=== PATIENT | female | born 1965 | race Caucasian/White ===

== ENCOUNTER 2018-05-26 12:38 | Observation (INO) ==
[2018-05-26] MEDS ORDERED: Aspirin 81 MG TAB.CHEW PO ONE (15:03)
[2018-05-26] MEDS ORDERED: Nitroglycerin 0.4 MG TAB.SUBL SL ONE (15:03)
[2018-05-26 15:46] LABS: Basophils % 0.9 %; Eosinophils # 0.1 K/mcL (0.0-0.6); Eosinophils % 2.3 %; Hematocrit 37.5 % (35.3-44.9); Hemoglobin 11.9 g/dL (11.5-15.4); Immature Granulocytes % 0.2 % (0-4); Lymphocytes # 1.5 K/mcL (0.6-4.6); Lymphocytes % 33.1 %; Mean Corpuscular HGB Conc 31.7 g/dL (31.6-35.5); Mean Corpuscular Hemoglobin 30.5 pg (28.0-33.3); Mean Corpuscular Volume 96.2 fL (83.0-100.0); Mean Platelet Volume 10.3 fL (9.4-12.4); Monocytes # 0.5 K/mcL (0.0-1.3); Monocytes % 11.2 %; Neutrophils # 2.3 K/mcL (1.6-8.9); Platelet Count 212 K/mcL (140-400); Red Cell Distribution Width 13.2 % (11.5-14.5); Segmented Neutrophils % 52.3 %
[2018-05-26 15:55] LABS: Prothrombin Time 11.2 Seconds (9.4-12.1)
[2018-05-26 15:58] LABS: Activated Partial Thrombo Time 30.6 Seconds (26.0-36.0)
[2018-05-26] MEDS ORDERED: Ibuprofen 600 MG TABLET PO ONE (16:00)
[2018-05-26 16:06] LABS: Troponin I < 0.03 ng/mL (< 0.04)
[2018-05-26 16:15] LABS: Alanine Aminotransferase 12 Units/L (7-52); Albumin 4.2 g/dL (3.5-5.7); Albumin/Globulin Ratio 1.8 (1.1-2.2); Alkaline Phosphatase 71 Units/L (34-104); Aspartate Amino Transferase 17 Units/L (13-39); BUN/Creatinine Ratio 13 (6-26); Bilirubin,Indirect 0.3 mg/dL (0.0-1.2); Bilirubin,Total 0.3 mg/dL (0.3-1.0); Blood Urea Nitrogen 11 mg/dL (6-20); Calcium 9.9 mg/dL (8.6-10.3); Carbon Dioxide 27 mEq/L (23-29); Chloride 103 mEq/L (98-107); Globulin 2.4 g/dL (2.4-3.5); Glucose 102 mg/dL (70-105); Lipase 7 Units/L (11-82); Osmolality,Calculated 288 (280-300); Potassium 4.4 mEq/L (3.5-5.1); Sodium 139 mEq/L (136-145); Total Protein 6.6 g/dL (6.4-8.9); eGFR For Non-African Americans > 60 (> 60)
--- NOTE | 2018-05-26 16:37 | Emergency Department Note ---
Disposition Clinical Impression: Atypical chest pain Intractable headache Qualifiers: Headache type: unspecified Headache chronicity pattern: acute headache Qualified Code(s): R51 - Headache Disposition: Admitted As Inpatient Condition: Good Referrals: Preeti Henley [Primary Care Provider] - Forms: ED Satisfaction Letter Time of Disposition: 21:13 General Adult HPI - General Chief complaint: ED Chest Pain Stated complaint: CP / Facial N/T Time Seen by Provider: 05/26/18 13:01 Source: patient Mode of arrival: ambulatory Limitations: no limitations Nursing Notes Reviewed: Yes Vital Signs Reviewed: Yes - History of Present Illness HPI Narrative: 52 year old female with pmh significant for HTN, anxiety and migraines who presents to the ED with 2 day hx of substernal stabbing chest pain, without radiation along with nausea, numbness/paresthesia of bilateral face and L arm which began yst. Pain is intermittent and will lasts for few minutes and resolves spontaneously. She is still having chest pain now. She denies diplopia , blurry vision, diaphoresis, pleuritic chest pain, vomiting, abdominal pain, presyncope, or syncope. She complains of diffuse headache for 5 days without resolution. She has had 3 weeks of diarrhea and was seen here Friday. Pt Subjective Complaint: chest pain Onset (ago): day(s) Location: chest Radiation: non-radiation Pain Severity: severe Pain Scale: 8 Quality: stabbing Consistency: intermittent Improves with: nothing Worsens with: movement Associated symptoms: Reports: headaches, other (nausea) Treatments Prior to Arrival: none - Related Data Home Medications Medication Instructions Recorded Confirmed Amitriptyline HCl 4 tab PO HS 10/11/15 11/20/15 Duloxetine HCl 60 mg PO BID 10/11/15 11/20/15 Fluticasone Propionate Nasal 2 spray NS DAILY 10/11/15 11/20/15 [Flonase] Lansoprazole [Prevacid] 30 mg PO BIDAC 10/11/15 11/20/15 ARIPiprazole [Abilify] 10 mg PO HS 05/26/18 05/26/18 Buspirone HCl [Buspar] 30 mg PO BID 05/26/18 05/26/18 Gabapentin [Neurontin] 1,200 mg PO TID 05/26/18 05/26/18 Meloxicam [Meloxicam] 15 mg PO DAILY 05/26/18 05/26/18 lamoTRIgine [Lamotrigine] 100 mg PO QAM 05/26/18 05/26/18 lamoTRIgine [Lamotrigine] 200 mg PO HS 05/26/18 05/26/18 Previous Rx's Medication Instructions Recorded Aspirin 325 mg PO DAILY #30 tablet 11/20/15 Ibuprofen [Motrin] 600 mg PO Q8HR PRN #30 tab 12/07/17 HYDROcodone/Acet 5/325 mg [[place] 1 tab PO Q4H PRN 1 Days #6 tab 04/22/18 5-325 mg] Ondansetron ODT [Zofran ODT] 4 mg SL Q6HR PRN #14 tab.rapdis 05/23/18 Phenazopyridine [Pyridium] 100 mg PO TID PRN #9 tablet 05/23/18 Allergies Allergy/AdvReac Type Severity Reaction Status Date / Time Penicillins Allergy Unknown See Verified 10/11/15 08:16 Comments pregabalin [From Lyrica] Allergy Unknown Swelling Verified 10/11/15 08:16 of the Eye ketorolac AdvReac Unknown Nausea Verified 10/11/15 08:16 olanzapine [From Zyprexa] AdvReac Unknown See Verified 10/11/15 08:16 Comments tramadol AdvReac Unknown Seizure Verified 10/11/15 08:16 All systems ED: reviewed and negative except as stated. Constitutional: Denies: fever, chills, weakness Eyes: Denies: vision change Cardiovascular: Reports: chest pain. Denies: palpitations, dyspnea on exertion , orthopnea, edema, syncope Respiratory: Denies: dyspnea Gastrointestinal: Reports: nausea, diarrhea. Denies: abdominal pain, vomiting Genitourinary: Denies: dysuria, frequency, hematuria Musculoskeletal: Reports: back pain. Denies: neck pain Neurological: Reports: headache, numbness, paresthesias. Denies: weakness, vertigo Psychiatric: Reports: anxiety, depression Past Medical History - Past Medical History Medical history: Reports: arthritis, hypertension, migraine Surgical history: Reports: angioplasty/stent, cholecystectomy, hysterectomy, knee replacement Psychiatric history: Reports: anxiety, bipolar, depression [employer] history: Reports: no [employer] history - Social History Smoking Status: Former smoker Smokeless Tobacco Status: No Alcohol use: Reports: none Drug use: Reports: none Physical Exam - General Limitations: no limitations General appearance: alert, in no apparent distress - Head Head exam: atraumatic, normocephalic, normal inspection - Eye Eye exam: Present: PERRL, EOMI, other (L pupil 3mm, R pupil 4mm) - ENT ENT exam: mucous membranes moist - Neck Neck exam: Present: normal inspection, trachea midline - Chest Chest inspection: Present: normal inspection, symmetric chest wall rise - Respiratory Respiratory exam: Present: normal lung sounds bilaterally - Cardiovascular Cardiovascular exam: Present: normal rhythm, tachycardia, normal heart sounds, + S1, +S2 - Extremities Exam Extremities exam: Present: normal capillary refill. Absent: pedal edema - Back Exam Back exam: Absent: CVA tenderness (R), CVA tenderness (L) - Neurological Exam Neurological exam: Present: alert. Absent: motor sensory deficit - Psychiatric Psychiatric exam: Present: normal affect - Skin Skin exam: Present: warm, dry, intact, normal color Course Course Narrative: 2 day hx substernal non radiating stabbing chest pain with bilateral face and LUE numbness/paresthesia along with headache for 5 days. No change with nitro. PERC 2, HEART score 3. Will treat her headache now along with d dimer with tachycardia. migranous phenomena vs anxiety > ECG 1256: nsr, hr 96, pr 150, qt 375, RBBB, normal p axis, no acute st elevations/depressions/t wave inversions. RBBB on previous ECG from 04/22/18. 1700: CXR no acute abnormalities. 1755: No change in HAYNES, chest pain but nausea improved after receiving tylenol, ibuprofen, metoclopramide, and benadryl. D-dimer 1020 in setting of recent L LE fracture 3-4 weeks ago. Will CTA chest for PE evaluation. 1945: No change in HAYNES or chest pain. CTA chest 1. Even though the patient was injected and scanned twice, the pulmonary arteries are suboptimally opacified for diagnostic evaluation. No evidence of central pulmonary embolism or right heart strain. 2. No acute pulmonary abnormality. 1999: Will admit to hospitalist service for continued workup given no change in symptoms since arrival and normal labs and imaging in ED. 2004: Spoke to hospitalist who requested CT head due to continued HAYNES and inability to fully visualize CTA study beyond central and can not rule out peripheral PE as plan to anticoagulate her tonight if CT head without hemorrhage. With contrast used in previous CTA today a bleed will not be able to fully be ruled out on the head CT. 2052: CT head, No acute intracranial abnormality. Evaluation for intracranial hemorrhage is compromised by recent contrast administration. If there is continued clinical concern, suggest repeat study in 12 hours. Spoke to hospitalist who accepted admission. Serial neuro exams have been normal during her time in ED. No concerns of primary neurological pathology during workup today. Hospitalist service will repeat CT head at 12 hours as recommended by radiology. Vital Signs Temperature 97.6 F 05/26/18 12:41 Pulse Rate 106 05/26/18 12:41 Respiratory Rate 22 05/26/18 12:41 Blood Pressure 147/90 05/26/18 12:41 O2 Sat by Pulse Oximetry 97 05/26/18 12:41 Temperature 97.6 F 05/26/18 12:41 Pulse Rate 88 05/26/18 20:58 Respiratory Rate 14 05/26/18 20:58 Blood Pressure 137/68 05/26/18 20:58 O2 Sat by Pulse Oximetry 97 05/26/18 20:58 Oxygen Delivery Oxygen Delivery Room Air Medical Decision Making - Lab Data Result diagrams: 05/26/18 15:31 05/26/18 15:31 Lab Results 05/26/18 05/26/18 05/26/18 Range/Units 15:31 15:31 15:31 WBC 4.4 (4.3-11.1) K/mcL RBC 3.90 (3.82-4.97) M/mcL Hgb 11.9 (11.5-15.4) g/dL Hct 37.5 (35.3-44.9) % MCV 96.2 (83.0-100.0) fL MCH 30.5 (28.0-33.3) pg MCHC 31.7 (31.6-35.5) g/dL RDW 13.2 (11.5-14.5) % Plt Count 212 (140-400) K/mcL MPV 10.3 (9.4-12.4) fL Immature Gran % 0.2 (0-4) % Seg Neutrophils % 52.3 % Lymphocytes % 33.1 % Monocytes % 11.2 % Eosinophils % 2.3 % Basophils % 0.9 % Neutrophils # 2.3 (1.6-8.9) K/mcL Lymphocytes # 1.5 (0.6-4.6) K/mcL Monocytes # 0.5 (0.0-1.3) K/mcL Eosinophils # 0.1 (0.0-0.6) K/mcL Basophils # 0.0 (0.0-0.2) K/mcL PT 11.2 (9.4-12.1) Seconds INR 1.0 APTT 30.6 (26.0-36.0) Seconds D-Dimer 1020 H (0-500) ng/mLFEU Sodium (136-145) mEq/L Potassium (3.5-5.1) mEq/L Chloride (98-107) mEq/L Carbon Dioxide (23-29) mEq/L BUN (6-20) mg/dL Creatinine (0.60-1.20) mg/dL Est GFR ( Amer) (> 60) Est GFR (Non-Af Amer) (> 60) BUN/Creatinine Ratio (6-26) Glucose (70-105) mg/dL Calculated Osmolality (280-300) Calcium (8.6-10.3) mg/dL Total Bilirubin (0.3-1.0) mg/dL Direct Bilirubin (0.0-0.2) mg/dL Indirect Bilirubin (0.0-1.2) mg/dL AST (13-39) Units/L ALT (7-52) Units/L Alkaline Phosphatase (34-104) Units/L Troponin I (< 0.04) ng/mL B-Natriuretic Peptide 17 (Less than 100) pg/mL Serum Total Protein (6.4-8.9) g/dL Albumin (3.5-5.7) g/dL Globulin (2.4-3.5) g/dL Albumin/Globulin Ratio (1.1-2.2) Lipase (11-82) Units/L /16/ Range/Units 15:31 WBC (4.3-11.1) K/mcL RBC (3.82-4.97) M/mcL Hgb (11.5-15.4) g/dL Hct (35.3-44.9) % MCV (83.0-100.0) fL MCH (28.0-33.3) pg MCHC (31.6-35.5) g/dL RDW (11.5-14.5) % Plt Count (140-400) K/mcL MPV (9.4-12.4) fL Immature Gran % (0-4) % Seg Neutrophils % % Lymphocytes % % Monocytes % % Eosinophils % % Basophils % % Neutrophils # (1.6-8.9) K/mcL Lymphocytes # (0.6-4.6) K/mcL Monocytes # (0.0-1.3) K/mcL Eosinophils # (0.0-0.6) K/mcL Basophils # (0.0-0.2) K/mcL PT (9.4-12.1) Seconds INR APTT (26.0-36.0) Seconds D-Dimer (0-500) ng/mLFEU Sodium 139 (136-145) mEq/L Potassium 4.4 (3.5-5.1) mEq/L Chloride 103 (98-107) mEq/L Carbon Dioxide 27 (23-29) mEq/L BUN 11 (6-20) mg/dL Creatinine 0.85 (0.60-1.20) mg/dL Est GFR ( Amer) > 60 (> 60) Est GFR (Non-Af Amer) > 60 (> 60) BUN/Creatinine Ratio 13 (6-26) Glucose 102 (70-105) mg/dL Calculated Osmolality 288 (280-300) Calcium 9.9 (8.6-10.3) mg/dL Total Bilirubin 0.3 (0.3-1.0) mg/dL Direct Bilirubin 0.0 (0.0-0.2) mg/dL Indirect Bilirubin 0.3 (0.0-1.2) mg/dL AST 17 (13-39) Units/L ALT 12 (7-52) Units/L Alkaline Phosphatase 71 (34-104) Units/L Troponin I < 0.03 (< 0.04) ng/mL B-Natriuretic Peptide (Less than 100) pg/mL Serum Total Protein 6.6 (6.4-8.9) g/dL Albumin 4.2 (3.5-5.7) g/dL Globulin 2.4 (2.4-3.5) g/dL Albumin/Globulin Ratio 1.8 (1.1-2.2) Lipase 7 L (11-82) Units/L Attestation Statement - Attestation Attestation: I examined this patient and my medical decision-making was reviewed with the Resident Physician, Dr. Art. I agree with the documented findings, disposition and treatment plan as described except to the extent set forth below. Patient is 52-year-old white female who presents the emergency permit today with multiple complaints but primarily of which is substernal chest pain. Patient's been experiencing this intermittently for a few days and episodes last for seconds and then spontaneously resolved. They are not exertionally related. Patient feels a squeezing in her left chest that radiates in the left arm and she feels numbness in her left hand. This is not associated with any other symptoms. Patient was seen and evaluated in the emergency room on Friday for diarrhea and discharged home. She states since that time she has had of mild generalized headache, similar to migraines as these are gradual in onset throbbing in nature but not as severe. Patient states that these have been intermittent in severity as well possibly due to related fluid loss. Patient's had no vomiting, no nausea with this no fevers or chills, no neck pain or stiffness no upper respiratory symptoms or sinus pain or pressure. No focal neurologic deficits numbness weakness dizziness no history of falls or trauma. I agree with patient's physical exam findings as documented. Patient's tachycardic on arrival but blood pressure stable and she is afebrile. Patient's EKG shows a sinus tachycardia without acute ischemia. Patient had full lab evaluation including troponin and d-dimer she is low risk for both cardiovascular disease and PE. Patient with elevated d-dimer in the setting of tachycardia and chest pain we decided to pursue a CTA of the chest which was suboptimal after 2 doses of contrast but no central pulmonary emboli are visualized. Patient has been hemodynamically stable and upon return from CT is no longer tachycardic and blood pressure has remained stable. Patient received migraine medication for the headache with some improvement. Plan was to admit the patient for further cardiac evaluation and ongoing treatment for her headache. Discussed with hospitalist who requested CT of the head prior to admission which was unremarkable. Intracranial bleeding cannot be fully ruled out due to the contrast that was used in her chest CT although she has had no neurologic changes no worsening symptoms while here actual improvement in her symptoms and currently is complaining primarily of some muscular skeletal back pain. Hospitalist agreed to accept the patient we will repeat the CT in 12 hours this was discussed with the patient as well patient remains hemodynamically stable at this time.
[2018-05-26] MEDS ORDERED: Metoclopramide 10 MG/2 ML VIAL IVP ONE (16:52)
[2018-05-26] MEDS ORDERED: Isovue-370 500 ML INFUS..BTL IV ONE (18:03)
[2018-05-26] MEDS ORDERED: *HR* HYDROmorphone (PF) 1 MG/ML SYRINGE IVP ONE (19:39)
[2018-05-26] MEDS ORDERED: Ondansetron 4 MG/2 ML VIAL IVP ONE (19:39)
[2018-05-26] MEDS ORDERED: Naloxone 0.4 MG/ML INJ IVP PRN (23:02)
[2018-05-26] MEDS ORDERED: Acetaminophen/Butalbital/CaffeineTABLET PO PRN (23:42)
--- NOTE | 2018-05-26 23:55 | Internal Med History&Physical ---
<Romeo Thompson - Last Filed: 05/27/18 04:14> Date of Encounter: 05/27/18 Time of Encounter: 11:30 Internal Medicine - H&P: HPI Chief complaint: Chest pain Admitted From: Emergency Dept Plans for Post Hospital Care: Home History of present illness: Ms. Melara is a 52 year old female with history of hypertension, anxiety, migraines, ME status post PCI, DVT, psoriatic arthritis who presents to the ED with 2 day history of substernal chest pain. The patient states that for the past 48 hours she has been experiencing constant 8 out of 10 chest pain which is left-sided and stabbing in nature. The pain initially was located in one position but as of today started radiating towards her left face and towards her back and between her shoulder blades. She said the pain has been constant, and has been associated also some diaphoresis. She denies shortness of breath and palpitations associated with this. She says the only times several had pain like this before was when she had an ME and required PCI with stents. Nothing seems to relieve the pain, although she has tried Motrin which has not been helpful. Exertion and movement does typically make the pain worse. The pain is not pleuritic in nature. In addition of this chest pain, the patient does have a headache which is been going on for approximately 5 days now. The pain is 9 out of 10 in intensity, and is worsened by light. It is frontal in location, and bilateral. It is associated with mild blurred vision in the left eye or floaters that she describes them. She feels that this is different from her typical migraines. She has also tried ibuprofen for this, however has not found it to be particularly effective. Significantly, the patient does state that she has a history of ME in the past with Stents. Additionally, she has a history of DVT when she injured her leg in the past, and she had a recent injury to her left knee which has required immobilization. She feels that her left leg has been more swollen than previously, however there is no pain in the leg. In the ED, the patient had a CXR which was negative for intrathoracic process, however D-Dimer was elevated. CTA of the chest was inconclusive for peripheral PE due to poor study quality, however suggested no evidence of central venous thrombosis or right heart strain. Due to concern for PE, and given the history of headache the patient received a Head CT which was seemingly negative for bleed however it could not be conclusively ruled out due to IV contrast from CTA earlier. The patient had an EKG which was essentially similar to previous studies, and troponin is negative. Past Med Surg Social Fam HX - Past Medical History Medical history: arthritis, migraine Additional medical history: LEUKEMIA Psychiatric history: anxiety, bipolar, depression - Past Surgical History Surgical History: angioplasty/stent, cholecystectomy, hysterectomy, knee replacement Additional surgical history: bilateral knee replacement - Social History Smoking Status: Former smoker Smokeless Tobacco Status: No Alcohol use: none Drug use: none - Family History Father Living Status: Still Living Hx Family Cardiac Disorders: Yes Mother Living Status: Still Living Hx Family Cardiac Disorders: Yes Internal Medicine - H&P: Meds Lansoprazole [Prevacid] 30 mg PO BIDAC 10/11/15 [History] Ondansetron ODT [Zofran ODT] 4 mg SL Q6HR PRN #14 tab.rapdis 05/23/18 [Rx] ARIPiprazole [Abilify] 10 mg PO HS 05/26/18 [History] Buspirone HCl [Buspar] 30 mg PO BID 05/26/18 [History] Duloxetine HCl [Cymbalta] 60 mg PO BID 05/26/18 [History] Meloxicam [Meloxicam] 15 mg PO DAILY 05/26/18 [History] Multivitamin [One Daily Multivitamin] 1 tab PO DAILY 05/26/18 [History] Sulfamethoxazole/Trimeth DS [Bactrim DS] 1 each PO DAILY 05/26/18 [History] lamoTRIgine [Lamotrigine] 100 mg PO QAM 05/26/18 [History] lamoTRIgine [Lamotrigine] 200 mg PO HS 05/26/18 [History] 3 Allergy/AdvReac Type Severity Reaction Status Date / Time Penicillins Allergy Unknown See Verified 05/26/18 22:14 Comments pregabalin [From Lyrica] Allergy Unknown Swelling Verified 05/26/18 22:14 of the Eye ketorolac AdvReac Unknown Nausea Verified 05/26/18 22:14 olanzapine [From Zyprexa] AdvReac Unknown See Verified 05/26/18 22:14 Comments tramadol AdvReac Unknown Seizure Verified 05/26/18 22:14 All Systems PM: A 10-system review of systems was performed and is negative for pertinent findings except as documented above in the HPI. Review of systems: Constitutional: Denies fevers, chills, weight loss, generalized fatigue Head/Neck: Denies HAYNES, neck stiffness EENT: Denies vision changes/blurriness, rhinorrhea, congestion, sore throat CVS: Denies chest pain, palpitations, REYES, orthopnea, edema, PND Pulm: Denies SOB, cough, sputum, hemoptysis, wheezing GI: Denies abdominal pain, nausea, vomiting, diarrhea, constipation, melena, hematemasis : Denies dysuria, increased frequency, urgency, hematuria Heme: Denies ease of bleeding or bruising MSK: Denies joint pain, limited ROM Skin: Denies rashes, ulcers, color changes Neuro: Denies HAYNES, paresthesias, focal deficits, ataxia - Constitutional Vitals: Temp Pulse Resp BP Pulse Ox 97.6 F 88 14 128/75 97 05/26/18 21:47 05/26/18 21:47 05/26/18 22:47 05/26/18 22:47 05/26/18 21:47 Exam: Gen: Vitals noted. No acute distress. HEENT: Normocephalic, atraumatic Neck: Supple. No adenopathy. Cardiac: RRR, no murmur, +S1/S2 Pulmonary: CTA bilaterally, no wheezes, rales or rhonchi, equal chest expansion Abdomen: soft, nontender, no guarding Back: Nontender throughout. MSK: ROM intact, no joint swelling noted. Left lower extremity in brace. No obvious edema is noted nor is there any obvious calf swelling or pain Extremities: no BLE edema, nontender calf, no cyanosis or clubbing Neuro: moves all extremities, no focal deficits. A&Ox3 Psych: Depressed mood, flat affect. Internal Med - H&P Results - Labs CBC & Chem 7: 05/26/18 15:31 05/26/18 15:31 - Assessment and plan (1) Atypical chest pain Current Visit: Yes Status: Acute Assessment and plan: Atypical chest pain, HEART Score 4 Patient presents with 2 days chest pain, 8 out of 10, radiation to left face, back Troponin negative 2, EKG does not demonstrate acute ischemic changes Patient did have positive d-dimer 1020, tachycardia on arrival CTA of chest suboptimal for diagnostic evaluation, no evidence of central pulmonary embolus and right heart strain Suspicion for cardiac event is not high. Suspicion for PE is minimal, however she does have history of DVT Considered empiric treatment with anticoagulation, however patient has HAYNES with neurological symptoms, head CT did not r/o bleed due to IV Contrast from CTA We will continue to trend troponins, cardiac monitoring Echocardiogram in the morning Repeat head CT at 8am (2) Intractable headache Current Visit: Yes Status: Acute Assessment and plan: Intractable headache, suspect migraine Patient has headache which is primarily frontal and left sided, has lasted days , is associated with n/v, facial parasthesia and has visual disturbance Although the patient has history of migraine headache which she says is dissimilar, I suspect this is a typical migraine headache Still, head CT did not rule out intracranial hemorrhage, which I suspect is unlikely. Neuro exam is unremarkable We will repeat head CT in the morning at 8am Fiorocet and perocet for pain Qualifiers: Headache type: unspecified Headache chronicity pattern: acute headache Qualified Code(s): R51 - Headache (3) Nausea Current Visit: Yes Status: Acute Assessment and plan: Intractable nausea Patient has been given Zofran for nausea Will continue to monitor, consider other medication (4) CAD (coronary artery disease) Current Visit: No Status: Chronic Assessment and plan: CAD s/p Stent in 2003 Currently experiencing Chest pain which does not appear anginal EKG is not significant for acute ischemic changes, Trop is negative x2 We will continue to monitor, trend trop Qualifiers: Coronary Disease-Associated Artery/Lesion type: [place] artery [place] vs. transplanted heart: [place] heart Associated angina: angina presence unspecified Qualified Code(s): I25.10 - Atherosclerotic heart disease of [place] coronary artery without angina pectoris (5) DVT prophylaxis Current Visit: No Status: Acute Assessment and plan: SQ Heparin (6) Morbid obesity with BMI of 50.0-59.9, adult Current Visit: Yes Status: Chronic - Time Spent With Patient Total time spent is greater than 50% in coordination of care (as documented) at patient's floor/unit and/or counseling patient: <Elkin Rosas - Last Filed: 05/27/18 06:42> Date of Encounter: 05/27/18 Time of Encounter: 01:00 - Constitutional Constitutional: no chills, no fever(s) - EENT Nose, mouth and throat: sinus pressure, no nasal congestion, no sore throat - Cardiovascular Cardiovascular ROS IM: chest pain, dyspnea, dyspnea on exertion - Respiratory Respiratory: no cough, no chest congestion, no excessive phlegm production, no change in phlegm color - Gastrointestinal Gastrointestinal: no diarrhea, no hematemesis, no hematochezia, no melena, no vomiting - Neurological Neurological ROS: no dizziness, no focal weakness, no frequent falls, no headache(s) - Psychiatric Psychiatric: anxiety - Endocrine Endocrine IM: no polydipsia, no polyphagia, no polyuria - Constitutional Vitals: Temp Pulse Resp BP Pulse Ox 98.1 F 83 16 110/74 99 05/27/18 03:42 05/27/18 03:42 05/27/18 03:42 05/27/18 03:42 05/27/18 03:42 General appearance: Present: A&O X 3, no acute distress - Eye Eye exam: Present: EOMI, PERRL. Absent: scleral icterus Pupils: Present: normal accommodation - ENT ENT exam: Present: mucous membranes dry, normal oropharynx - Neck Neck exam general surgery: Present: supple - Respiratory Respiratory exam: Present: CTAB. Absent: chest wall tenderness, rales, rhonchi , wheezes - Cardiovascular Cardiovascular exam: Present: distant heart sounds, RRR, +S1. Absent: diastolic murmur, systolic murmur - GI/Abdominal GI/Abdominal exam: Present: normal bowel sounds, soft. Absent: mass, tenderness - Extremities Exam Extremities exam: Present: warm, radial pulses palpable and symmetrical - Back Exam Back exam: Absent: CVA tenderness (L), CVA tenderness (R) - Neurological Exam Neurological exam: Present: alert, CN II-XII intact, oriented X3 - Psychiatric Psychiatric exam: Present: flat affect Internal Med - H&P Results - Labs CBC & Chem 7: 05/27/18 05:23 05/27/18 05:23 Labs: Short CBC 05/27/18 Range/Units 05:23 WBC 3.5 L (4.3-11.1) K/mcL Hgb 11.4 L (11.5-15.4) g/dL Hct 34.9 L (35.3-44.9) % Plt Count 204 (140-400) K/mcL Neutrophils # 1.4 L (1.6-8.9) K/mcL BMP 05/27/18 05:23 Sodium 141 Potassium 4.0 Chloride 104 Carbon Dioxide 27 BUN 11 Creatinine 0.83 Glucose 94 Calcium 9.3 Cardiac Enzymes 05/26/18 05/27/18 Range/Units 23:19 05:23 Troponin I < 0.03 < 0.03 (< 0.04) ng/mL - Assessment and plan (1) DVT prophylaxis Current Visit: No Status: Acute (2) CAD (coronary artery disease) Current Visit: No Status: Chronic Qualifiers: Coronary Disease-Associated Artery/Lesion type: [place] artery [place] vs. transplanted heart: [place] heart Associated angina: angina presence unspecified Qualified Code(s): I25.10 - Atherosclerotic heart disease of [place] coronary artery without angina pectoris (3) Nausea Current Visit: Yes Status: Acute (4) Atypical chest pain Current Visit: Yes Status: Acute (5) Intractable headache Current Visit: Yes Status: Acute Qualifiers: Headache type: unspecified Headache chronicity pattern: acute headache Qualified Code(s): R51 - Headache (6) Morbid obesity with BMI of 50.0-59.9, adult Current Visit: Yes Status: Chronic - Time Spent With Patient Total time spent is greater than 50% in coordination of care (as documented) at patient's floor/unit and/or counseling patient: - Attending Attestation I discussed the patient [place], past medical history, review of systems, lab data , imaging findings, and exam findings with Dr. Thompson. I then saw and examined patient independently. I spoke with the ER staff at length about her regarding her headache. I requested that they order CT head to rule out any intracranial process as I was inclined to start empiric anticoagulation. However, CT of the head was not definitively negative for any intracranial process. Recommendation was made to repeat CT scan in 12 hours. Therefore, a CT scan has been ordered for 8:00 this morning to rule out any concern for possible intracranial bleed or process. Meanwhile, I do have a slightly elevated index of suspicion for PE and/or DVT given her history. We will proceed with Doppler studies of the legs and further imaging of the chest if necessary. However, if her CT head is negative and there remains a clinical suspicion, I would recommend empiric treatment for possible PE. At some point thereafter, she will need further cardiac workup of her chest pain. Other than my comments above and noted exam findings, I agree with Dr. Thompson' s assessment and plan.
[2018-05-27] MEDS: Ringers Solution, Lactated 1,000 ML IVC SCH ×3 (03:14→17:51)
[2018-05-27] MEDS: Ondansetron 4 MG/2 ML VIAL IVP PRN ×3 (03:37→20:29)
[2018-05-27 05:36] LABS: Basophils % 0.9 %; Eosinophils # 0.1 K/mcL (0.0-0.6); Eosinophils % 2.6 %; Hematocrit 34.9 % (35.3-44.9); Hemoglobin 11.4 g/dL (11.5-15.4); Immature Granulocytes % 0.3 % (0-4); Lymphocytes # 1.5 K/mcL (0.6-4.6); Lymphocytes % 44.5 %; Mean Corpuscular HGB Conc 32.7 g/dL (31.6-35.5); Mean Corpuscular Hemoglobin 30.9 pg (28.0-33.3); Mean Corpuscular Volume 94.6 fL (83.0-100.0); Mean Platelet Volume 9.9 fL (9.4-12.4); Monocytes # 0.4 K/mcL (0.0-1.3); Monocytes % 10.1 %; Neutrophils # 1.4 K/mcL (1.6-8.9); Platelet Count 204 K/mcL (140-400); Red Blood Count 3.69 M/mcL (3.82-4.97); Red Cell Distribution Width 13.4 % (11.5-14.5); Segmented Neutrophils % 41.6 %
--- NOTE | 2018-05-27 05:42 | Event Note ---
Date of Encounter: 05/27/18 Time of Encounter: 02:35 0235: Was contacted by the patient's nurse about concerned that the patient's pupils may be unequal. Addition of this, the patient was still continuing to have severe nausea and headache, and is haveing parasthesias on the left side of her face that are consistent with the time of admission. I reported to the patient's bedside to reevaluate the patient. At this time she states that she continues to have an 8 out of 10 headache, nausea continues to be severe. I did reexamine the patient neurologically at this time, it appears that she does have very minimally unequal pupils at this time. Neuro exam as below: Gen: Patient appears well. NAD. A&Ox3 HEENT: CN2-12 grossly intact, Pupils round and effectively pinpoint however right pupil appears approximately 0.5-1mm larger in diameter than the left. Speech: Fluent and appropriate pattern. No slurred speech. Muscle Strength: 5/5 B/L in 4 extremities Sensation: Intact to light and deep pressure throughout Reflexes: Intact and 2/4 at brachioradialis and patellar tendon Finger to nose intact b/l. Rapid alternating movement essentially normal Patient appears to be well without real neurological deficit at this time. She has received Fioricet and also opioid painkillers tonight which could play a role in pupillary discrepancy. Additionally, she also has symptoms consistent with migraine headache, which could also be related. The patient is scheduled for repeat head CT at 8am. If problem continues, we will consider an MRI or possibly neuro consult.
[2018-05-27 05:45] LABS: Prothrombin Time 11.8 Seconds (9.4-12.1)
[2018-05-27 05:53] LABS: BUN/Creatinine Ratio 13 (6-26); Blood Urea Nitrogen 11 mg/dL (6-20); Calcium 9.3 mg/dL (8.6-10.3); Carbon Dioxide 27 mEq/L (23-29); Chloride 104 mEq/L (98-107); Chol/HDL Ratio 2.6 (0-4.9); Cholesterol 161 mg/dL (< 200); Glucose 94 mg/dL (70-105); HDL Cholesterol 62 mg/dL (40-59); LDL Cholesterol,Calculated 89 mg/dL (0-99); Magnesium 1.8 mg/dL (1.6-2.6); Osmolality,Calculated 291 (280-300); Sodium 141 mEq/L (136-145); Triglycerides 49 mg/dL (< 150); eGFR For Non-African Americans > 60 (> 60)
[2018-05-27] MEDS: *HR* OxyCODONE/APAP 5/325 TABLET PO PRN ×3 (06:56→18:36)
--- NOTE | 2018-05-27 07:51 | Electrocardiograph Report ---
[facility] [email or web address] Test Date: 2018-05-26 Pat Name: May Melara Department: [id number] Room: 3B38 Gender: F Group Cio: : 1965 Requested By: Carlota Albrecht_Linda Order Number: [id number] Reading MD: All Dunlap Measurements Intervals [place] Rate: 96 P: 41 AR: 150 QRS: 27 QRSD: 149 T: -11 QT: 375 QTc: 474 Interpretive Statements Sinus rhythm Right bundle branch block Electronically Signed On 05-27-2018 7:49:37 EDT by All Dunlap
[2018-05-27] MEDS: lamoTRIgine 100 MG TABLET PO SCH ×2 (10:00→20:00)
--- NOTE | 2018-05-27 11:20 | Internal Med Progress Note ---
Hospitalist Progress Note - Encounter Date of Encounter: 05/27/18 Time of Encounter: 11:20 - Exam Vitals: Temp Pulse Resp BP Pulse Ox 97.6 F 84 16 127/76 100 05/27/18 07:11 05/27/18 07:11 05/27/18 07:11 05/27/18 07:11 05/27/18 07:11 Exam: Gen: Vitals noted. No acute distress. HEENT: Normocephalic, atraumatic Neck: Supple. No adenopathy. Cardiac: RRR, no murmur, +S1/S2 Pulmonary: CTA bilaterally, no wheezes, rales or rhonchi, equal chest expansion Abdomen: soft, nontender, no guarding Back: Nontender throughout. MSK: ROM intact, no joint swelling noted. Left lower extremity in brace. No obvious edema is noted nor is there any obvious calf swelling or pain Extremities: no BLE edema, nontender calf, no cyanosis or clubbing Neuro: moves all extremities, no focal deficits. A&Ox3 Psych: Depressed mood, flat affect. - Assessment and Plan (1) Atypical chest pain Current Visit: Yes Status: Acute Assessment and Plan: Atypical chest pain, HEART Score 4 Patient presents with 2 days chest pain, 8 out of 10, radiation to left face, back Troponin negative 2, EKG does not demonstrate acute ischemic changes Patient did have positive d-dimer 1020, tachycardia on arrival CTA of chest suboptimal for diagnostic evaluation, no evidence of central pulmonary embolus and right heart strain 05/27 Echo came back WNL. Patient continues to complain of chest pain. Will obtain nuclear stress test due to the fact that patient has existing CAD (2) Intractable headache Current Visit: Yes Status: Acute Assessment and Plan: Intractable headache, suspect migraine Patient has headache which is primarily frontal and left sided, has lasted days , is associated with n/v, denies any vision changes but complains of eye "jitteriness" Patient says multiple meds have failed to relieve her pain including fioricet and percoet but was only mildy relieved by dilaudid in the ER Suspect malngering vs true migraine. Will keep on percoet and start on PRN sumatriptan. CT head negative x2. Consider neuro consult if headache does not resolve (3) CAD (coronary artery disease) Current Visit: No Status: Chronic Assessment and Plan: CAD s/p Stent in 2003 Currently experiencing Chest pain which does not appear anginal EKG is not significant for acute ischemic changes, Trop is negative x2 We will continue to monitor, Echo came back WNl (4) Nausea Current Visit: Yes Status: Acute Assessment and Plan: Intractable nausea Patient has been given Zofran for nausea Will continue to monitor, consider other medication (5) Morbid obesity with BMI of 50.0-59.9, adult Current Visit: Yes Status: Chronic Assessment and Plan: Diet and exercise (6) DVT prophylaxis Current Visit: No Status: Acute Assessment and Plan: SQ Heparin - Time Spent with Patient Total time spent is greater than 50% in coordination of care (as documented) at patient's floor/unit and/or counseling patient: Internal Medicine: Result - Labs CBC & Chem 7: 05/27/18 05:23 05/27/18 05:23 Labs: Short CBC 05/27/18 Range/Units 05:23 WBC 3.5 L (4.3-11.1) K/mcL Hgb 11.4 L (11.5-15.4) g/dL Hct 34.9 L (35.3-44.9) % Plt Count 204 (140-400) K/mcL Neutrophils # 1.4 L (1.6-8.9) K/mcL BMP 05/27/18 05:23 Sodium 141 Potassium 4.0 Chloride 104 Carbon Dioxide 27 BUN 11 Creatinine 0.83 Glucose 94 Calcium 9.3 Cardiac Enzymes 05/26/18 05/27/18 Range/Units 23:19 05:23 Troponin I < 0.03 < 0.03 (< 0.04) ng/mL - ABG Interpretation ABG results: PT/INR, D-dimer PT 11.8 Seconds (9.4-12.1) 05/27/18 05:23 D-Dimer 1020 ng/mLFEU (0-500) H 05/26/18 15:31 - Impressions Impressions Echocardiogram 05/27/18 00:11 Impressions: LVEF 60-65%. Normal LV chamber size and function. Mild concentric left ventricular hypertrophy. Atypical septal motion consistent with bundle branch block. Mild left ventricular diastolic dysfunction. Normal right ventricular structure and function. Mild aortic regurgitation. Mild pulmonary hypertension. Head CT 05/27/18 08:30 IMPRESSION: Negative CT brain with no acute intracranial abnormality. D/ / Jackson Shaw MD / Jackson Shaw MD Interpreting Provider: Jackson Shaw MD Consult Discharge Plan - Plan Referrals: Preeti Henley [Primary Care Provider] - (2) Intractable headache Qualifiers: Headache type: unspecified Headache chronicity pattern: acute headache Qualified Code(s): R51 - Headache (3) CAD (coronary artery disease) Qualifiers: Coronary Disease-Associated Artery/Lesion type: [place] artery [place] vs. transplanted heart: [place] heart Associated angina: angina presence unspecified Qualified Code(s): I25.10 - Atherosclerotic heart disease of [place] coronary artery without angina pectoris
[2018-05-27] MEDS ORDERED: Neostigmine Methylsulfate 3 MG/3 ML SYRINGE ONE (12:46)
[2018-05-27] MEDS: SUMAtriptan succinate 50 MG TABLET PO PRN (13:25)
[2018-05-27] MEDS ORDERED: Acetaminophen 325 MG TABLET PO PRN (18:11)
[2018-05-27] MEDS: ARIPiprazole 10 MG TABLET PO SCH (20:01)
[2018-05-28] MEDS: Ringers Solution, Lactated 1,000 ML IVC SCH ×2 (00:16→12:05)
[2018-05-28] MEDS ORDERED: Regadenoson 0.4 MG/5 ML SYRINGE IVP ONE ×2 (08:20→12:07)
[2018-05-28] MEDS: *HR* Heparin 5,000 UNIT/ML VIAL SQ SCH ×2 (12:05→17:47)
[2018-05-28] MEDS: lamoTRIgine 100 MG TABLET PO SCH ×2 (12:06→20:38)
[2018-05-28] MEDS ORDERED: *HR* Heparin 5,000 UNIT/ML VIAL IVP ONE (12:07)
[2018-05-28] MEDS ORDERED: *HR* OxyCODONE/APAP 5/325 TABLET PO ONE (12:07)
[2018-05-28] MEDS ORDERED: Ringers Solution, Lactated 1,000 ML IV.SOLN IV ONE (12:07)
[2018-05-28] MEDS ORDERED: lamoTRIgine 100 MG TABLET PO ONE (12:07)
[2018-05-28] MEDS: Regadenoson 0.4 MG/5 ML SYRINGE IVP ONE ×2 (12:20→12:44)
[2018-05-28 12:22] LABS: BUN/Creatinine Ratio 14 (6-26); Blood Urea Nitrogen 11 mg/dL (6-20); Calcium 8.7 mg/dL (8.6-10.3); Carbon Dioxide 29 mEq/L (23-29); Chloride 105 mEq/L (98-107); Glucose 96 mg/dL (70-105); Osmolality,Calculated 287 (280-300); Potassium 4.2 mEq/L (3.5-5.1); Sodium 139 mEq/L (136-145); eGFR For Non-African Americans > 60 (> 60)
--- NOTE | 2018-05-28 13:29 | Electrocardiograph Report ---
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
[2018-05-28] MEDS: *HR* OxyCODONE/APAP 5/325 TABLET PO PRN (15:20)
--- NOTE | 2018-05-28 17:27 | Internal Med Progress Note ---
Hospitalist Progress Note - Encounter Date of Encounter: 05/28/18 Time of Encounter: 14:00 - Subjective Interval History: Mr. Melara was admitted through the emergency room for chest pain. She completed the first part of her stress test yesterday and is currently awaiting the second component of her nuclear stress test. Today she continues to complain of midsternal chest pain constant stabbing nonradiating. Reports this is the fourth day of the constant pain she denies any associated symptoms of nausea vomiting shortness of breath swelling of her feet or legs. Vision or dizziness. She is currently not dyspneic at rest and is not wearing her oxygen states she does not need it. - Exam Vitals: Temp Pulse Resp BP Pulse Ox 98.1 F 98 16 109/73 96 05/28/18 15:33 05/28/18 15:33 05/28/18 15:33 05/28/18 15:33 05/28/18 15:33 Exam: Stable and as above - Assessment and Plan (1) CAD (coronary artery disease) Current Visit: No Status: Chronic Assessment and Plan: Review of labs shows cholesterol is 161 LDL is 89 HDL is 62, Encouraged to continue with a low-fat low-cholesterol cardiac diet and lose weight Repeat fasting lipid panel in 6 months per primary care provider (2) Nausea Current Visit: Yes Status: Resolved Assessment and Plan: Denies nausea or vomiting today (3) Atypical chest pain Current Visit: Yes Status: Acute Assessment and Plan: Initial EKG completed in the emergency room showed a normal sinus rhythm with a right bundle branch block Echo showed ; Findings: Study Quality * Technically adequate exam. ECG Findings * Sinus rhythm with BBB. Left Ventricle * LVEF 60-65%. * Normal LV chamber size and function. * Mild concentric left ventricular hypertrophy. * Atypical septal motion consistent with bundle branch block. * Mild left ventricular diastolic dysfunction. Right Ventricle * Normal right ventricular structure and function. Left Atrium * Mildly dilated left atrium. Right Atrium * Normal right atrial size. Aortic Valve * Trileaflet aortic valve. * Mild aortic regurgitation. * No aortic stenosis. Mitral Valve * Normal mitral valve structure and function. * No mitral stenosis. * No mitral regurgitation. Tricuspid Valve * Normal tricuspid valve structure and function. * Trace tricuspid regurgitation. * Mild pulmonary hypertension. * Estimated RVSP is 37 mmHg. * Estimated RA pressure is 5 mmHg. Pulmonic Valve * Normal pulmonic valve structure and function. * No pulmonic regurgitation. Aorta * Normally sized aortic root. Pericardium * The pericardium appears normal. IVC * Normal IVC dimensions and inspiratory collapse. Pulmonary Artery * Normal visualized portions of the main pulmonary artery. And nuclear stress test completed a showed; Impression: Perfusion imaging was negative for ischemia or infarct. Pharmacologic stress ECG is negative for ischemia at level of heart rate achieved. No appreciable change from baseline ECG. Patient had 5/10 chest pain to start, increasing to 7/10 with pharmacologic stress. Recommend clinical correlation. Gated EF > 70%. Continue to monitor the current chest pain for another 24 hours if the second part of her stress is negative she may be discharged home tomorrow. (4) Intractable headache Current Visit: Yes Status: Acute Assessment and Plan: Denies headache today (5) Morbid obesity with BMI of 50.0-59.9, adult Current Visit: Yes Status: Chronic Assessment and Plan: Encouraged to follow a low calorie low-fat low-cholesterol diet and daily exercise for also about weight loss goal of 1-2 pounds weight loss per week (6) DVT prophylaxis Current Visit: No Status: Acute Assessment and Plan: We will continue with DVT precautions per protocol and heparin - Time Spent with Patient Total time spent is greater than 50% in coordination of care (as documented) at patient's floor/unit and/or counseling patient: less than 15 minutes Plan of Care Discussed with: patient Internal Medicine: Result - Labs CBC & Chem 7: 05/27/18 05:23 05/28/18 04:57 Labs: BMP 05/28/18 04:57 Sodium 139 Potassium 4.2 Chloride 105 Carbon Dioxide 29 BUN 11 Creatinine 0.80 Glucose 96 Calcium 8.7 - ABG Interpretation ABG results: PT/INR, D-dimer PT 11.8 Seconds (9.4-12.1) 05/27/18 05:23 D-Dimer 1020 ng/mLFEU (0-500) H 05/26/18 15:31 Consult Discharge Plan - Plan Referrals: Preeti Henley [Primary Care Provider] - (1) CAD (coronary artery disease) Qualifiers: Coronary Disease-Associated Artery/Lesion type: [place] artery [place] vs. transplanted heart: [place] heart Associated angina: angina presence unspecified Qualified Code(s): I25.10 - Atherosclerotic heart disease of [place] coronary artery without angina pectoris (4) Intractable headache Qualifiers: Headache type: unspecified Headache chronicity pattern: acute headache Qualified Code(s): R51 - Headache
[2018-05-28] MEDS: ARIPiprazole 10 MG TABLET PO SCH (20:37)
[2018-05-28] MEDS: SUMAtriptan succinate 50 MG TABLET PO PRN (20:38)
[2018-05-28] MEDS: Ondansetron 4 MG/2 ML VIAL IVP PRN (20:43)
[2018-05-29] MEDS: *HR* OxyCODONE/APAP 5/325 TABLET PO PRN ×2 (01:50→08:59)
[2018-05-29] MEDS: SUMAtriptan succinate 50 MG TABLET PO PRN (03:23)
[2018-05-29] MEDS: *HR* Heparin 5,000 UNIT/ML VIAL SQ SCH (05:34)
[2018-05-29] MEDS: lamoTRIgine 100 MG TABLET PO SCH (08:55)
[2018-05-29 11:22] VITALS: BP 129/86
--- NOTE | 2018-05-29 11:38 | Discharge Summary ---
- NOTES TO OUTPATIENT PROVIDER Notes to Outpatient Provider: Basic discharge follow-up. ACS rule out; ruled out. Stress test negative for perfusion defect or ischemia Orders not resulted at time of discharge: Pending orders 05/27/18 11:38 NM mili perf SPECT multi [NM] Routine Date of Encounter: 05/29/18 Time of Encounter: 11:32 - Discharge Diagnosis (1) Atypical chest pain Priority: Primary Status: Acute Assessment and Plan: Presented to the ED with 2 day history of substernal chest pain described as constant and 8/10 and stabbing in nature Chest pain atypical, heart score of 4 D-dimer was noted to be 1020 and patient was tachycardic on arrival CTA of chest suboptimal for diagnostic evaluation, no evidence of central pulmonary embolus or right heart strain Tachycardia subsided, no longer short of breath Risk factors include HTN, NH status post PCI; no records of prior NH found Serial troponins negative 3, EKG completed in the ED shows NSR with RBBB, no ST-T wave changes concerning for ischemia Chest pain has resolved Uneventful hospital course, remained symptomatically stable Workup including stress test and echocardiogram the following results LVEF 60-65%. Normal LV chamber size and function. Mild concentric left ventricular hypertrophy. Atypical septal motion consistent with bundle branch block. Mild left ventricular diastolic dysfunction. Normal right ventricular structure and function. Mild aortic regurgitation. Mild pulmonary hypertension. Impression: Perfusion imaging was negative for ischemia or infarct. Pharmacologic stress ECG is negative for ischemia at level of heart rate achieved. No appreciable change from baseline ECG. Patient had 5/10 chest pain to start, increasing to 7/10 with pharmacologic stress. Recommend clinical correlation. Gated EF > 70%. Continue to monitor the current chest pain for another 24 hours if the second part of her stress is negative she may be discharged home tomorrow. (2) CAD (coronary artery disease) Priority: Secondary Status: Chronic Assessment and Plan: Review of labs shows cholesterol is 161 LDL is 89 HDL is 62, Encouraged to continue with a low-fat low-cholesterol cardiac diet and lose weight Repeat fasting lipid panel in 6 months per primary care provider Remains chest pain-free Qualifiers: Coronary Disease-Associated Artery/Lesion type: [place] artery [place] vs. tr ansplanted heart: [place] heart Associated angina: angina presence unspecified Qualified Code(s): I25.10 - Atherosclerotic heart disease of [place] coronary artery without angina pectoris (3) Nausea Priority: Secondary Status: Resolved (4) Intractable headache Priority: Secondary Status: Resolved Qualifiers: Headache type: unspecified Headache chronicity pattern: acute headache Qualified Code(s): R51 - Headache (5) Morbid obesity with BMI of 50.0-59.9, adult Priority: Secondary Status: Chronic (6) DVT prophylaxis Priority: Secondary Status: Acute Hospital course: Ms. Melara is a 52 year old female with a PMH of HTN, anxiety, migraines, NH status post PCI, DVT, psoriatic arthritis who presents to the ED with a 2 day history of left-sided, substernal chest pain described as sharp and stabbing and 8/10. Pain is radiating to her back and between her shoulder blades. She is also complaining of some diaphoresis and shortness of breath. Due to risk factors including hypertension and prior NH requiring PCI with stents the patient was admitted for ACS evaluation. Additionally, the patient was noted to have an elevated d-dimer 1020, CTA of chest suboptimal but did not really feel any obvious pulmonary embolism. Acute coronary syndrome was ruled out with a negative stress test which was negative for perfusion defect and/or ischemia. Echocardiogram with findings of mild left ventricular diastolic dysfunction and mild pulmonary hypertension and preserved EF. Chest pain resolved and has not returned. The patient is no longer short of breath and resting comfortably on room air and able to ambulate throughout the room and padilla without difficulty. He has had and Uneventful hospital course and has remained hemodynamically stable. 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 Additionally, the patient was instructed to return to the ED should she began to experience shortness of breath, dizziness, fatigue, swelling, weight gain, chest pain and/or pressure. The patient was able to verbalize understanding and denies any further questions at this time. Should be noted that she was not started on any cardiac medications during this stay. She is instructed take 81 mg of aspirin daily. I will refrain from starting a low-dose beta tony at this time as her blood pressure is borderline low in the low 100s. She was not found to have hyperlipidemia therefore simvastatin was not started. Discharge discussed with: patient, family, nurse - Time Spent with Patient Total time spent providing and/or coordinating discharge services: Less than 30 minutes - Discharge Medications Home Medications: Lansoprazole [Prevacid] 30 mg PO BIDAC 10/11/15 [History] Ondansetron ODT [Zofran ODT] 4 mg SL Q6HR PRN #14 tab.rapdis 05/23/18 [Rx] ARIPiprazole [Abilify] 10 mg PO HS 05/26/18 [History] Buspirone HCl [Buspar] 30 mg PO BID 05/26/18 [History] Duloxetine HCl [Cymbalta] 60 mg PO BID 05/26/18 [History] Meloxicam 15 mg PO DAILY 05/26/18 [History] Multivitamin [One Daily Multivitamin] 1 tab PO DAILY 05/26/18 [History] lamoTRIgine [Lamotrigine] 100 mg PO QAM 05/26/18 [History] lamoTRIgine [Lamotrigine] 200 mg PO HS 05/26/18 [History] Allergies/Adverse Reactions: Allergy/AdvReac Type Severity Reaction Status Date / Time Penicillins Allergy Unknown See Verified 05/26/18 22:14 Comments pregabalin [From Lyrica] Allergy Unknown Swelling Verified 05/26/18 22:14 of the Eye ketorolac AdvReac Unknown Nausea Verified 05/26/18 22:14 olanzapine [From Zyprexa] AdvReac Unknown See Verified 05/26/18 22:14 Comments tramadol AdvReac Unknown Seizure Verified 05/26/18 22:14 Date of admission: 05/26/18 21:29 Primary care physician: Preeti Henley Discharging clinician: David Zhang Anticipated date of discharge: 05/29/18 - Constitutional Vitals: Temp Pulse Resp BP Pulse Ox 97.4 F L 96 16 129/86 95 05/29/18 11:21 05/29/18 11:21 05/29/18 11:21 05/29/18 11:21 05/29/18 11:21 General appearance: Present: A&O X 3, no acute distress Exam: . - Head Head exam: Present: atraumatic, normocephalic - Eye Eye exam: Present: PERRL, conjuntiva pink, sclera anicteric Pupils: Present: PERRL - Neck Neck exam general surgery: Present: supple, trachea midline. Absent: lymphadenopathy - Respiratory Respiratory exam: Present: CTAB. Absent: accessory muscle use, rales, rhonchi, wheezes - Cardiovascular Cardiovascular exam: Present: RRR, +S1, +S2. Absent: diastolic murmur, gallop, rubs, systolic murmur - GI/Abdominal GI/Abdominal exam: Present: normal bowel sounds, soft, no peritoneal signs. Absent: distended, tenderness - Extremities Exam Extremities exam: Present: warm, radial pulses palpable and symmetrical. Absent: calf tenderness, cyanotic, pedal edema - Neurological Exam Neurological exam: Present: CN II-XII intact, oriented X3, no focal deficits. Absent: pronater drift, facial droop, speech deficit - Skin Skin exam: Present: dry, intact - Patient Status Disposition: Home, Self-Care Condition: Good Overall status at discharge: patient is back to baseline - Discharge Instructions Instructions: Chest Pain (DC) Follow Up With: Preeti Henley [Primary Care Provider] - 06/01/18 8:20 am - Diet and Activity Activity: increase activity as tolerated, resume usual activities as tolerated Diet: diabetic diet, low fat, low cholesterol, low salt diet, other (weight loss)
== END 2018-05-29 12:08 | disposition home or self-care (01) ==
LOC: EMEROOARM 12:38 → 3BNU 12:38
PROVIDERS: ADMIT Pediatrics; ATTEND Pediatrics

== ENCOUNTER 2018-12-30 10:19 | Observation (INO) ==
[2018-12-30] MEDS ORDERED: Aspirin 81 MG TAB.CHEW PO STA (10:31)
--- NOTE | 2018-12-30 10:36 | Emergency Department Note ---
Disposition Clinical Impression: Chest pain Qualifiers: Chest pain type: unspecified Qualified Code(s): R07.9 - Chest pain, unspecified Disposition: Admitted As Inpatient Condition: Fair Time of Disposition: 17:32 Chest Pain HPI - General Stated Complaint: SOB CP Time Seen by Provider: 12/30/18 10:22 Source: patient Mode of arrival: ambulatory Limitations: no limitations Vital Signs Reviewed: Yes Nursing Notes Reviewed: Yes - History of Present Illness HPI Narrative: 53-year-old female past medical history of anxiety/depression, panic disorder presenting for 2 days of increasing weakness, chest discomfort, shortness of breath. Patient describes 9 out of 10 "aching/cramping pain" in her mid chest without radiation. Patient states that she was diagnosed one month ago with shingles in her left ear. Patient states that she has "internal shingles" in h er chest. Patient without other concerns or complaints at this time. - Related Data Home Medications Medication Instructions Recorded Confirmed Lansoprazole [Prevacid] 30 mg PO BIDAC 10/11/15 05/26/18 ARIPiprazole [Abilify] 10 mg PO HS 05/26/18 05/26/18 Buspirone HCl [Buspar] 30 mg PO BID 05/26/18 05/26/18 Duloxetine HCl [Cymbalta] 60 mg PO BID 05/26/18 05/26/18 Meloxicam 15 mg PO DAILY 05/26/18 05/26/18 Multivitamin [One Daily 1 tab PO DAILY 05/26/18 05/26/18 Multivitamin] lamoTRIgine [Lamotrigine] 100 mg PO QAM 05/26/18 05/26/18 lamoTRIgine [Lamotrigine] 200 mg PO HS 05/26/18 05/26/18 Previous Rx's Medication Instructions Recorded Ondansetron ODT [Zofran ODT] 4 mg SL Q6HR PRN #14 tab.rapdis 05/23/18 Allergies Allergy/AdvReac Type Severity Reaction Status Date / Time Penicillins Allergy Unknown See Verified 05/26/18 22:14 Comments pregabalin [From Lyrica] Allergy Unknown Swelling Verified 05/26/18 22:14 of the Eye ketorolac AdvReac Unknown Nausea Verified 05/26/18 22:14 olanzapine [From Zyprexa] AdvReac Unknown See Verified 05/26/18 22:14 Comments tramadol AdvReac Unknown Seizure Verified 05/26/18 22:14 Review of Systems: Constitutional: Denies: fever, chills Cardiovascular: Admits chest pain Respiratory: Admits dyspnea Gastrointestinal: Denies: abdominal pain, nausea, vomiting, diarrhea, constipa tion, hematemesis, melena, hematochezia Genitourinary: Denies: hematuria Musculoskeletal: Denies: back pain, neck pain Integumentary: Denies: rash Neurological: Patient missed to weakness Denies: headache, numbness, paresthesias Endocrine: Admits fatigue All systems ED: reviewed and negative except as stated. Review of Systems: As Per HPI Chest Pain PMH - Past Medical History Medical history: Reports: arthritis, migraine Surgical history: Reports: angioplasty/stent, cholecystectomy, hysterectomy, knee replacement Psychiatric history: Reports: anxiety, bipolar, depression CHANCELLOR history: Reports: no CHANCELLOR history - Social History Smoking Status: Former smoker Alcohol use: Reports: none Drug use: Reports: none Physical Exam Constitutional: No acute distress, [id number], engaged to conversation, speech is fluid, answers questions appropriately Neuro: GCS 15, no overt focal neurological deficits Head: Atraumatic, normocephalic Eyes: Pupils equal, round and reactive to light, no scleral icterus, no conjunctival injection Neck: Trachea midline without deviation. Anterior neck is supple without swelling. *Chest: Symmetric chest wall rise *Heart: Cardiac rhythm and rate are regular with S1 and S2 , no S3 or S4 appreciated, no murmurs, gallops, rubs, or clicks. *Lungs: Lungs are clear to auscultation bilaterally, without accessory muscle use or prolonged expiratory phase. No wheezes, rhonchi or stridor appreciated. Abdomen: Abdomen is flat, soft to palpation, normal bowel sounds. No abdominal bruit auscultated. Non-distended, non-rigid, no organomegaly, no ascites appreciated. No pulsatile mass, no tenderness or guarding to palpation in all four quadrants, no rebound Extremities: Normal capillary refill without evidence of pedal edema, joint swelling or erythema. Pulses/motor/sensory intact in all 4 extremities. Psychiatric exam: Patient displays a normal affect and mood for the environment. No overt signs of hallucination. Integumentary: warm, dry, intact, normal color. No rash, cyanosis, diaphoresis, erythema, or pallor - General Limitations: no limitations General appearance: alert, in no apparent distress Course Course Narrative: ACS rule out Aspirin 324 mg. D-dimer - Reevaluation(s) Reevaluation #1: Patient noted to have elevated d-dimer We will send patient of CTA of the chest at this time Patient states she has no allergic reactions to IV contrast dye line patient is agreeable to CTA at this time. Patient has no other concerns or complaints at this time We will continue to reassess. Vital Signs Temperature 98.1 F 12/30/18 10:26 Pulse Rate 108 12/30/18 10:26 Respiratory Rate 18 12/30/18 10:26 Blood Pressure 148/102 12/30/18 10:26 O2 Sat by Pulse Oximetry 99 12/30/18 10:26 Temperature 98.0 F 12/30/18 14:31 Pulse Rate 97 12/30/18 14:31 Respiratory Rate 18 12/30/18 14:31 Blood Pressure 150/90 12/30/18 14:31 O2 Sat by Pulse Oximetry 98 12/30/18 14:31 Oxygen Delivery Oxygen Delivery Room Air Chest Pain - MDM Narrative Medical decision making narrative: Patient laboratory, EKG no change results negative for acute pathology CTA negative for acute pulmonary meals Patient with continued chest pain despite management here in the ED Mode of 100 fentanyl Patient admitted to hospitalist medicine service further evaluation and management of chest pain. Patient verbalizes understanding and agreement this plan. - Lab Data Lab results reviewed: Yes I reviewed the patient's lab results. Result diagrams: 12/30/18 10:47 12/30/18 10:47 Lab Results 12/30/18 12/30/18 12/30/18 Range/Units 10:47 10:47 10:47 WBC 4.6 (4.3-11.1) K/mcL RBC 3.56 L (3.82-4.97) M/mcL Hgb 10.7 L (11.5-15.4) g/dL Hct 33.7 L (35.3-44.9) % MCV 94.7 (83.0-100.0) fL MCH 30.1 (28.0-33.3) pg MCHC 31.8 (31.6-35.5) g/dL RDW 14.2 (11.5-14.5) % Plt Count 268 (140-400) K/mcL MPV 8.7 L (9.4-12.4) fL Immature Gran % 0.2 (0-4) % Seg Neutrophils % 50.4 % Lymphocytes % 34.1 % Monocytes % 9.5 % Eosinophils % 5.1 % Basophils % 0.7 % Neutrophils # 2.3 (1.6-8.9) K/mcL Lymphocytes # 1.6 (0.6-4.6) K/mcL Monocytes # 0.4 (0.0-1.3) K/mcL Eosinophils # 0.2 (0.0-0.6) K/mcL Basophils # 0.0 (0.0-0.2) K/mcL D-Dimer 1565 H (0-500) ng/mLFEU Sodium 139 (136-145) mEq/L Potassium 3.9 (3.5-5.1) mEq/L Chloride 108 H (98-107) mEq/L Carbon Dioxide 24 (23-29) mEq/L BUN 11 (6-20) mg/dL Creatinine 0.75 (0.60-1.20) mg/dL Est GFR ( Amer) > 60 (> 60) Est GFR (Non-Af Amer) > 60 (> 60) BUN/Creatinine Ratio 15 (6-26) Glucose 121 H (70-105) mg/dL Calculated Osmolality 289 (280-300) Calcium 8.9 (8.6-10.3) mg/dL Troponin I < 0.03 (< 0.04) ng/mL 12/30/18 Range/Units 13:13 WBC (4.3-11.1) K/mcL RBC (3.82-4.97) M/mcL Hgb (11.5-15.4) g/dL Hct (35.3-44.9) % MCV (83.0-100.0) fL MCH (28.0-33.3) pg MCHC (31.6-35.5) g/dL RDW (11.5-14.5) % Plt Count (140-400) K/mcL MPV (9.4-12.4) fL Immature Gran % (0-4) % Seg Neutrophils % % Lymphocytes % % Monocytes % % Eosinophils % % Basophils % % Neutrophils # (1.6-8.9) K/mcL Lymphocytes # (0.6-4.6) K/mcL Monocytes # (0.0-1.3) K/mcL Eosinophils # (0.0-0.6) K/mcL Basophils # (0.0-0.2) K/mcL D-Dimer (0-500) ng/mLFEU Sodium (136-145) mEq/L Potassium (3.5-5.1) mEq/L Chloride (98-107) mEq/L Carbon Dioxide (23-29) mEq/L BUN (6-20) mg/dL Creatinine (0.60-1.20) mg/dL Est GFR ( Amer) (> 60) Est GFR (Non-Af Amer) (> 60) BUN/Creatinine Ratio (6-26) Glucose (70-105) mg/dL Calculated Osmolality (280-300) Calcium (8.6-10.3) mg/dL Troponin I < 0.03 (< 0.04) ng/mL - Radiology Data Radiology results reviewed: Yes I reviewed the patient's radiology results. Chest X-Ray 12/30/18 10:31 IMPRESSION: 1. No active pulmonary disease. D/ / Jose Laird MD / Jose Laird MD Interpreting Provider: Jose Laird MD - EKG Data EKG attestation: Yes I reviewed and interpreted this EKG. EKG results narrative: Patient EKG shows sinus tachycardia with a right bundle branch block with a heart rate of 106 bpm, AR interval of 137 ms, QRS duration of 145 ms, QT/QTc interval of 357/475 ms respectively.There are no significant ST segment elevations, depressions, pathologic Q waves, abnormal T-wave inversions, or any other signs of acute ischemic change. This EKG is generally consistent with prior EKG performed on 09/21/2018. Heart Score - Score History: Slightly Suspicious EKG: Normal Age: 45-65 Risk Factors: 1-2 risk factors Troponin: Less than normal limit HEART Score Total: 2
--- NOTE | 2018-12-30 10:54 | Emergency Department Note ---
Disposition Clinical Impression: Chest pain Qualifiers: Chest pain type: unspecified Qualified Code(s): R07.9 - Chest pain, unspecified Disposition: Admitted As Inpatient Time of Disposition: 13:34 General Adult HPI - General Chief complaint: ED Chest Pain Stated complaint: SOB CP Time Seen by Provider: 12/30/18 10:22 Source: patient Mode of arrival: ambulatory Limitations: no limitations - Related Data Home Medications Medication Instructions Recorded Confirmed Lansoprazole [Prevacid] 30 mg PO BIDAC 10/11/15 05/26/18 ARIPiprazole [Abilify] 10 mg PO HS 05/26/18 05/26/18 Buspirone HCl [Buspar] 30 mg PO BID 05/26/18 05/26/18 Duloxetine HCl [Cymbalta] 60 mg PO BID 05/26/18 05/26/18 Meloxicam 15 mg PO DAILY 05/26/18 05/26/18 Multivitamin [One Daily 1 tab PO DAILY 05/26/18 05/26/18 Multivitamin] lamoTRIgine [Lamotrigine] 100 mg PO QAM 05/26/18 05/26/18 lamoTRIgine [Lamotrigine] 200 mg PO HS 05/26/18 05/26/18 Previous Rx's Medication Instructions Recorded Ondansetron ODT [Zofran ODT] 4 mg SL Q6HR PRN #14 tab.rapdis 05/23/18 Allergies Allergy/AdvReac Type Severity Reaction Status Date / Time Penicillins Allergy Unknown See Verified 05/26/18 22:14 Comments pregabalin [From Lyrica] Allergy Unknown Swelling Verified 05/26/18 22:14 of the Eye ketorolac AdvReac Unknown Nausea Verified 05/26/18 22:14 olanzapine [From Zyprexa] AdvReac Unknown See Verified 05/26/18 22:14 Comments tramadol AdvReac Unknown Seizure Verified 05/26/18 22:14 Past Medical History - Past Medical History Medical history: Reports: arthritis, migraine Surgical history: Reports: angioplasty/stent, cholecystectomy, hysterectomy, knee replacement Psychiatric history: Reports: anxiety, bipolar, depression TRANSPORT CONDUCTOR history: Reports: no TRANSPORT CONDUCTOR history - Social History Smoking Status: Former smoker Smokeless Tobacco Status: No Alcohol use: Reports: none Drug use: Reports: none Physical Exam - General Limitations: no limitations Course Vital Signs Temperature 98.1 F 12/30/18 10:26 Pulse Rate 108 12/30/18 10:26 Respiratory Rate 18 12/30/18 10:26 Blood Pressure 148/102 12/30/18 10:26 O2 Sat by Pulse Oximetry 99 12/30/18 10:26 Temperature 98.0 F 12/30/18 14:31 Pulse Rate 97 12/30/18 14:31 Respiratory Rate 18 12/30/18 14:31 Blood Pressure 150/90 12/30/18 14:31 O2 Sat by Pulse Oximetry 98 12/30/18 14:31 Oxygen Delivery Oxygen Delivery Room Air Medical Decision Making - Lab Data Result diagrams: 12/30/18 10:47 12/30/18 10:47 Lab Results 12/30/18 12/30/18 12/30/18 Range/Units 10:47 10:47 10:47 WBC 4.6 (4.3-11.1) K/mcL RBC 3.56 L (3.82-4.97) M/mcL Hgb 10.7 L (11.5-15.4) g/dL Hct 33.7 L (35.3-44.9) % MCV 94.7 (83.0-100.0) fL MCH 30.1 (28.0-33.3) pg MCHC 31.8 (31.6-35.5) g/dL RDW 14.2 (11.5-14.5) % Plt Count 268 (140-400) K/mcL MPV 8.7 L (9.4-12.4) fL Immature Gran % 0.2 (0-4) % Seg Neutrophils % 50.4 % Lymphocytes % 34.1 % Monocytes % 9.5 % Eosinophils % 5.1 % Basophils % 0.7 % Neutrophils # 2.3 (1.6-8.9) K/mcL Lymphocytes # 1.6 (0.6-4.6) K/mcL Monocytes # 0.4 (0.0-1.3) K/mcL Eosinophils # 0.2 (0.0-0.6) K/mcL Basophils # 0.0 (0.0-0.2) K/mcL D-Dimer 1565 H (0-500) ng/mLFEU Sodium 139 (136-145) mEq/L Potassium 3.9 (3.5-5.1) mEq/L Chloride 108 H (98-107) mEq/L Carbon Dioxide 24 (23-29) mEq/L BUN 11 (6-20) mg/dL Creatinine 0.75 (0.60-1.20) mg/dL Est GFR ( Amer) > 60 (> 60) Est GFR (Non-Af Amer) > 60 (> 60) BUN/Creatinine Ratio 15 (6-26) Glucose 121 H (70-105) mg/dL Calculated Osmolality 289 (280-300) Calcium 8.9 (8.6-10.3) mg/dL Troponin I < 0.03 (< 0.04) ng/mL 12/30/18 Range/Units 13:13 WBC (4.3-11.1) K/mcL RBC (3.82-4.97) M/mcL Hgb (11.5-15.4) g/dL Hct (35.3-44.9) % MCV (83.0-100.0) fL MCH (28.0-33.3) pg MCHC (31.6-35.5) g/dL RDW (11.5-14.5) % Plt Count (140-400) K/mcL MPV (9.4-12.4) fL Immature Gran % (0-4) % Seg Neutrophils % % Lymphocytes % % Monocytes % % Eosinophils % % Basophils % % Neutrophils # (1.6-8.9) K/mcL Lymphocytes # (0.6-4.6) K/mcL Monocytes # (0.0-1.3) K/mcL Eosinophils # (0.0-0.6) K/mcL Basophils # (0.0-0.2) K/mcL D-Dimer (0-500) ng/mLFEU Sodium (136-145) mEq/L Potassium (3.5-5.1) mEq/L Chloride (98-107) mEq/L Carbon Dioxide (23-29) mEq/L BUN (6-20) mg/dL Creatinine (0.60-1.20) mg/dL Est GFR ( Amer) (> 60) Est GFR (Non-Af Amer) (> 60) BUN/Creatinine Ratio (6-26) Glucose (70-105) mg/dL Calculated Osmolality (280-300) Calcium (8.6-10.3) mg/dL Troponin I < 0.03 (< 0.04) ng/mL Attestation Statement - Attestation Attestation: I examined this patient and my medical decision-making was reviewed with the Resident Physician. I agree with the documented findings, disposition and treatment plan as described except to the extent set forth below. Patient presents to the ED as she complaint of chest pain and ringing in her ears. Patient states she has had problems for the past month when she was diagnosed with "internal shingles." Patient states she has shingles in her ear, throat, and in her chest. It was diagnosed in [place]. On exam she appears mildly anxious but in no distress. ENT exam does not reveal any vesicles in her ears or throat. Heart is regular and lungs are clear. Plan. Cardiac workup. D-dimer as she is mildly tachycardic. Anxiolytic. Patient's workup is unremarkable. No PE on CTA. She still complaining of chest pain. She will be admitted for further cardiac workup. Chest X-Ray 12/30/18 10:31 IMPRESSION: 1. No active pulmonary disease. D/ / Jose Laird MD / Jose Laird MD Interpreting Provider: Jose Laird MD Chest CTA 12/30/18 11:40 IMPRESSION: No acute pulmonary embolus. No acute abnormality in the chest. Moderate-sized hiatal hernia, stable from 09/21/2018. D/ / Paul Carroll MD / Paul Carroll MD Interpreting Provider: Paul Carroll MD
[2018-12-30 11:20] LABS: BUN/Creatinine Ratio 15 (6-26); Blood Urea Nitrogen 11 mg/dL (6-20); Calcium 8.9 mg/dL (8.6-10.3); Carbon Dioxide 24 mEq/L (23-29); Chloride 108 mEq/L (98-107); Glucose 121 mg/dL (70-105); Osmolality,Calculated 289 (280-300); Potassium 3.9 mEq/L (3.5-5.1); Sodium 139 mEq/L (136-145); eGFR For Non-African Americans > 60 (> 60)
[2018-12-30 11:21] LABS: Troponin I < 0.03 ng/mL (< 0.04)
[2018-12-30 11:27] LABS: Basophils % 0.7 %; Eosinophils # 0.2 K/mcL (0.0-0.6); Eosinophils % 5.1 %; Hematocrit 33.7 % (35.3-44.9); Hemoglobin 10.7 g/dL (11.5-15.4); Immature Granulocytes % 0.2 % (0-4); Lymphocytes # 1.6 K/mcL (0.6-4.6); Lymphocytes % 34.1 %; Mean Corpuscular HGB Conc 31.8 g/dL (31.6-35.5); Mean Corpuscular Hemoglobin 30.1 pg (28.0-33.3); Mean Corpuscular Volume 94.7 fL (83.0-100.0); Mean Platelet Volume 8.7 fL (9.4-12.4); Monocytes # 0.4 K/mcL (0.0-1.3); Monocytes % 9.5 %; Neutrophils # 2.3 K/mcL (1.6-8.9); Platelet Count 268 K/mcL (140-400); Red Blood Count 3.56 M/mcL (3.82-4.97); Red Cell Distribution Width 14.2 % (11.5-14.5); Segmented Neutrophils % 50.4 %
[2018-12-30] MEDS ORDERED: Isovue-370 500 ML BOTTLE IVP ONE (11:40)
--- NOTE | 2018-12-30 12:35 | Electrocardiograph Report ---
[place] [employer] [facility] Test Date: 2018-12-30 Pat Name: May Melara Department: EXAM19 Room: Gender: F Director Of Marketing Operations: : 1965 Requested By: Kevin Stewart Order Number: [id number] Reading MD: Rciardo Greenberg Measurements Intervals [place] Rate: 106 P: 45 [place]: 137 QRS: 35 QRSD: 145 T: -20 QT: 357 QTc: 475 Interpretive Statements Sinus tachycardia Right bundle branch block Electronically Signed On 12-30-2018 12:34:12 EDT by Ricardo Greenberg
[2018-12-30] MEDS ORDERED: *HR* FentaNYL (PF) 100 MCG/2 ML VIAL IVP STA (13:08)
[2018-12-30] MEDS ORDERED: Nitroglycerin 0.4 MG TAB.SUBL SL ONE (14:07)
[2018-12-30] MEDS: Nitroglycerin 0.4 MG TAB.SUBL SL PRN ×3 (14:09→17:24)
[2018-12-30] MEDS ORDERED: Naloxone 0.4 MG/ML INJ IVP PRN (14:10)
--- NOTE | 2018-12-30 15:35 | Internal Med History&Physical ---
Date of Encounter: 12/30/18 Time of Encounter: 15:33 Internal Medicine - H&P: HPI Chief complaint: chest pain Admitted From: Home Plans for Post Hospital Care: Home History of present illness: Ms. Melara is a 53 year old female past medical history of migraine, CAD with PCI in 2004, psoriatic arthritis, anxiety depression bipolar disorder came in with complain of chest pain that is being going on for 2 days. Patient reportedly had shingles then led to decreased hearing in her left ear about a month ago which resolved however his last 2 days she had some ringing in her right ear and chest discomfort which was mildly intensity initially and gradually worsened. Today because of worsening chest pain she came to ER. She denies any vomiting or sweating palpitation or lightheadedness but has some nausea. She had a negative stress test in May 2018. Did not follow up. The cardiology afterwards. She apparently is not on aspirin and statin or beta tony. Currently she mentioned she is on Cymbalta, risperidone, lamotrigine, multivitamin. Denies being on any acid suppression medication since 2-3 months or taking any pain medication. She did mention she had endoscopy sometime this year and was told was normal. She did have some shortness of breath with exertion but denies any cough fevers or chills Patient had workup done in the ER for chest pain including negative troponins and unchanged EKG, labs showing elevated d-dimer which has been elevated before and negative workup for PE on CTA and he did not show signs of pneumonia. She did have some anemia but denies any melanotic stool or thanh blood in stool or urine. On interview she did have continuous chest pain about 8-9/10 in intensity present in epigastric region nonradiating. Patient would be admitted for further evaluation. We will confirm her home medication and later with pharmacy. Past Med Surg Social Fam HX - Past Medical History Medical history: arthritis, coronary artery disease, migraine Psychiatric history: anxiety, bipolar, depression - Past Surgical History Surgical History: angioplasty/stent, cholecystectomy, hysterectomy, knee replacement Additional surgical history: bilateral knee replacement - Social History Smoking Status: Former smoker Packs per day: 1 Smokeless Tobacco Status: No Alcohol use: none Drug use: none - Family History Father Living Status: Still Living Hx Family Cardiac Disorders: Yes Mother Living Status: Still Living Hx Family Cardiac Disorders: Yes Internal Medicine - H&P: Meds Lansoprazole [Prevacid] 30 mg PO BIDAC 10/11/15 [History] Ondansetron ODT [Zofran ODT] 4 mg SL Q6HR PRN #14 tab.rapdis 05/23/18 [Rx] ARIPiprazole [Abilify] 10 mg PO HS 05/26/18 [History] Buspirone HCl [Buspar] 30 mg PO BID 05/26/18 [History] Duloxetine HCl [Cymbalta] 60 mg PO BID 05/26/18 [History] Meloxicam 15 mg PO DAILY 05/26/18 [History] Multivitamin [One Daily Multivitamin] 1 tab PO DAILY 05/26/18 [History] lamoTRIgine [Lamotrigine] 100 mg PO QAM 05/26/18 [History] lamoTRIgine [Lamotrigine] 200 mg PO HS 05/26/18 [History] Allergy/AdvReac Type Severity Reaction Status Date / Time Penicillins Allergy Unknown See Verified 05/26/18 22:14 Comments pregabalin [From Lyrica] Allergy Unknown Swelling Verified 05/26/18 22:14 of the Eye ketorolac AdvReac Unknown Nausea Verified 05/26/18 22:14 olanzapine [From Zyprexa] AdvReac Unknown See Verified 05/26/18 22:14 Comments tramadol AdvReac Unknown Seizure Verified 05/26/18 22:14 All Systems PM: A 10-system review of systems was performed and is negative for pertinent findings except as documented above in the HPI. - Constitutional Vitals: Temp Pulse Resp BP Pulse Ox 98.0 F 97 18 150/90 98 12/30/18 14:31 12/30/18 14:31 12/30/18 14:31 12/30/18 14:31 12/30/18 14:31 Exam: Constitutional: Vitals as noted. Conversant. No Apparent Distress. Well groomed. No obvious deformities. Morbidly Obese Eyes : Sclera white, conjunctiva clear, no lid lag, PEARLA. ENT : Grossly normal hearing. Oropharyngeal exam unremarkable. Moist mucus membranes. No JVD, no cervical lymphadenopathy. no thyromegaly or mass. Respiratory : Clear to auscultation bilaterally. No accessory muscle use, rales, rhonchi or wheezes Cardiovascular : RRR, +S1, +S2. no murmur, gallop, rubs. Epigastric tenderness on palpation GI/Abdominal : Soft, Non-tender, Non-distended, normal bowel sounds, soft, no peritoneal signs. no orgenomegaly or mass appreciated. no hernia. Musculoskeletal: no deformity noted. no edema or cyanosis. warm extremities, pulses palpable and symmetrical in UE/LE. no calf tenderness. Neurological: AO X3, CN II-XII grossly intact, grossly normal motor and sensory exam. Skin: No skin rash, lesions or ulcers noted. Pych: anxious and depressed affect Internal Med - H&P Results - Labs CBC & Chem 7: 12/30/18 10:47 12/30/18 10:47 Labs: Short CBC 12/30/18 Range/Units 10:47 WBC 4.6 (4.3-11.1) K/mcL Hgb 10.7 L (11.5-15.4) g/dL Hct 33.7 L (35.3-44.9) % Plt Count 268 (140-400) K/mcL Neutrophils # 2.3 (1.6-8.9) K/mcL BMP 12/30/18 10:47 Sodium 139 Potassium 3.9 Chloride 108 H Carbon Dioxide 24 BUN 11 Creatinine 0.75 Glucose 121 H Calcium 8.9 Cardiac Enzymes 12/30/18 12/30/18 Range/Units 10:47 13:13 Troponin I < 0.03 < 0.03 (< 0.04) ng/mL - EKG Data -: EKG Interpreted by Myself EKG shows normal: sinus rhythm (RBBB, no ischemic changes) - Impressions ITS Impressions Chest X-Ray 12/30/18 10:31 IMPRESSION: 1. No active pulmonary disease. D/ / Jose Laird MD / Jose Laird MD Interpreting Provider: Jose Laird MD Chest CTA 12/30/18 11:40 IMPRESSION: No acute pulmonary embolus. No acute abnormality in the chest. Moderate-sized hiatal hernia, stable from 09/21/2018. D/ / Paul Carroll MD / Paul Carroll MD Interpreting Provider: Paul Carroll MD - Assessment and Plan (1) Chest pain Current Visit: Yes Status: Acute Assessment and plan: Patient chest pain is reproducible. Troponin negative 2, EKG without ischemic changes. Had negative stress test about 7 months ago. Patient is not on any aspirin started on beta tony but does have a history of PCI. We will start patient on aspirin and statin and beta tony. Patient continues to have chest pain as of now. We will trend troponin, repeat EKG. however does not appear to be cardiac in etiology Patient CTA without PE. Patient does have hiatal hernia and and appears to be not on any acid suppressants for at least 2-3 months. Possibly GI related. We will consult gastroenterology. Qualifiers: Chest pain type: unspecified Qualified Code(s): R07.9 - Chest pain, unspecified (2) Hiatal hernia Current Visit: Yes Status: Acute Assessment and plan: Possibly causative factor for chest pain Start patient on PPI Gastroenterology consulted (3) DVT prophylaxis Current Visit: No Status: Acute Assessment and plan: Heparin subcutaneous (4) Morbid obesity with BMI of 50.0-59.9, adult Current Visit: No Status: Chronic Assessment and plan: Discussed lifestyle changes. (5) Anxiety and depression Current Visit: Yes Status: Acute Assessment and plan: Continue home medication once confirmed (6) Bipolar 1 disorder, depressed Current Visit: Yes Status: Acute - Time Spent With Patient Total time spent is greater than 50% in coordination of care (as documented) at patient's floor/unit and/or counseling patient:
[2018-12-30] MEDS ORDERED: OXYCODONE Oral CONC 10 MG/0.5 ML ORAL.SYG SL ONE (17:18)
[2018-12-30] MEDS: Metoprolol XL (24 HR) Succ 25 MG TAB.ER.24H PO SCH (17:23)
[2018-12-30] MEDS: Pantoprazole 40 MG VIAL IVP SCH (17:23)
[2018-12-30] MEDS: Acetaminophen 325 MG TABLET PO PRN (17:23)
[2018-12-30] MEDS: *HR* Heparin 5,000 UNIT/ML VIAL SQ SCH (20:12)
[2018-12-30] MEDS: lamoTRIgine 100 MG TABLET PO SCH (23:15)
[2018-12-30] MEDS: BUSPIRONE HCL 10 MG TABLET PO SCH (23:15)
[2018-12-30] MEDS ORDERED: GI Cocktail 40 ML EACH PO ONE (23:32)
[2018-12-31] MEDS ORDERED: Famotidine 20 MG/2 ML VIAL IVP ONE (04:33)
[2018-12-31 05:02] LABS: Basophils % 0.7 %; Eosinophils # 0.3 K/mcL (0.0-0.6); Eosinophils % 5.9 %; Hematocrit 32.5 % (35.3-44.9); Hemoglobin 9.9 g/dL (11.5-15.4); Immature Granulocytes % 0.2 % (0-4); Lymphocytes # 1.6 K/mcL (0.6-4.6); Lymphocytes % 37.2 %; Mean Corpuscular HGB Conc 30.5 g/dL (31.6-35.5); Mean Corpuscular Hemoglobin 29.4 pg (28.0-33.3); Mean Corpuscular Volume 96.4 fL (83.0-100.0); Monocytes # 0.5 K/mcL (0.0-1.3); Monocytes % 10.9 %; Platelet Count 259 K/mcL (140-400); Red Blood Count 3.37 M/mcL (3.82-4.97); Red Cell Distribution Width 14.1 % (11.5-14.5); Segmented Neutrophils % 45.1 %
[2018-12-31] MEDS: *HR* Heparin 5,000 UNIT/ML VIAL SQ SCH ×3 (05:05→21:43)
[2018-12-31 05:20] LABS: BUN/Creatinine Ratio 20 (6-26); Blood Urea Nitrogen 16 mg/dL (6-20); Calcium 8.6 mg/dL (8.6-10.3); Carbon Dioxide 25 mEq/L (23-29); Chloride 108 mEq/L (98-107); Glucose 101 mg/dL (70-105); Lipase 10 Units/L (11-82); Osmolality,Calculated 289 (280-300); Potassium 3.8 mEq/L (3.5-5.1); Sodium 139 mEq/L (136-145); Troponin I < 0.03 ng/mL (< 0.04); eGFR For Non-African Americans > 60 (> 60)
[2018-12-31] MEDS: Pantoprazole 40 MG VIAL IVP SCH ×2 (07:44→20:20)
[2018-12-31] MEDS: Aspirin 81 MG TAB.CHEW PO SCH (07:44)
[2018-12-31] MEDS: Metoprolol XL (24 HR) Succ 25 MG TAB.ER.24H PO SCH (07:44)
[2018-12-31] MEDS: BUSPIRONE HCL 10 MG TABLET PO SCH ×2 (07:44→20:20)
--- NOTE | 2018-12-31 09:43 | Electrocardiograph Report ---
[place] [id number] Test Date: 2018-12-30 Pat Name: May Melara Department: EXAM19 Room: 3B47 Gender: F Patient Safety Coordinator: : 1965 Requested By: Wilber Adame Order Number: [id number] Reading MD: Mira Byrd Measurements Intervals [place] Rate: 96 P: 31 IA: 152 QRS: 49 QRSD: 144 T: 14 QT: 390 QTc: 493 Interpretive Statements Sinus rhythm Right bundle branch block Electronically Signed On 12-31-2018 9:41:15 EDT by Mira Byrd
--- NOTE | 2018-12-31 09:44 | Internal Med Progress Note ---
Hospitalist Progress Note - Encounter Date of Encounter: 12/31/18 Time of Encounter: 07:42 - Subjective Interval History: Patient seen and examined this morning at bedside. No acute overnight events. Waxing and waning chest pain in the epigastric region nonradiating and reproducible on palpation. Denies any vomiting but has some nausea. - Exam Vitals: Temp Pulse Resp BP Pulse Ox 97.8 F 90 16 122/78 96 12/31/18 07:25 12/31/18 07:25 12/31/18 07:25 12/31/18 07:25 12/31/18 07:25 Exam: Constitutional: Vitals as noted. Conversant. Mild distress due to pain. Respiratory : CTAB. No accessory muscle use, rales, rhonchi or wheezes Cardiovascular : RRR, +S1, +S2. no murmur, gallop, rubs. Epigastric tenderness on palpation GI/Abdominal : Soft, Non-tender, Non-distended, normal bowel sounds, no peritoneal signs. Musculoskeletal: no deformity noted. no edema or cyanosis. no calf tenderness. Neurological: AO X3, CN II-XII grossly intact, grossly normal motor and sensory exam. Pych: anxious and depressed affect - Assessment and Plan (1) Chest pain Current Visit: Yes Status: Acute (2) Hiatal hernia Current Visit: Yes Status: Acute (3) DVT prophylaxis Current Visit: No Status: Acute (4) Morbid obesity with BMI of 50.0-59.9, adult Current Visit: No Status: Chronic (5) Anxiety and depression Current Visit: Yes Status: Acute (6) Bipolar 1 disorder, depressed Current Visit: Yes Status: Acute - Summary of Assessment and Plan Summary of Assessment and Plan: Assessment Acute Chest pain Hiatal hernia Elevated d-dimer RBBB-old DVT prophylaxis Chronic CAD PCI in 2004 Psoriatic arthritis Bipolar disorder anxiety, depression Morbid obesity Plan - continue to have reproducible epigastric tenderness. No EKG changes, Trop negative. Less likely cardiac in nature - Has history of hiatal hernia. unclear whether she took pain medication as mentioned in home meds. She denies taking any pain meds or antacids/PPI. Hold all NSAIDc/w IV PPI. GI consulted for EGD - has chronic elevated d-dimer. CTA without PE. - Heparin subcu for DVT ppx - c/w home psych medication - Time Spent with Patient Total time spent is greater than 50% in coordination of care (as documented) at patient's floor/unit and/or counseling patient: Internal Medicine: Result - Labs CBC & Chem 7: 12/31/18 04:26 12/31/18 04:26 Labs: Short CBC 12/30/18 12/31/18 Range/Units 10:47 04:26 WBC 4.6 4.4 (4.3-11.1) K/mcL Hgb 10.7 L 9.9 L (11.5-15.4) g/dL Hct 33.7 L 32.5 L (35.3-44.9) % Plt Count 268 259 (140-400) K/mcL Neutrophils # 2.3 2.0 (1.6-8.9) K/mcL BMP 12/30/18 12/31/18 10:47 04:26 Sodium 139 139 Potassium 3.9 3.8 Chloride 108 H 108 H Carbon Dioxide 24 25 BUN 11 16 Creatinine 0.75 0.80 Glucose 121 H 101 Calcium 8.9 8.6 Cardiac Enzymes 12/30/18 12/30/18 12/30/18 Range/Units 10:47 13:13 17:08 Troponin I < 0.03 < 0.03 < 0.03 (< 0.04) ng/mL 12/31/18 Range/Units 04:26 Troponin I < 0.03 (< 0.04) ng/mL - ABG Interpretation ABG results: PT/INR, D-dimer 1565 ng/mLFEU (0-500) H 12/30/18 10:47 - Impressions Impressions Chest X-Ray 12/30/18 10:31 IMPRESSION: 1. No active pulmonary disease. D/ / Jose Laird MD / Jose Laird MD Interpreting Provider: Jose Laird MD Chest CTA 12/30/18 11:40 IMPRESSION: No acute pulmonary embolus. No acute abnormality in the chest. Moderate-sized hiatal hernia, stable from 09/21/2018. D/ / Paul Carroll MD / Paul Carroll MD Interpreting Provider: Paul Carroll MD Consult Discharge Plan - Plan Referrals: Preeti Henley [Primary Care Provider] - (1) Chest pain Qualifiers: Chest pain type: unspecified Qualified Code(s): R07.9 - Chest pain, un specified
[2018-12-31] MEDS: OXYCODONE Oral CONC 10 MG/0.5 ML ORAL.SYG SL PRN ×2 (10:14→20:29)
--- NOTE | 2018-12-31 11:40 | Gastroenterology Consult Note ---
Date of Encounter: 12/31/18 Time of Encounter: 10:30 - Assessment and plan (1) Epigastric pain Current Visit: Yes Status: Acute Assessment and plan: Continue PPI. Plan for EGD today to r/o esophagitis, gastritis, duodenitis, PUD, MW tear, or AVM. Keep NPO for EGD. Patient educated regarding lifestyle modifications including: (1) avoidance of foods that may precipitate reflux (eg, coffee, alcohol, chocolate, fatty foods). (2) avoidance of acidic foods that may precipitate heartburn (eg, citrus, carbonated drinks, spicy foods). (3) adoption of behaviors that may reduce esophageal acid exposure (see weight loss, smoking cessation, raising the head of the bed, and avoiding recumbency for 2-3 hours after meals). - Time Spent With Patient Total time spent is greater than 50% in coordination of care (as documented) at patient's floor/unit and/or counseling patient: GI History of Present Illness - Data of Consult Patient: new to practice Consult date: 12/31/18 Requesting Physician: Wilber Adame MD - Consult Narrative Reason for consult: Epigastric pain History of present illness: Ms. Melara is a 53 year old female with PMHx of arthritis, CAD with PCI 2004, migraine who presented with complaints of worsening chest pain for 2 days. She points to epigastric region when lacating her pain. She denies fever, chills, shortness of breath, nausea, vomiting, diarrhea, constipation, melena, or hematochezia. She had negative stress test 05/2018. She states symptoms worsen with eating or when lying down. She reports drinking four 32 oz cups of pop per day. Toponin was negative. D-dimer elevated at 1565, but CTA chest negative for PE. Procedures: Normal EGD this year per patient report. NSAIDs: ibuprofen, naproxen Anticoagulation: None Past Med Surg Social Fam HX - Past Medical History Medical history: arthritis, coronary artery disease, migraine Additional medical history: LEUKEMIA Psychiatric history: anxiety, bipolar, depression - Past Surgical History Surgical History: angioplasty/stent, cholecystectomy, hysterectomy, knee replacement Additional surgical history: bilateral knee replacement - Social History Smoking Status: Former smoker Packs per day: 1 Smokeless Tobacco Status: No Alcohol use: none Drug use: none - Family History Father Living Status: Still Living Hx Family Cardiac Disorders: Yes Mother Living Status: Still Living Hx Family Cardiac Disorders: Yes - Gastrointestinal Gastrointestinal: Present: as per HPI - Constitutional Constitutional: as per HPI - EENT Eyes: as per HPI Ears: Present: as per HPI Nose, mouth and throat: Present: as per HPI - Cardiovascular Cardiovascular ROS: Present: as per HPI - Respiratory Respiratory IM: Present: as per HPI - Genitourinary Genitourinary: Absent: change in color, Urinary frequency - Neurological ROS Neurological GI: Present: as per HPI - Hematologic/Lymphatic Hematologic/Lymphatic pediatric: Present: as per HPI - Musculoskeletal Musculoskeletal ROS GI: Present: as per HPI - Integumentary Integumentary GI: Present: as per HPI - Psychiatric ROS Psychiatric GI: Present: as per HPI - Endocrine Endocrine IM: Present: as per HPI - Constitutional Vitals: Temp Pulse Resp BP Pulse Ox 98.2 F 82 18 108/74 98 12/31/18 10:51 12/31/18 10:51 12/31/18 10:51 12/31/18 10:51 12/31/18 10:51 General appearance: Present: cooperative, A&O X 3, no acute distress, answers questions appropriately - Head Head exam: Present: atraumatic, normocephalic - Eye Eye exam: Present: normal appearance, sclera anicteric - ENT ENT exam: Present: mucous membranes dry - Neck Neck exam general surgery: Present: normal inspection, trachea midline - Respiratory Respiratory exam: Present: CTAB. Absent: rales, rhonchi - Cardiovascular Cardiovascular exam: Present: RRR, +S1, +S2 - GI/Abdominal GI/Abdominal exam: Present: soft, tenderness (epigastric), no peritoneal signs. Absent: distended, firm, guarding - Rectal Rectal exam: Present: deferred - Extremities Exam Extremities exam: Present: warm - Neurological Exam Neurological exam: Present: no focal deficits - Psychiatric Psychiatric exam: Present: normal affect, normal mood - Skin Skin exam: Present: dry, intact, normal color, warm Results - Labs CBC & Chem 7: 12/31/18 04:26 12/31/18 04:26 Labs: Last Result 12/31/18 04:26 Calcium 8.6 Troponin I < 0.03 Entire Visit 12/31/18 12/31/18 04:26 04:26 Hgb 9.9 L Hct 32.5 L Lipase 10 L - ABG ABG results: PT/INR, D-dimer 1565 ng/mLFEU (0-500) H 12/30/18 10:47 - Impressions Impressions Chest CTA 12/30/18 11:40 IMPRESSION: No acute pulmonary embolus. No acute abnormality in the chest. Moderate-sized hiatal hernia, stable from 09/21/2018. D/ / Paul Carroll MD / Paul Carroll MD Interpreting Provider: Paul Carroll MD Consult Discharge Plan - Plan Referrals: Preeti Henley [Primary Care Provider] -
[2018-12-31] MEDS ORDERED: *HR* Propofol 200 MG/20 ML VIAL IVP ONE (13:57)
--- NOTE | 2018-12-31 14:20 | Anesthesia Evaluation PreOp ---
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) Other Medical History: GERD (hiatal hernia), Other (obesity BMI=55) Anesthesia History: No Prior Anesthetic Complications, Past Anesthesia (hysterectomy) Alcohol Use: none Drug use: none Medications and Allergies Ondansetron ODT [Zofran ODT] 4 mg SL Q6HR PRN #14 tab.rapdis 05/23/18 [Rx] Buspirone HCl [Buspar] 30 mg PO BID 05/26/18 [History] Duloxetine HCl [Cymbalta] 60 mg PO BID 05/26/18 [History] Multivitamin [One Daily Multivitamin] 1 tab PO DAILY 05/26/18 [History] lamoTRIgine [Lamotrigine] 100 mg PO QAM 05/26/18 [History] lamoTRIgine [Lamotrigine] 200 mg PO HS 05/26/18 [History] Brexpiprazole [Rexulti] 2 mg PO DAILY 12/30/18 [History] Cetirizine HCl 10 mg PO DAILY 12/30/18 [History] Cholecalciferol (Vitamin D3) [Vitamin D3] 10,000 unit PO RICHARDSON 12/30/18 [History] Cyclobenzaprine HCl 10 mg PO TID PRN 12/30/18 [History] Fluticasone Propionate Nasal [Flonase] 1 spray NS DAILY 12/30/18 [History] Guselkumab [TREMFYA (Outpatient Infusion)] 100 mg SQ Q8W 12/30/18 [History] Ibuprofen 800 mg PO TID PRN 12/30/18 [History] Lansoprazole [Prevacid] 15 mg PO DAILY 12/30/18 [History] Naproxen 500 mg PO BIDWM PRN 12/30/18 [History] Topiramate 50 mg PO BID 12/30/18 [History] Triamcinolone Acet 0.1% CRM [Kenalog] 1 appl TP BID PRN 12/30/18 [History] hydrOXYzine HCl [Hydroxyzine HCl] 50 mg PO BID PRN 12/30/18 [History] Allergy/AdvReac Type Severity Reaction Status Date / Time Penicillins Allergy Unknown See Verified 05/26/18 22:14 Comments pregabalin [From Lyrica] Allergy Unknown Swelling Verified 05/26/18 22:14 of the Eye ketorolac AdvReac Unknown Nausea Verified 05/26/18 22:14 olanzapine [From Zyprexa] AdvReac Unknown See Verified 05/26/18 22:14 Comments tramadol AdvReac Unknown Seizure Verified 05/26/18 22:14 - Meds/Allergy Pre-op Review Medications Reviewed: Yes Allergies Reviewed: Yes Beta Blockers on Current Med List: Yes If Beta Blockers taken, Date/Time (Last Dose taken): 12/31/2018 at 0744 Anesthesia Results - Labs 12/31/18 04:26 12/31/18 04:26 - Imaging EKG: report reviewed (12/30/2018 Sinus rhythm Right bundle branch block) Chest x-ray: report reviewed (12/30/2018 IMPRESSION: 1. No active pulmonary dis ease.) Additional studies: 05/27/2018 Stress Impression: Perfusion imaging was negative for ischemia or infarct. Pharmacologic stress ECG is negative for ischemia at level of heart rate achieved. No appreciable change from baseline ECG. Patient had 5/10 chest pain to start, increasing to 7/10 with pharmacologic stress. Recommend clinical correlation. Gated EF > 70%. 05/27/2018 Echo Impressions: LVEF 60-65%. Normal LV chamber size and function. Mild concentric left ventricular hypertrophy. Atypical septal motion consistent with bundle branch block. Mild left ventricular diastolic dysfunction. Normal right ventricular structure and function. Mild aortic regurgitation. Mild pulmonary hypertension. Anesthesia Exam Vital Signs/O2 Sat, Most Current Temp Pulse Resp BP Pulse Ox 98.2 F 82 18 108/74 98 12/31/18 10:51 12/31/18 10:51 12/31/18 10:51 12/31/18 10:51 12/31/18 10:51 Height: 5'6''/1.68m Weight: 340 lbs/154.5 kg NPO (# of Hours): 8 Pain Scale: 4 (abdomen) Pain Scale Used: Numeric (1 - 10) - HEENT Pupil (Motor): EOMI Mallampati: III Teeth: Edentulous Denture Type: Upper: Complete, Lower: Complete Oral Opening: Greater than 3 - ELECTRIC DRILL OPERATOR LOC: Oriented ELECTRIC DRILL OPERATOR Motor: Normal RUE, Normal LUE, Normal RLE, Normal LLE, Normal Face ELECTRIC DRILL OPERATOR Sensory: Normal: RUE, LUE, RLE, LLE, Face - Cardiac Rhythm: Regular Murmur: None - Pulmonary Breath Sounds: bilateral Clear Respiratory Effort: Symmetrical Anesthesia Assess/Plan ASA Score: 4 Level of consciousness: Cooperative, Oriented, Tranquil Anesthetic Plan: MAC Monitoring Plan: Standard Monitors
[2018-12-31] MEDS: Sucralfate 1 GM TABLET PO SCH ×2 (16:36→21:43)
[2018-12-31] MEDS: Acetaminophen 325 MG TABLET PO PRN (16:36)
[2018-12-31] MEDS: lamoTRIgine 100 MG TABLET PO SCH (20:20)
[2018-12-31] MEDS: Topiramate 25 MG TABLET PO SCH (20:20)
[2019-01-01] MEDS: Acetaminophen 325 MG TABLET PO PRN ×3 (03:23→20:13)
[2019-01-01] MEDS: *HR* Heparin 5,000 UNIT/ML VIAL SQ SCH ×3 (05:18→21:24)
[2019-01-01] MEDS: OXYCODONE Oral CONC 10 MG/0.5 ML ORAL.SYG SL PRN ×2 (05:18→13:19)
[2019-01-01] MEDS ORDERED: Regadenoson 0.4 MG/5 ML SYRINGE IVP ONE (06:03)
[2019-01-01] MEDS: Pantoprazole 40 MG VIAL IVP SCH (09:16)
[2019-01-01] MEDS: Sucralfate 1 GM TABLET PO SCH ×4 (09:17→21:24)
[2019-01-01] MEDS: Topiramate 25 MG TABLET PO SCH ×2 (09:17→20:13)
[2019-01-01] MEDS: Metoprolol XL (24 HR) Succ 25 MG TAB.ER.24H PO SCH (09:17)
[2019-01-01] MEDS: lamoTRIgine 100 MG TABLET PO SCH ×2 (09:17→20:13)
[2019-01-01] MEDS: Aspirin 81 MG TAB.CHEW PO SCH (09:17)
[2019-01-01] MEDS: BUSPIRONE HCL 10 MG TABLET PO SCH ×2 (09:18→20:13)
--- NOTE | 2019-01-01 14:43 | Internal Med Progress Note ---
Hospitalist Progress Note - Encounter Date of Encounter: 01/01/19 Time of Encounter: 14:30 - Subjective Interval History: No acute event overnight. Patient is still complaining of mid sternal chest pain. She also has intermittent left facial numbness and left upper extremity numbness that resolved spontaneously for last 2-3 days but did not tell any pr ovider. Reviewed the vitals Denies fever chills Nausea vomiting headache dizziness or loss of consciousness seizure shortness of breath abdominal pain diarrhea - Exam Vitals: Temp Pulse Resp BP Pulse Ox 97.5 F L 93 17 102/75 100 01/01/19 12:45 01/01/19 12:45 01/01/19 12:45 01/01/19 12:45 01/01/19 12:45 Exam: Constitutional: Vitals as noted. Conversant. Mild distress due to pain. Respiratory : CTAB. No accessory muscle use, rales, rhonchi or wheezes Cardiovascular : RRR, +S1, +S2. no murmur, gallop, rubs. Mild Epigastric tenderness on palpation GI/Abdominal : Soft, Non-tender, Non-distended, normal bowel sounds, no peritoneal signs. Musculoskeletal: no deformity noted. no edema or cyanosis. no calf tenderness. Neurological: AO X3, CN II-XII grossly intact, grossly normal motor and sensory exam. Pych: anxious and depressed affect - Assessment and Plan (1) Chest pain Current Visit: Yes Status: Acute Assessment and Plan: Patient has multiple cardiac risk factor is status post stent in 2004. Does not follow cardiology. Atypical chest pain but having risk factors Will perform cardiac workup. Echocardiogram and a stress tests. Part 2 is stress test will be done tomorrow. Continue aspirin beta tony statin and nitroglycerin. Talk to GI team about continuation of aspirin with recently diagnosed esophageal ulcer that was nonbleeding-they are okay to continue baby aspirin along with Carafate and PPI twice a day and will have reevaluation by GI in 6 weeks to repeat endoscopy. Troponin negative 2, EKG without ischemic changes. Had negative stress test about 7 months ago. We will start patient on aspirin and statin and beta tony. Patient continues to have chest pain as of now. Negative troponin Patient CTA without PE. Patient does have hiatal hernia and and appears to be not on any acid suppressants for at least 2-3 months. Plan for discharge tomorrow after getting a stress test report (2) Esophageal ulcer without bleeding Current Visit: Yes Status: Acute Assessment and Plan: Status post cyber GI endoscopy on 12/31/2018 with finding of nonbleeding esophageal ulcer, hiatal hernia, gastritis. Advise Carafate 1 g 4 times a day, PPI 40 mg twice a day. Repeat endoscopy in 6 weeks. Okay to continue baby aspirin (3) Morbid obesity with BMI of 50.0-59.9, adult Current Visit: No Status: Chronic Assessment and Plan: Discussed lifestyle changes. (4) Hiatal hernia Current Visit: Yes Status: Acute Assessment and Plan: Possibly causative factor for chest pain Start patient on PPI Gastroenterology consulted (5) Anxiety and depression Current Visit: Yes Status: Acute Assessment and Plan: Continue home medication once confirmed (6) Bipolar 1 disorder, depressed Current Visit: Yes Status: Acute Assessment and Plan: Stable. Continue home medicine (7) DVT prophylaxis Current Visit: No Status: Acute Assessment and Plan: Heparin subcutaneous (8) Left facial numbness Current Visit: Yes Status: Acute Assessment and Plan: With left upper extremity numbness intermittent for a few days. No focal ne urological deficit. CT brain without contrast ordered. Will consider MRI if needed. Continue aspirin and statin. - Time Spent with Patient Total time spent is greater than 50% in coordination of care (as documented) at patient's floor/unit and/or counseling patient: Internal Medicine: Result - Labs CBC & Chem 7: 12/31/18 04:26 12/31/18 04:26 - ABG Interpretation ABG results: PT/INR, D-dimer 1565 ng/mLFEU (0-500) H 12/30/18 10:47 - Impressions Impressions Echocardiogram 12/31/18 17:58 Impressions: LVEF 60-65%. Normal LV chamber size and function. Mild concentric left ventricular hypertrophy. Mild left ventricular diastolic dysfunction. Right ventricular size was not well evaluated. Right ventricular function is normal. Borderline mild pulmonary hypertension suggested by Doppler. No significant valvular dysfunction. Left Ventricular Wall Motion: Rest Echo Findings All wall segments showed normal motion. Findings: Study Quality * Technically adequate exam. ECG Findings * Sinus rhythm with BBB. Left Ventricle * LVEF 60-65%. * Normal LV chamber size and function. * Mild concentric left ventricular hypertrophy. * Mild left ventricular diastolic dysfunction. Right Ventricle * Right ventricular size was not well evaluated. Right ventricular function is normal. Left Atrium * Moderately dilated left atrium. Right Atrium * Normal right atrial size. Interatrial Septum * Interatrial septum not well evaluated. Aortic Valve * Trileaflet aortic valve with normal function. * No aortic stenosis. * Trace aortic regurgitation. Mitral Valve * Normal mitral valve structure and function. * No mitral regurgitation. * No mitral stenosis. Tricuspid Valve * Normal tricuspid valve structure and function. * Trace tricuspid regurgitation. * Borderline mild pulmonary hypertension suggested by Doppler. Pulmonic Valve * Pulmonic valve not well visualized. * No pulmonic regurgitation. Aorta * Normally sized aortic root. Pericardium * The pericardium appears normal. IVC * The IVC is not well evaluated. Pulmonary Artery * Normal visualized portions of the main pulmonary artery. Consult Discharge Plan - Plan Referrals: Preeti Henley [Primary Care Provider] - (1) Chest pain Qualifiers: Chest pain type: unspecified Qualified Code(s): R07.9 - Chest pain, unspecified
--- NOTE | 2019-01-01 17:49 | Electrocardiograph Report ---
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
[2019-01-01] MEDS ORDERED: Ondansetron ODT 4 MG TAB.RAPDIS SL PRN (19:38)
[2019-01-02] MEDS: Pantoprazole 40 MG VIAL IVP SCH ×2 (01:36→08:30)
[2019-01-02 01:46] LABS: Basophils % 0.7 %; Eosinophils # 0.2 K/mcL (0.0-0.6); Eosinophils % 5.6 %; Hematocrit 29.7 % (35.3-44.9); Hemoglobin 9.2 g/dL (11.5-15.4); Immature Granulocytes % 0.5 % (0-4); Immature Platelets 0.9 % (1.1-6.1); Lymphocytes # 1.6 K/mcL (0.6-4.6); Lymphocytes % 39.9 %; Mean Corpuscular Hemoglobin 29.6 pg (28.0-33.3); Mean Corpuscular Volume 95.5 fL (83.0-100.0); Monocytes # 0.5 K/mcL (0.0-1.3); Monocytes % 11.2 %; Neutrophils # 1.7 K/mcL (1.6-8.9); Platelet Count 280 K/mcL (140-400); Red Blood Count 3.11 M/mcL (3.82-4.97); Segmented Neutrophils % 42.1 %
[2019-01-02 02:03] LABS: BUN/Creatinine Ratio 21 (6-26); Blood Urea Nitrogen 18 mg/dL (6-20); Calcium 8.5 mg/dL (8.6-10.3); Carbon Dioxide 26 mEq/L (23-29); Chloride 110 mEq/L (98-107); Glucose 101 mg/dL (70-105); Osmolality,Calculated 296 (280-300); Potassium 3.8 mEq/L (3.5-5.1); Sodium 142 mEq/L (136-145); eGFR For Non-African Americans > 60 (> 60)
[2019-01-02] MEDS: *HR* Heparin 5,000 UNIT/ML VIAL SQ SCH ×2 (06:20→14:22)
[2019-01-02] MEDS: Sucralfate 1 GM TABLET PO SCH ×2 (06:20→12:05)
[2019-01-02] MEDS: BUSPIRONE HCL 10 MG TABLET PO SCH (08:29)
[2019-01-02] MEDS: Topiramate 25 MG TABLET PO SCH (08:29)
[2019-01-02] MEDS: Aspirin 81 MG TAB.CHEW PO SCH (08:29)
[2019-01-02] MEDS: Metoprolol XL (24 HR) Succ 25 MG TAB.ER.24H PO SCH (08:29)
[2019-01-02] MEDS: lamoTRIgine 100 MG TABLET PO SCH (08:30)
[2019-01-02] MEDS ORDERED: (Brexpiprazole [Rexulti] 2 MG) PO SCH (09:00)
[2019-01-02] MEDS ORDERED: Fluticasone Propionate Nasal 50 MCG/SPRAY BOTTLE NS SCH (09:00)
[2019-01-02] MEDS ORDERED: Loratadine 10 MG TABLET PO SCH (09:00)
[2019-01-02 11:19] VITALS: BP 117/59
[2019-01-02] MEDS: OXYCODONE Oral CONC 10 MG/0.5 ML ORAL.SYG SL PRN (11:26)
--- NOTE | 2019-01-02 12:35 | Discharge Summary ---
- NOTES TO OUTPATIENT PROVIDER Notes to Outpatient Provider: Follow with PCP in 2-3 days-monitor CBC for anemia. Keep appointment with GI specialist in 1 weeks-discuss about resuming baby aspirin. Get established with cardiology on OPD basis with the help of PCP. Avoid NSAIDs Orders not resulted at time of discharge: Pending orders 12/31/18 15:06 Surgical Pathology [PTH] Routine 12/31/18 17:59 NM mili perf SPECT multi [NM] Routine Date of Encounter: 01/02/19 Time of Encounter: 12:31 - Discharge Diagnosis (1) Chest pain Priority: Primary Status: Acute Assessment and Plan: Most likely due to GI related as abnormal endoscopy-esophageal ulcer and hiatal hernia. Recommended Carafate and PPI 40 mg by mouth twice a day and follow-up OPD basis in 1 week and may repeat upper endoscopy in 6 weeks to check healing Patient also has multiple cardiac risk factor is status post stent in 2004. Does not follow cardiology and does not take aspirin. Atypical chest pain but having risk factors cardiac workup was performed. Echocardiogram and a stress tests with no ischemic finding. Initially aspirin beta tony statin nitroglycerin was restarted. There was slight trend down in hemoglobin and also having no acute ischemic finding in cardiac workup especially patient has been off from aspirin for long time-it was decided to hold aspirin for now until seen by GI specialist in 1 week to discuss to resume after discussing in length with patient. Patient CTA without PE. Patient does have hiatal hernia and and appears to be not on any acid suppressants for at least 2-3 months. Qualifiers: Chest pain type: unspecified Qualified Code(s): R07.9 - Chest pain, unspecified (2) Esophageal ulcer without bleeding Priority: Primary Status: Acute Assessment and Plan: Status post cyber GI endoscopy on 12/31/2018 with finding of nonbleeding esophageal ulcer, hiatal hernia, gastritis. Advise Carafate 1 g 4 times a day, PPI 40 mg twice a day. Repeat endoscopy in 6 weeks. (3) Morbid obesity with BMI of 50.0-59.9, adult Priority: Secondary Status: Chronic Assessment and Plan: Discussed lifestyle changes. (4) Hiatal hernia Priority: Secondary Status: Acute Assessment and Plan: Possibly causative factor for chest pain Start patient on PPI Gastroenterology follow-up outpatient (5) Anxiety and depression Priority: Secondary Status: Acute Assessment and Plan: Continue home medication (6) Bipolar 1 disorder, depressed Priority: Secondary Status: Acute Assessment and Plan: Stable. Continue home medicine (7) Left facial numbness Priority: Primary Status: Acute Assessment and Plan: Nonspecific. Improved. Chronic intermittent. CT brain with no acute finding Hospital course: Ms. Melara is a 53 year old female patient got admitted for atypical chest pain turned out most likely GI related. Having multiple cardiac risk factor echocardiogram and stress test was also ordered with no ischemic finding. Please see detailed in diagnosis section of discharge summary. At the time of discharge patient is able to tolerate food by mouth, no chest pain or shortness of breath with no active bleeding melena or hematemesis hematochezia. Slight trended down hemoglobin therefore aspirin home hold as mentioned in the diagnosis section. Keep follow-up appointment as mentioned Impressions: LVEF 60-65%. Normal LV chamber size and function. Mild concentric left ventricular hypertrophy. Mild left ventricular diastolic dysfunction. Right ventricular size was not well evaluated. Right ventricular function is normal. Borderline mild pulmonary hypertension suggested by Doppler. No significant valvular dysfunction. Left Ventricular Wall Motion: Rest Echo Findings All wall segments showed normal motion. Discharge discussed with: patient, nurse, social work - Time Spent with Patient Total time spent providing and/or coordinating discharge services: Time spent: Less than 30 minutes - Discharge Medications Prescriptions: New Sucralfate [Carafate] 1 gm PO QIDAC #120 tablet Atorvastatin [Lipitor] 40 mg PO HS #30 tablet Pantoprazole Sodium [Protonix] 40 mg PO BID #60 tablet. Metoprolol XL (24 HR) Succ [Toprol Xl] 12.5 mg PO DAILY #30 tab.er.24h Continued Ondansetron ODT [Zofran ODT] 4 mg SL Q6HR PRN #14 tab.rapdis PRN Reason: Nausea And Vomiting lamoTRIgine [Lamotrigine] 100 mg PO QAM lamoTRIgine [Lamotrigine] 200 mg PO HS Buspirone HCl [Buspar] 30 mg PO BID Multivitamin [One Daily Multivitamin] 1 tab PO DAILY Duloxetine HCl [Cymbalta] 60 mg PO BID Brexpiprazole [Rexulti] 2 mg PO DAILY Cetirizine HCl 10 mg PO DAILY Cholecalciferol (Vitamin D3) [Vitamin D3] 10,000 unit PO RICHARDSON Cyclobenzaprine HCl 10 mg PO TID PRN PRN Reason: Muscle Spasm Fluticasone Propionate Nasal [Flonase] 1 spray NS DAILY Guselkumab [TREMFYA (Outpatient Infusion)] 100 mg SQ Q8W hydrOXYzine HCl [Hydroxyzine HCl] 50 mg PO BID PRN PRN Reason: Anxiety Topiramate 50 mg PO BID Triamcinolone Acet 0.1% CRM [Kenalog] 1 appl TP BID PRN PRN Reason: PSORIASIS Discontinued Ibuprofen 800 mg PO TID PRN PRN Reason: Pain Lansoprazole [Prevacid] 15 mg PO DAILY Naproxen 500 mg PO BIDWM PRN PRN Reason: Pain Home Medications: Ondansetron ODT [Zofran ODT] 4 mg SL Q6HR PRN #14 tab.rapdis 05/23/18 [Rx] Buspirone HCl [Buspar] 30 mg PO BID 05/26/18 [History] Duloxetine HCl [Cymbalta] 60 mg PO BID 05/26/18 [History] Multivitamin [One Daily Multivitamin] 1 tab PO DAILY 05/26/18 [History] lamoTRIgine [Lamotrigine] 100 mg PO QAM 05/26/18 [History] lamoTRIgine [Lamotrigine] 200 mg PO HS 05/26/18 [History] Brexpiprazole [Rexulti] 2 mg PO DAILY 12/30/18 [History] Cetirizine HCl 10 mg PO DAILY 12/30/18 [History] Cholecalciferol (Vitamin D3) [Vitamin D3] 10,000 unit PO RICHARDSON 12/30/18 [History] Cyclobenzaprine HCl 10 mg PO TID PRN 12/30/18 [History] Fluticasone Propionate Nasal [Flonase] 1 spray NS DAILY 12/30/18 [History] Guselkumab [TREMFYA (Outpatient Infusion)] 100 mg SQ Q8W 12/30/18 [History] Topiramate 50 mg PO BID 12/30/18 [History] Triamcinolone Acet 0.1% CRM [Kenalog] 1 appl TP BID PRN 12/30/18 [History] hydrOXYzine HCl [Hydroxyzine HCl] 50 mg PO BID PRN 12/30/18 [History] Atorvastatin [Lipitor] 40 mg PO HS #30 tablet 01/02/19 [Rx] Metoprolol XL (24 HR) Succ [Toprol Xl] 12.5 mg PO DAILY #30 tab.er.24h 01/02/19 [Rx] Pantoprazole Sodium [Protonix] 40 mg PO BID #60 tablet. 01/02/19 [Rx] Sucralfate [Carafate] 1 gm PO QIDAC #120 tablet 01/02/19 [Rx] Allergies/Adverse Reactions: Allergy/AdvReac Type Severity Reaction Status Date / Time Penicillins Allergy Unknown See Verified 05/26/18 22:14 Comments pregabalin [From Lyrica] Allergy Unknown Swelling Verified 05/26/18 22:14 of the Eye ketorolac AdvReac Unknown Nausea Verified 05/26/18 22:14 olanzapine [From Zyprexa] AdvReac Unknown See Verified 05/26/18 22:14 Comments tramadol AdvReac Unknown Seizure Verified 05/26/18 22:14 Date of admission: 12/30/18 13:38 Primary care physician: Preeti Henley Consults: 12/30/18 15:39 Consult to Gastroenterology [CONS] Routine Consulting Provider: Gastroenterology [facility] Reason for Consult: epigastric pain, reproducible Call Completed: Yes - Constitutional Vitals: Temp Pulse Resp BP Pulse Ox 97.8 F 81 16 117/59 100 01/02/19 10:57 01/02/19 10:57 01/02/19 10:57 01/02/19 10:57 01/02/19 10:57 Exam: Constitutional: No acute distress Respiratory : CTAB. Cardiovascular : RRR, +S1, +S2. no murmur, gallop, rubs. GI/Abdominal : Soft, Non-tender, Non-distended, normal bowel sounds, no peritoneal signs. Musculoskeletal: no deformity noted. no edema or cyanosis. no calf tenderness. Neurological: AO X3, CN II-XII grossly intact, grossly normal motor and sensory exam. Pych: Normal - Patient Status Disposition: Home, Self-Care Condition: Fair Overall status at discharge: patient is back to baseline - Discharge Instructions Follow Up With: Preeti Henley [Primary Care Provider] - - Diet and Activity Activity: increase activity as tolerated Diet: advance to your usual diet, low fat, low cholesterol, low salt diet
[2019-01-03] MEDS ORDERED: Cholecalciferol (D-3) 1,000 UNIT TABLET PO SCH (09:00)
== END 2019-01-02 14:28 | disposition home or self-care (01) ==
LOC: 3BNU 10:19 → EMEROOARM 10:19 → SUATTDRO 13:38 → 3BNU 14:30
PROVIDERS: ADMIT Internal Medicine Nephrology; ATTEND Internal Medicine
PROC: ENDOEBX (2018-12-31 13:30)

== ENCOUNTER 2019-01-22 12:38 | Inpatient (IN) ==
--- NOTE | 2019-01-22 13:16 | Emergency Department Note ---
Disposition Clinical Impression: Syncope and collapse, Dizziness Fall Qualifiers: Encounter type: sequela Qualified Code(s): W19.XXXS - Unspecified fall, sequela Tinnitus Qualifiers: Laterality: unspecified laterality Qualified Code(s): H93.19 - Tinnitus, unspecified ear Disposition: Admitted As Inpatient Condition: Fair Referrals: Preeti Henley [Primary Care Provider] - Forms: ED Satisfaction Letter Time of Disposition: 16:23 General Adult HPI - General Chief complaint: ED Dizziness Stated complaint: Hands,Face Numb,Falls Time Seen by Provider: 01/22/19 12:51 Source: patient Limitations: no limitations - History of Present Illness HPI Narrative: Ms. Melara is a 53-year-old female with past medical history of anxiety and depression presented to the ED complaining of dizziness. She reports the dizziness started on 01/15/19. She reports that she was standing and walking around in the yard sale on 01/15/19 when she felt dizzy and subsequently fell hi tting her head on concrete. During the fall she reports possible syncopal episode and loss of bladder control. She states that her mom was next turned did not notice any shaking, no history of seizures. Since 01/15/19 she reports falling 2 additional times at her house hitting her right hip. She denies difficulty with gait but does report overall fatigue. She reports she is able to walk around but feels overall tired easily. The dizziness is described as room spinning around her only when she is standing. She is also complaining of tinnitus ongoing for the past 2 weeks. Additionally reports exertional dyspnea. She reports that 2 weeks ago she had a medication change by her psychiatrist and was switched to Latuda. She stopped taking her Latuda on Friday because she was unsure if that was causing her symptoms but she continues to have dizziness even after stopping the medication. She is denying any recent stressors, no recent changes in her diet or social situations. Denies earache, nausea, emesis, chest pain denies lower extremity edema. Denies any vision changes or difficulty swallowing. Pain Scale: 0 - Related Data Home Medications Medication Instructions Recorded Confirmed Buspirone HCl [Buspar] 30 mg PO BID 05/26/18 12/30/18 Duloxetine HCl [Cymbalta] 60 mg PO BID 05/26/18 12/30/18 Multivitamin [One Daily 1 tab PO DAILY 05/26/18 12/30/18 Multivitamin] lamoTRIgine [Lamotrigine] 100 mg PO QAM 05/26/18 12/30/18 lamoTRIgine [Lamotrigine] 200 mg PO HS 05/26/18 12/30/18 Brexpiprazole [Rexulti] 2 mg PO DAILY 12/30/18 12/30/18 Cetirizine HCl 10 mg PO DAILY 12/30/18 12/30/18 Cholecalciferol (Vitamin D3) 10,000 unit PO RICHARDSON 12/30/18 12/30/18 [Vitamin D3] Cyclobenzaprine HCl 10 mg PO TID PRN 12/30/18 12/30/18 Fluticasone Propionate Nasal 1 spray NS DAILY 12/30/18 12/30/18 [Flonase] Guselkumab [TREMFYA (Outpatient 100 mg SQ Q8W 12/30/18 12/30/18 Infusion)] Topiramate 50 mg PO BID 12/30/18 12/30/18 Triamcinolone Acet 0.1% CRM 1 appl TP BID PRN 12/30/18 12/30/18 [Kenalog] hydrOXYzine HCl [Hydroxyzine HCl] 50 mg PO BID PRN 12/30/18 12/30/18 Previous Rx's Medication Instructions Recorded Ondansetron ODT [Zofran ODT] 4 mg SL Q6HR PRN #14 tab.rapdis 05/23/18 Atorvastatin [Lipitor] 40 mg PO HS #30 tablet 01/02/19 Metoprolol XL (24 HR) Succ [Toprol 12.5 mg PO DAILY #30 tab.er.24h 01/02/19 Xl] Pantoprazole Sodium [Protonix] 40 mg PO BID #60 tablet. 01/02/19 Sucralfate [Carafate] 1 gm PO QIDAC #120 tablet 01/02/19 Allergies Allergy/AdvReac Type Severity Reaction Status Date / Time Penicillins Allergy Unknown See Verified 05/26/18 22:14 Comments pregabalin [From Lyrica] Allergy Unknown Swelling Verified 05/26/18 22:14 of the Eye ketorolac AdvReac Unknown Nausea Verified 05/26/18 22:14 olanzapine [From Zyprexa] AdvReac Unknown See Verified 05/26/18 22:14 Comments tramadol AdvReac Unknown Seizure Verified 05/26/18 22:14 Constitutional: Reports: weakness. Denies: fever, chills Eyes: Reports: other (Tinnitus). Denies: eye pain, vision change ENT ED: Denies: ear pain, throat pain, congestion, dysphagia Cardiovascular: Reports: dyspnea on exertion, syncope. Denies: chest pain, palpitations Respiratory: Denies: cough, dyspnea, wheezes Gastrointestinal: Denies: abdominal pain, nausea, vomiting Genitourinary: Denies: urgency, dysuria, frequency Musculoskeletal: Denies: back pain, joint swelling Integumentary: Denies: rash, abrasion, lesions Neurological: Reports: headache, weakness. Denies: numbness, paresthesias Psychiatric: Reports: anxiety, depression Past Medical History - Past Medical History Medical history: Reports: coronary artery disease, CVA, hypertension Surgical history: Reports: angioplasty/stent, cholecystectomy, hysterectomy, knee replacement Psychiatric history: Reports: anxiety, bipolar, depression SCIENTIFIC ADVISOR history: Reports: no SCIENTIFIC ADVISOR history - Social History Smoking Status: Former smoker Smokeless Tobacco Status: No Alcohol use: Reports: none Drug use: Reports: none Physical Exam - General Limitations: no limitations General appearance: alert, in no apparent distress - Head Head exam: atraumatic, normocephalic, other (Head was examined and no abrasion or bruising noted) - Eye Eye exam: Present: normal appearance, EOMI. Absent: scleral icterus, conjunctival injection - ENT ENT exam: normal oropharynx, mucous membranes moist - Neck Neck exam: Present: normal inspection, full ROM, trachea midline - Chest Chest inspection: Present: normal inspection, symmetric chest wall rise. Absent: tenderness - Respiratory Respiratory exam: Present: normal lung sounds bilaterally. Absent: respiratory distress, wheezes - Cardiovascular Cardiovascular exam: Present: regular rate, +S1, +S2 - Abdominal Exam Abdominal exam: Present: soft, Non-Tender, normal bowel sounds. Absent: distention, guarding - Extremities Exam Extremities exam: Present: normal inspection, full ROM, tenderness - Neurological Exam Neurological exam: Present: alert, oriented X3, CN II-XII intact (Patient was intact. Hearing was also intact. Tongue and uvula midline. Lower extremely strength 5/5. Upper extremity strength 3/5. ), other (Hammad-Hallpike maneuver negative. During gait, was imbalanced after afew steps.). Absent: motor sensory deficit - Psychiatric Psychiatric exam: Present: normal mood, flat affect - Skin Skin exam: Present: warm, dry, intact Course Vital Signs Temperature 97.6 F 01/22/19 12:40 Pulse Rate 97 01/22/19 12:40 Respiratory Rate 18 01/22/19 12:40 Blood Pressure 118/84 01/22/19 12:40 O2 Sat by Pulse Oximetry 98 01/22/19 12:40 Temperature 97.6 F 01/22/19 12:50 Pulse Rate 92 01/22/19 14:30 Respiratory Rate 18 01/22/19 14:30 Blood Pressure 123/88 01/22/19 14:30 O2 Sat by Pulse Oximetry 99 01/22/19 14:30 Oxygen Delivery Oxygen Delivery Room Air Medical Decision Making - MDM Narrative Medical decision making narrative: Ms. Melara is a 53-year-old female who presents to ED complaining of dizziness onset on 01/15/19. She reports she felt dizzy and subsequently fell hitting her head on the concrete. She also reports a syncopal episode during this event as well as bladder incontinence. Since then she reports falling 2 additional times landing on her right hip. Due to concern for syncopal episode and hitting her head she is getting a CT of the head. Additionally reported exertional dyspnea chest x-ray was conducted which does not show any acute abnormalities. Hip x-ray does not show any acute fractures. CT had pending 1400 CT of the head did not show any acute abnormalities. CT of the cervical spine also did not show any acute abnormalities. Waiting for labs and salicylate levels pending 1500 CBC, BMP and urinalysis within normal limits. Her symptoms have improved but she continues to report that with ambulation she has dizziness. 1540 Ambulated Ms. Melara and upon gait she felt dizzy and appeared imbalanced. Spoke with Dr. Stovall, patient will be admitted for further syncopal and fall workup. 1600 - Medical Records Medical records reviewed: Yes I reviewed the patient's medical records. - Lab Data Lab results reviewed: Yes I reviewed the patient's lab results. Result diagrams: 01/22/19 14:10 01/22/19 14:10 Lab Results 06/14/19 06/14/19 06/14/19 Range/Units 14:10 14:10 14:29 WBC 5.2 (4.3-11.1) K/mcL RBC 4.48 (3.82-4.97) M/mcL Hgb 12.8 (11.5-15.4) g/dL Hct 40.5 (35.3-44.9) % MCV 90.4 (83.0-100.0) fL MCH 28.6 (28.0-33.3) pg MCHC 31.6 (31.6-35.5) g/dL RDW 13.7 (11.5-14.5) % Plt Count 304 (140-400) K/mcL MPV 9.3 L (9.4-12.4) fL Immature Gran % 0.4 (0-4) % Seg Neutrophils % 43.4 % Lymphocytes % 38.0 % Monocytes % 13.5 % Eosinophils % 3.5 % Basophils % 1.2 % Neutrophils # 2.3 (1.6-8.9) K/mcL Lymphocytes # 2.0 (0.6-4.6) K/mcL Monocytes # 0.7 (0.0-1.3) K/mcL Eosinophils # 0.2 (0.0-0.6) K/mcL Basophils # 0.1 (0.0-0.2) K/mcL Sodium 138 (136-145) mEq/L Potassium 3.7 (3.5-5.1) mEq/L Chloride 105 (98-107) mEq/L Carbon Dioxide 27 (23-29) mEq/L BUN 13 (6-20) mg/dL Creatinine 0.86 (0.60-1.20) mg/dL Est GFR ( Amer) > 60 (> 60) Est GFR (Non-Af Amer) > 60 (> 60) BUN/Creatinine Ratio 15 (6-26) Glucose 84 (70-105) mg/dL Calculated Osmolality 285 (280-300) Calcium 9.8 (8.6-10.3) mg/dL Urine Color Yellow (Yellow) Urine Clarity Slightly Hazy (Clear) Urine pH 6.5 (5.0-8.0) pH Units Ur Specific [place] < 1.005 L (1.010-1.025) Urine Protein Negative (Neg-Trace) mg/dL Urine Glucose (UA) Normal (Normal) mg/dL Urine Ketones Negative (Negative) mg/dL Urine Blood Negative (Negative) Urine Nitrite Negative (Negative) Urine Bilirubin Negative (Negative) Urine Urobilinogen Normal (Normal) mg/dL Ur Leukocyte Esterase Trace H (Negative) Urine Microscopic RBC 0-3 (0-3) per hpf Urine Microscopic WBC 5-15 H (0-3) per hpf Ur Squamous Epith Cells Many H (None-Few) per lpf Urine Bacteria Few (None-Few) per hpf Hyaline Casts None Seen (None-Few) per lpf Ur Culture Indicated? YES A (NO) Salicylates < 2.5 L (15.0-30.0) mg/dL - Radiology Data Radiology results reviewed: Yes I reviewed the patient's radiology results.
--- NOTE | 2019-01-22 14:25 | Emergency Department Note ---
Disposition Clinical Impression: Syncope and collapse, Dizziness Fall Qualifiers: Encounter type: sequela Qualified Code(s): W19.XXXS - Unspecified fall, sequela Tinnitus Qualifiers: Laterality: unspecified laterality Qualified Code(s): H93.19 - Tinnitus, unspecified ear Closed head injury Qualifiers: Encounter type: initial encounter Qualified Code(s): S09.90XA - Unspecified injury of head, initial encounter Disposition: Admitted As Inpatient Condition: Fair Referrals: Preeti Henley [Primary Care Provider] - Forms: ED Satisfaction Letter Time of Disposition: 16:29 General Adult HPI - General Chief complaint: ED Dizziness Stated complaint: Hands,Face Numb,Falls Time Seen by Provider: 01/22/19 12:51 Source: patient Limitations: no limitations Nursing Notes Reviewed: Yes Vital Signs Reviewed: Yes - History of Present Illness Pain Scale: 0 - Related Data Home Medications Medication Instructions Recorded Confirmed Buspirone HCl [Buspar] 30 mg PO BID 05/26/18 12/30/18 Duloxetine HCl [Cymbalta] 60 mg PO BID 05/26/18 12/30/18 Multivitamin [One Daily 1 tab PO DAILY 05/26/18 12/30/18 Multivitamin] lamoTRIgine [Lamotrigine] 100 mg PO QAM 05/26/18 12/30/18 lamoTRIgine [Lamotrigine] 200 mg PO HS 05/26/18 12/30/18 Brexpiprazole [Rexulti] 2 mg PO DAILY 12/30/18 12/30/18 Cetirizine HCl 10 mg PO DAILY 12/30/18 12/30/18 Cholecalciferol (Vitamin D3) 10,000 unit PO RICHARDSON 12/30/18 12/30/18 [Vitamin D3] Cyclobenzaprine HCl 10 mg PO TID PRN 12/30/18 12/30/18 Fluticasone Propionate Nasal 1 spray NS DAILY 12/30/18 12/30/18 [Flonase] Guselkumab [TREMFYA (Outpatient 100 mg SQ Q8W 12/30/18 12/30/18 Infusion)] Topiramate 50 mg PO BID 12/30/18 12/30/18 Triamcinolone Acet 0.1% CRM 1 appl TP BID PRN 12/30/18 12/30/18 [Kenalog] hydrOXYzine HCl [Hydroxyzine HCl] 50 mg PO BID PRN 12/30/18 12/30/18 Previous Rx's Medication Instructions Recorded Ondansetron ODT [Zofran ODT] 4 mg SL Q6HR PRN #14 tab.rapdis 05/23/18 Atorvastatin [Lipitor] 40 mg PO HS #30 tablet 01/02/19 Metoprolol XL (24 HR) Succ [Toprol 12.5 mg PO DAILY #30 tab.er.24h 01/02/19 Xl] Pantoprazole Sodium [Protonix] 40 mg PO BID #60 tablet. 01/02/19 Sucralfate [Carafate] 1 gm PO QIDAC #120 tablet 01/02/19 Allergies Allergy/AdvReac Type Severity Reaction Status Date / Time Penicillins Allergy Unknown See Verified 05/26/18 22:14 Comments pregabalin [From Lyrica] Allergy Unknown Swelling Verified 05/26/18 22:14 of the Eye ketorolac AdvReac Unknown Nausea Verified 05/26/18 22:14 olanzapine [From Zyprexa] AdvReac Unknown See Verified 05/26/18 22:14 Comments tramadol AdvReac Unknown Seizure Verified 05/26/18 22:14 Constitutional: Reports: weakness. Denies: fever, chills Eyes: Denies: eye pain, vision change ENT ED: Denies: ear pain, throat pain, congestion, dysphagia Cardiovascular: Reports: dyspnea on exertion, syncope. Denies: chest pain, palpitations Respiratory: Denies: cough, dyspnea, wheezes Gastrointestinal: Denies: abdominal pain, nausea, vomiting Genitourinary: Denies: urgency, dysuria, frequency Musculoskeletal: Denies: back pain, joint swelling Integumentary: Denies: rash, abrasion, lesions Neurological: Reports: headache, weakness. Denies: numbness, paresthesias Psychiatric: Reports: anxiety, depression Past Medical History - Past Medical History Medical history: Reports: coronary artery disease, CVA, hypertension Surgical history: Reports: angioplasty/stent, cholecystectomy, hysterectomy, knee replacement Psychiatric history: Reports: anxiety, bipolar, depression SOLDERER DIPPER history: Reports: no SOLDERER DIPPER history - Social History Smoking Status: Former smoker Smokeless Tobacco Status: No Alcohol use: Reports: none Drug use: Reports: none Physical Exam - General Limitations: no limitations General appearance: alert, in no apparent distress Course Vital Signs Temperature 97.6 F 01/22/19 12:40 Pulse Rate 97 01/22/19 12:40 Respiratory Rate 18 01/22/19 12:40 Blood Pressure 118/84 01/22/19 12:40 O2 Sat by Pulse Oximetry 98 01/22/19 12:40 Temperature 97.6 F 01/22/19 12:50 Pulse Rate 92 01/22/19 14:30 Respiratory Rate 18 01/22/19 14:30 Blood Pressure 123/88 01/22/19 14:30 O2 Sat by Pulse Oximetry 99 01/22/19 14:30 Oxygen Delivery Oxygen Delivery Room Air Medical Decision Making - MDM Narrative Medical decision making narrative: Cervical Spine CT 01/22/19 13:17 IMPRESSION: No acute abnormality of the cervical spine. D/ / Javier Carroll MD / Javier Carroll MD Interpreting Provider: Javier Carroll MD Head CT 01/22/19 13:17 IMPRESSION: No acute intracranial abnormality. D/ / Matthieu Tripathi MD / Matthieu Tripathi MD Interpreting Provider: Matthieu Tripathi MD Hip X-Ray 01/22/19 13:20 IMPRESSION: No acute fracture. D/ / Damien Martínez MD / Damien Martínez MD Interpreting Provider: Damien Martínez MD Chest X-Ray 01/22/19 13:21 IMPRESSION: No acute cardiopulmonary disease. D/ / Bishnu Goldstein MD / Bishnu Goldstein MD Interpreting Provider: Bishnu Goldstein MD I reviewed the residents documentation and agree with the residents assessment and plan of care. I have personally had face to face time with the patient. (Brief History, Brief Exam, and MDM) I personally supervised and was present for the pace/critical portions of the following procedures completed by the resident: EKG was reviewed and interpreted by Dr. Thomas under my supervision, agree with her interpretation. 1446 hrs.: Waiting on labs. CTs and imaging are negative. 1550 hrs.: Labs look good urine will be cultured. Were not update her on her x-rays and then determine best disposition. 1615 hrs.: Patient got up to ambulate and she was very unsteady on her feet and she is a fall risk. We spoke with hospitalist and they are agreeing to the ad mission impression is syncope and status post fall with closed head injury. - Lab Data Result diagrams: 01/22/19 14:10 01/22/19 14:10 Lab Results 01/22/19 01/22/19 01/22/19 Range/Units 14:10 14:10 14:29 WBC 5.2 (4.3-11.1) K/mcL RBC 4.48 (3.82-4.97) M/mcL Hgb 12.8 (11.5-15.4) g/dL Hct 40.5 (35.3-44.9) % MCV 90.4 (83.0-100.0) fL MCH 28.6 (28.0-33.3) pg MCHC 31.6 (31.6-35.5) g/dL RDW 13.7 (11.5-14.5) % Plt Count 304 (140-400) K/mcL MPV 9.3 L (9.4-12.4) fL Immature Gran % 0.4 (0-4) % Seg Neutrophils % 43.4 % Lymphocytes % 38.0 % Monocytes % 13.5 % Eosinophils % 3.5 % Basophils % 1.2 % Neutrophils # 2.3 (1.6-8.9) K/mcL Lymphocytes # 2.0 (0.6-4.6) K/mcL Monocytes # 0.7 (0.0-1.3) K/mcL Eosinophils # 0.2 (0.0-0.6) K/mcL Basophils # 0.1 (0.0-0.2) K/mcL Sodium 138 (136-145) mEq/L Potassium 3.7 (3.5-5.1) mEq/L Chloride 105 (98-107) mEq/L Carbon Dioxide 27 (23-29) mEq/L BUN 13 (6-20) mg/dL Creatinine 0.86 (0.60-1.20) mg/dL Est GFR ( Amer) > 60 (> 60) Est GFR (Non-Af Amer) > 60 (> 60) BUN/Creatinine Ratio 15 (6-26) Glucose 84 (70-105) mg/dL Calculated Osmolality 285 (280-300) Calcium 9.8 (8.6-10.3) mg/dL Urine Color Yellow (Yellow) Urine Clarity Slightly Hazy (Clear) Urine pH 6.5 (5.0-8.0) pH Units Ur Specific [place] < 1.005 L (1.010-1.025) Urine Protein Negative (Neg-Trace) mg/dL Urine Glucose (UA) Normal (Normal) mg/dL Urine Ketones Negative (Negative) mg/dL Urine Blood Negative (Negative) Urine Nitrite Negative (Negative) Urine Bilirubin Negative (Negative) Urine Urobilinogen Normal (Normal) mg/dL Ur Leukocyte Esterase Trace H (Negative) Urine Microscopic RBC 0-3 (0-3) per hpf Urine Microscopic WBC 5-15 H (0-3) per hpf Ur Squamous Epith Cells Many H (None-Few) per lpf Urine Bacteria Few (None-Few) per hpf Hyaline Casts None Seen (None-Few) per lpf Ur Culture Indicated? YES A (NO) Salicylates < 2.5 L (15.0-30.0) mg/dL Attestation Statement - Attestation Attestation: This documentation is done with the assistance of Dragon dictation. Despite efforts made to ensure accuracy, there may be inaccuracies in wind commissioning technician or spelling and typographical errors. I examined this patient and my medical decision-making was reviewed with the Resident Physician. I agree with the documented findings, disposition and treatment plan as described except to the extent set forth below. Patient was seen and evaluated by Dr. Thomas and myself, I agree with her evaluation and management plan, I supervised the care of the patient throughout their stay. Patient seen and evaluated today for possible dizziness versus syncope. She say s is been going on since the seventh she had an episode where she fell and struck her head. She is a couple more falls since then this sounds to be to these to be non-syncopal and 1 being syncopal. She has no focal neuro deficits here but she complains of her hands are numb she has numbness in her face which has no obvious deficits on exam. She is ambulatory. However they syncopal episode does concern me specialist strike her head were getting a CT check labs and reassess. She is in agreement with plan.
[2019-01-22 14:27] LABS: Basophils # 0.1 K/mcL (0.0-0.2); Basophils % 1.2 %; Eosinophils # 0.2 K/mcL (0.0-0.6); Eosinophils % 3.5 %; Hematocrit 40.5 % (35.3-44.9); Hemoglobin 12.8 g/dL (11.5-15.4); Immature Granulocytes % 0.4 % (0-4); Mean Corpuscular HGB Conc 31.6 g/dL (31.6-35.5); Mean Corpuscular Hemoglobin 28.6 pg (28.0-33.3); Mean Corpuscular Volume 90.4 fL (83.0-100.0); Mean Platelet Volume 9.3 fL (9.4-12.4); Monocytes # 0.7 K/mcL (0.0-1.3); Monocytes % 13.5 %; Neutrophils # 2.3 K/mcL (1.6-8.9); Platelet Count 304 K/mcL (140-400); Red Blood Count 4.48 M/mcL (3.82-4.97); Red Cell Distribution Width 13.7 % (11.5-14.5); Segmented Neutrophils % 43.4 %; White Blood Count 5.2 K/mcL (4.3-11.1)
[2019-01-22 15:00] LABS: Bacteria,Urine Few per hpf (None-Few); Bilirubin,Urine Negative (Negative); Blood,Urine Negative (Negative); Color,Urine Yellow (Yellow); Glucose,Urine (UA) Normal (Normal); Hyaline Casts,Urine None Seen per lpf (None-Few); Ketones,Urine Negative (Negative); Leukocyte Esterase,Urine Trace (Negative); Nitrite,Urine Negative (Negative); PH,Urine 6.5 pH Units (5.0-8.0); Protein,Urine Negative (Neg-Trace); RBC,Urine 0-3 per hpf (0-3); Specific Gravity,Urine < 1.005 (1.010-1.025); Squamous Epithelial Cell,Urine Many per lpf (None-Few); Urobilinogen,Urine Normal (Normal)
[2019-01-22 15:01] LABS: Clarity,Urine Slightly Hazy (Clear)
[2019-01-22 15:23] LABS: BUN/Creatinine Ratio 15 (6-26); Blood Urea Nitrogen 13 mg/dL (6-20); Calcium 9.8 mg/dL (8.6-10.3); Carbon Dioxide 27 mEq/L (23-29); Chloride 105 mEq/L (98-107); Glucose 84 mg/dL (70-105); Osmolality,Calculated 285 (280-300); Potassium 3.7 mEq/L (3.5-5.1); Salicylate < 2.5 mg/dL (15.0-30.0); Sodium 138 mEq/L (136-145); eGFR For African Americans > 60 (> 60); eGFR For Non-African Americans > 60 (> 60)
[2019-01-22] MEDS ORDERED: Naloxone 0.4 MG/ML INJ IVP PRN (16:28)
[2019-01-22] MEDS ORDERED: MOM Conc 10 ML UD.LIQ PO PRN (16:28)
[2019-01-22] MEDS ORDERED: Acetaminophen 325 MG TABLET PO PRN (16:28)
[2019-01-22] MEDS ORDERED: *HR* Promethazine 25 MG/ML VIAL IVP PRN (16:28)
[2019-01-22] MEDS ORDERED: Mag Hydrox/Al Hydrox/Simeth 30 ML UDC PO PRN (16:28)
[2019-01-22] MEDS ORDERED: Ondansetron 4 MG/2 ML VIAL IVP PRN (16:28)
[2019-01-22] MEDS ORDERED: Triamcinolone Acet 0.1% CRM 15 GM TUBE TP PRN (17:01)
--- NOTE | 2019-01-22 17:15 | Internal Med History&Physical ---
Date of Encounter: 01/22/19 Time of Encounter: 17:04 Internal Medicine - H&P: HPI Admitted From: Home Plans for Post Hospital Care: Home History of present illness: Ms. Melara is a 53 year old female with past medical history of depression/anxiety, hypertension, migraine, esophageal ulcer, hiatal hernia, and a psoriasis who presented with one-week history of intermittent vertigo. Symptoms started on last Friday, when patient was standing and walking around the yard sale, she suddenly developed intense dizziness and is subsequently fell and hit his head on the ground. The event was witnessed by patient mother. There was no reported jerking or shaking movement during the event, however, patient did report loss of control of bladder. Since then, patient reported intermittent vertigo spells, which resulted in 2 additional falls. Patient described the dizziness as spinning sensation, she also reported right ear tinnitus but denies feeling of fullness of the right ear, she denies nausea, vomiting, or severe headache. She does not recall any upper respiratory infection or viral infection recently. However, patient did report that vertigo started after her psychiatry changed her medication. She was on Abilify about 4-5 years until 2 weeks ago, when it was changed to Rexulti and then was switched to Latuda. Patient recently was hospitalized in December because of chest pain and indigestion. She underwent extensive cardiac workup including echocardiogram and a stress test, which both were unremarkable. EGD was performed which revealed esophageal ulcer, patient was discharged home with PPI and Carafate. While in the ED, patient vital signs were stable, labs were unremarkable, a CT head and a cervical spine was reportedly normal. Due to her severe neurological symptoms and of frequent falls, patient will be admitted for further evaluation. CODE STATUS discussed with patient, she wishes to be full code. Past Med Surg Social Fam HX - Past Medical History Medical history: coronary artery disease, CVA, hypertension Psychiatric history: anxiety, bipolar, depression - Past Surgical History Surgical History: angioplasty/stent, cholecystectomy, hysterectomy, knee replacement Additional surgical history: bilateral knee replacement - Social History Smoking Status: Former smoker Smokeless Tobacco Status: No Alcohol use: none Drug use: none - Family History Father Living Status: Still Living Hx Family Cardiac Disorders: Yes Mother Living Status: Still Living Hx Family Cardiac Disorders: Yes Internal Medicine - H&P: Meds Ondansetron ODT [Zofran ODT] 4 mg SL Q6HR PRN #14 tab.rapdis 05/23/18 [Rx] Buspirone HCl [Buspar] 30 mg PO BID 05/26/18 [History] Duloxetine HCl [Cymbalta] 60 mg PO BID 05/26/18 [History] Multivitamin [One Daily Multivitamin] 1 tab PO DAILY 05/26/18 [History] lamoTRIgine [Lamotrigine] 100 mg PO QAM 05/26/18 [History] lamoTRIgine [Lamotrigine] 200 mg PO HS 05/26/18 [History] Cetirizine HCl 10 mg PO DAILY 12/30/18 [History] Cholecalciferol (Vitamin D3) [Vitamin D3] 10,000 unit PO RICHARDSON 12/30/18 [History] Cyclobenzaprine HCl 10 mg PO TID PRN 12/30/18 [History] Guselkumab [TREMFYA (Outpatient Infusion)] 100 mg SQ Q8W 12/30/18 [History] Topiramate 50 mg PO BID 12/30/18 [History] Triamcinolone Acet 0.1% CRM [Kenalog] 1 appl TP BID PRN 12/30/18 [History] hydrOXYzine HCl [Hydroxyzine HCl] 50 mg PO BID PRN 12/30/18 [History] Atorvastatin [Lipitor] 40 mg PO HS #30 tablet 01/02/19 [Rx] Metoprolol XL (24 HR) Succ [Toprol Xl] 12.5 mg PO DAILY #30 tab.er.24h 01/02/19 [Rx] Pantoprazole Sodium [Protonix] 40 mg PO BID #60 tablet.dr 01/02/19 [Rx] Sucralfate [Carafate] 1 gm PO QIDAC #120 tablet 01/02/19 [Rx] Lurasidone [Latuda] 40 mg PO DAILY 01/22/19 [History] Allergy/AdvReac Type Severity Reaction Status Date / Time Penicillins Allergy Unknown See Verified 05/26/18 22:14 Comments pregabalin [From Lyrica] Allergy Unknown Swelling Verified 05/26/18 22:14 of the Eye ketorolac AdvReac Unknown Nausea Verified 05/26/18 22:14 olanzapine [From Zyprexa] AdvReac Unknown See Verified 05/26/18 22:14 Comments tramadol AdvReac Unknown Seizure Verified 05/26/18 22:14 All Systems PM: A 10-system review of systems was performed and is negative for pertinent findings except as documented above in the HPI. Review of systems: REVIEW OF SYSTEMS: CONSTITUTIONAL: No weight loss, fever, chills, weakness or fatigue. HEENT: Eyes: No visual loss, blurred vision, double vision or yellow sclerae. Ears, Nose, Throat: No hearing loss, sneezing, congestion, runny nose or sore throat. SKIN: No rash or itching. CARDIOVASCULAR: No chest pain, chest pressure or chest discomfort. No palpitations or edema. RESPIRATORY: No shortness of breath, cough or sputum. GASTROINTESTINAL: No anorexia, nausea, vomiting or diarrhea. No abdominal pain or blood. GENITOURINARY: No dysuria, urgency, or frequency. NEUROLOGICAL: see HPI. MUSCULOSKELETAL: No muscle, back pain, joint pain or stiffness. HEMATOLOGIC: No anemia, bleeding or bruising. LYMPHATICS: No enlarged nodes. No history of splenectomy. PSYCHIATRIC: No history of depression or anxiety. ENDOCRINOLOGIC: No reports of sweating, cold or heat intolerance. No polyuria or polydipsia. - Constitutional Vitals: Temp Pulse Resp BP Pulse Ox 97.6 F 86 18 135/85 100 01/22/19 12:50 01/22/19 16:56 01/22/19 16:56 01/22/19 16:56 01/22/19 16:56 General appearance: Present: A&O X 3 Exam: PHYSICAL EXAMINATION: GENERAL APPEARANCE: The patient is alert, oriented and in no acute distress. HEENT: Head is normocephalic. The sinuses are nontender. Pupils are equal and reactive. The nares are patent. Oropharynx clear without lesions. NECK: Supple without lymphadenopathy. HEART: Regular rate and rhythm. LUNGS: No crackles or wheezes are heard. ABDOMEN: Soft, nontender, nondistended with good bowel sounds heard. Inguinal area is normal. EXTREMITIES: Without cyanosis, clubbing or edema. NEUROLOGICAL: Gross nonfocal. SKIN: Warm and dry without any rash. Internal Med - H&P Results - Labs CBC & Chem 7: 01/22/19 14:10 01/22/19 14:10 Labs: Short CBC 01/22/19 Range/Units 14:10 WBC 5.2 (4.3-11.1) K/mcL Hgb 12.8 (11.5-15.4) g/dL Hct 40.5 (35.3-44.9) % Plt Count 304 (140-400) K/mcL Neutrophils # 2.3 (1.6-8.9) K/mcL BMP 01/22/19 14:10 Sodium 138 Potassium 3.7 Chloride 105 Carbon Dioxide 27 BUN 13 Creatinine 0.86 Glucose 84 Calcium 9.8 Urine 01/22/19 Range/Units 14:29 Urine Color Yellow (Yellow) Urine Clarity Slightly Hazy (Clear) Urine pH 6.5 (5.0-8.0) pH Units Ur Specific Wilsey < 1.005 L (1.010-1.025) Urine Protein Negative (Neg-Trace) mg/dL Urine Glucose (UA) Normal (Normal) mg/dL - Impressions ITS Impressions Cervical Spine CT 01/22/19 13:17 IMPRESSION: No acute abnormality of the cervical spine. D/ / Javier Carroll MD / Javier Carroll MD Interpreting Provider: Javier Carroll MD Head CT 01/22/19 13:17 IMPRESSION: No acute intracranial abnormality. D/ / Matthieu Tripathi MD / Matthieu Tripathi MD Interpreting Provider: Matthieu Tripathi MD Hip X-Ray 01/22/19 13:20 IMPRESSION: No acute fracture. D/ / Damien Martínez MD / Damien Martínez MD Interpreting Provider: Damien Martínez MD Chest X-Ray 01/22/19 13:21 IMPRESSION: No acute cardiopulmonary disease. D/ / Bishnu Goldstein MD / Bishnu Goldstein MD Interpreting Provider: Bishnu Goldstein MD - Assessment and Plan (1) Vertigo Current Visit: Yes Status: Acute Assessment and plan: Based on the detailed description provided by patient, her symptoms is more consistent with vertigo rather than syncope. although Syncope might play a minor role during fall. She underwent extensive cardiac workup less than 1 month ago, the results seem unremarkable. Vertigo caused by pathology in the central nervous system seems unlikely, cerebellar sign was negative, patient does not have other neurological symptoms such as dysphagia, dysarthria, diplopia. Vertigo does not seem positional, it is intermittent, associated with right ear tinnitus, without hearing loss, the clinical picture does not fit with BPPV or Meniere's disease. She does not report any recent viral or URI infections, vestibular neuronitis is less likely. Pt reported recent change of psychiatry medicine, she was on Abilify but was changed to Latuda recently. I highly suspect that vertigo was caused by the abrupt discontinuation of Abilify. We will order MRI brain to rule out posterior circulation stroke or other structural abnormalities. We will order EEG to rule out seizure. We will restart Abilify as 30 mg daily, and a discontinuing the Latuda for now. (2) Hiatal hernia Current Visit: No Status: Chronic Assessment and plan: Stable, continue monitoring. (3) Anxiety and depression Current Visit: No Status: Acute Assessment and plan: Continue home medication including the change described above. Patient mood stable, she denies suicidal ideation or cody. (4) Esophageal ulcer without bleeding Current Visit: No Status: Acute Assessment and plan: Continue PPI and Carafate. (5) Morbid obesity with BMI of 50.0-59.9, adult Current Visit: No Status: Chronic Assessment and plan: Weight control discussed with patient. (6) DVT prophylaxis Current Visit: Yes Status: Acute Assessment and plan: Ambulation. - Time Spent With Patient Total time spent is greater than 50% in coordination of care (as documented) at patient's floor/unit and/or counseling patient: Greater than 35 minutes
[2019-01-22] MEDS: lamoTRIgine 100 MG TABLET PO SCH (20:42)
[2019-01-22] MEDS: hydrOXYzine pamoate 25 MG CAPSULE PO PRN (20:42)
[2019-01-22] MEDS: traMADol 50 MG TABLET PO PRN (20:42)
[2019-01-22] MEDS: Sucralfate 1 GM TABLET PO SCH (20:43)
[2019-01-22] MEDS: BUSPIRONE HCL 10 MG TABLET PO SCH (20:43)
[2019-01-22] MEDS: Topiramate 25 MG TABLET PO SCH (20:43)
[2019-01-22] MEDS: ARIPiprazole 10 MG TABLET PO SCH (20:44)
[2019-01-23 07:03] LABS: Hematocrit 35.4 % (35.3-44.9); Hemoglobin 11.3 g/dL (11.5-15.4); Mean Corpuscular HGB Conc 31.9 g/dL (31.6-35.5); Mean Corpuscular Hemoglobin 28.5 pg (28.0-33.3); Mean Corpuscular Volume 89.2 fL (83.0-100.0); Mean Platelet Volume 8.9 fL (9.4-12.4); Platelet Count 245 K/mcL (140-400); Red Blood Count 3.97 M/mcL (3.82-4.97); Red Cell Distribution Width 13.8 % (11.5-14.5); White Blood Count 4.4 K/mcL (4.3-11.1)
[2019-01-23 07:23] LABS: Alanine Aminotransferase 16 Units/L (7-52); Albumin 4.2 g/dL (3.5-5.7); Albumin/Globulin Ratio 1.6 (1.1-2.2); Alkaline Phosphatase 75 Units/L (34-104); Aspartate Amino Transferase 18 Units/L (13-39); BUN/Creatinine Ratio 17 (6-26); Bilirubin,Total 0.4 mg/dL (0.3-1.0); Blood Urea Nitrogen 13 mg/dL (6-20); Calcium 9.1 mg/dL (8.6-10.3); Carbon Dioxide 25 mEq/L (23-29); Chloride 107 mEq/L (98-107); Globulin 2.7 g/dL (2.4-3.5); Glucose 105 mg/dL (70-105); Osmolality,Calculated 288 (280-300); Potassium 3.5 mEq/L (3.5-5.1); Sodium 139 mEq/L (136-145); Total Protein 6.9 g/dL (6.4-8.9); eGFR For African Americans > 60 (> 60); eGFR For Non-African Americans > 60 (> 60)
--- NOTE | 2019-01-23 09:39 | Internal Med Progress Note ---
Hospitalist Progress Note - Encounter Date of Encounter: 01/23/19 Time of Encounter: 09:37 - Subjective Interval History: Pt seen and examined in the room. Reported intermittent vertigo. - Exam Vitals: Temp Pulse Resp BP Pulse Ox 97.9 F 92 16 110/74 95 01/23/19 07:54 01/23/19 07:54 01/23/19 07:54 01/23/19 07:54 01/23/19 07:54 Exam: PHYSICAL EXAMINATION: GENERAL APPEARANCE: The patient is alert, oriented and in no acute distress. HEENT: Head is normocephalic. The sinuses are nontender. Pupils are equal and reactive. The nares are patent. Oropharynx clear without lesions. NECK: Supple without lymphadenopathy. HEART: Regular rate and rhythm. LUNGS: No crackles or wheezes are heard. ABDOMEN: Soft, nontender, nondistended with good bowel sounds heard. Inguinal area is normal. EXTREMITIES: Without cyanosis, clubbing or edema. NEUROLOGICAL: Gross nonfocal. SKIN: Warm and dry without any rash. - Assessment and Plan (1) Vertigo Current Visit: Yes Status: Acute Assessment and Plan: 01/22 Based on the detailed description provided by patient, her symptoms is more consistent with vertigo rather than syncope. although Syncope might play a minor role during fall. She underwent extensive cardiac workup less than 1 month ago, the results seem unremarkable. Vertigo caused by pathology in the central nervous system seems unlikely, cerebellar sign was negative, patient does not have other neurological symptoms such as dysphagia, dysarthria, diplopia. Vertigo does not seem positional, it is intermittent, associated with right ear tinnitus, without hearing loss, the clinical picture does not fit with BPPV or Meniere's disease. She does not report any recent viral or URI infections, vestibular neuronitis is less likely. Pt reported recent change of psychiatry medicine, she was on Abilify but was changed to Latuda recently. I highly suspect that vertigo was caused by the abrupt discontinuation of Abilify. We will order MRI brain to rule out posterior circulation stroke or other structural abnormalities. We will order EEG to rule out seizure. We will restart Abilify as 30 mg daily, and a discontinuing the Latuda for now. 01/23 MRI unremarkable. Pending EEG. Continue monitoring. (2) Hiatal hernia Current Visit: No Status: Chronic Assessment and Plan: Stable, continue monitoring. (3) Anxiety and depression Current Visit: No Status: Acute Assessment and Plan: Continue home medication including the change described above. Patient mood stable, she denies suicidal ideation or cody. (4) Esophageal ulcer without bleeding Current Visit: No Status: Acute Assessment and Plan: Continue PPI and Carafate. (5) Morbid obesity with BMI of 50.0-59.9, adult Current Visit: No Status: Chronic Assessment and Plan: Weight control discussed with patient. (6) DVT prophylaxis Current Visit: Yes Status: Acute Assessment and Plan: Ambulation. - Time Spent with Patient Total time spent is greater than 50% in coordination of care (as documented) at patient's floor/unit and/or counseling patient: Greater than 35 minutes Plan of Care Discussed with: patient Internal Medicine: Result - Labs CBC & Chem 7: 01/23/19 06:44 01/23/19 06:44 Labs: Short CBC 01/22/19 01/23/19 Range/Units 14:10 06:44 WBC 5.2 4.4 (4.3-11.1) K/mcL Hgb 12.8 11.3 L D (11.5-15.4) g/dL Hct 40.5 35.4 (35.3-44.9) % Plt Count 304 245 (140-400) K/mcL Neutrophils # 2.3 (1.6-8.9) K/mcL BMP 01/22/19 01/23/19 14:10 06:44 Sodium 138 139 Potassium 3.7 3.5 Chloride 105 107 Carbon Dioxide 27 25 BUN 13 13 Creatinine 0.86 0.78 Glucose 84 105 Calcium 9.8 9.1 Liver Function 01/23/19 Range/Units 06:44 Total Bilirubin 0.4 (0.3-1.0) mg/dL AST 18 (13-39) Units/L ALT 16 (7-52) Units/L Alkaline Phosphatase 75 (34-104) Units/L Albumin 4.2 (3.5-5.7) g/dL Urine 01/22/19 Range/Units 14:29 Urine Color Yellow (Yellow) Urine Clarity Slightly Hazy (Clear) Urine pH 6.5 (5.0-8.0) pH Units Ur Specific Clune < 1.005 L (1.010-1.025) Urine Protein Negative (Neg-Trace) mg/dL Urine Glucose (UA) Normal (Normal) mg/dL - Impressions Impressions Cervical Spine CT 01/22/19 13:17 IMPRESSION: No acute abnormality of the cervical spine. D/ / Javier Carroll MD / Javier Carroll MD Interpreting Provider: Javier Carroll MD Head CT 01/22/19 13:17 IMPRESSION: No acute intracranial abnormality. D/ / Matthieu Tripathi MD / Matthieu Tripathi MD Interpreting Provider: Matthieu Tripathi MD Hip X-Ray 01/22/19 13:20 IMPRESSION: No acute fracture. D/ / Damien Martínez MD / Damien Martínez MD Interpreting Provider: Damien Martínez MD Chest X-Ray 01/22/19 13:21 IMPRESSION: No acute cardiopulmonary disease. D/ / Bishnu Goldstein MD / Bishnu Goldstein MD Interpreting Provider: Bishnu Goldstein MD Brain MRI 01/22/19 16:27 IMPRESSION: No acute intracranial abnormality or mass lesion. There is minimal nonspecific cerebral white matter disease. D/ / Richard Olmstead MD / Richard Olmstead MD Interpreting Provider: Richard Olmstead MD Consult Discharge Plan - Plan Referrals: Preeti Henley [Primary Care Provider] - (Unable to make appointment due to office being closed. Please call Friday to schedule hospital follow up appointment for 7-10 days from date of discharge. )
[2019-01-23] MEDS: Topiramate 25 MG TABLET PO SCH ×2 (09:51→19:43)
[2019-01-23] MEDS: BUSPIRONE HCL 10 MG TABLET PO SCH ×2 (09:51→19:42)
[2019-01-23] MEDS: Sucralfate 1 GM TABLET PO SCH ×4 (09:51→22:27)
[2019-01-23] MEDS: Cholecalciferol (D-3) 1,000 UNIT TABLET PO SCH (09:51)
[2019-01-23] MEDS: Multivit/Ca/Min/Fe/FA 1 TAB TABLET PO SCH (09:52)
[2019-01-23] MEDS: Loratadine 10 MG TABLET PO SCH (09:52)
[2019-01-23] MEDS: Metoprolol XL (24 HR) Succ 25 MG TAB.ER.24H PO SCH (09:52)
[2019-01-23] MEDS: lamoTRIgine 100 MG TABLET PO SCH ×2 (09:52→19:42)
--- NOTE | 2019-01-23 10:49 | EEG/EMG/Oth Biometrics Report ---
EEG Procedure Report Date of procedure: 01/22/19 EEG Procedure: Routine EEG Procedure Note: This EEG was acquired with standard international 10-20 electrode placement system plus EKG recording. The background EEG activity during this tracing was characterized by the presence of posterior dominant alpha rhythm with best frequency up to 10 Hz. The background activity was reactive to eye openings. Sleep stages were not identified during this recording. There are no electrographic seizures identified during this tracing. There are no epileptiform discharges or focal slowing noted during the recording. Photic stimulation produced no abnormalities. Hyperventilation procedure was not performed during the study. EKG tracing show no significant cardiac dysrhythmia. Impression: This is a normal awake EEG. Clinical correlation: Normal EEGs, however, do not exclude epilepsy. Please correlate clinically.
--- NOTE | 2019-01-23 11:32 | Neurology - Consult Note ---
Date of Encounter: 01/23/19 Time of Encounter: 11:24 Assessment and Plan (1) Syncope and collapse Current Visit: Yes Status: Acute Patient developed an episode of dizziness followed by loss of consciousness and falling hitting head. This was reported with association of urinary incontinence. Patient has no prior history of seizure. Routine EEG was read normal MRI of brain showed no acute intracranial abnormality. Seizure is thought to be less likely. Since this was the only episode of such i would recommend no antiepileptic therapy. Also noted that the patient continued to have another episodes of vertigo causing falling therefore also likely that this could be secondary to vasovagal event due to severe vertigo. Due to her multiple risk factors for CVA would recommend getting CTA of neck and brain to assess possibility of VBI or other major arterial stenosis. (2) Vertigo Current Visit: Yes Status: Acute Patient developed rather persistent vertigo for about a week now, associated with nausea, right tinnitus with negative MRI of brain for acute stroke this is likely peripheral vestibular related. Currently she has no nystagmus and the dizziness appears slightly improved but she still has right ear tinnitus therefore she may benefit from ENT consultation, hearing testing, VNG testing. [place] note that the patient has left ear deafness due to shingle to the left ear, this occurred about 2 months ago. Seen ENT already. Please continue medical and supportive care History of Present Illness Chief complaint: Dizziness, syncope HPI: Ms. 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 Hit her head during the fall. Describes vertiginous feeling, with new onset of ringing to the right ear. Had another two episodes of falling with dizziness but no loss of consciousness. Symptom started last Friday and the dizziness still present at this time, feeling nauseated. Movements making dizziness worse. MRI of brain completed and showed no acute intracranial abnormality. EEG was completed and read normal awake EEG. Patient states that she feels 'shaky'. There are recent changes in her antipsychotic therapy involving the use of abilify and she is currently back on it. Patient has left ear deafness secondary to shingles to the left ear and 'busted eardrum' She saw her ENT specialist two months ago. Past Med Surg Social Fam HX - Past Medical History Medical history: coronary artery disease, hypertension Psychiatric history: anxiety, bipolar, depression - Past Surgical History Surgical History: angioplasty/stent, cholecystectomy, hysterectomy Additional surgical history: bilateral knee replacement - Social History Smoking Status: Former smoker Smokeless Tobacco Status: No Alcohol use: none Drug use: none - Family History Father Living Status: Still Living Hx Family Cardiac Disorders: Yes Mother Living Status: Still Living Hx Family Cardiac Disorders: Yes Medications and Allergies Ondansetron ODT [Zofran ODT] 4 mg SL Q6HR PRN #14 tab.rapdis 05/23/18 [Rx] Buspirone HCl [Buspar] 30 mg PO BID 05/26/18 [History] Duloxetine HCl [Cymbalta] 60 mg PO BID 05/26/18 [History] Multivitamin [One Daily Multivitamin] 1 tab PO DAILY 05/26/18 [History] lamoTRIgine [Lamotrigine] 100 mg PO QAM 05/26/18 [History] lamoTRIgine [Lamotrigine] 200 mg PO HS 05/26/18 [History] Cetirizine HCl 10 mg PO DAILY 12/30/18 [History] Cholecalciferol (Vitamin D3) [Vitamin D3] 10,000 unit PO RICHARDSON 12/30/18 [History] Cyclobenzaprine HCl 10 mg PO TID PRN 12/30/18 [History] Guselkumab [TREMFYA (Outpatient Infusion)] 100 mg SQ Q8W 12/30/18 [History] Topiramate 50 mg PO BID 12/30/18 [History] Triamcinolone Acet 0.1% CRM [Kenalog] 1 appl TP BID PRN 12/30/18 [History] hydrOXYzine HCl [Hydroxyzine HCl] 50 mg PO BID PRN 12/30/18 [History] Atorvastatin [Lipitor] 40 mg PO HS #30 tablet 01/02/19 [Rx] Metoprolol XL (24 HR) Succ [Toprol Xl] 12.5 mg PO DAILY #30 tab.er.24h 01/02/19 [Rx] Pantoprazole Sodium [Protonix] 40 mg PO BID #60 tablet. 01/02/19 [Rx] Sucralfate [Carafate] 1 gm PO QIDAC #120 tablet 01/02/19 [Rx] Lurasidone [Latuda] 40 mg PO DAILY 01/22/19 [History] Allergy/AdvReac Type Severity Reaction Status Date / Time Penicillins Allergy Unknown See Verified 05/26/18 22:14 Comments pregabalin [From Lyrica] Allergy Unknown Swelling Verified 05/26/18 22:14 of the Eye ketorolac AdvReac Unknown Nausea Verified 05/26/18 22:14 olanzapine [From Zyprexa] AdvReac Unknown See Verified 05/26/18 22:14 Comments tramadol AdvReac Unknown Seizure Verified 05/26/18 22:14 All Systems: The remainder of the systems were reviewed and are negative - Constitutional Constitutional ROS IM: anorexia (No ), chills (No ), daytime sleepiness (n), fever(s) (no), frequent falls (yes) - Nose, Mouth, Throat Nose, mouth and throat: disequilibrium (yes), dizziness (yes), headache(s) (no) - Cardiovascular Cardiovascular ROS IM: chest pain (no), claudication (no), diaphoresis (no), dyspnea on exertion (no) - Respiratory Respiratory IM: cough (no), dyspnea (no), hemoptysis (no) - Gastrointestinal Gastrointestinal: abdominal pain (no), belching (no), change in bowel habits (no) - Genitourinary Genitourinary ROS: change in libido, difficulty urinating (no), difficulty voi ding (no) - Musculoskeletal Musculoskeletal ROS IM: abnormal gait (yes) - Neurological Neurological ROS: abnormal gait (yes), abnormal hearing (yes, left ear deaf secondary to history of shingles to the left ear, occurring 2 months ago) - Psychiatric Psychiatric general PM: abnormal sleep pattern (no), anxiety (yes) Physical Examination - Vital Signs Vital Signs: Initial Vital Signs Temp Pulse Resp BP Pulse Ox 97.6 F 97 18 118/84 98 01/22/19 12:40 01/22/19 12:40 01/22/19 12:40 01/22/19 12:40 01/22/19 12:40 - Constitutional General appearance: comfortable - Neurologic Sensorimotor examination: intact Detailed motor examination: grossly full strength in all extremities, full stren gth in all major muscle groups Motor examination - right side: 5/5: deltoids, biceps, triceps, wrist flexion, wrist extension, payment poster, hip flexors, tibialis Anterior, quadriceps, toe extension (EHL), plantarflexion Motor examination - left side: 5/5: deltoids, biceps, triceps, wrist flexion, wrist extension, hip flexors, payment poster, quadriceps, tibialis Anterior, toe extension (EHL), plantarflexion Detailed sensory examination: intact Posture: other (NOne) Reflex and gait examination: other (Gait not tested) Reflexes: Biceps: 2+, Triceps: 2+, Brachioradialis: 2+, Patella: 2+, Achilles: 2+ Mental Status Examination: awake, alert, oriented to person, oriented to place, oriented to time, follows commands appropriately, answers questions appropriately, no agnosia, no aphasia, no aproxia Cranial nerve examination: PERRL, EOMI, visual panchal intact, corneal reflexes brisk symmetrically, sensory to face intact, mastication intact, no facial asymmetry is present, no dysarthria, hearing is intact symmetrically, soft palate elevates bilaterally upon phonation, gag reflex intact, flexes SCM and trapezius muscles symmetrically with full power, tongue protrudes midline, no atrophy or facial fasiculations present Results - Laboratory Findings CBC and BMP: 01/23/19 06:44 01/23/19 06:44 Abnormal lab findings: Abnormal lab results Hgb 11.3 g/dL (11.5-15.4) L D 01/23/19 06:44 MPV 8.9 fL (9.4-12.4) L 01/23/19 06:44 Ur Specific [place] < 1.005 (1.010-1.025) L 01/22/19 14:29 Ur Leukocyte Esterase Trace (Negative) H 01/22/19 14:29 5-15 per hpf (0-3) H 01/22/19 14:29 Ur Squamous Epith Cells Many per lpf (None-Few) H 01/22/19 14:29 Ur Culture Indicated? YES (NO) A 01/22/19 14:29 Salicylates < 2.5 mg/dL (15.0-30.0) L 01/22/19 14:10 - Diagnostic Findings Additional findings: Routine EEG Procedure Note: This EEG was acquired with standard international 10-20 electrode placement system plus EKG recording. The background EEG activity during this tracing was characterized by the presence of posterior dominant alpha rhythm with best frequency up to 10 Hz. The background activity was reactive to eye openings. Sleep stages were not identified during this recording. There are no electrographic seizures identified during this tracing. There are no epileptiform discharges or focal slowing noted during the recording. Photic stimulation produced no abnormalities. Hyperventilation procedure was not performed during the study. EKG tracing show no significant cardiac dysrhythmia. Impression: This is a normal awake EEG. Clinical correlation: Normal EEGs, however, do not exclude epilepsy. Please correlate clinically. EXAMINATION: MRI OF THE BRAIN WITHOUT CONTRAST 01/22/2019 6:44 pm TECHNIQUE: Multiplanar multisequence MRI of the brain was performed without the administration of intravenous contrast. COMPARISON: MRI brain without contrast 11/20/2015. HISTORY: ORDERING SYSTEM PROVIDED HISTORY: vertigo Dizziness, vertigo FINDINGS: INTRACRANIAL STRUCTURES/VENTRICLES: There is no acute infarct. Motion artifact; no gross evidence of intracranial hemorrhage. The ventricles are normal in size. Normal intracranial arterial flow voids are preserved. There is minimal spotty bilateral cerebral white matter disease. Sellar and suprasellar regions are unremarkable. The cerebellar tonsils are normal in position. ORBITS: The visualized portion of the orbits demonstrate no acute abnormality. SINUSES: The visualized paranasal sinuses and mastoid air cells are well aerated. BONES/SOFT TISSUES: The bone marrow signal intensity appears normal. The soft tissues demonstrate no acute abnormality. MR/MR head/brain wo con IMPRESSION: No acute intracranial abnormality or mass lesion. There is minimal nonspecific cerebral white matter disease. D/ / Richard Olmstead MD / Richard Olmstead MD Interpreting Provider: Richard Olmstead MD Consult Discharge Plan - Plan Referrals: Preeti Henley [Primary Care Provider] - (Unable to make appointment due to office being closed. Please call Friday to schedule hospital follow up appointment for 7-10 days from date of discharge. )
[2019-01-23] MEDS ORDERED: Isovue-370 500 ML BOTTLE IVP ONE (11:47)
[2019-01-23] MEDS: hydrOXYzine pamoate 25 MG CAPSULE PO PRN (13:01)
[2019-01-23] MEDS: traMADol 50 MG TABLET PO PRN (20:02)
--- NOTE | 2019-01-23 21:16 | Event Note ---
Date of Encounter: 01/23/19 Time of Encounter: 21:14 Alerted by nurse of patient having chest pain. EKG ordered no acute changes noted, reviewed with Dr Adame. States similar to pain she has had in the past that resolves spontaneously. Vitals stable, states pain improving after pain medication. Continue telemetry monitoring. Nurse to notify of any changes.
[2019-01-23] MEDS: ARIPiprazole 10 MG TABLET PO SCH (22:52)
[2019-01-24] MEDS: Ondansetron ODT 4 MG TAB.RAPDIS SL PRN ×2 (00:43→18:14)
[2019-01-24] MEDS: hydrOXYzine pamoate 25 MG CAPSULE PO PRN ×2 (05:38→21:04)
[2019-01-24 06:52] LABS: Basophils # 0.1 K/mcL (0.0-0.2); Eosinophils # 0.2 K/mcL (0.0-0.6); Eosinophils % 3.7 %; Hematocrit 35.4 % (35.3-44.9); Hemoglobin 11.1 g/dL (11.5-15.4); Immature Granulocytes % 0.2 % (0-4); Lymphocytes % 41.5 %; Mean Corpuscular HGB Conc 31.4 g/dL (31.6-35.5); Mean Corpuscular Hemoglobin 28.1 pg (28.0-33.3); Mean Corpuscular Volume 89.6 fL (83.0-100.0); Mean Platelet Volume 9.4 fL (9.4-12.4); Monocytes # 0.7 K/mcL (0.0-1.3); Monocytes % 13.2 %; Platelet Count 243 K/mcL (140-400); Red Blood Count 3.95 M/mcL (3.82-4.97); Red Cell Distribution Width 13.9 % (11.5-14.5); Segmented Neutrophils % 40.4 %; White Blood Count 4.9 K/mcL (4.3-11.1)
[2019-01-24 07:11] LABS: BUN/Creatinine Ratio 20 (6-26); Blood Urea Nitrogen 16 mg/dL (6-20); Calcium 8.9 mg/dL (8.6-10.3); Carbon Dioxide 25 mEq/L (23-29); Chloride 105 mEq/L (98-107); Glucose 104 mg/dL (70-105); Osmolality,Calculated 289 (280-300); Potassium 3.7 mEq/L (3.5-5.1); Sodium 139 mEq/L (136-145); eGFR For African Americans > 60 (> 60); eGFR For Non-African Americans > 60 (> 60)
[2019-01-24] MEDS: Multivit/Ca/Min/Fe/FA 1 TAB TABLET PO SCH (08:37)
[2019-01-24] MEDS: ARIPiprazole 10 MG TABLET PO SCH (08:37)
[2019-01-24] MEDS: BUSPIRONE HCL 10 MG TABLET PO SCH ×2 (08:37→20:51)
[2019-01-24] MEDS: Sucralfate 1 GM TABLET PO SCH ×4 (08:37→20:51)
[2019-01-24] MEDS: Topiramate 25 MG TABLET PO SCH ×2 (08:38→20:50)
[2019-01-24] MEDS: traMADol 50 MG TABLET PO PRN ×2 (08:38→16:48)
[2019-01-24] MEDS: Metoprolol XL (24 HR) Succ 25 MG TAB.ER.24H PO SCH (08:38)
[2019-01-24] MEDS: lamoTRIgine 100 MG TABLET PO SCH ×2 (08:38→20:50)
[2019-01-24] MEDS: Loratadine 10 MG TABLET PO SCH (08:38)
[2019-01-24] MEDS: Cholecalciferol (D-3) 1,000 UNIT TABLET PO SCH (08:38)
--- NOTE | 2019-01-24 09:04 | Internal Med Progress Note ---
Hospitalist Progress Note - Encounter Date of Encounter: 01/24/19 Time of Encounter: 09:01 - Subjective Interval History: Pt seen and examined in the room. Had one episode of chest pain overnight but has resolved currently. EKG has no acute changes. Reported persistent vertigo but has slightly improved over the past 2 days. No sob, palpitation, or syncope. - Exam Vitals: Temp Pulse Resp BP Pulse Ox 97.7 F 85 16 101/68 98 01/24/19 07:09 01/24/19 07:01/24/19 07:09 01/24/19 07:01/24/19 07:09 Exam: PHYSICAL EXAMINATION: GENERAL APPEARANCE: The patient is alert, oriented and in no acute distress. HEENT: Head is normocephalic. The sinuses are nontender. Pupils are equal and reactive. The nares are patent. Oropharynx clear without lesions. NECK: Supple without lymphadenopathy. HEART: Regular rate and rhythm. LUNGS: No crackles or wheezes are heard. ABDOMEN: Soft, nontender, nondistended with good bowel sounds heard. Inguinal area is normal. EXTREMITIES: Without cyanosis, clubbing or edema. NEUROLOGICAL: Gross nonfocal. SKIN: Warm and dry without any rash. - Assessment and Plan (1) Vertigo Current Visit: Yes Status: Acute Assessment and Plan: 01/22 Based on the detailed description provided by patient, her symptoms is more consistent with vertigo rather than syncope. although Syncope might play a minor role during fall. She underwent extensive cardiac workup less than 1 month ago, the results seem unremarkable. Vertigo caused by pathology in the central nervous system seems unlikely, cerebellar sign was negative, patient does not have other neurological symptoms such as dysphagia, dysarthria, diplopia. Vertigo does not seem positional, it is intermittent, associated with right ear tinnitus, without hearing loss, the clinical picture does not fit with BPPV or Meniere's disease. She does not report any recent viral or URI infections, vestibular neuronitis is less likely. Pt reported recent change of psychiatry medicine, she was on Abilify but was changed to Latuda recently. I highly suspect that vertigo was caused by the abrupt discontinuation of Abilify. We will order MRI brain to rule out posterior circulation stroke or other structural abnormalities. We will order EEG to rule out seizure. We will restart Abilify as 30 mg daily, and a discontinuing the Latuda for now. 01/23 MRI unremarkable. Pending EEG. Continue monitoring. 01/24 Negative EEG and MRI brain. CTA neck unremarkable. Vertigo improving. PT/OT consult. Neuro following. (2) Hiatal hernia Current Visit: No Status: Chronic Assessment and Plan: Stable, continue monitoring. (3) Anxiety and depression Current Visit: No Status: Acute Assessment and Plan: Continue home medication including the change described above. Patient mood st able, she denies suicidal ideation or cody. (4) Esophageal ulcer without bleeding Current Visit: No Status: Acute Assessment and Plan: Continue PPI and Carafate. (5) Morbid obesity with BMI of 50.0-59.9, adult Current Visit: No Status: Chronic Assessment and Plan: Weight control discussed with patient. (6) DVT prophylaxis Current Visit: Yes Status: Acute Assessment and Plan: Ambulation. - Time Spent with Patient Total time spent is greater than 50% in coordination of care (as documented) at patient's floor/unit and/or counseling patient: Internal Medicine: Result - Labs CBC & Chem 7: 01/24/19 06:32 01/24/19 06:32 Labs: Short CBC 01/24/19 Range/Units 06:32 WBC 4.9 (4.3-11.1) K/mcL Hgb 11.1 L (11.5-15.4) g/dL Hct 35.4 (35.3-44.9) % Plt Count 243 (140-400) K/mcL Neutrophils # 2.0 (1.6-8.9) K/mcL BMP 01/24/19 06:32 Sodium 139 Potassium 3.7 Chloride 105 Carbon Dioxide 25 BUN 16 Creatinine 0.81 Glucose 104 Calcium 8.9 - Impressions Impressions Angiography CT 01/24/19 00:00 IMPRESSION: No CT evidence of an acute infarct. No flow limiting stenosis or branch occlusion detected within the head or neck. D/ / Kevin Degroot MD / Kevin Degroot MD Interpreting Provider: Kevin Degroot MD Neck CTA 01/24/19 00:00 IMPRESSION: No CT evidence of an acute infarct. No flow limiting stenosis or branch occlusion detected within the head or neck. D/ / Kevin Degroot MD / Kevin Degroot MD Interpreting Provider: Kevin Degroot MD Consult Discharge Plan - Plan Referrals: Preeti Henley [Primary Care Provider] - (Unable to make appointment due to office being closed. Please call Friday to schedule hospital follow up appointment for 7-10 days from date of discharge. )
--- NOTE | 2019-01-24 12:04 | Neurology Progress Note ---
Date of Encounter: 01/24/19 Time of Encounter: 12:01 Assessment and Plan (1) Syncope and collapse Current Visit: Yes Status: Acute Patient developed an episode of dizziness followed by loss of consciousness and falling hitting head. This was reported with association of urinary incontinence. Patient has no prior history of seizure. Routine EEG was read normal MRI of brain showed no acute intracranial abnormality. Seizure is thought to be less likely. Since this was the only episode of such i would recommend no antiepileptic therapy. Also noted that the patient continued to have another episodes of vertigo causing falling therefore also likely that this could be secondary to vasovagal event due to severe vertigo. CTA of neck and head showed no evidecne of flow limiting arterial stenosis. Therefore it is unlikely that her symptoms are due to VBI. (2) Vertigo Current Visit: Yes Status: Acute Patient developed rather persistent vertigo for about a week now, associated with nausea, right tinnitus with negative MRI of brain for acute stroke this is likely peripheral vestibular related. Currently she has no nystagmus and the dizziness appears slightly improved but she still has right ear tinnitus therefore she may benefit from ENT consultation, hearing testing, VNG testing. [place] note that the patient has left ear deafness due to shingle to the left ear, this occurred about 2 months ago. Seen ENT already. Patient still has subjective vertigo but she has no nystagmus and she does not appear to be in significant distress. The course of her illness of more than few days in duration, with slow recovery suggest possibility of vestibular neuronitis but again her neurological examination shows no typical features. Again she may benefit from ENT evaluation. From neurological perspective, i would recommend no further testing. I would sign off at this time. Will be happy to see the patient at your request. Subjective Principal diagnosis: Dizziness, vertigo Interval history: Patient is seen and examined at the bedside. Patient is sleeping but easily aroused. She states that she feels slightly better but she is still dizzy, even when laying in bed not moving. She states that this morning she went to bathroom on her own she hodan dizzy and nauseated. Vitals are stable and she does not seem to be in significant distress. She had an episode of chest pain last night. EKG was reported normal. Still reports right ear ringing. Objective - Constitutional Vitals: Temp Pulse Resp BP Pulse Ox 98.3 F 87 16 110/75 95 01/24/19 11:50 01/24/19 11:50 01/24/19 11:50 01/24/19 11:50 01/24/19 11:50 - Neurological Exam Sensorimotor examination: Present: intact Motor Examination: Present: grossly full strength in all extremities, full st rength in all major muscle groups Motor examination - right side: 5/5: deltoids, biceps, triceps, wrist flexion, wrist extension, textile slitting machine operator, hip flexors, tibialis Anterior, quadriceps, toe extension (EHL), plantarflexion Motor examination - left side: 5/5: deltoids, biceps, triceps, wrist flexion, wrist extension, hip flexors, textile slitting machine operator, quadriceps, tibialis Anterior, toe extension (EHL), plantarflexion Sensation intact: Present: intact Posture: Present: other (NOne) Reflex and gait examination: other (Gait not tested) Reflexes: Biceps: 2+, Triceps: 2+, Brachioradialis: 2+, Patella: 2+, Achilles: 2+ Mental Status Examination: Present: awake, alert, oriented to person, oriented to place, oriented to time, follows commands appropriately, answers questions appropriately, no agnosia, no aphasia, no aproxia Cranial nerve examination: Present: PERRL, EOMI (I do not see nystagmus), visual panchal intact, corneal reflexes brisk symmetrically, sensory to face intact, mastication intact, no facial asymmetry is present, no dysarthria, hearing is intact symmetrically (Left hearing difficulty noted), soft palate elevates bilaterally upon phonation, gag reflex intact, flexes SCM and trapezius muscles symmetrically with full power, tongue protrudes midline, no atrophy or facial fasiculations present Cerebellar examination: Present: no dysmetria, no gait ataxia (Gait is not asses sed) Results - Laboratory Findings CBC and BMP: 01/24/19 06:32 01/24/19 06:32 Abnormal lab findings: Abnormal lab results Hgb 11.1 g/dL (11.5-15.4) L 01/24/19 06:32 MCHC 31.4 g/dL (31.6-35.5) L 01/24/19 06:32 MPV 8.9 fL (9.4-12.4) L 01/23/19 06:44 Ur Specific [place] < 1.005 (1.010-1.025) L 01/22/19 14:29 Ur Leukocyte Esterase Trace (Negative) H 01/22/19 14:29 5-15 per hpf (0-3) H 01/22/19 14:29 Ur Squamous Epith Cells Many per lpf (None-Few) H 01/22/19 14:29 Ur Culture Indicated? YES (NO) A 01/22/19 14:29 Salicylates < 2.5 mg/dL (15.0-30.0) L 01/22/19 14:10 Consult Discharge Plan - Plan Referrals: Preeti Henley [Primary Care Provider] - (Unable to make appointment due to office being closed. Please call Friday to schedule hospital follow up appointment for 7-10 days from date of discharge. )
[2019-01-24] MEDS: Artificial Tears SOLN 15 ML BOTTLE BOTH EYES SCH (23:12)
[2019-01-25 05:44] LABS: Hematocrit 31.8 % (35.3-44.9); Mean Corpuscular HGB Conc 31.4 g/dL (31.6-35.5); Mean Corpuscular Hemoglobin 28.2 pg (28.0-33.3); Mean Corpuscular Volume 89.8 fL (83.0-100.0); Mean Platelet Volume 9.4 fL (9.4-12.4); Platelet Count 214 K/mcL (140-400); Red Blood Count 3.54 M/mcL (3.82-4.97); Red Cell Distribution Width 13.9 % (11.5-14.5); White Blood Count 4.6 K/mcL (4.3-11.1)
[2019-01-25 06:07] LABS: BUN/Creatinine Ratio 18 (6-26); Blood Urea Nitrogen 15 mg/dL (6-20); Calcium 8.8 mg/dL (8.6-10.3); Carbon Dioxide 26 mEq/L (23-29); Chloride 106 mEq/L (98-107); Glucose 100 mg/dL (70-105); Osmolality,Calculated 293 (280-300); Potassium 3.7 mEq/L (3.5-5.1); Sodium 141 mEq/L (136-145); eGFR For African Americans > 60 (> 60); eGFR For Non-African Americans > 60 (> 60)
--- NOTE | 2019-01-25 08:56 | Internal Med Progress Note ---
Hospitalist Progress Note - Encounter Date of Encounter: 01/25/19 Time of Encounter: 08:53 - Subjective Interval History: PT seen and examined in the room. She reported a mechanical fall yesterday while getting up to the bathroom. She stated that she felt dizzy and then lost balance. She hit left elbow and wrist but not headache. She has no pain on the left arm. No headache, numbness, weakness, sob, chest pain, or palpitation overnight. - Exam Vitals: Temp Pulse Resp BP Pulse Ox 98.3 F 77 16 101/61 95 01/25/19 07:26 01/25/19 07:26 01/25/19 07:26 01/25/19 07:26 01/25/19 07:26 Exam: PHYSICAL EXAMINATION: GENERAL APPEARANCE: The patient is alert, oriented and in no acute distress. HEENT: Head is normocephalic. The sinuses are nontender. Pupils are equal and reactive. The nares are patent. Oropharynx clear without lesions. NECK: Supple without lymphadenopathy. HEART: Regular rate and rhythm. LUNGS: No crackles or wheezes are heard. ABDOMEN: Soft, nontender, nondistended with good bowel sounds heard. Inguinal area is normal. EXTREMITIES: Without cyanosis, clubbing or edema. NEUROLOGICAL: Gross nonfocal. SKIN: Warm and dry without any rash. - Assessment and Plan (1) Vertigo Current Visit: Yes Status: Acute Assessment and Plan: 01/22 Based on the detailed description provided by patient, her symptoms is more consistent with vertigo rather than syncope. although Syncope might play a minor role during fall. She underwent extensive cardiac workup less than 1 month ago, the results seem unremarkable. Vertigo caused by pathology in the central nervous system seems unlikely, cerebellar sign was negative, patient does not have other neurological symptoms such as dysphagia, dysarthria, diplopia. Vertigo does not seem positional, it is intermittent, associated with right ear tinnitus, without hearing loss, the clinical picture does not fit with BPPV or Meniere's disease. She does not report any recent viral or URI infections, vestibular neuronitis is less likely. Pt reported recent change of psychiatry medicine, she was on Abilify but was changed to Latuda recently. I highly suspect that vertigo was caused by the abrupt discontinuation of Abilify. We will order MRI brain to rule out posterior circulation stroke or other structural abnormalities. We will order EEG to rule out seizure. We will restart Abilify as 30 mg daily, and a discontinuing the Latuda for now. 01/23 MRI unremarkable. Pending EEG. Continue monitoring. 01/24 Negative EEG and MRI brain. CTA neck unremarkable. Vertigo improving. PT/OT consult. Neuro following. 01/25 Neurological workup so far is unrevealing. She has no central neurological etiology which could explain her symptoms, namely CVA, mass or inflammatory/autoimmune diease. Her persistent, non-positional vertigo makes BPPV less likely. Although she reported tinnitus of the left ear, symptoms is severe enough for Meniere's disease. She has no recent URI and viral infection, vestibular neuritis less likely. However, she does have hx of medication change recently involving Abbilify and Latuda which are known to have vestibular side- effects including Vertigo. Latuda was dc'ed and Abilify restarted. PT/OT to vestibular rehab. Antivert for symptoms control. (2) Hiatal hernia Current Visit: No Status: Chronic Assessment and Plan: Stable, continue monitoring. (3) Anxiety and depression Current Visit: No Status: Acute Assessment and Plan: Continue home medication including the change described above. Patient mood stable, she denies suicidal ideation or cody. (4) Esophageal ulcer without bleeding Current Visit: No Status: Acute Assessment and Plan: Continue PPI and Carafate. (5) Morbid obesity with BMI of 50.0-59.9, adult Current Visit: No Status: Chronic Assessment and Plan: Weight control discussed with patient. (6) Fall Current Visit: Yes Status: Acute Assessment and Plan: Had a fall on 01/24. XR of left wrist and elbow have no fracture. Fall precaution. (7) DVT prophylaxis Current Visit: Yes Status: Acute - Time Spent with Patient Total time spent is greater than 50% in coordination of care (as documented) at patient's floor/unit and/or counseling patient: Greater than 35 minutes Plan of Care Discussed with: patient Internal Medicine: Result - Labs CBC & Chem 7: 01/25/19 05:18 01/25/19 05:18 Labs: Short CBC 01/25/19 Range/Units 05:18 WBC 4.6 (4.3-11.1) K/mcL Hgb 10.0 L (11.5-15.4) g/dL Hct 31.8 L (35.3-44.9) % Plt Count 214 (140-400) K/mcL BMP 01/25/19 05:18 Sodium 141 Potassium 3.7 Chloride 106 Carbon Dioxide 26 BUN 15 Creatinine 0.85 Glucose 100 Calcium 8.8 - Impressions Impressions Knee X-Ray 01/24/19 16:38 IMPRESSION: Stable left knee post arthroplasty. No acute osseous abnormality. D/ / Bishnu Goldstein MD / Bishnu Goldstein MD Interpreting Provider: Bishnu Goldstein MD Wrist X-Ray 01/24/19 16:38 IMPRESSION: No acute fracture. D/ / Damien Martínez MD / Damien Martínez MD Interpreting Provider: Damien Martínez MD Consult Discharge Plan - Plan Referrals: Preeti Henley [Primary Care Provider] - (Unable to make appointment due to office being closed. Please call Friday to schedule hospital follow up appointment for 7-10 days from date of discharge. ) (6) Fall Qualifiers: Encounter type: initial encounter Qualified Code(s): W19.XXXA - Unspecified fall, initial encounter
[2019-01-25] MEDS: Cholecalciferol (D-3) 1,000 UNIT TABLET PO SCH (09:22)
[2019-01-25] MEDS: hydrOXYzine pamoate 25 MG CAPSULE PO PRN (09:22)
[2019-01-25] MEDS: BUSPIRONE HCL 10 MG TABLET PO SCH ×2 (09:22→20:24)
[2019-01-25] MEDS: Metoprolol XL (24 HR) Succ 25 MG TAB.ER.24H PO SCH (09:23)
[2019-01-25] MEDS: lamoTRIgine 100 MG TABLET PO SCH ×2 (09:23→20:25)
[2019-01-25] MEDS: ARIPiprazole 10 MG TABLET PO SCH (09:23)
[2019-01-25] MEDS: Multivit/Ca/Min/Fe/FA 1 TAB TABLET PO SCH (09:24)
[2019-01-25] MEDS: Loratadine 10 MG TABLET PO SCH (09:24)
[2019-01-25] MEDS: Topiramate 25 MG TABLET PO SCH ×2 (09:24→20:25)
[2019-01-25] MEDS: Sucralfate 1 GM TABLET PO SCH ×4 (09:24→21:44)
[2019-01-25] MEDS: Artificial Tears SOLN 15 ML BOTTLE BOTH EYES SCH ×4 (09:24→20:26)
[2019-01-25] MEDS: traMADol 50 MG TABLET PO PRN (14:47)
[2019-01-26] MEDS: hydrOXYzine pamoate 25 MG CAPSULE PO PRN ×2 (02:38→09:21)
[2019-01-26 07:50] VITALS: BP 97/62
--- NOTE | 2019-01-26 08:56 | Discharge Summary ---
- NOTES TO OUTPATIENT PROVIDER Notes to Outpatient Provider: f/u with Psychiatry at [facility] as scheduled. see PCP within a week. See ENT within 2 weeks. Date of Encounter: 01/26/19 Time of Encounter: 09:08 - Discharge Diagnosis (1) Vertigo Priority: Primary Status: Acute (2) Hiatal hernia Priority: Secondary Status: Chronic (3) Anxiety and depression Priority: Secondary Status: Chronic (4) Esophageal ulcer without bleeding Priority: Secondary Status: Chronic (5) Morbid obesity with BMI of 50.0-59.9, adult Priority: Secondary Status: Chronic (6) Fall Priority: Primary Status: Acute Qualifiers: Encounter type: initial encounter Qualified Code(s): W19.XXXA - Unspecified fall, initial encounter (7) DVT prophylaxis Priority: Primary Status: Acute Hospital course: Ms. Melara is a 53 year old female with past medical history of depression/anxiety, hypertension, migraine, esophageal ulcer, hiatal hernia, and a psoriasis who presented with one-week history of intermittent vertigo. Symptoms started on last Friday, when patient was standing and walking around the yard sale, she suddenly developed intense dizziness and is subsequently fell and hit his head on the ground. The event was witnessed by patient mother. There was no reported jerking or shaking movement during the event, however, patient did report loss of control of bladder. Since then, patient reported intermittent vertigo spells, which resulted in 2 additional falls. Patient described the dizziness as spinning sensation, she also reported right ear tinnitus but denies feeling of fullness of the right ear, She does not recall any upper respiratory infection or viral infection recently. However, patient did report that vertigo started after her psychiatry changed her medication. She was on Abilify about 4-5 years until 2 weeks ago, when it was changed to Rexulti and then was switched to Latuda. Patient recently was hospitalized in December because of chest pain and indigestion. She underwent extensive cardiac workup including echocardiogram and a stress test, which both were unremarkable. EGD was performed which revealed esophageal ulcer, patient was discharged home with PPI and Carafate. While in the ED, patient vital signs were stable, labs were unremarkable, a CT head and a cervical spine was reportedly normal. Due to her severe neurological symptoms and of frequent falls, patient was admitted for further evaluation. Latuda was discontinued and Abilify was restarted. The MRI of brain was per formed which showed no acute intracranial abnormalities. An EEG was completed which did not show any epileptic waveform. CTA of head and neck has no arteriostenosis. Neurology was consulted, recommended ENT follow-up. On the discharge today, patient reported she feels better, her vertigo has significantly improved. She refused PT/OT evaluation and refused home health service, she stated she has a walker at home and she also has help available. Patient is discharged home today, she was instructed to continue follow-up with psychiatry at [facility] to adjust her psychiatric medications, she will also follow-up with PCP as scheduled. Discharge discussed with: patient Time spent discussing smoking cessation with patient: more than 10 minutes - Time Spent with Patient Total time spent providing and/or coordinating discharge services: Time spent: Greater than 30 minutes - Discharge Medications Prescriptions: New ARIPiprazole [Abilify] 15 mg PO DAILY #60 tablet Continued lamoTRIgine [Lamotrigine] 100 mg PO QAM lamoTRIgine [Lamotrigine] 200 mg PO HS Buspirone HCl [Buspar] 30 mg PO BID Multivitamin [One Daily Multivitamin] 1 tab PO DAILY Duloxetine HCl [Cymbalta] 60 mg PO BID Cetirizine HCl 10 mg PO DAILY Cholecalciferol (Vitamin D3) [Vitamin D3] 10,000 unit PO RICHARDSON Cyclobenzaprine HCl 10 mg PO TID PRN PRN Reason: Muscle Spasm Guselkumab [TREMFYA (Outpatient Infusion)] 100 mg SQ Q8W hydrOXYzine HCl [Hydroxyzine HCl] 50 mg PO BID PRN PRN Reason: Anxiety Triamcinolone Acet 0.1% CRM [Kenalog] 1 appl TP BID PRN PRN Reason: PSORIASIS Sucralfate [Carafate] 1 gm PO QIDAC #120 tablet Atorvastatin [Lipitor] 40 mg PO HS #30 tablet Pantoprazole Sodium [Protonix] 40 mg PO BID #60 tablet. Metoprolol XL (24 HR) Succ [Toprol Xl] 12.5 mg PO DAILY #30 tab.er.24h Topiramate [Topamax] 100 mg PO BID Discontinued Aripiprazole [Abilify] 15 mg PO DAILY Home Medications: Buspirone HCl [Buspar] 30 mg PO BID 05/26/18 [History] Duloxetine HCl [Cymbalta] 60 mg PO BID 05/26/18 [History] Multivitamin [One Daily Multivitamin] 1 tab PO DAILY 05/26/18 [History] lamoTRIgine [Lamotrigine] 100 mg PO QAM 05/26/18 [History] lamoTRIgine [Lamotrigine] 200 mg PO HS 05/26/18 [History] Cetirizine HCl 10 mg PO DAILY 12/30/18 [History] Cholecalciferol (Vitamin D3) [Vitamin D3] 10,000 unit PO RICHARDSON 12/30/18 [History] Cyclobenzaprine HCl 10 mg PO TID PRN 12/30/18 [History] Guselkumab [TREMFYA (Outpatient Infusion)] 100 mg SQ Q8W 12/30/18 [History] Triamcinolone Acet 0.1% CRM [Kenalog] 1 appl TP BID PRN 12/30/18 [History] hydrOXYzine HCl [Hydroxyzine HCl] 50 mg PO BID PRN 12/30/18 [History] Atorvastatin [Lipitor] 40 mg PO HS #30 tablet 01/02/19 [Rx] Metoprolol XL (24 HR) Succ [Toprol Xl] 12.5 mg PO DAILY #30 tab.er.24h 01/02/19 [Rx] Pantoprazole Sodium [Protonix] 40 mg PO BID #60 tablet.dr 01/02/19 [Rx] Sucralfate [Carafate] 1 gm PO QIDAC #120 tablet 01/02/19 [Rx] Topiramate [Topamax] 100 mg PO BID 01/23/19 [History] ARIPiprazole [Abilify] 15 mg PO DAILY #60 tablet 01/26/19 [Rx] Allergies/Adverse Reactions: Allergy/AdvReac Type Severity Reaction Status Date / Time Penicillins Allergy Unknown See Verified 01/23/19 12:48 Comments pregabalin [From Lyrica] Allergy Unknown Swelling Verified 01/23/19 12:48 of the Eye ketorolac AdvReac Unknown Nausea Verified 01/23/19 12:48 olanzapine [From Zyprexa] AdvReac Unknown See Verified 01/23/19 12:48 Comments tramadol AdvReac Unknown Seizure Verified 01/23/19 12:48 Date of admission: 01/24/19 17:32 Primary care physician: Preeti Henley Consults: 01/22/19 18:38 Consult to Interpret Exam [CONS] Stat Consulting Provider: Angeline Lopez Consult to Interpret Exam: Interpret EEG 01/25/19 05:02 Consult to Occupational Therapy [CONS] Routine Comment: Evaluate, develop and implement POC Reason for Consult: fall, weakness Does patient have active BEDREST order?: No Is patient medically & hemodynamically stable?: Yes Patient assessed for mobility or mobilized this visit?: Yes Consult to Physical Therapy [CONS] Routine Comment: Evaluate, develop and implement POC Reason for Consult: fall, weakness Does patient have active BEDREST order?: No Is patient medically & hemodynamically stable?: Yes Patient assessed for mobility or mobilized this visit?: Yes Anticipated date of discharge: 01/26/19 - Constitutional Vitals: Temp Pulse Resp BP Pulse Ox 98.9 F 80 14 97/62 99 01/26/19 07:47 01/26/19 07:47 01/26/19 07:47 01/26/19 07:47 01/26/19 07:47 General appearance: Present: A&O X 3 Exam: PHYSICAL EXAMINATION: GENERAL APPEARANCE: The patient is alert, oriented and in no acute distress. HEENT: Head is normocephalic. The sinuses are nontender. Pupils are equal and reactive. The nares are patent. Oropharynx clear without lesions. NECK: Supple without lymphadenopathy. HEART: Regular rate and rhythm. LUNGS: No crackles or wheezes are heard. ABDOMEN: Soft, nontender, nondistended with good bowel sounds heard. Inguinal area is normal. EXTREMITIES: Without cyanosis, clubbing or edema. NEUROLOGICAL: Gross nonfocal. SKIN: Warm and dry without any rash. - Patient Status Disposition: Home, Self-Care Condition: Fair Functional capacity at discharge: uses cane/walker Overall status at discharge: patient is progressing back to baseline - Discharge Instructions Follow Up With: Preeti Henley [Primary Care Provider] - 01/28/19 8:20 am () - Diet and Activity Activity: increase activity as tolerated Diet: advance to your usual diet
[2019-01-26] MEDS: lamoTRIgine 100 MG TABLET PO SCH (08:59)
[2019-01-26] MEDS: Topiramate 25 MG TABLET PO SCH (08:59)
[2019-01-26] MEDS: Cholecalciferol (D-3) 1,000 UNIT TABLET PO SCH (08:59)
[2019-01-26] MEDS: Metoprolol XL (24 HR) Succ 25 MG TAB.ER.24H PO SCH (09:00)
[2019-01-26] MEDS: Multivit/Ca/Min/Fe/FA 1 TAB TABLET PO SCH (09:00)
[2019-01-26] MEDS: ARIPiprazole 10 MG TABLET PO SCH (09:00)
[2019-01-26] MEDS: BUSPIRONE HCL 10 MG TABLET PO SCH (09:00)
[2019-01-26] MEDS: Loratadine 10 MG TABLET PO SCH (09:00)
[2019-01-26] MEDS: Sucralfate 1 GM TABLET PO SCH (09:00)
[2019-01-26] MEDS: Artificial Tears SOLN 15 ML BOTTLE BOTH EYES SCH (09:01)
--- NOTE | 2019-01-26 10:56 | Electrocardiograph Report ---
[address] [address] Test Date: 2019-01-23 Pat Name: May Melara Department: 113 Room: 3B44 Gender: F Fisher Line: Jarod : 1965 Requested By: Peña Rowley Order Number: [id number] Reading MD: Mira Byrd Measurements Intervals [place] Rate: 86 P: 48 [place]: 157 QRS: 12 QRSD: 146 T: -15 QT: 397 QTc: 441 Interpretive Statements SINUS RHYTHM RIGHT BUNDLE BRANCH BLOCK Electronically Signed On 01-26-2019 10:54:59 EDT by Mira Byrd
--- NOTE | 2019-01-26 16:35 | Electrocardiograph Report ---
[place] [address] Test Date: 2019-01-22 Pat Name: May Melara Department: EXAM11 Room: 3B44 Gender: F Film Processor: : 1965 Requested By: Mauri Evans Order Number: [id number] Reading MD: Izzy Sherman Measurements Intervals [place] Rate: 89 P: 34 [place]: 150 QRS: 29 QRSD: 150 T: -39 QT: 411 QTc: 501 Interpretive Statements Sinus rhythm Right bundle branch block Electronically Signed On 01-26-2019 16:33:50 EDT by Izzy Sherman
== END 2019-01-26 11:53 | disposition home or self-care (01) | DRG 149 ==
LOC: EMEROOARM 12:38 → 3BNU 12:38
PROVIDERS: ADMIT Internal Medicine Nephrology; ATTEND Internal Medicine Nephrology

== ENCOUNTER 2019-02-02 13:13 | Inpatient (IN) ==
[2019-02-02 14:24] LABS: Eosinophils # 0.1 K/mcL (0.0-0.6); Eosinophils % 1.9 %; Hemoglobin 9.7 g/dL (11.5-15.4); Lymphocytes # 1.5 K/mcL (0.6-4.6); Lymphocytes % 36.2 %; Mean Corpuscular HGB Conc 31.3 g/dL (31.6-35.5); Mean Corpuscular Hemoglobin 28.5 pg (28.0-33.3); Mean Corpuscular Volume 91.2 fL (83.0-100.0); Monocytes # 0.4 K/mcL (0.0-1.3); Monocytes % 8.5 %; Neutrophils # 2.2 K/mcL (1.6-8.9); Platelet Count 240 K/mcL (140-400); Red Cell Distribution Width 14.3 % (11.5-14.5); Segmented Neutrophils % 52.4 %; White Blood Count 4.1 K/mcL (4.3-11.1)
--- NOTE | 2019-02-02 14:33 | Emergency Department Note ---
Disposition Clinical Impression: Hallucinations Disposition: Still a Patient Condition: Fair Referrals: NONE,PCP [Non-Partnered Physician] - Forms: ED Satisfaction Letter Time of Disposition: 17:00 General Adult HPI - General Chief complaint: ED Neuro Symptoms/Deficit Stated complaint: Neuro x1 week Time Seen by Provider: 02/02/19 13:24 Source: patient, family Mode of arrival: ambulatory Limitations: no limitations Nursing Notes Reviewed: Yes Vital Signs Reviewed: Yes - History of Present Illness HPI Narrative: 53-year-old female presented to the emergency department with multiple complaints. She said that she was recently here and admitted to the hospital for strokelike symptoms they did do an EEG, MRI, CT and multiple labs was seen by neurology who said this probably was due to vasovagal and sent home with primary care follow-up. Patient does have history of depression does see a psychiatrist has had recent medication changes approximately 4 weeks ago was started on BuSpar as well as she is on lamotrigine and hydroxyzine. She only started new medications after her last admission 2 weeks ago was a statin, beta tony, and a PPI. Otherwise there no other new medication started. Said since being discharged she is had continuation of her same symptoms which is generalized weakness increased falls and feeling like she seeing double. She said is the same symptoms she was originally here there is worsened and not gotten any better. She said she did fall today she is on Plavix said she does not remember she hit her head is unsure if she passed out. She is not complaining of a headache at this time. She is complaining of mild neck pain says it only hurts when she turns her head. She was recently diagnosed with shingles involving the ear did see ENT who started her on medications and this is completely resolved. Otherwise patient also is noting hallucinations where yesterday she was talking to her great-grandmother and great aunt who are all both . She says she did not see them but she was having conversations with them. Family said this is abnormal for her that also says she sometimes a hard time getting words out and sometimes is not talking normal. This of this is all worsened since her admission but it was prior to her admission as well and said this occurred. Pain Scale: 9 - Related Data Home Medications Medication Instructions Recorded Confirmed Buspirone HCl [Buspar] 30 mg PO BID 05/26/18 01/23/19 Duloxetine HCl [Cymbalta] 60 mg PO BID 05/26/18 01/23/19 Multivitamin [One Daily 1 tab PO DAILY 05/26/18 01/23/19 Multivitamin] lamoTRIgine [Lamotrigine] 100 mg PO QAM 05/26/18 01/23/19 lamoTRIgine [Lamotrigine] 200 mg PO HS 05/26/18 01/23/19 Cetirizine HCl 10 mg PO DAILY 12/30/18 01/23/19 Cholecalciferol (Vitamin D3) 10,000 unit PO RICHARDSON 12/30/18 01/23/19 [Vitamin D3] Cyclobenzaprine HCl 10 mg PO TID PRN 12/30/18 01/23/19 Guselkumab [TREMFYA (Outpatient 100 mg SQ Q8W 12/30/18 01/23/19 Infusion)] Triamcinolone Acet 0.1% CRM 1 appl TP BID PRN 12/30/18 01/23/19 [Kenalog] hydrOXYzine HCl [Hydroxyzine HCl] 50 mg PO BID PRN 12/30/18 01/23/19 Topiramate [Topamax] 100 mg PO BID 01/23/19 01/23/19 Previous Rx's Medication Instructions Recorded Atorvastatin [Lipitor] 40 mg PO HS #30 tablet 01/02/19 Metoprolol XL (24 HR) Succ [Toprol 12.5 mg PO DAILY #30 tab.er.24h 01/02/19 Xl] Pantoprazole Sodium [Protonix] 40 mg PO BID #60 tablet. 01/02/19 Sucralfate [Carafate] 1 gm PO QIDAC #120 tablet 01/02/19 ARIPiprazole [Abilify] 15 mg PO DAILY #60 tablet 01/26/19 Allergies Allergy/AdvReac Type Severity Reaction Status Date / Time Penicillins Allergy Unknown See Verified 01/23/19 12:48 Comments pregabalin [From Lyrica] Allergy Unknown Swelling Verified 01/23/19 12:48 of the Eye ketorolac AdvReac Unknown Nausea Verified 01/23/19 12:48 olanzapine [From Zyprexa] AdvReac Unknown See Verified 01/23/19 12:48 Comments tramadol AdvReac Unknown Seizure Verified 01/23/19 12:48 All systems ED: reviewed and negative except as stated. Review of Systems: As Per HPI Past Medical History - Past Medical History Attestation: Yes The following information was validated with the patient. Source: patient Medical history: Reports: coronary artery disease, hypertension Surgical history: Reports: angioplasty/stent, cholecystectomy, hysterectomy Psychiatric history: Reports: anxiety, bipolar, depression ADOLESCENT COUNSELOR history: Reports: no ADOLESCENT COUNSELOR history - Social History Smoking Status: Former smoker Smokeless Tobacco Status: No Alcohol use: Reports: none Drug use: Reports: none Physical Exam - General Limitations: no limitations General appearance: alert - Head Head exam: atraumatic, normocephalic, normal inspection - Eye Eye exam: Present: normal appearance, PERRL, EOMI - ENT ENT exam: normal exam, normal oropharynx, mucous membranes moist - Neck Neck exam: Present: normal inspection, full ROM, trachea midline - Chest Chest inspection: Present: normal inspection, symmetric chest wall rise - Respiratory Respiratory exam: Present: normal lung sounds bilaterally - Cardiovascular Cardiovascular exam: Present: regular rate, normal rhythm, normal heart sounds - Abdominal Exam Abdominal exam: Present: soft, Non-Tender, normal bowel sounds. Absent: tenderness, distention, guarding, rebound, rigidity - Extremities Exam Extremities exam: Present: normal inspection, full ROM. Absent: tenderness, pedal edema - Expanded Lower Extremity Exam Neurovascular/Tendon exam: Absent: motor deficit, sensory deficit, tendon deficit - Back Exam Back exam: Present: normal inspection, full ROM. Absent: tenderness, CVA tenderness (R), CVA tenderness (L) - Neurological Exam Neurological exam: Present: alert, oriented X3, CN II-XII intact, normal gait. Absent: motor sensory deficit - Expanded Neurological Exam Patient oriented to: Present: person, place, time Speech: Present: fluid speech Cranial nerves: EOM function (II, III, IV, ): Normal, facial sensation (V): Normal, facial palsy (VII): Normal, spinal accessory function (XI): Normal, tongue deviation (XII): Normal Cerebellar function: finger to nose: Normal, heel to jean: Normal Cerebellar function: normal gait Motor strength - LUE: 4/5 Motor strength - RUE: 4/5 Motor strength - LLE: 4/5 Motor strength - RLE: 4/5 Upper motor neuron exam: ekaterina neglect: Absent bilaterally, pronator drift: Absent bilaterally Sensory exam upper extremity: light touch: Normal Sensory exam lower extremity: light touch: Normal Coma Scale Eye Opening: Spontaneous Coma Scale Motor Response: Obeys Commands Coma Scale Verbal Response: Oriented Coma Scale Total: 15 - Skin Skin exam: Present: warm, dry, intact, normal color Course Course Narrative: After speaking with patient assessing to be more a psychiatry issue as she does have this diplopia and could be due to her medications. Patient is also having hallucinations she has no suicidal or homicidal ideations. I will get basic labs to medically clear the patient. We will also get CT of the head and neck due to patient's falls. Patient okay at this plan. Disposition pending results. We will have psychiatry see patient once medically cleared. - Reevaluation(s) Reevaluation #1: Patient states she has been having right leg pain. Did not notice any unilateral leg swelling. She is on any chest pain or shortness of breath. Is very low likelihood of this being a pulmonary embolism. I will get a d-dimer to see if patient does need an ultrasound of the leg to rule out DVT. Patient's okay with this plan. Time: 15:00 Reevaluation #2: D-dimer was elevated to [address] angiogram chest as well as a right lower extremity DVT study. I think ovarian was not is very low likelihood at this time seconded patient having no chest pain no shortness of breath no history of blood clots. Time: 15:55 Vital Signs Temperature 98.0 F 02/02/19 13:15 Pulse Rate 86 02/02/19 13:15 Respiratory Rate 16 02/02/19 13:15 Blood Pressure 129/84 02/02/19 13:15 O2 Sat by Pulse Oximetry 98 02/02/19 13:15 Temperature 98.0 F 02/02/19 13:46 Pulse Rate 80 02/02/19 16:39 Respiratory Rate 18 02/02/19 16:39 Blood Pressure 114/81 02/02/19 16:39 O2 Sat by Pulse Oximetry 98 02/02/19 16:39 Oxygen Delivery Oxygen Delivery Room Air Medical Decision Making - MDM Narrative Medical decision making narrative: Patient presented here with multiple complaints. Patient did not have any focal deficits. Her neuro exam is completely normal. She did fall but she is on Plavix to get CT of the head and neck these came back normal. All patient's labs were normal. A set she did have an elevated d-dimer she later told us that she was having right leg pain is worried about a possible DVT so did get a d- dimer came back elevated so ultrasound and CT angiogram of the chest are still pending at this time. Due to patient having hallucinations where she said that she was hearing her grandmother and great aunt talk to her there was worry about psychiatry component as well as she does see a psychiatrist for depression. There has been some new medication changes within the last 4 weeks as well. Patient will be cleared once negative for CTs and psychiatry will see the patient at that time. Disposition still pending psychiatry evaluation as well as CT and ultrasound. Patient stable at time of sign out. Please refer to Dr. Vaz/Jerzy note for further plan and disposition. Chest X-Ray 02/02/19 13:51 IMPRESSION: No acute process. D/ / Romeo Verduzco MD / Romeo Verduzco MD Interpreting Provider: Romeo Verduzco MD Head CT 02/02/19 13:51 IMPRESSION: Normal CT of the brain. D/ / Julius Adams MD / Julius Adams MD Interpreting Provider: Julius Adams MD Cervical Spine CT 02/02/19 13:52 IMPRESSION: No acute abnormality of the cervical spine. D/ / Frank Sutton MD / Frank Sutton MD Interpreting Provider: Frank Sutton MD - Medical Records Medical records reviewed: Yes I reviewed the patient's medical records. - Lab Data Lab results reviewed: Yes I reviewed the patient's lab results. Result diagrams: 02/02/19 14:04 02/02/19 14:04 Lab Results 02/02/19 02/02/19 02/02/19 Range/Units 13:50 13:51 14:04 WBC 4.1 L (4.3-11.1) K/mcL RBC 3.40 L (3.82-4.97) M/mcL Hgb 9.7 L (11.5-15.4) g/dL Hct 31.0 L (35.3-44.9) % MCV 91.2 (83.0-100.0) fL MCH 28.5 (28.0-33.3) pg MCHC 31.3 L (31.6-35.5) g/dL RDW 14.3 (11.5-14.5) % Plt Count 240 (140-400) K/mcL MPV 9.0 L (9.4-12.4) fL Immature Gran % 0.0 (0-4) % Seg Neutrophils % 52.4 % Lymphocytes % 36.2 % Monocytes % 8.5 % Eosinophils % 1.9 % Basophils % 1.0 % Neutrophils # 2.2 (1.6-8.9) K/mcL Lymphocytes # 1.5 (0.6-4.6) K/mcL Monocytes # 0.4 (0.0-1.3) K/mcL Eosinophils # 0.1 (0.0-0.6) K/mcL Basophils # 0.0 (0.0-0.2) K/mcL D-Dimer (0-500) ng/mLFEU Sodium (136-145) mEq/L Potassium (3.5-5.1) mEq/L Chloride (98-107) mEq/L Carbon Dioxide (23-29) mEq/L BUN (6-20) mg/dL Creatinine (0.60-1.20) mg/dL Est GFR ( Amer) (> 60) Est GFR (Non-Af Amer) (> 60) BUN/Creatinine Ratio (6-26) Glucose (70-105) mg/dL Calculated Osmolality (280-300) Calcium (8.6-10.3) mg/dL Total Bilirubin (0.3-1.0) mg/dL Direct Bilirubin (0.0-0.2) mg/dL Indirect Bilirubin (0.0-1.2) mg/dL AST (13-39) Units/L ALT (7-52) Units/L Alkaline Phosphatase (34-104) Units/L Serum Total Protein (6.4-8.9) g/dL Albumin (3.5-5.7) g/dL Globulin (2.4-3.5) g/dL Albumin/Globulin Ratio (1.1-2.2) TSH (0.340-5.600) mcIU/mL Urine Color (Yellow) Urine Clarity (Clear) Urine pH (5.0-8.0) pH Units Ur Specific [place] (1.010-1.025) Urine Protein (Neg-Trace) mg/dL Urine Glucose (UA) (Normal) mg/dL Urine Ketones (Negative) mg/dL Urine Blood (Negative) Urine Nitrite (Negative) Urine Bilirubin (Negative) Urine Urobilinogen (Normal) mg/dL Ur Leukocyte Esterase (Negative) Urine Microscopic RBC (0-3) per hpf Urine Microscopic WBC (0-3) per hpf Ur Squamous Epith Cells (None-Few) per lpf Urine Bacteria (None-Few) per hpf Hyaline Casts (None-Few) per lpf Urine Test Negative (Negative) Salicylates (15.0-30.0) mg/dL Urine Opiates Screen Negative (Chmvlv=836) ng/mL Acetaminophen (10-20) mcg/mL Ur Barbiturates Screen Negative (Ntxbco=240) ng/mL Ur Phencyclidine Scrn Negative (Cutoff=25) ng/mL Ur Amphetamines Screen Negative (Mgejcl=9871) ng/mL U Benzodiazepines Scrn Negative (Jtwuhy=780) ng/mL Urine Cocaine Screen Negative (Cutoff= 300) ng/mL U Marijuana (THC) Screen Negative (Cutoff = 50) ng/mL Ur Drug Screen Interp See Below Ethyl Alcohol (Less than 10) mg/dL 02/02/19 02/02/19 02/02/19 Range/Units 14:04 14:04 14:45 WBC (4.3-11.1) K/mcL RBC (3.82-4.97) M/mcL Hgb (11.5-15.4) g/dL Hct (35.3-44.9) % MCV (83.0-100.0) fL MCH (28.0-33.3) pg MCHC (31.6-35.5) g/dL RDW (11.5-14.5) % Plt Count (140-400) K/mcL MPV (9.4-12.4) fL Immature Gran % (0-4) % Seg Neutrophils % % Lymphocytes % % Monocytes % % Eosinophils % % Basophils % % Neutrophils # (1.6-8.9) K/mcL Lymphocytes # (0.6-4.6) K/mcL Monocytes # (0.0-1.3) K/mcL Eosinophils # (0.0-0.6) K/mcL Basophils # (0.0-0.2) K/mcL D-Dimer (0-500) ng/mLFEU Sodium 140 (136-145) mEq/L Potassium 3.6 (3.5-5.1) mEq/L Chloride 107 (98-107) mEq/L Carbon Dioxide 26 (23-29) mEq/L BUN 10 (6-20) mg/dL Creatinine 1.02 (0.60-1.20) mg/dL Est GFR ( Amer) > 60 (> 60) Est GFR (Non-Af Amer) 57 L (> 60) BUN/Creatinine Ratio 10 (6-26) Glucose 93 (70-105) mg/dL Calculated Osmolality 289 (280-300) Calcium 9.2 (8.6-10.3) mg/dL Total Bilirubin 0.3 (0.3-1.0) mg/dL Direct Bilirubin 0.0 (0.0-0.2) mg/dL Indirect Bilirubin 0.3 (0.0-1.2) mg/dL AST 17 (13-39) Units/L ALT 11 (7-52) Units/L Alkaline Phosphatase 70 (34-104) Units/L Serum Total Protein 6.6 (6.4-8.9) g/dL Albumin 4.2 (3.5-5.7) g/dL Globulin 2.4 (2.4-3.5) g/dL Albumin/Globulin Ratio 1.8 (1.1-2.2) TSH 2.789 (0.340-5.600) mcIU/mL Urine Color Yellow (Yellow) Urine Clarity Cloudy A (Clear) Urine pH 7.0 (5.0-8.0) pH Units Ur Specific [place] 1.018 (1.010-1.025) Urine Protein Negative (Neg-Trace) mg/dL Urine Glucose (UA) Normal (Normal) mg/dL Urine Ketones Negative (Negative) mg/dL Urine Blood Negative (Negative) Urine Nitrite Negative (Negative) Urine Bilirubin Negative (Negative) Urine Urobilinogen Normal (Normal) mg/dL Ur Leukocyte Esterase Moderate H (Negative) Urine Microscopic RBC 0-3 (0-3) per hpf Urine Microscopic WBC 15-30 H (0-3) per hpf Ur Squamous Epith Cells Many H (None-Few) per lpf Urine Bacteria Few (None-Few) per hpf Hyaline Casts None Seen (None-Few) per lpf Urine Test (Negative) Salicylates < 2.5 L (15.0-30.0) mg/dL Urine Opiates Screen (Euodjj=968) ng/mL Acetaminophen < 10 L (10-20) mcg/mL Ur Barbiturates Screen (Unzmtx=476) ng/mL Ur Phencyclidine Scrn (Cutoff=25) ng/mL Ur Amphetamines Screen (Bfujth=0899) ng/mL U Benzodiazepines Scrn (Snybsm=797) ng/mL Urine Cocaine Screen (Cutoff= 300) ng/mL U Marijuana (THC) Screen (Cutoff = 50) ng/mL Ur Drug Screen Interp Ethyl Alcohol < 10 (Less than 10) mg/dL 02/02/19 Range/Units 14:57 WBC (4.3-11.1) K/mcL RBC (3.82-4.97) M/mcL Hgb (11.5-15.4) g/dL Hct (35.3-44.9) % MCV (83.0-100.0) fL MCH (28.0-33.3) pg MCHC (31.6-35.5) g/dL RDW (11.5-14.5) % Plt Count (140-400) K/mcL MPV (9.4-12.4) fL Immature Gran % (0-4) % Seg Neutrophils % % Lymphocytes % % Monocytes % % Eosinophils % % Basophils % % Neutrophils # (1.6-8.9) K/mcL Lymphocytes # (0.6-4.6) K/mcL Monocytes # (0.0-1.3) K/mcL Eosinophils # (0.0-0.6) K/mcL Basophils # (0.0-0.2) K/mcL D-Dimer 1029 H (0-500) ng/mLFEU Sodium (136-145) mEq/L Potassium (3.5-5.1) mEq/L Chloride (98-107) mEq/L Carbon Dioxide (23-29) mEq/L BUN (6-20) mg/dL Creatinine (0.60-1.20) mg/dL Est GFR ( Amer) (> 60) Est GFR (Non-Af Amer) (> 60) BUN/Creatinine Ratio (6-26) Glucose (70-105) mg/dL Calculated Osmolality (280-300) Calcium (8.6-10.3) mg/dL Total Bilirubin (0.3-1.0) mg/dL Direct Bilirubin (0.0-0.2) mg/dL Indirect Bilirubin (0.0-1.2) mg/dL AST (13-39) Units/L ALT (7-52) Units/L Alkaline Phosphatase (34-104) Units/L Serum Total Protein (6.4-8.9) g/dL Albumin (3.5-5.7) g/dL Globulin (2.4-3.5) g/dL Albumin/Globulin Ratio (1.1-2.2) TSH (0.340-5.600) mcIU/mL Urine Color (Yellow) Urine Clarity (Clear) Urine pH (5.0-8.0) pH Units Ur Specific [place] (1.010-1.025) Urine Protein (Neg-Trace) mg/dL Urine Glucose (UA) (Normal) mg/dL Urine Ketones (Negative) mg/dL Urine Blood (Negative) Urine Nitrite (Negative) Urine Bilirubin (Negative) Urine Urobilinogen (Normal) mg/dL Ur Leukocyte Esterase (Negative) Urine Microscopic RBC (0-3) per hpf Urine Microscopic WBC (0-3) per hpf Ur Squamous Epith Cells (None-Few) per lpf Urine Bacteria (None-Few) per hpf Hyaline Casts (None-Few) per lpf Urine Test (Negative) Salicylates (15.0-30.0) mg/dL Urine Opiates Screen (Dccdmc=034) ng/mL Acetaminophen (10-20) mcg/mL Ur Barbiturates Screen (Qkdkot=289) ng/mL Ur Phencyclidine Scrn (Cutoff=25) ng/mL Ur Amphetamines Screen (Itaasp=0799) ng/mL U Benzodiazepines Scrn (Mnozvj=612) ng/mL Urine Cocaine Screen (Cutoff= 300) ng/mL U Marijuana (THC) Screen (Cutoff = 50) ng/mL Ur Drug Screen Interp Ethyl Alcohol (Less than 10) mg/dL - Radiology Data Radiology results reviewed: Yes I reviewed the patient's radiology results. - EKG Data EKG #1 EKG attestation: Yes I reviewed and interpreted this EKG. EKG results narrative: EKG done at 1400 review myself and the attending shows sinus rhythm at a rate of 77, ME 157, QRS 167, QTC 512. There is no acute ST changes no acute T-wave changes no signs of ischemia. No signs of hypertrophy, heart rate. There is a right bundle branch block no other blocks. No WPW/Brugada/HOCM. EKG unchanged when compared with old one done 01/23/19 which also shows a right bundle branch block no other changes.
[2019-02-02 14:40] LABS: Acetaminophen < 10 mcg/mL (10-20); BUN/Creatinine Ratio 10 (6-26); Blood Urea Nitrogen 10 mg/dL (6-20); Calcium 9.2 mg/dL (8.6-10.3); Carbon Dioxide 26 mEq/L (23-29); Chloride 107 mEq/L (98-107); Ethanol < 10 mg/dL (Less than 10); Glucose 93 mg/dL (70-105); Osmolality,Calculated 289 (280-300); Potassium 3.6 mEq/L (3.5-5.1); Salicylate < 2.5 mg/dL (15.0-30.0); Sodium 140 mEq/L (136-145); eGFR For African Americans > 60 (> 60); eGFR For Non-African Americans 57 (> 60)
[2019-02-02 14:43] LABS: Albumin 4.2 g/dL (3.5-5.7); Albumin/Globulin Ratio 1.8 (1.1-2.2); Bilirubin,Indirect 0.3 mg/dL (0.0-1.2); Bilirubin,Total 0.3 mg/dL (0.3-1.0); Globulin 2.4 g/dL (2.4-3.5); Total Protein 6.6 g/dL (6.4-8.9)
[2019-02-02 14:55] LABS: Thyroid Stimulating Hormone 2.789 mcIU/mL (0.340-5.600)
[2019-02-02 15:00] LABS: Bilirubin,Urine Negative (Negative); Blood,Urine Negative (Negative); Clarity,Urine Cloudy (Clear); Color,Urine Yellow (Yellow); Glucose,Urine (UA) Normal (Normal); Ketones,Urine Negative (Negative); Leukocyte Esterase,Urine Moderate (Negative); Nitrite,Urine Negative (Negative); Protein,Urine Negative (Neg-Trace); Specific Gravity,Urine 1.018 (1.010-1.025); Urobilinogen,Urine Normal (Normal)
[2019-02-02 15:04] LABS: Bacteria,Urine Few per hpf (None-Few); Hyaline Casts,Urine None Seen per lpf (None-Few); RBC,Urine 0-3 per hpf (0-3); Squamous Epithelial Cell,Urine Many per lpf (None-Few); WBC,Urine 15-30 per hpf (0-3)
[2019-02-02 15:06] LABS: Amphetamine Screen,Urine Negative ng/mL (Cutoff=1000); Barbiturate Screen,Urine Negative ng/mL (Cutoff=200); Benzodiazepines Screen,Urine Negative ng/mL (Cutoff=200); Cannabinoid Screen,Urine Negative ng/mL (Cutoff = 50); Cocaine Screen,Urine Negative ng/mL (Cutoff= 300); Opiate Screen,Urine Negative ng/mL (Cutoff=300); Phencyclidine Screen,Urine Negative ng/mL (Cutoff=25)
[2019-02-02] MEDS ORDERED: Isovue-370 500 ML BOTTLE IVP ONE (15:54)
--- NOTE | 2019-02-02 16:01 | Emergency Department Note ---
Disposition Clinical Impression: Hallucinations Disposition: Still a Patient Condition: Good Forms: ED Satisfaction Letter Time of Disposition: 16:01 General Adult HPI - General Chief complaint: ED Neuro Symptoms/Deficit Stated complaint: Neuro x1 week Time Seen by Provider: 02/02/19 13:24 Source: patient, family Mode of arrival: ambulatory Limitations: no limitations - History of Present Illness Pain Scale: 9 - Related Data Home Medications Medication Instructions Recorded Confirmed Buspirone HCl [Buspar] 30 mg PO BID 05/26/18 01/23/19 Duloxetine HCl [Cymbalta] 60 mg PO BID 05/26/18 01/23/19 Multivitamin [One Daily 1 tab PO DAILY 05/26/18 01/23/19 Multivitamin] lamoTRIgine [Lamotrigine] 100 mg PO QAM 05/26/18 01/23/19 lamoTRIgine [Lamotrigine] 200 mg PO HS 05/26/18 01/23/19 Cetirizine HCl 10 mg PO DAILY 12/30/18 01/23/19 Cholecalciferol (Vitamin D3) 10,000 unit PO RICHARDSON 12/30/18 01/23/19 [Vitamin D3] Cyclobenzaprine HCl 10 mg PO TID PRN 12/30/18 01/23/19 Guselkumab [TREMFYA (Outpatient 100 mg SQ Q8W 12/30/18 01/23/19 Infusion)] Triamcinolone Acet 0.1% CRM 1 appl TP BID PRN 12/30/18 01/23/19 [Kenalog] hydrOXYzine HCl [Hydroxyzine HCl] 50 mg PO BID PRN 12/30/18 01/23/19 Topiramate [Topamax] 100 mg PO BID 01/23/19 01/23/19 Previous Rx's Medication Instructions Recorded Atorvastatin [Lipitor] 40 mg PO HS #30 tablet 01/02/19 Metoprolol XL (24 HR) Succ [Toprol 12.5 mg PO DAILY #30 tab.er.24h 01/02/19 Xl] Pantoprazole Sodium [Protonix] 40 mg PO BID #60 tablet. 01/02/19 Sucralfate [Carafate] 1 gm PO QIDAC #120 tablet 01/02/19 ARIPiprazole [Abilify] 15 mg PO DAILY #60 tablet 01/26/19 Allergies Allergy/AdvReac Type Severity Reaction Status Date / Time Penicillins Allergy Unknown See Verified 01/23/19 12:48 Comments pregabalin [From Lyrica] Allergy Unknown Swelling Verified 01/23/19 12:48 of the Eye ketorolac AdvReac Unknown Nausea Verified 01/23/19 12:48 olanzapine [From Zyprexa] AdvReac Unknown See Verified 01/23/19 12:48 Comments tramadol AdvReac Unknown Seizure Verified 01/23/19 12:48 Past Medical History - Past Medical History Medical history: Reports: coronary artery disease, hypertension Surgical history: Reports: angioplasty/stent, cholecystectomy, hysterectomy Psychiatric history: Reports: anxiety, bipolar, depression POST ANESTHESIA ROOM NURSE history: Reports: no POST ANESTHESIA ROOM NURSE history - Social History Smoking Status: Former smoker Smokeless Tobacco Status: No Alcohol use: Reports: none Drug use: Reports: none Physical Exam - General Limitations: no limitations General appearance: alert Course Vital Signs Temperature 98.0 F 02/02/19 13:15 Pulse Rate 86 02/02/19 13:15 Respiratory Rate 16 02/02/19 13:15 Blood Pressure 129/84 02/02/19 13:15 O2 Sat by Pulse Oximetry 98 02/02/19 13:15 Temperature 98.0 F 02/02/19 13:46 Pulse Rate 78 02/02/19 13:50 Respiratory Rate 20 02/02/19 13:50 Blood Pressure 121/91 02/02/19 13:50 O2 Sat by Pulse Oximetry 98 02/02/19 13:46 Oxygen Delivery Oxygen Delivery Room Air Medical Decision Making - Lab Data Result diagrams: 02/02/19 14:04 02/02/19 14:04 Lab Results 02/02/19 02/02/19 02/02/19 Range/Units 13:50 13:51 14:04 WBC 4.1 L (4.3-11.1) K/mcL RBC 3.40 L (3.82-4.97) M/mcL Hgb 9.7 L (11.5-15.4) g/dL Hct 31.0 L (35.3-44.9) % MCV 91.2 (83.0-100.0) fL MCH 28.5 (28.0-33.3) pg MCHC 31.3 L (31.6-35.5) g/dL RDW 14.3 (11.5-14.5) % Plt Count 240 (140-400) K/mcL MPV 9.0 L (9.4-12.4) fL Immature Gran % 0.0 (0-4) % Seg Neutrophils % 52.4 % Lymphocytes % 36.2 % Monocytes % 8.5 % Eosinophils % 1.9 % Basophils % 1.0 % Neutrophils # 2.2 (1.6-8.9) K/mcL Lymphocytes # 1.5 (0.6-4.6) K/mcL Monocytes # 0.4 (0.0-1.3) K/mcL Eosinophils # 0.1 (0.0-0.6) K/mcL Basophils # 0.0 (0.0-0.2) K/mcL D-Dimer (0-500) ng/mLFEU Sodium (136-145) mEq/L Potassium (3.5-5.1) mEq/L Chloride (98-107) mEq/L Carbon Dioxide (23-29) mEq/L BUN (6-20) mg/dL Creatinine (0.60-1.20) mg/dL Est GFR ( Amer) (> 60) Est GFR (Non-Af Amer) (> 60) BUN/Creatinine Ratio (6-26) Glucose (70-105) mg/dL Calculated Osmolality (280-300) Calcium (8.6-10.3) mg/dL Total Bilirubin (0.3-1.0) mg/dL Direct Bilirubin (0.0-0.2) mg/dL Indirect Bilirubin (0.0-1.2) mg/dL AST (13-39) Units/L ALT (7-52) Units/L Alkaline Phosphatase (34-104) Units/L Serum Total Protein (6.4-8.9) g/dL Albumin (3.5-5.7) g/dL Globulin (2.4-3.5) g/dL Albumin/Globulin Ratio (1.1-2.2) TSH (0.340-5.600) mcIU/mL Urine Color (Yellow) Urine Clarity (Clear) Urine pH (5.0-8.0) pH Units Ur Specific [place] (1.010-1.025) Urine Protein (Neg-Trace) mg/dL Urine Glucose (UA) (Normal) mg/dL Urine Ketones (Negative) mg/dL Urine Blood (Negative) Urine Nitrite (Negative) Urine Bilirubin (Negative) Urine Urobilinogen (Normal) mg/dL Ur Leukocyte Esterase (Negative) Urine Microscopic RBC (0-3) per hpf Urine Microscopic WBC (0-3) per hpf Ur Squamous Epith Cells (None-Few) per lpf Urine Bacteria (None-Few) per hpf Hyaline Casts (None-Few) per lpf Urine Test Negative (Negative) Salicylates (15.0-30.0) mg/dL Urine Opiates Screen Negative (Glzkpx=824) ng/mL Acetaminophen (10-20) mcg/mL Ur Barbiturates Screen Negative (Jbdpxt=538) ng/mL Ur Phencyclidine Scrn Negative (Cutoff=25) ng/mL Ur Amphetamines Screen Negative (Ngdcdi=8611) ng/mL U Benzodiazepines Scrn Negative (Kodmml=527) ng/mL Urine Cocaine Screen Negative (Cutoff= 300) ng/mL U Marijuana (THC) Screen Negative (Cutoff = 50) ng/mL Ur Drug Screen Interp See Below Ethyl Alcohol (Less than 10) mg/dL 02/02/19 02/02/19 02/02/19 Range/Units 14:04 14:04 14:45 WBC (4.3-11.1) K/mcL RBC (3.82-4.97) M/mcL Hgb (11.5-15.4) g/dL Hct (35.3-44.9) % MCV (83.0-100.0) fL MCH (28.0-33.3) pg MCHC (31.6-35.5) g/dL RDW (11.5-14.5) % Plt Count (140-400) K/mcL MPV (9.4-12.4) fL Immature Gran % (0-4) % Seg Neutrophils % % Lymphocytes % % Monocytes % % Eosinophils % % Basophils % % Neutrophils # (1.6-8.9) K/mcL Lymphocytes # (0.6-4.6) K/mcL Monocytes # (0.0-1.3) K/mcL Eosinophils # (0.0-0.6) K/mcL Basophils # (0.0-0.2) K/mcL D-Dimer (0-500) ng/mLFEU Sodium 140 (136-145) mEq/L Potassium 3.6 (3.5-5.1) mEq/L Chloride 107 (98-107) mEq/L Carbon Dioxide 26 (23-29) mEq/L BUN 10 (6-20) mg/dL Creatinine 1.02 (0.60-1.20) mg/dL Est GFR ( Amer) > 60 (> 60) Est GFR (Non-Af Amer) 57 L (> 60) BUN/Creatinine Ratio 10 (6-26) Glucose 93 (70-105) mg/dL Calculated Osmolality 289 (280-300) Calcium 9.2 (8.6-10.3) mg/dL Total Bilirubin 0.3 (0.3-1.0) mg/dL Direct Bilirubin 0.0 (0.0-0.2) mg/dL Indirect Bilirubin 0.3 (0.0-1.2) mg/dL AST 17 (13-39) Units/L ALT 11 (7-52) Units/L Alkaline Phosphatase 70 (34-104) Units/L Serum Total Protein 6.6 (6.4-8.9) g/dL Albumin 4.2 (3.5-5.7) g/dL Globulin 2.4 (2.4-3.5) g/dL Albumin/Globulin Ratio 1.8 (1.1-2.2) TSH 2.789 (0.340-5.600) mcIU/mL Urine Color Yellow (Yellow) Urine Clarity Cloudy A (Clear) Urine pH 7.0 (5.0-8.0) pH Units Ur Specific [place] 1.018 (1.010-1.025) Urine Protein Negative (Neg-Trace) mg/dL Urine Glucose (UA) Normal (Normal) mg/dL Urine Ketones Negative (Negative) mg/dL Urine Blood Negative (Negative) Urine Nitrite Negative (Negative) Urine Bilirubin Negative (Negative) Urine Urobilinogen Normal (Normal) mg/dL Ur Leukocyte Esterase Moderate H (Negative) Urine Microscopic RBC 0-3 (0-3) per hpf Urine Microscopic WBC 15-30 H (0-3) per hpf Ur Squamous Epith Cells Many H (None-Few) per lpf Urine Bacteria Few (None-Few) per hpf Hyaline Casts None Seen (None-Few) per lpf Urine Test (Negative) Salicylates < 2.5 L (15.0-30.0) mg/dL Urine Opiates Screen (Sekmhw=128) ng/mL Acetaminophen < 10 L (10-20) mcg/mL Ur Barbiturates Screen (Zjyyhs=123) ng/mL Ur Phencyclidine Scrn (Cutoff=25) ng/mL Ur Amphetamines Screen (Faxawz=7018) ng/mL U Benzodiazepines Scrn (Peprhg=678) ng/mL Urine Cocaine Screen (Cutoff= 300) ng/mL U Marijuana (THC) Screen (Cutoff = 50) ng/mL Ur Drug Screen Interp Ethyl Alcohol < 10 (Less than 10) mg/dL 02/02/19 Range/Units 14:57 WBC (4.3-11.1) K/mcL RBC (3.82-4.97) M/mcL Hgb (11.5-15.4) g/dL Hct (35.3-44.9) % MCV (83.0-100.0) fL MCH (28.0-33.3) pg MCHC (31.6-35.5) g/dL RDW (11.5-14.5) % Plt Count (140-400) K/mcL MPV (9.4-12.4) fL Immature Gran % (0-4) % Seg Neutrophils % % Lymphocytes % % Monocytes % % Eosinophils % % Basophils % % Neutrophils # (1.6-8.9) K/mcL Lymphocytes # (0.6-4.6) K/mcL Monocytes # (0.0-1.3) K/mcL Eosinophils # (0.0-0.6) K/mcL Basophils # (0.0-0.2) K/mcL D-Dimer 1029 H (0-500) ng/mLFEU Sodium (136-145) mEq/L Potassium (3.5-5.1) mEq/L Chloride (98-107) mEq/L Carbon Dioxide (23-29) mEq/L BUN (6-20) mg/dL Creatinine (0.60-1.20) mg/dL Est GFR ( Amer) (> 60) Est GFR (Non-Af Amer) (> 60) BUN/Creatinine Ratio (6-26) Glucose (70-105) mg/dL Calculated Osmolality (280-300) Calcium (8.6-10.3) mg/dL Total Bilirubin (0.3-1.0) mg/dL Direct Bilirubin (0.0-0.2) mg/dL Indirect Bilirubin (0.0-1.2) mg/dL AST (13-39) Units/L ALT (7-52) Units/L Alkaline Phosphatase (34-104) Units/L Serum Total Protein (6.4-8.9) g/dL Albumin (3.5-5.7) g/dL Globulin (2.4-3.5) g/dL Albumin/Globulin Ratio (1.1-2.2) TSH (0.340-5.600) mcIU/mL Urine Color (Yellow) Urine Clarity (Clear) Urine pH (5.0-8.0) pH Units Ur Specific [place] (1.010-1.025) Urine Protein (Neg-Trace) mg/dL Urine Glucose (UA) (Normal) mg/dL Urine Ketones (Negative) mg/dL Urine Blood (Negative) Urine Nitrite (Negative) Urine Bilirubin (Negative) Urine Urobilinogen (Normal) mg/dL Ur Leukocyte Esterase (Negative) Urine Microscopic RBC (0-3) per hpf Urine Microscopic WBC (0-3) per hpf Ur Squamous Epith Cells (None-Few) per lpf Urine Bacteria (None-Few) per hpf Hyaline Casts (None-Few) per lpf Urine Test (Negative) Salicylates (15.0-30.0) mg/dL Urine Opiates Screen (Izekon=420) ng/mL Acetaminophen (10-20) mcg/mL Ur Barbiturates Screen (Xvabmh=227) ng/mL Ur Phencyclidine Scrn (Cutoff=25) ng/mL Ur Amphetamines Screen (Jevgrw=0023) ng/mL U Benzodiazepines Scrn (Wentor=306) ng/mL Urine Cocaine Screen (Cutoff= 300) ng/mL U Marijuana (THC) Screen (Cutoff = 50) ng/mL Ur Drug Screen Interp Ethyl Alcohol (Less than 10) mg/dL Attestation Statement - Attestation Attestation: I reviewed the residents documentation and agree with the residents assessment and plan of care. I have personally had face to face time with the patient. (Brief History, Brief Exam, and MDM) I personally supervised and was present for the pace/critical portions of the following procedures completed by the resident: EKG 53 year old female presents ot the Ed with complaits of fall and states she is concernd for a blood clot because she has pain in her leg and otherwise is not experincing chest pain now but did a few days ago. Iwona states she also thinks she is having a stroke. She most recently had a large neuro workup include EEG and MRI that did not diagnose a stroke. Iwona is having a supratentorial symptoms and having convesations with family members but otherwise not hearing or seeing them per her but it having conversations with them. NO SI/HI, but did have recent adjustment of her pysch medications. D-dimer is otherwise elevated and we will obtian a DVT/CTA to rule out blood clots. She will require pysch evlauation after medically cleared. Will likley sign iwona out to Dr Vza.
[2019-02-02] MEDS ORDERED: *HR* Heparin 5,000 UNIT/ML VIAL IVP PRN ×2 (17:24)
[2019-02-02] MEDS ORDERED: *HR* Heparin 5,000 UNIT/ML VIAL IVP ONE (17:24)
--- NOTE | 2019-02-02 17:24 | Emergency Department Note ---
Disposition Clinical Impression: Hallucinations Pulmonary embolus Qualifiers: Pulmonary embolism type: unspecified Chronicity: acute Acute cor pulmonale pr esence: without acute cor pulmonale Qualified Code(s): I26.99 - Other pulmonary embolism without acute cor pulmonale Disposition: Admitted As Inpatient Condition: Fair Referrals: NONE,PCP [Primary Care Provider] - Forms: ED Satisfaction Letter Time of Disposition: 17:36 General Adult HPI - General Chief complaint: ED Neuro Symptoms/Deficit Stated complaint: Neuro x1 week Time Seen by Provider: 02/02/19 13:24 Source: patient, family Mode of arrival: ambulatory Limitations: no limitations Nursing Notes Reviewed: Yes Vital Signs Reviewed: Yes - History of Present Illness HPI Narrative: Patient was signed out to me by Dr. Garcia and Dr. Dietz pending CTA of the chest and ultrasound of the lower extremity for DVT is secondary to a positive d- dimer. After these tests are done they suggest consulting 1A. For full history and physical please refer to the notes of Dr. Garcia and Dr. Dietz. Pain Scale: 9 - Related Data Home Medications Medication Instructions Recorded Confirmed Buspirone HCl [Buspar] 30 mg PO BID 05/26/18 01/23/19 Duloxetine HCl [Cymbalta] 60 mg PO BID 05/26/18 01/23/19 Multivitamin [One Daily 1 tab PO DAILY 05/26/18 01/23/19 Multivitamin] lamoTRIgine [Lamotrigine] 100 mg PO QAM 05/26/18 01/23/19 lamoTRIgine [Lamotrigine] 200 mg PO HS 05/26/18 01/23/19 Cetirizine HCl 10 mg PO DAILY 12/30/18 01/23/19 Cholecalciferol (Vitamin D3) 10,000 unit PO RICHARDSON 12/30/18 01/23/19 [Vitamin D3] Cyclobenzaprine HCl 10 mg PO TID PRN 12/30/18 01/23/19 Guselkumab [TREMFYA (Outpatient 100 mg SQ Q8W 12/30/18 01/23/19 Infusion)] Triamcinolone Acet 0.1% CRM 1 appl TP BID PRN 12/30/18 01/23/19 [Kenalog] hydrOXYzine HCl [Hydroxyzine HCl] 50 mg PO BID PRN 12/30/18 01/23/19 Topiramate [Topamax] 100 mg PO BID 01/23/19 01/23/19 Previous Rx's Medication Instructions Recorded Atorvastatin [Lipitor] 40 mg PO HS #30 tablet 01/02/19 Metoprolol XL (24 HR) Succ [Toprol 12.5 mg PO DAILY #30 tab.er.24h 01/02/19 Xl] Pantoprazole Sodium [Protonix] 40 mg PO BID #60 tablet. 01/02/19 Sucralfate [Carafate] 1 gm PO QIDAC #120 tablet 01/02/19 ARIPiprazole [Abilify] 15 mg PO DAILY #60 tablet 01/26/19 Allergies Allergy/AdvReac Type Severity Reaction Status Date / Time Penicillins Allergy Unknown See Verified 01/23/19 12:48 Comments pregabalin [From Lyrica] Allergy Unknown Swelling Verified 01/23/19 12:48 of the Eye ketorolac AdvReac Unknown Nausea Verified 01/23/19 12:48 olanzapine [From Zyprexa] AdvReac Unknown See Verified 01/23/19 12:48 Comments tramadol AdvReac Unknown Seizure Verified 01/23/19 12:48 Past Medical History - Past Medical History Medical history: Reports: coronary artery disease, hypertension Surgical history: Reports: angioplasty/stent, cholecystectomy, hysterectomy Psychiatric history: Reports: anxiety, bipolar, depression PCI SECURITY CONSULTANT history: Reports: no PCI SECURITY CONSULTANT history - Social History Smoking Status: Former smoker Smokeless Tobacco Status: No Alcohol use: Reports: none Drug use: Reports: none Physical Exam - General Limitations: no limitations General appearance: alert Course Vital Signs Temperature 98.0 F 02/02/19 13:15 Pulse Rate 86 02/02/19 13:15 Respiratory Rate 16 02/02/19 13:15 Blood Pressure 129/84 02/02/19 13:15 O2 Sat by Pulse Oximetry 98 02/02/19 13:15 Temperature 98.0 F 02/02/19 13:46 Pulse Rate 80 02/02/19 16:39 Respiratory Rate 18 02/02/19 16:39 Blood Pressure 114/81 02/02/19 16:39 O2 Sat by Pulse Oximetry 98 02/02/19 16:39 Oxygen Delivery Oxygen Delivery Room Air Medical Decision Making - MDM Narrative Medical decision making narrative: CTA of the chest demonstrated a small subsegmental pulmonary embolus without any evidence of right heart strain. Ultrasound of the lower extremities are negative for DVT. Patient will be admitted for anticoagulation for her pulmonary embolus. - Medical Records Medical records reviewed: Yes I reviewed the patient's medical records. - Lab Data Lab results reviewed: Yes I reviewed the patient's lab results. Result diagrams: 02/02/19 17:46 02/02/19 14:04 Lab Results 02/02/19 02/02/19 02/02/19 Range/Units 13:50 13:51 14:04 WBC 4.1 L (4.3-11.1) K/mcL RBC 3.40 L (3.82-4.97) M/mcL Hgb 9.7 L (11.5-15.4) g/dL Hct 31.0 L (35.3-44.9) % MCV 91.2 (83.0-100.0) fL MCH 28.5 (28.0-33.3) pg MCHC 31.3 L (31.6-35.5) g/dL RDW 14.3 (11.5-14.5) % Plt Count 240 (140-400) K/mcL MPV 9.0 L (9.4-12.4) fL Immature Gran % 0.0 (0-4) % Seg Neutrophils % 52.4 % Lymphocytes % 36.2 % Monocytes % 8.5 % Eosinophils % 1.9 % Basophils % 1.0 % Neutrophils # 2.2 (1.6-8.9) K/mcL Lymphocytes # 1.5 (0.6-4.6) K/mcL Monocytes # 0.4 (0.0-1.3) K/mcL Eosinophils # 0.1 (0.0-0.6) K/mcL Basophils # 0.0 (0.0-0.2) K/mcL D-Dimer (0-500) ng/mLFEU Sodium (136-145) mEq/L Potassium (3.5-5.1) mEq/L Chloride (98-107) mEq/L Carbon Dioxide (23-29) mEq/L BUN (6-20) mg/dL Creatinine (0.60-1.20) mg/dL Est GFR ( Amer) (> 60) Est GFR (Non-Af Amer) (> 60) BUN/Creatinine Ratio (6-26) Glucose (70-105) mg/dL Calculated Osmolality (280-300) Calcium (8.6-10.3) mg/dL Total Bilirubin (0.3-1.0) mg/dL Direct Bilirubin (0.0-0.2) mg/dL Indirect Bilirubin (0.0-1.2) mg/dL AST (13-39) Units/L ALT (7-52) Units/L Alkaline Phosphatase (34-104) Units/L Serum Total Protein (6.4-8.9) g/dL Albumin (3.5-5.7) g/dL Globulin (2.4-3.5) g/dL Albumin/Globulin Ratio (1.1-2.2) TSH (0.340-5.600) mcIU/mL Urine Color (Yellow) Urine Clarity (Clear) Urine pH (5.0-8.0) pH Units Ur Specific [place] (1.010-1.025) Urine Protein (Neg-Trace) mg/dL Urine Glucose (UA) (Normal) mg/dL Urine Ketones (Negative) mg/dL Urine Blood (Negative) Urine Nitrite (Negative) Urine Bilirubin (Negative) Urine Urobilinogen (Normal) mg/dL Ur Leukocyte Esterase (Negative) Urine Microscopic RBC (0-3) per hpf Urine Microscopic WBC (0-3) per hpf Ur Squamous Epith Cells (None-Few) per lpf Urine Bacteria (None-Few) per hpf Hyaline Casts (None-Few) per lpf Urine Test Negative (Negative) Salicylates (15.0-30.0) mg/dL Urine Opiates Screen Negative (Vkasss=427) ng/mL Acetaminophen (10-20) mcg/mL Ur Barbiturates Screen Negative (Zoudan=187) ng/mL Ur Phencyclidine Scrn Negative (Cutoff=25) ng/mL Ur Amphetamines Screen Negative (Bmqhnz=3234) ng/mL U Benzodiazepines Scrn Negative (Owezaq=947) ng/mL Urine Cocaine Screen Negative (Cutoff= 300) ng/mL U Marijuana (THC) Screen Negative (Cutoff = 50) ng/mL Ur Drug Screen Interp See Below Ethyl Alcohol (Less than 10) mg/dL 02/02/19 02/02/19 02/02/19 Range/Units 14:04 14:04 14:45 WBC (4.3-11.1) K/mcL RBC (3.82-4.97) M/mcL Hgb (11.5-15.4) g/dL Hct (35.3-44.9) % MCV (83.0-100.0) fL MCH (28.0-33.3) pg MCHC (31.6-35.5) g/dL RDW (11.5-14.5) % Plt Count (140-400) K/mcL MPV (9.4-12.4) fL Immature Gran % (0-4) % Seg Neutrophils % % Lymphocytes % % Monocytes % % Eosinophils % % Basophils % % Neutrophils # (1.6-8.9) K/mcL Lymphocytes # (0.6-4.6) K/mcL Monocytes # (0.0-1.3) K/mcL Eosinophils # (0.0-0.6) K/mcL Basophils # (0.0-0.2) K/mcL D-Dimer (0-500) ng/mLFEU Sodium 140 (136-145) mEq/L Potassium 3.6 (3.5-5.1) mEq/L Chloride 107 (98-107) mEq/L Carbon Dioxide 26 (23-29) mEq/L BUN 10 (6-20) mg/dL Creatinine 1.02 (0.60-1.20) mg/dL Est GFR ( Amer) > 60 (> 60) Est GFR (Non-Af Amer) 57 L (> 60) BUN/Creatinine Ratio 10 (6-26) Glucose 93 (70-105) mg/dL Calculated Osmolality 289 (280-300) Calcium 9.2 (8.6-10.3) mg/dL Total Bilirubin 0.3 (0.3-1.0) mg/dL Direct Bilirubin 0.0 (0.0-0.2) mg/dL Indirect Bilirubin 0.3 (0.0-1.2) mg/dL AST 17 (13-39) Units/L ALT 11 (7-52) Units/L Alkaline Phosphatase 70 (34-104) Units/L Serum Total Protein 6.6 (6.4-8.9) g/dL Albumin 4.2 (3.5-5.7) g/dL Globulin 2.4 (2.4-3.5) g/dL Albumin/Globulin Ratio 1.8 (1.1-2.2) TSH 2.789 (0.340-5.600) mcIU/mL Urine Color Yellow (Yellow) Urine Clarity Cloudy A (Clear) Urine pH 7.0 (5.0-8.0) pH Units Ur Specific [place] 1.018 (1.010-1.025) Urine Protein Negative (Neg-Trace) mg/dL Urine Glucose (UA) Normal (Normal) mg/dL Urine Ketones Negative (Negative) mg/dL Urine Blood Negative (Negative) Urine Nitrite Negative (Negative) Urine Bilirubin Negative (Negative) Urine Urobilinogen Normal (Normal) mg/dL Ur Leukocyte Esterase Moderate H (Negative) Urine Microscopic RBC 0-3 (0-3) per hpf Urine Microscopic WBC 15-30 H (0-3) per hpf Ur Squamous Epith Cells Many H (None-Few) per lpf Urine Bacteria Few (None-Few) per hpf Hyaline Casts None Seen (None-Few) per lpf Urine Test (Negative) Salicylates < 2.5 L (15.0-30.0) mg/dL Urine Opiates Screen (Oajfmu=436) ng/mL Acetaminophen < 10 L (10-20) mcg/mL Ur Barbiturates Screen (Zyvggs=783) ng/mL Ur Phencyclidine Scrn (Cutoff=25) ng/mL Ur Amphetamines Screen (Tfbrup=2528) ng/mL U Benzodiazepines Scrn (Xfqzxv=844) ng/mL Urine Cocaine Screen (Cutoff= 300) ng/mL U Marijuana (THC) Screen (Cutoff = 50) ng/mL Ur Drug Screen Interp Ethyl Alcohol < 10 (Less than 10) mg/dL 02/02/19 Range/Units 14:57 WBC (4.3-11.1) K/mcL RBC (3.82-4.97) M/mcL Hgb (11.5-15.4) g/dL Hct (35.3-44.9) % MCV (83.0-100.0) fL MCH (28.0-33.3) pg MCHC (31.6-35.5) g/dL RDW (11.5-14.5) % Plt Count (140-400) K/mcL MPV (9.4-12.4) fL Immature Gran % (0-4) % Seg Neutrophils % % Lymphocytes % % Monocytes % % Eosinophils % % Basophils % % Neutrophils # (1.6-8.9) K/mcL Lymphocytes # (0.6-4.6) K/mcL Monocytes # (0.0-1.3) K/mcL Eosinophils # (0.0-0.6) K/mcL Basophils # (0.0-0.2) K/mcL D-Dimer 1029 H (0-500) ng/mLFEU Sodium (136-145) mEq/L Potassium (3.5-5.1) mEq/L Chloride (98-107) mEq/L Carbon Dioxide (23-29) mEq/L BUN (6-20) mg/dL Creatinine (0.60-1.20) mg/dL Est GFR ( Amer) (> 60) Est GFR (Non-Af Amer) (> 60) BUN/Creatinine Ratio (6-26) Glucose (70-105) mg/dL Calculated Osmolality (280-300) Calcium (8.6-10.3) mg/dL Total Bilirubin (0.3-1.0) mg/dL Direct Bilirubin (0.0-0.2) mg/dL Indirect Bilirubin (0.0-1.2) mg/dL AST (13-39) Units/L ALT (7-52) Units/L Alkaline Phosphatase (34-104) Units/L Serum Total Protein (6.4-8.9) g/dL Albumin (3.5-5.7) g/dL Globulin (2.4-3.5) g/dL Albumin/Globulin Ratio (1.1-2.2) TSH (0.340-5.600) mcIU/mL Urine Color (Yellow) Urine Clarity (Clear) Urine pH (5.0-8.0) pH Units Ur Specific [place] (1.010-1.025) Urine Protein (Neg-Trace) mg/dL Urine Glucose (UA) (Normal) mg/dL Urine Ketones (Negative) mg/dL Urine Blood (Negative) Urine Nitrite (Negative) Urine Bilirubin (Negative) Urine Urobilinogen (Normal) mg/dL Ur Leukocyte Esterase (Negative) Urine Microscopic RBC (0-3) per hpf Urine Microscopic WBC (0-3) per hpf Ur Squamous Epith Cells (None-Few) per lpf Urine Bacteria (None-Few) per hpf Hyaline Casts (None-Few) per lpf Urine Test (Negative) Salicylates (15.0-30.0) mg/dL Urine Opiates Screen (Ksmqxa=212) ng/mL Acetaminophen (10-20) mcg/mL Ur Barbiturates Screen (Uwdpqr=884) ng/mL Ur Phencyclidine Scrn (Cutoff=25) ng/mL Ur Amphetamines Screen (Bfwzua=9786) ng/mL U Benzodiazepines Scrn (Cufeeb=752) ng/mL Urine Cocaine Screen (Cutoff= 300) ng/mL U Marijuana (THC) Screen (Cutoff = 50) ng/mL Ur Drug Screen Interp Ethyl Alcohol (Less than 10) mg/dL - Radiology Data Radiology results reviewed: Yes I reviewed the patient's radiology results. Attestation Statement - Attestation Attestation: I have seen this patient with the resident physician, I have personally evaluated this patient. I had reviewed the chart and document dictation by the resident physician and aM in agreement with the information documented by the resident physician. Please see documentation by the resident physician for complete chart including past medical history, family medical history, review of systems, current history and physical and laboratory and imaging studies. I was present for all procedures, provided direct supervision for all procedures, was present for the entirety of all procedures and provided direct guidance during the procedures. Please see documentation by the resident physician for any procedures performed. I have reviewed all interpretations of EKGs, and reviewed all EKGs performed on patient's as well. I have also reviewed reports of imaging as provided by radiology. Patient presented emergency department and was seen by my partner, I was asked to follow-up on imaging, including CT PE an ultrasound of the lower extremities, ultrasound showed no DVT, CT PE protocol shows left lower lobe pulmonary embolism, patient was initiated on heparin and was admitted to the hospitalist for further management
[2019-02-02] MEDS ORDERED: Naloxone 0.4 MG/ML INJ IVP PRN (17:42)
[2019-02-02] MEDS ORDERED: MOM Conc 10 ML UD.LIQ PO PRN (17:42)
[2019-02-02] MEDS ORDERED: traMADol 50 MG TABLET PO PRN (17:42)
[2019-02-02] MEDS ORDERED: Ondansetron ODT 4 MG TAB.RAPDIS SL PRN (17:42)
[2019-02-02 18:19] LABS: Hematocrit 36.1 % (35.3-44.9); Hemoglobin 10.9 g/dL (11.5-15.4); Mean Corpuscular HGB Conc 30.2 g/dL (31.6-35.5); Mean Corpuscular Hemoglobin 28.2 pg (28.0-33.3); Mean Corpuscular Volume 93.3 fL (83.0-100.0); Mean Platelet Volume 9.3 fL (9.4-12.4); Platelet Count 248 K/mcL (140-400); Red Blood Count 3.87 M/mcL (3.82-4.97); Red Cell Distribution Width 14.6 % (11.5-14.5); White Blood Count 4.9 K/mcL (4.3-11.1)
[2019-02-02 18:28] LABS: Heparin anti-factor XA UFH 0.03 IU/mL (0.30-0.70); Prothrombin Time 11.5 Seconds (9.4-12.1)
[2019-02-02] MEDS: Heparin 25,000 UNIT/250 ML D5W 25,000 UNIT/250 ML IV.SOLN IVC SCH (18:38)
--- NOTE | 2019-02-02 18:50 | Internal Med History&Physical ---
Date of Encounter: 02/02/19 Time of Encounter: 18:00 Internal Medicine - H&P: HPI Chief complaint: Weakness Admitted From: Home Plans for Post Hospital Care: Home History of present illness: Ms. Melara is a 53 year old female with hx of HTN, depression/anxiety, migraine and psoriasis presents to ED with complaints of multiple issues. She had noted hallucinations and was to be seen by psychiatry. She was found to have PE and is to be admitted. Ms Melara has significant history as above. She was recently hospitalized for neurologic symptoms and had full neuro workup. She continues to have visual issues (diplopia) and stated she was having visual hallucinations. In the course of ED work up she stated she had noted swelling in RLE. D dimer done and was positive. Venous duplex negative but found to have pulmonary emboli in LLL on CTA. She has been started on heparin and admitted. Ms Melara has had recent discharges on 01/26 and 01/02. In December she had chest pain and had full work up at that time. In January it was dizziness and diplopia and had full work up. She continues to have similar symptoms now. This AM she lost her balance and fell outside. Xrays in ED negative though she does have some residual neck pain. She has not had fever or chills. Neurologic symptoms have been attributed to changes in psych meds and she was to follow up with her psychiatrist. She relayed to ED physician that she was having visual hallucinations today as well. She was going to be seen by psych in ED but PE was found. She denies CP, SOB, palpitations. Only symptom is dizziness intermittently. No family hx of clotting disorder. No prior hx of clot. At this time she is comfortable in bed. She has some anxiety about current health status but has been reassured. Past Med Surg Social Fam HX - Past Medical History Source: patient Medical history: coronary artery disease, hypertension Psychiatric history: anxiety, bipolar, depression - Past Surgical History Surgical History: angioplasty/stent, cholecystectomy, hysterectomy Additional surgical history: bilateral knee replacement - Social History Smoking Status: Former smoker Smokeless Tobacco Status: No Alcohol use: none Drug use: none - Family History Father Living Status: Still Living Hx Family Cardiac Disorders: Yes Mother Living Status: Still Living Hx Family Cardiac Disorders: Yes Internal Medicine - H&P: Meds Buspirone HCl [Buspar] 30 mg PO BID 05/26/18 [History] Duloxetine HCl [Cymbalta] 60 mg PO BID 05/26/18 [History] Multivitamin [One Daily Multivitamin] 1 tab PO DAILY 05/26/18 [History] lamoTRIgine [Lamotrigine] 100 mg PO QAM 05/26/18 [History] lamoTRIgine [Lamotrigine] 200 mg PO HS 05/26/18 [History] Cetirizine HCl 10 mg PO DAILY 12/30/18 [History] Cholecalciferol (Vitamin D3) [Vitamin D3] 10,000 unit PO RICHARDSON 12/30/18 [History] Cyclobenzaprine HCl 10 mg PO TID PRN 12/30/18 [History] Guselkumab [TREMFYA (Outpatient Infusion)] 100 mg SQ Q8W 12/30/18 [History] Triamcinolone Acet 0.1% CRM [Kenalog] 1 appl TP BID PRN 12/30/18 [History] hydrOXYzine HCl [Hydroxyzine HCl] 50 mg PO BID PRN 12/30/18 [History] Atorvastatin [Lipitor] 40 mg PO HS #30 tablet 01/02/19 [Rx] Metoprolol XL (24 HR) Succ [Toprol Xl] 12.5 mg PO DAILY #30 tab.er.24h 01/02/19 [Rx] Pantoprazole Sodium [Protonix] 40 mg PO BID #60 tablet.dr 01/02/19 [Rx] Sucralfate [Carafate] 1 gm PO QIDAC #120 tablet 01/02/19 [Rx] Topiramate [Topamax] 100 mg PO BID 01/23/19 [History] ARIPiprazole [Abilify] 15 mg PO DAILY #60 tablet 01/26/19 [Rx] Allergy/AdvReac Type Severity Reaction Status Date / Time Penicillins Allergy Unknown See Verified 01/23/19 12:48 Comments pregabalin [From Lyrica] Allergy Unknown Swelling Verified 01/23/19 12:48 of the Eye ketorolac AdvReac Unknown Nausea Verified 01/23/19 12:48 olanzapine [From Zyprexa] AdvReac Unknown See Verified 01/23/19 12:48 Comments tramadol AdvReac Unknown Seizure Verified 01/23/19 12:48 All Systems PM: A 10-system review of systems was performed and is negative for pertinent findings except as documented above in the HPI. - Constitutional Constitutional: lethargy, malaise - EENT Eyes: change in vision, diplopia, no tunnel vision Ears: ear pain, no decreased hearing Nose, mouth and throat: no dry mouth, no mouth pain, no sinus pain - Breasts Breasts: no mass - Cardiovascular Cardiovascular ROS IM: lightheadedness, no chest pain, no diaphoresis, no dyspnea, no dyspnea on exertion, no edema, no irregular heart rhythm, no orthopnea, no palpitations, no paroxysmal nocturnal dyspnea - Respiratory Respiratory: no cough, no dyspnea, no hemoptysis, no dyspnea on exertion, no wheezing, no pain on inspiration, no chest congestion - Gastrointestinal Gastrointestinal: nausea, no abdominal pain, no cramping, no melena, no vomiting - Genitourinary Genitourinary: no difficulty urinating, no pelvic pain, no urinary frequency, no urinary urgency - Musculoskeletal Musculoskeletal ROS IM: back pain, neck pain, no arthralgias, no deformity - Integumentary Integumentary IM: no new lesions, no rash - Neurological Neurological ROS: dizziness, frequent falls, paresthesias - Psychiatric Psychiatric: anxiety, depression, visual hallucinations - Endocrine Endocrine IM: no cold intolerance - Hematologic/Lymphatic Hematologic/Lymphatic: no easy bleeding - Allergic/Immunologic Allergic/Immunologic: no tongue swelling - Constitutional Vitals: Temp Pulse Resp BP Pulse Ox 98.0 F 80 18 114/81 98 02/02/19 13:46 02/02/19 16:39 02/02/19 16:39 02/02/19 16:39 02/02/19 16:39 General appearance: Present: A&O X 3 (anxious) Exam: See below - Head Head exam: Present: atraumatic, normocephalic - Eye Eye exam: Present: EOMI, conjuntiva pink - ENT ENT exam: Present: mucous membranes moist - Neck Neck exam general surgery: Present: supple. Absent: nuchal rigidity - Respiratory Respiratory exam: Present: CTAB. Absent: rales, rhonchi, wheezes - Cardiovascular Cardiovascular exam: Present: RRR. Absent: gallop, +S3, +S4, systolic murmur, tachycardia - GI/Abdominal GI/Abdominal exam: Present: normal bowel sounds, soft. Absent: mass, tenderness - Extremities Exam Extremities exam: Present: warm. Absent: tenderness - Neurological Exam Neurological exam: Present: alert, oriented X3, strengths equal and symetr throughout - Psychiatric Psychiatric exam: Present: anxious - Skin Skin exam: Present: dry, warm Internal Med - H&P Results - Labs CBC & Chem 7: 02/02/19 17:46 02/02/19 14:04 Labs: Short CBC 02/02/19 02/02/19 Range/Units 14:04 17:46 WBC 4.1 L 4.9 (4.3-11.1) K/mcL Hgb 9.7 L 10.9 L (11.5-15.4) g/dL Hct 31.0 L 36.1 (35.3-44.9) % Plt Count 240 248 (140-400) K/mcL Neutrophils # 2.2 (1.6-8.9) K/mcL BMP 02/02/19 14:04 Sodium 140 Potassium 3.6 Chloride 107 Carbon Dioxide 26 BUN 10 Creatinine 1.02 Glucose 93 Calcium 9.2 Liver Function 02/02/19 Range/Units 14:04 Total Bilirubin 0.3 (0.3-1.0) mg/dL Direct Bilirubin 0.0 (0.0-0.2) mg/dL AST 17 (13-39) Units/L ALT 11 (7-52) Units/L Alkaline Phosphatase 70 (34-104) Units/L Albumin 4.2 (3.5-5.7) g/dL Urine 02/02/19 Range/Units 14:45 Urine Color Yellow (Yellow) Urine Clarity Cloudy A (Clear) Urine pH 7.0 (5.0-8.0) pH Units Ur Specific [place] 1.018 (1.010-1.025) Urine Protein Negative (Neg-Trace) mg/dL Urine Glucose (UA) Normal (Normal) mg/dL - Impressions ITS Impressions Chest X-Ray 02/02/19 13:51 IMPRESSION: No acute process. D/ / Romeo Verduzco MD / Romeo Verduzco MD Interpreting Provider: Romeo Verduzco MD Head CT 02/02/19 13:51 IMPRESSION: Normal CT of the brain. D/ / Julius Adams MD / Julius Adams MD Interpreting Provider: Juilus Adams MD Cervical Spine CT 02/02/19 13:52 IMPRESSION: No acute abnormality of the cervical spine. D/ / Frank Sutton MD / Frank Sutton MD Interpreting Provider: Frank Sutton MD Chest CTA 02/02/19 15:54 IMPRESSION: Left lower lobe pulmonary emboli Hiatal hernia again noted Findings were discussed with Dr Juan at 5:22 pm on 02/02/2019. D/ / Romeo Verduzco MD / Romeo Verduzco MD Interpreting Provider: Romeo Verduzco MD - Assessment and Plan (1) Pulmonary embolus Current Visit: Yes Status: Acute Assessment and plan: Pt presented to ED with multiple complaints. She reported swelling of leg. D dimer positive and CTA positive for PE. Admit to hospital. Start on IV heparin. Will check for DOAC pricing tomorrow. Send Factor V Leiden. Heparin has been started. At this time she is hemodynamically stable and not on oxygen. Qualifiers: Pulmonary embolism type: other Chronicity: acute Acute cor pulmonale presence: without acute cor pulmonale Qualified Code(s): I26.99 - Other pulmonary embolism without acute cor pulmonale (2) Dizziness Current Visit: No Status: Acute Assessment and plan: Pt continues to have some episodes of dizziness and falls. Will need to have psych evaluate her meds this admission. (3) Esophageal ulcer without bleeding Current Visit: No Status: Chronic Assessment and plan: Chronic issue. No symptoms now. (4) Hypertension Current Visit: Yes Status: Chronic Assessment and plan: Patient BP controlled at this time. Continue meds. Qualifiers: Hypertension type: essential hypertension Qualified Code(s): I10 - Essential (primary) hypertension (5) Visual hallucinations Current Visit: Yes Status: Acute Assessment and plan: Will need psych input this admission (6) Morbid obesity with BMI of 50.0-59.9, adult Current Visit: No Status: Chronic Assessment and plan: Chronic issue - Time Spent With Patient Total time spent is greater than 50% in coordination of care (as documented) at patient's floor/unit and/or counseling patient:
[2019-02-02] MEDS: Acetaminophen 325 MG TABLET PO PRN (22:20)
[2019-02-03 01:53] LABS: INR 1.1; Prothrombin Time 12.8 Seconds (9.4-12.1)
[2019-02-03 02:03] LABS: BUN/Creatinine Ratio 11 (6-26); Blood Urea Nitrogen 10 mg/dL (6-20); Calcium 8.8 mg/dL (8.6-10.3); Carbon Dioxide 22 mEq/L (23-29); Chloride 109 mEq/L (98-107); Glucose 99 mg/dL (70-105); Magnesium 2.1 mg/dL (1.6-2.6); Osmolality,Calculated 287 (280-300); Potassium 3.3 mEq/L (3.5-5.1); Sodium 139 mEq/L (136-145); eGFR For African Americans > 60 (> 60); eGFR For Non-African Americans > 60 (> 60)
[2019-02-03] MEDS ORDERED: Ketorolac 30 MG/ML VIAL IVP ONE (09:04)
[2019-02-03] MEDS ORDERED: Ibuprofen 600 MG TABLET PO ONE (09:05)
[2019-02-03] MEDS: Acetaminophen 325 MG TABLET PO PRN ×2 (09:17→18:55)
[2019-02-03] MEDS ORDERED: *HR* OxyCODONE/APAP 5/325 TABLET PO ONE (10:26)
[2019-02-03] MEDS: Heparin 25,000 UNIT/250 ML D5W 25,000 UNIT/250 ML IV.SOLN IVC SCH (11:34)
--- NOTE | 2019-02-03 14:46 | Internal Med Progress Note ---
Hospitalist Progress Note - Encounter Date of Encounter: 02/03/19 Time of Encounter: 15:31 - Subjective Interval History: Patient seen and examined at bedside. Patient states that she does not feel well. Generally she reports chronic back pain that is stable but overall states she does not feel well. She reports some weakness on her left side. She does not report any visual or auditory hallucinations. - Exam Vitals: Temp Pulse Resp BP Pulse Ox 98.0 F 84 17 111/87 99 02/03/19 14:20 02/03/19 14:20 02/03/19 14:20 02/03/19 14:20 02/03/19 14:20 Exam: Gen.: Alert and oriented 3, no acute distress Heart: Regular rate and rhythm, no rubs, gallops Lungs: Clear to auscultation bilaterally, no rales, rhonchi, wheezes Abdomen: Soft, nontender, nondistended. Normoactive bowel sounds Neuro: 45 strength in the left lower extremity, otherwise 5 out of 5 strength throughout. Cranial nerves II through 12 intact Psych: Flat affect, depressed mood. No auditory or visual hallucinations noted at this time. - Assessment and Plan (1) Pulmonary embolus Current Visit: Yes Status: Acute Assessment and Plan: Stable. No hypoxia or tachycardia. Stop heparin drip this evening and start Eliquis 5 mg twice a day. (2) Visual hallucinations Current Visit: Yes Status: Acute Assessment and Plan: Evaluated the patient today and when I was evaluating patient she did not have any hallucinations however when she returned from MRI she did state that she thought her brother was there. I did perform a physical exam and she did have some noted left lower extremity weakness I performed an MRI at that time that showed no ischemic changes and no acute infarct. Concern for underlying psychiatric process, consider psych consult tomorrow. (3) Morbid obesity with BMI of 50.0-59.9, adult Current Visit: No Status: Chronic Assessment and Plan: Chronic issue (4) Esophageal ulcer without bleeding Current Visit: No Status: Chronic Assessment and Plan: Chronic issue. No symptoms now. Closely monitor now that we are starting anticoagulation as discussed above. (5) Dizziness Current Visit: No Status: Acute Assessment and Plan: Patient complaining more weakness today however MRI of the brain was normal. Consider psych eval as above. (6) Hypertension Current Visit: Yes Status: Chronic Assessment and Plan: Patient BP controlled at this time. Continue home meds. - Time Spent with Patient Total time spent is greater than 50% in coordination of care (as documented) at patient's floor/unit and/or counseling patient: Internal Medicine: Result - Labs CBC & Chem 7: 02/02/19 17:46 02/03/19 01:30 Labs: Short CBC 02/02/19 Range/Units 17:46 WBC 4.9 (4.3-11.1) K/mcL Hgb 10.9 L (11.5-15.4) g/dL Hct 36.1 (35.3-44.9) % Plt Count 248 (140-400) K/mcL BMP 02/03/19 01:30 Sodium 139 Potassium 3.3 L Chloride 109 H Carbon Dioxide 22 L BUN 10 Creatinine 0.95 Glucose 99 Calcium 8.8 Liver Function 02/02/19 Range/Units 14:04 Total Bilirubin 0.3 (0.3-1.0) mg/dL Direct Bilirubin 0.0 (0.0-0.2) mg/dL AST 17 (13-39) Units/L ALT 11 (7-52) Units/L Alkaline Phosphatase 70 (34-104) Units/L Albumin 4.2 (3.5-5.7) g/dL Urine 02/02/19 Range/Units 14:45 Urine Color Yellow (Yellow) Urine Clarity Cloudy A (Clear) Urine pH 7.0 (5.0-8.0) pH Units Ur Specific [place] 1.018 (1.010-1.025) Urine Protein Negative (Neg-Trace) mg/dL Urine Glucose (UA) Normal (Normal) mg/dL - ABG Interpretation ABG results: PT/INR, D-dimer PT 12.8 Seconds (9.4-12.1) H 02/03/19 01:30 1029 ng/mLFEU (0-500) H 02/02/19 14:57 - Impressions Impressions Head CT 02/02/19 13:51 IMPRESSION: Normal CT of the brain. D/ / Julius Adams MD / Julius Adams MD Interpreting Provider: Julius Adams MD Cervical Spine CT 02/02/19 13:52 IMPRESSION: No acute abnormality of the cervical spine. D/ / Frank Sutton MD / Frank Sutton MD Interpreting Provider: Frank Sutton MD Chest CTA 02/02/19 15:54 IMPRESSION: Left lower lobe pulmonary emboli Hiatal hernia again noted Findings were discussed with Dr Juan at 5:22 pm on 02/02/2019. D/ / Romeo Verduzco MD / Romeo Verduzco MD Interpreting Provider: Romeo Verduzco MD Brain MRI 02/03/19 10:59 IMPRESSION: 1. No acute intracranial abnormality. Specifically, no acute infarction. 2. Mild chronic microvascular ischemic changes. D/ / Liza Heath MD / Liza Heath MD Interpreting Provider: Liza Heath MD Consult Discharge Plan - Plan Referrals: Teressa Hurd, [employer] [Advanced Practice Nurse] - 02/10/19 10:00 am (will be seeing Teressa Hurd for the hospital follow up) (1) Pulmonary embolus Qualifiers: Pulmonary embolism type: other Chronicity: acute Acute cor pulmonale presence: without acute cor pulmonale Qualified Code(s): I26.99 - Other pulmonary embolism without acute cor pulmonale (6) Hypertension Qualifiers: Hypertension type: essential hypertension Qualified Code(s): I10 - Essential (primary) hypertension
--- NOTE | 2019-02-03 18:22 | Electrocardiograph Report ---
[facility] Test Date: 2019-02-02 Pat Name: May Melara Department: [id number] Room: [id number] Gender: F Fur Sewer: : 1965 Requested By: Ruiz Garcia Order Number: [id number] Reading MD: All Dunlap Measurements Intervals [place] Rate: 77 P: 55 [place]: 157 QRS: 36 QRSD: 167 T: 3 QT: 452 QTc: 512 Interpretive Statements Sinus rhythm Right bundle branch block Electronically Signed On 02-03-2019 18:20:46 EDT by All Dunlap
[2019-02-03] MEDS: Topiramate 100 MG TABLET PO SCH (21:20)
[2019-02-03] MEDS: ARIPiprazole 10 MG TABLET PO SCH (21:20)
[2019-02-03] MEDS: lamoTRIgine 100 MG TABLET PO SCH (21:21)
[2019-02-04] MEDS: Acetaminophen 325 MG TABLET PO PRN (01:29)
[2019-02-04] MEDS: Apixaban 5 MG TABLET PO SCH ×3 (01:29→21:40)
[2019-02-04 06:47] LABS: Basophils % 0.9 %; Eosinophils # 0.2 K/mcL (0.0-0.6); Eosinophils % 4.7 %; Hematocrit 31.5 % (35.3-44.9); Hemoglobin 9.5 g/dL (11.5-15.4); Immature Granulocytes % 0.3 % (0-4); Lymphocytes # 1.5 K/mcL (0.6-4.6); Lymphocytes % 46.6 %; Mean Corpuscular HGB Conc 30.2 g/dL (31.6-35.5); Mean Corpuscular Hemoglobin 27.4 pg (28.0-33.3); Mean Corpuscular Volume 90.8 fL (83.0-100.0); Mean Platelet Volume 9.3 fL (9.4-12.4); Monocytes # 0.4 K/mcL (0.0-1.3); Monocytes % 11.8 %; Neutrophils # 1.2 K/mcL (1.6-8.9); Platelet Count 268 K/mcL (140-400); Red Blood Count 3.47 M/mcL (3.82-4.97); Red Cell Distribution Width 14.6 % (11.5-14.5); Segmented Neutrophils % 35.7 %; White Blood Count 3.2 K/mcL (4.3-11.1)
[2019-02-04 06:54] LABS: BUN/Creatinine Ratio 13 (6-26); Blood Urea Nitrogen 12 mg/dL (6-20); Calcium 8.8 mg/dL (8.6-10.3); Carbon Dioxide 23 mEq/L (23-29); Chloride 108 mEq/L (98-107); Glucose 100 mg/dL (70-105); Osmolality,Calculated 294 (280-300); Potassium 3.8 mEq/L (3.5-5.1); Sodium 142 mEq/L (136-145); eGFR For African Americans > 60 (> 60); eGFR For Non-African Americans > 60 (> 60)
--- NOTE | 2019-02-04 07:35 | Internal Med Progress Note ---
<Fili Arambula - Last Filed: 02/04/19 14:26> Hospitalist Progress Note - Encounter Date of Encounter: 02/04/19 Time of Encounter: 08:50 - Subjective Interval History: When seen today patient was resting comfortably in her bed. She was alert and oriented 3. She denied any visual hallucinations. Patient does state that she was hallucinating with vision of her brother upon admission. She denies any suicidal ideations. Denies any chest pain or shortness of breath. Denies any abdominal pain, nausea, or vomiting. Denies any fever, cough, or wheezing. - Exam Vitals: Temp Pulse Resp BP Pulse Ox 98.5 F 77 16 111/59 96 02/04/19 06:47 02/04/19 06:47 02/04/19 06:47 02/04/19 06:47 02/04/19 06:47 Exam: GENERAL APPEARANCE: Obsese, alert and cooperative, and appears to be in no acute distress. HEAD: normocephalic. EYES: vision is grossly intact. EARS: hearing grossly intact. NOSE: No nasal discharge. THROAT: Oral cavity and pharynx normal. No inflammation, swelling, exudate, or lesions. NECK: Neck supple, non-tender without lymphadenopathy, masses or thyromegaly. CARDIAC: Normal S1 and S2. No S3, S4 or murmurs. Rhythm is regular. There is no peripheral edema, cyanosis or pallor. Extremities are warm and well perfused. Capillary refill is less than 2 seconds. No carotid bruits. LUNGS: Clear to auscultation and percussion without rales, rhonchi, wheezing or diminished breath sounds. ABDOMEN: Positive bowel sounds. Soft, nondistended, nontender. No guarding or rebound. No masses. EXTREMITIES: No significant deformity or joint abnormality. No edema. Peripheral pulses intact. No varicosities. LOWER EXTREMITY: Examination of both feet reveals all toes to be normal in size and symmetry, normal range of motion, normal sensation with distal capillary filling of less than 2 seconds without tenderness, swelling, discoloration, nodules, weakness or deformity; SKIN: Skin normal color, texture and turgor with no lesions or eruptions. PSYCHIATRIC: The mental examination revealed the patient was oriented to person, place, and time. The patient was able to demonstrate good judgement and reason, without hallucinations, abnormal affect or abnormal behaviors during the examination. Patient is not suicidal. No pressured speech. Good eye contact. - Assessment and Plan (1) Pulmonary embolus Current Visit: Yes Status: Acute Assessment and Plan: Patient is currently stable. No chest pain or SOB. Was started on heparin drip on admission now transitioned to Eleiquis. Plan: - C/W eliquis 5 mg PO BID. (2) Visual hallucinations Current Visit: Yes Status: Acute Assessment and Plan: Patient was expressing visual hallucinations upon admission. When spoken to today she is aware of her hallucinations when she was admitted. She currently denies any hallucinations both auditory or visual. Her brain MRI showed only chronic microvascular changes with no signs of acute ischemic infarcts. Plan: - Consult to psychiatry. (3) Dizziness Current Visit: No Status: Acute Assessment and Plan: Patient continues to complain of mild dizziness today. Brain MRI showed only chronic microvascular changes. No signs of acute ischemic changes. Orthostatic vitals were negative. Plan: - F/U with PT for evaluation of BPPV. (4) Esophageal ulcer without bleeding Current Visit: No Status: Chronic Assessment and Plan: Chronic issue. Asymptomatic. Started on anticoagulation. Plan: - Continue to monitor. (5) Hypertension Current Visit: Yes Status: Chronic Assessment and Plan: BP controlled. Plan: - C/W home meds. (6) Morbid obesity with BMI of 50.0-59.9, adult Current Visit: No Status: Chronic DVT Prophylaxis: - Heparin SQ. - Time Spent with Patient Total time spent is greater than 50% in coordination of care (as documented) at patient's floor/unit and/or counseling patient: Internal Medicine: Result - Labs CBC & Chem 7: 02/04/19 06:08 02/04/19 06:08 Labs: Short CBC 02/04/19 Range/Units 06:08 WBC 3.2 L (4.3-11.1) K/mcL Hgb 9.5 L (11.5-15.4) g/dL Hct 31.5 L (35.3-44.9) % Plt Count 268 (140-400) K/mcL Neutrophils # 1.2 L (1.6-8.9) K/mcL BMP 02/04/19 06:08 Sodium 142 Potassium 3.8 Chloride 108 H Carbon Dioxide 23 BUN 12 Creatinine 0.89 Glucose 100 Calcium 8.8 - ABG Interpretation ABG results: PT/INR, D-dimer PT 12.8 Seconds (9.4-12.1) H 02/03/19 01:30 1029 ng/mLFEU (0-500) H 02/02/19 14:57 - Impressions Impressions Brain MRI 02/03/19 10:59 IMPRESSION: 1. No acute intracranial abnormality. Specifically, no acute infarction. 2. Mild chronic microvascular ischemic changes. D/ / Liza Heath MD / Liza nassar MD Interpreting Provider: Liza Heath MD Consult Discharge Plan - Plan Referrals: Teressa Hurd HAND PACKER/PACKAGER [Advanced Practice Nurse] - 02/10/19 10:00 am (will be seeing Teressa Hurd for the hospital follow up) <Romeo Michelle - Last Filed: 02/04/19 14:39> Hospitalist Progress Note - Encounter Date of Encounter: 02/04/19 - Exam Vitals: Temp Pulse Resp BP Pulse Ox 98.5 F 98 16 111/75 96 02/04/19 06:47 02/04/19 13:35 02/04/19 06:47 02/04/19 13:35 02/04/19 06:47 - Assessment and Plan (1) Pulmonary embolus Current Visit: Yes Status: Acute (2) Visual hallucinations Current Visit: Yes Status: Acute (3) Morbid obesity with BMI of 50.0-59.9, adult Current Visit: No Status: Chronic (4) Esophageal ulcer without bleeding Current Visit: No Status: Chronic (5) Dizziness Current Visit: No Status: Acute (6) Hypertension Current Visit: Yes Status: Chronic - Time Spent with Patient Total time spent is greater than 50% in coordination of care (as documented) at patient's floor/unit and/or counseling patient: Internal Medicine: Result - Labs CBC & Chem 7: 02/04/19 06:08 02/04/19 06:08 Labs: Short CBC 02/04/19 Range/Units 06:08 WBC 3.2 L (4.3-11.1) K/mcL Hgb 9.5 L (11.5-15.4) g/dL Hct 31.5 L (35.3-44.9) % Plt Count 268 (140-400) K/mcL Neutrophils # 1.2 L (1.6-8.9) K/mcL [facility] 02/04/19 06:08 Sodium 142 Potassium 3.8 Chloride 108 H Carbon Dioxide 23 BUN 12 Creatinine 0.89 Glucose 100 Calcium 8.8 - ABG Interpretation ABG results: PT/INR, D-dimer PT 12.8 Seconds (9.4-12.1) H 02/03/19 01:30 1029 ng/mLFEU (0-500) H 02/02/19 14:57 - Attending Attestation I examined this patient and my medical decision-making was reviewed with the Resident Physician. I agree with the documented findings, disposition and treatment plan as described except to the extent set forth below. Patient seen and examined at bedside. Patient states that she feels slightly better today. She reports that she continues to feel dizzy at times, particularly when standing up. On exam she is alert and oriented 3. No focal deficits are appreciated, strength is 5 out of 5 throughout. On psych exam she did not appreciate any visual or auditory hallucinations at this time. Dizziness: Given that is exacerbated by movement and head turns concern for benign paroxysmal positional vertigo. PT consult for evaluation. We will check orthoststic vital signs. PE: Transition to Eliquis yesterday, asymptomatic. Underlying psychiatric disturbance: Patient has had episodes of visual hallucinations and I am concerned that some of her somatic symptoms may be related to her underlying psychiatric disorder. We will consult psychiatry for further evaluation and medication recommendations. <Fili Arambula - Last Filed: 02/04/19 14:26> (1) Pulmonary embolus Qualifiers: Pulmonary embolism type: other Chronicity: acute Acute cor pulmonale presence: without acute cor pulmonale Qualified Code(s): I26.99 - Other pulmonary embolism without acute cor pulmonale (5) Hypertension Qualifiers: Hypertension type: essential hypertension Qualified Code(s): I10 - Essential (primary) hypertension <Romeo Michelle G - Last Filed: 02/04/19 14:39> (1) Pulmonary embolus Qualifiers: Pulmonary embolism type: other Chronicity: acute Acute cor pulmonale presence: without acute cor pulmonale Qualified Code(s): I26.99 - Other pulmonary embolism without acute cor pulmonale (6) Hypertension Qualifiers: Hypertension type: essential hypertension Qualified Code(s): I10 - Essential (primary) hypertension
[2019-02-04] MEDS: lamoTRIgine 100 MG TABLET PO SCH ×2 (10:30→21:41)
[2019-02-04] MEDS: Sucralfate 1 GM TABLET PO SCH ×3 (11:12→21:40)
[2019-02-04] MEDS: Topiramate 100 MG TABLET PO SCH ×2 (11:12→21:41)
[2019-02-04] MEDS ORDERED: ALPRAZolam 0.5 MG TABLET PO ONE (16:27)
[2019-02-04] MEDS: Heparin 25,000 UNIT/250 ML D5W 25,000 UNIT/250 ML IV.SOLN IVC SCH (19:48)
[2019-02-04] MEDS: ARIPiprazole 10 MG TABLET PO SCH (21:40)
[2019-02-04 22:42] LABS: APTT (LE Anticoag) >150 sec (32-48); Diluted Russell Viper Venom 36 sec (33-44); LE APTT D Heparin Neutralized 67 sec (32-48); LE Coag APTT Mixing 48 sec (32-48); LE Coag Reptilase Time 18.2 sec (<=21.9); PT (LE-Anticoag) 15.2 sec (12.0-15.5); Thrombin Time >150.0 sec (14.7-19.5)
[2019-02-05] MEDS: Acetaminophen 325 MG TABLET PO PRN ×2 (05:53→15:13)
[2019-02-05] MEDS: lamoTRIgine 100 MG TABLET PO SCH (08:08)
[2019-02-05] MEDS: Topiramate 100 MG TABLET PO SCH (08:08)
[2019-02-05] MEDS: Apixaban 5 MG TABLET PO SCH (08:08)
[2019-02-05] MEDS: Sucralfate 1 GM TABLET PO SCH ×3 (08:08→16:51)
--- NOTE | 2019-02-05 10:10 | Internal Med Progress Note ---
Hospitalist Progress Note - Encounter Date of Encounter: 02/05/19 - Exam Vitals: Temp Pulse Resp BP Pulse Ox 97.7 F 82 17 121/65 98 02/05/19 06:30 02/05/19 06:30 02/05/19 04:15 02/05/19 06:30 02/05/19 06:30 - Assessment and Plan (1) Pulmonary embolus Current Visit: Yes Status: Acute (2) Visual hallucinations Current Visit: Yes Status: Acute (3) Dizziness Current Visit: No Status: Acute (4) Esophageal ulcer without bleeding Current Visit: No Status: Chronic (5) Hypertension Current Visit: Yes Status: Chronic (6) Morbid obesity with BMI of 50.0-59.9, adult Current Visit: No Status: Chronic - Time Spent with Patient Total time spent is greater than 50% in coordination of care (as documented) at patient's floor/unit and/or counseling patient: Internal Medicine: Result - Labs CBC & Chem 7: 02/04/19 06:08 02/04/19 06:08 - ABG Interpretation ABG results: PT/INR, D-dimer PT 12.8 Seconds (9.4-12.1) H 02/03/19 01:30 1029 ng/mLFEU (0-500) H 02/02/19 14:57 Consult Discharge Plan - Plan Referrals: Teressa Hurd, [employer] SUPERVISOR [Advanced Practice Nurse] - 02/10/19 10:00 am (will be seeing Teressa Hurd for the hospital follow up) (1) Pulmonary embolus Qualifiers: Pulmonary embolism type: other Chronicity: acute Acute cor pulmonale presence: without acute cor pulmonale Qualified Code(s): I26.99 - Other pulmonary embolism without acute cor pulmonale (5) Hypertension Qualifiers: Hypertension type: essential hypertension Qualified Code(s): I10 - Essential (primary) hypertension
--- NOTE | 2019-02-05 11:38 | Consult Note ---
Date of Encounter: 02/05/19 Time of Encounter: 10:30 Assessment & Recommendation (1) Bipolar 1 disorder, depressed Current visit: No Status: Acute Assessment & Recommendation: Patient is on a good regimen for bipolar disorder and for psychotic symptoms including a mood stabilizer, Lamictal 2 antidepressants, Cymbalta and Remeron, and the antipsychotic which is also FDA approved for mood stabilization and bipolar disorder, Abilify. There is some room to go up on her Abilify to 20 mg a day but given the fact that this morning she is not hallucinating and that she seems very sensitive to medication adjustments of her psychiatric medications I would recommend holding off on this unless the visual hallucinations continue to occur and be very problematic with her. I do not see a specific underlying mental health cause for the dizziness though her medications might be contributing however, again given her treatment refractory nature and difficulty tolerating other medications in the past and I would say that the benefits of these medications outweigh the potential risks History of Present Illness Requesting Physician: Romeo Michelle, Reason for consult: hallucinations History of present illness: Ms. Melara is a 53 year old female with hx of HTN, depression/anxiety per records however the medication she is on is more consistent with a bipolar disorder diagnosis., migraine and psoriasis presents to ED with complaints of multiple issues. She was recently hospitalized for neurologic symptoms and had full neuro workup. She continues to have visual issues (diplopia) and stated she was having visual hallucinations. In the course of ED work up she stated she had noted swelling in RLE. D dimer done and was positive. Venous duplex negative but found to have pulmonary emboli in LLL on CTA. She has been started on heparin and admitted. Psychiatry is consulted for hallucinations and concern for underlying psychiatric process. She has had imaging done which is negative for ischemic or infarct related changes. This morning she is calm and cooperative and pleasant and conversation. She denies any current auditory or visual hallucinations. She does recall yesterday seeing her brother and believing that she was talking to her mother and grandmother. She said that this has been happening occasionally recently particularly in the context of the medical issues she has been having. She says that she has been having some visual changes ringing in her ears and dizziness. She thinks her recent medication changes may have contributed to this that she is comfortable with her current medication aripiprazole which is what she was on about 3-1/2 months ago before they started making multiple changes. She denies suicidal or homicidal thoughts ideations or plans. She denies depression at this time. She says she is anxious but primarily about her medical condition. He does have a history of some manic symptoms with periods of elevated mood decreased need for sleep and grandiosity. CC: Romeo Michelle, Past Med Surg Social Fam HX - Past Medical History Medical history: coronary artery disease, hypertension - Past Psychiatric History Psychiatric history: Reports: bipolar, prior suicide attempt, previous psychiatric hospitalization Past psychiatric history details: She reports she is seen at [facility] for her outpatient services. Over the last 3-1/2 months her medications have been changed dramatically. She was originally doing well on Abilify but then sent maureen increase in her psychiatrist changed her return to work salty which did not work well he then changed her to Latuda which was even worse and then most recently has changed her back to Abilify which seems to have improved and stabilized things. She has been on her other psychiatric medications for a while. She has prior psychiatric hospitalizations most recently a few years ago when she had a suicide attempt by overdose. Family psychiatric history: Yes Family History of Suicide: None - Past Surgical History Surgical History: angioplasty/stent, cholecystectomy, hysterectomy - Social History Smoking Status: Former smoker Smokeless Tobacco Status: No Alcohol use: none Drug use: none - Family History Father History Unknown: Yes Living Status: Still Living Hx Family Cardiac Disorders: Yes Mother History Unknown: Yes Living Status: Still Living Hx Family Cardiac Disorders: Yes Medications & Allergies Buspirone HCl [Buspar] 30 mg PO BID 05/26/18 [History] Duloxetine HCl [Cymbalta] 60 mg PO BID 05/26/18 [History] Multivitamin [One Daily Multivitamin] 1 tab PO DAILY 05/26/18 [History] lamoTRIgine [Lamotrigine] 100 mg PO QAM 05/26/18 [History] lamoTRIgine [Lamotrigine] 200 mg PO HS 05/26/18 [History] Cholecalciferol (Vitamin D3) [Vitamin D3] 10,000 unit PO RICHARDSON 12/30/18 [History] Cyclobenzaprine HCl 10 mg PO TID PRN 12/30/18 [History] Guselkumab [TREMFYA (Outpatient Infusion)] 100 mg SQ Q8W 12/30/18 [History] hydrOXYzine HCl [Hydroxyzine HCl] 50 mg PO BID PRN 12/30/18 [History] Atorvastatin [Lipitor] 40 mg PO HS #30 tablet 01/02/19 [Rx] Metoprolol XL (24 HR) Succ [Toprol Xl] 12.5 mg PO DAILY #30 tab.er.24h 01/02/19 [Rx] Pantoprazole Sodium [Protonix] 40 mg PO BID #60 tablet.dr 01/02/19 [Rx] Sucralfate [Carafate] 1 gm PO QIDAC #120 tablet 01/02/19 [Rx] Topiramate [Topamax] 100 mg PO BID 01/23/19 [History] ARIPiprazole [Abilify] 15 mg PO DAILY 02/03/19 [History] Fluticasone Propionate Nasal [Flonase] 2 spray NS DAILY 02/03/19 [History] Loratadine [Claritin] 10 mg PO DAILY 02/03/19 [History] Allergy/AdvReac Type Severity Reaction Status Date / Time Penicillins Allergy Unknown See Verified 02/03/19 14:55 Comments pregabalin [From Lyrica] Allergy Unknown Swelling Verified 02/03/19 14:55 of the Eye ketorolac AdvReac Unknown Nausea/VOMI Verified 02/03/19 14:55 TING olanzapine [From Zyprexa] AdvReac Unknown SWELLING Verified 02/03/19 14:55 tramadol AdvReac Unknown Seizure Verified 02/03/19 14:55 Review of Systems Constitutional: Reports: weakness Eyes: Reports: vision change Ears, Nose, Throat: Denies: ear pain Cardiovascular: Reports: dyspnea on exertion Respiratory: Reports: dyspnea Gastrointestinal: Denies: abdominal pain Genitourinary female: Denies: urgency Musculoskeletal: Reports: joint pain Integumentary: Denies: rash Neurological: Reports: confusion, vertigo Psychiatric: Reports: depression, anxiety, visual hallucinations. Denies: suicidal ideation, homicidal ideation, auditory hallucinations Endocrine: Denies: fatigue Hematologic/Lymphatic: Denies: easy bleeding Allergic/Immunologic: Denies: facial swelling Psychiatry Exam - Constitutional Vitals: Temp Pulse Resp BP Pulse Ox 97.7 F 86 17 113/67 98 02/05/19 06:30 02/05/19 11:13 02/05/19 04:15 02/05/19 11:13 02/05/19 06:30 General appearance: age & developmentally appropriate, obese - Musculoskeletal Gait: other (In bed) Station: relaxed Strength & Tone: mild weakness - Psychiatric Patient Orientation: Yes Person, Yes Time, Yes Place, Yes Circumstance Level of alertness: Alert Behavior: calm, cooperative Psychomotor activity: Normal Eye Contact: Maintains Eye Contact Mood Description: Euthymic/stable Patient description of mood: Okay Affect description: congruent with mood Speech Volume: Normal Speech pattern: normal rate, normal rhythm, normal tone, fluent, spontaneous Language & Vocabulary: consistent with education Thought Process: Linear, Goal Oriented Thought Content: No Suicidal ideation, No Homicidal ideation, No Overt delusions Perceptual Disturbances: Yes Auditory hallucinations, No Visual hallucinations Attention Span Ability: Capable of Focused Attention Memory Description: Grossly Intact Patient Reliability: Reliable Historian Fund of knowledge: Yes abstraction ability, Yes aware of current events Intelligence Estimate: Average Judgment: Good Insight: Full Results - Labs Labs: Laboratory Last Values WBC 3.2 K/mcL (4.3-11.1) L 02/04/19 06:08 RBC 3.47 M/mcL (3.82-4.97) L 02/04/19 06:08 Hgb 9.5 g/dL (11.5-15.4) L 02/04/19 06:08 Hct 31.5 % (35.3-44.9) L 02/04/19 06:08 MCV 90.8 fL (83.0-100.0) 02/04/19 06:08 MCH 27.4 pg (28.0-33.3) L 02/04/19 06:08 MCHC 30.2 g/dL (31.6-35.5) L 02/04/19 06:08 RDW 14.6 % (11.5-14.5) H 02/04/19 06:08 Plt Count 268 K/mcL (140-400) 02/04/19 06:08 MPV 9.3 fL (9.4-12.4) L 02/04/19 06:08 Immature Gran % 0.3 % (0-4) 02/04/19 06:08 Seg Neutrophils % 35.7 % 02/04/19 06:08 46.6 % 02/04/19 06:08 11.8 % 02/04/19 06:08 4.7 % 02/04/19 06:08 0.9 % 02/04/19 06:08 1.2 K/mcL (1.6-8.9) L 02/04/19 06:08 1.5 K/mcL (0.6-4.6) 02/04/19 06:08 0.4 K/mcL (0.0-1.3) 02/04/19 06:08 0.2 K/mcL (0.0-0.6) 02/04/19 06:08 0.0 K/mcL (0.0-0.2) 02/04/19 06:08 PT 12.8 Seconds (9.4-12.1) H 02/03/19 01:30 INR 1.1 02/03/19 01:30 1029 ng/mLFEU (0-500) H 02/02/19 14:57 Heparin Anti-Xa, Unfract 0.34 IU/mL (0.30-0.70) 02/03/19 17:14 Sodium 142 mEq/L (136-145) 02/04/19 06:08 Potassium 3.8 mEq/L (3.5-5.1) 02/04/19 06:08 Chloride 108 mEq/L (98-107) H 02/04/19 06:08 Carbon Dioxide 23 mEq/L (23-29) 02/04/19 06:08 BUN 12 mg/dL (6-20) 02/04/19 06:08 0.89 mg/dL (0.60-1.20) 02/04/19 06:08 Est GFR ( Amer) > 60 (> 60) 02/04/19 06:08 Est GFR (Non-Af Amer) > 60 (> 60) 02/04/19 06:08 13 (6-26) 02/04/19 06:08 Glucose 100 mg/dL (70-105) 02/04/19 06:08 POC Glucose 112 mg/dL (70-99) H 02/03/19 14:20 294 (280-300) 02/04/19 06:08 Calcium 8.8 mg/dL (8.6-10.3) 02/04/19 06:08 Magnesium 2.0 mg/dL (1.6-2.6) 02/04/19 06:08 0.3 mg/dL (0.3-1.0) 02/02/19 14:04 0.0 mg/dL (0.0-0.2) 02/02/19 14:04 0.3 mg/dL (0.0-1.2) 02/02/19 14:04 AST 17 Units/L (13-39) 02/02/19 14:04 ALT 11 Units/L (7-52) 02/02/19 14:04 70 Units/L (34-104) 02/02/19 14:04 6.6 g/dL (6.4-8.9) 02/02/19 14:04 4.2 g/dL (3.5-5.7) 02/02/19 14:04 2.4 g/dL (2.4-3.5) 02/02/19 14:04 1.8 (1.1-2.2) 02/02/19 14:04 7 umol/L (<=10) 02/03/19 01:30 TSH 2.789 mcIU/mL (0.340-5.600) 02/02/19 14:04 Yellow (Yellow) 02/02/19 14:45 Cloudy (Clear) A 02/02/19 14:45 7.0 pH Units (5.0-8.0) 02/02/19 14:45 Ur Specific Rice 1.018 (1.010-1.025) 02/02/19 14:45 Negative mg/dL (Neg-Trace) 02/02/19 14:45 Normal mg/dL (Normal) 02/02/19 14:45 Negative mg/dL (Negative) 02/02/19 14:45 Negative (Negative) 02/02/19 14:45 Negative (Negative) 02/02/19 14:45 Negative (Negative) 02/02/19 14:45 Normal mg/dL (Normal) 02/02/19 14:45 Ur Leukocyte Esterase Moderate (Negative) H 02/02/19 14:45 0-3 per hpf (0-3) 02/02/19 14:45 15-30 per hpf (0-3) H 02/02/19 14:45 Ur Squamous Epith Cells Many per lpf (None-Few) H 02/02/19 14:45 Few per hpf (None-Few) 02/02/19 14:45 Hyaline Casts None Seen per lpf (None-Few) 02/02/19 14:45 Negative (Negative) 02/02/19 13:51 Salicylates < 2.5 mg/dL (15.0-30.0) L 02/02/19 14:04 Negative ng/mL (Qqzeak=495) 02/02/19 13:50 Acetaminophen < 10 mcg/mL (10-20) L 02/02/19 14:04 Ur Barbiturates Screen Negative ng/mL (Dbhvkn=134) 02/02/19 13:50 Ur Phencyclidine Scrn Negative ng/mL (Cutoff=25) 02/02/19 13:50 Ur Amphetamines Screen Negative ng/mL (Dwwxll=3488) 02/02/19 13:50 U Benzodiazepines Scrn Negative ng/mL (Pypzgn=610) 02/02/19 13:50 Negative ng/mL (Cutoff= 300) 02/02/19 13:50 U Marijuana (THC) Screen Negative ng/mL (Cutoff = 50) 02/02/19 13:50 Ur Drug Screen Interp See Below 02/02/19 13:50 Ethyl Alcohol < 10 mg/dL (Less than 10) 02/02/19 14:04 Consult Discharge Plan - Plan Referrals: Teressa Hurd, [employer] MOLDER [Advanced Practice Nurse] - 02/10/19 10:00 am (will be seeing Teressa Hurd for the hospital follow up)
--- NOTE | 2019-02-05 12:08 | Discharge Summary ---
<Fili Arambula - Last Filed: 02/05/19 12:01> - NOTES TO OUTPATIENT PROVIDER Notes to Outpatient Provider: Patient put on eliquis for PE. She is to continue this for the next 3 months. She is also very sensitive to any changes to her psych meds. Orders not resulted at time of discharge: Pending orders 02/02/19 19:02 Factor V Leiden Routine Lupus Anticoagulant Panel Routine Prothrombin [id number] Mutation Routine Date of Encounter: 02/05/19 Time of Encounter: 08:40 - Discharge Diagnosis (1) Pulmonary embolus Priority: Primary Status: Acute Qualifiers: Pulmonary embolism type: other Chronicity: acute Acute cor pulmonale presence: without acute cor pulmonale Qualified Code(s): I26.99 - Other pulmonary embolism without acute cor pulmonale (2) Visual hallucinations Priority: Secondary Status: Acute (3) Dizziness Priority: Secondary Status: Acute (4) Esophageal ulcer without bleeding Priority: Secondary Status: Chronic (5) Hypertension Priority: Secondary Status: Chronic Qualifiers: Hypertension type: essential hypertension Qualified Code(s): I10 - Essential (primary) hypertension (6) Morbid obesity with BMI of 50.0-59.9, adult Priority: Secondary Status: Chronic Hospital course: Ms. Melara is a 53 year old female with a PMH of HTN, depression/anxiety, migraine and psoriasis that presented to the ED with complaints of multiple issues. She had noted hallucinations and was seen by psychiatry. Upon arrival to the ED patient stated complaints for concern of a blood clot because she had pain in her left leg. Venous duplex negative but chest CTA was ordered and showed a left lower lobe pulmonary emboli. Patient was started on heparin. Vital signs have been stable She was then subsequently transitioned to eliquis. She is to continue the eliquis for the next 3 months. She was recently hospitalized for neurologic symptoms and had full neuro workup. She continued to have visual issues (diplopia) and stated she was having visual hallucinations. Had recent discharges on 01/26 and 01/02. In December she had chest pain and had full work up at that time. In January it was dizziness and diplopia and had full work up. During morning of admission, she lost her balance and fell outside. CT of the neck and head revealed no acute abnormalities. Brain MRI revealed only chronic microvascular changes with no acute ischemic infarcts. She has not had fever or chills. Patient was evaluated by psychiatry who believes that her hallucinations might have been due to her sensitivity to the medication changes, but since she is not actively having anymore hallucinations, it is recommended to continue her current dosages. Patient was also complaining of dizziness. Orthostatics vitals were negative for orthostatic hypotension. Per psychiatry, they do not see a specific underlying mental health cause for the dizziness though her medications might be contributing however recommend continuing her medications since the benefits of these medications outweigh the potential risks. PT/OT evaluated the patient for BPPV and showed that positional change did not affect the severity of her dizziness. When seen today, patient was emotional and crying since she did not wish to go to a rehab facility, however after she calmed down and I was able to talk to her about the benefits of rehab, she agreed to go to a skilled facility. Patient will be discharged to a SNF for rehabilitation. She will need to follow-up with her psychiatrist in the next 3-5 days and with her PCP as well. - Time Spent with Patient Total time spent providing and/or coordinating discharge services: Time spent: Greater than 30 minutes - Discharge Medications Prescriptions: New Apixaban [Eliquis] 5 mg PO BID #60 tablet Continued lamoTRIgine [Lamotrigine] 100 mg PO QAM lamoTRIgine [Lamotrigine] 200 mg PO HS Buspirone HCl [Buspar] 30 mg PO BID Multivitamin [One Daily Multivitamin] 1 tab PO DAILY Duloxetine HCl [Cymbalta] 60 mg PO BID Cholecalciferol (Vitamin D3) [Vitamin D3] 10,000 unit PO RICHARDSON Cyclobenzaprine HCl 10 mg PO TID PRN PRN Reason: Muscle Spasm Guselkumab [TREMFYA (Outpatient Infusion)] 100 mg SQ Q8W hydrOXYzine HCl [Hydroxyzine HCl] 50 mg PO BID PRN PRN Reason: Anxiety Sucralfate [Carafate] 1 gm PO QIDAC #120 tablet Atorvastatin [Lipitor] 40 mg PO HS #30 tablet Pantoprazole Sodium [Protonix] 40 mg PO BID #60 tablet. Metoprolol XL (24 HR) Succ [Toprol Xl] 12.5 mg PO DAILY #30 tab.er.24h Topiramate [Topamax] 100 mg PO BID Fluticasone Propionate Nasal [Flonase] 2 spray NS DAILY Loratadine [Claritin] 10 mg PO DAILY ARIPiprazole [Abilify] 15 mg PO DAILY Home Medications: Buspirone HCl [Buspar] 30 mg PO BID 05/26/18 [History] Duloxetine HCl [Cymbalta] 60 mg PO BID 05/26/18 [History] Multivitamin [One Daily Multivitamin] 1 tab PO DAILY 05/26/18 [History] lamoTRIgine [Lamotrigine] 100 mg PO QAM 05/26/18 [History] lamoTRIgine [Lamotrigine] 200 mg PO HS 05/26/18 [History] Cholecalciferol (Vitamin D3) [Vitamin D3] 10,000 unit PO RICHARDSON 12/30/18 [History] Cyclobenzaprine HCl 10 mg PO TID PRN 12/30/18 [History] Guselkumab [TREMFYA (Outpatient Infusion)] 100 mg SQ Q8W 12/30/18 [History] hydrOXYzine HCl [Hydroxyzine HCl] 50 mg PO BID PRN 12/30/18 [History] Atorvastatin [Lipitor] 40 mg PO HS #30 tablet 01/02/19 [Rx] Metoprolol XL (24 HR) Succ [Toprol Xl] 12.5 mg PO DAILY #30 tab.er.24h 01/02/19 [Rx] Pantoprazole Sodium [Protonix] 40 mg PO BID #60 tablet. 01/02/19 [Rx] Sucralfate [Carafate] 1 gm PO QIDAC #120 tablet 01/02/19 [Rx] Topiramate [Topamax] 100 mg PO BID 01/23/19 [History] ARIPiprazole [Abilify] 15 mg PO DAILY 02/03/19 [History] Fluticasone Propionate Nasal [Flonase] 2 spray NS DAILY 02/03/19 [History] Loratadine [Claritin] 10 mg PO DAILY 02/03/19 [History] Apixaban [Eliquis] 5 mg PO BID #60 tablet 02/05/19 [Rx] Allergies/Adverse Reactions: Allergy/AdvReac Type Severity Reaction Status Date / Time Penicillins Allergy Unknown See Verified 02/03/19 14:55 Comments pregabalin [From Lyrica] Allergy Unknown Swelling Verified 02/03/19 14:55 of the Eye ketorolac AdvReac Unknown Nausea/VOMI Verified 02/03/19 14:55 TING olanzapine [From Zyprexa] AdvReac Unknown SWELLING Verified 02/03/19 14:55 tramadol AdvReac Unknown Seizure Verified 02/03/19 14:55 Date of admission: 02/02/19 19:32 Primary care physician: PCP NONE Consults: 02/03/19 09:06 Consult to Physical Therapy [CONS] Routine Comment: Evaluate, develop and implement POC Reason for Consult: BPPV Does patient have active BEDREST order?: No Is patient medically & hemodynamically stable?: Yes 02/04/19 09:27 Consult to Psychiatry [CONS] Routine Consulting Provider: Psychiatry Oma Reason consult: Other Other reason and/or additional details: Visual hallucinations, concern for underlying psychiatric process. Hx of depression/anxiety. MRI brain negative for ischemic changes or acute infarct. Discharging clinician: Fili Arambula Anticipated date of discharge: 02/05/19 - Constitutional Vitals: Temp Pulse Resp BP Pulse Ox 97.7 F 86 17 113/67 98 02/05/19 06:30 02/05/19 11:13 02/05/19 04:15 02/05/19 11:13 02/05/19 06:30 General appearance: Present: A&O X 3 (anxious) Exam: GENERAL APPEARANCE: Obsese, alert and cooperative, and appears to be in no acute distress. HEAD: normocephalic. EYES: vision is grossly intact. EARS: hearing grossly intact. NOSE: No nasal discharge. THROAT: Oral cavity and pharynx normal. No inflammation, swelling, exudate, or lesions. NECK: Neck supple, non-tender without lymphadenopathy, masses or thyromegaly. CARDIAC: Normal S1 and S2. No S3, S4 or murmurs. Rhythm is regular. There is no peripheral edema, cyanosis or pallor. Extremities are warm and well perfused. Capillary refill is less than 2 seconds. No carotid bruits. LUNGS: Clear to auscultation and percussion without rales, rhonchi, wheezing or diminished breath sounds. ABDOMEN: Positive bowel sounds. Soft, nondistended, nontender. No guarding or rebound. No masses. EXTREMITIES: No significant deformity or joint abnormality. No edema. Peripheral pulses intact. No varicosities. LOWER EXTREMITY: Examination of both feet reveals all toes to be normal in size and symmetry, normal range of motion, normal sensation with distal capillary filling of less than 2 seconds without tenderness, swelling, discoloration, nodules, weakness or deformity; SKIN: Skin normal color, texture and turgor with no lesions or eruptions. PSYCHIATRIC: Initially in tears when seen in the morning, however was able to clam down afterwards.The mental examination revealed the patient was oriented to person, place, and time. The patient was able to demonstrate good judgement and reason, without hallucinations, abnormal affect or abnormal behaviors during the examination. Patient is not suicidal. No pressured speech. Good eye contact. - Patient Status Disposition: Transfer SNF Condition: Fair Functional capacity at discharge: uses cane/walker Overall status at discharge: patient is progressing back to baseline - Discharge Instructions Instructions: Pulmonary Embolism (DC) Follow Up With: Teressa Hurd CNP [Advanced Practice Nurse] - 02/10/19 10:00 am (will be seeing Teressa Hurd for the hospital follow up) - Diet and Activity Activity: as per physical therapy Diet: low fat, low cholesterol, low salt diet <Romeo Michelle - Last Filed: 02/05/19 14:13> Orders not resulted at time of discharge: Pending orders 02/02/19 19:02 Factor V Leiden Routine Lupus Anticoagulant Panel Routine Prothrombin [id number] Mutation Routine Date of Encounter: 02/05/19 - Discharge Diagnosis (1) Pulmonary embolus Status: Acute Qualifiers: Pulmonary embolism type: other Chronicity: acute Acute cor pulmonale presence: without acute cor pulmonale Qualified Code(s): I26.99 - Other pulmonary embolism without acute cor pulmonale (2) Visual hallucinations Status: Acute (3) Morbid obesity with BMI of 50.0-59.9, adult Status: Chronic (4) Esophageal ulcer without bleeding Status: Chronic (5) Dizziness Status: Acute (6) Hypertension Status: Chronic Qualifiers: Hypertension type: essential hypertension Qualified Code(s): I10 - Es sential (primary) hypertension Hospital course: Ms. Melara is a 53 year old female - Time Spent with Patient Total time spent providing and/or coordinating discharge services: Date of admission: 02/02/19 19:32 Primary care physician: PCP NONE Consults: 02/03/19 09:06 Consult to Physical Therapy [CONS] Routine Comment: Evaluate, develop and implement POC Reason for Consult: BPPV Does patient have active BEDREST order?: No Is patient medically & hemodynamically stable?: Yes 02/04/19 09:27 Consult to Psychiatry [CONS] Routine Consulting Provider: Psychiatry Oma Reason consult: Other Other reason and/or additional details: Visual hallucinations, concern for underlying psychiatric process. Hx of depression/anxiety. MRI brain negative for ischemic changes or acute infarct. - Constitutional Vitals: Temp Pulse Resp BP Pulse Ox 97.7 F 86 17 113/67 98 02/05/19 06:30 02/05/19 11:13 02/05/19 04:15 02/05/19 11:13 02/05/19 06:30 - Attending Attestation I examined this patient and my medical decision-making was reviewed with the Resident Physician. I agree with the documented findings, disposition and treatment plan as described except to the extent set forth below. Patient seen and examined at bedside. Patient states that she feels slightly better today. She reports that she continues to feel dizzy at times, particularly when standing up. On exam she is alert and oriented 3. No focal deficits are appreciated, strength is 5 out of 5 throughout. On psych exam she did not report any visual or auditory hallucinations at this time. Dizziness: Given that is exacerbated by movement and head turns concern for benign paroxysmal positional vertigo. PT evaluated the patient and recommended discharge to ECF. Orthostatic vital signs negative. PE: Continue Eliquis, asymptomatic. Underlying psychiatric disturbance: Patient has had episodes of visual hallucinations and I am concerned that some of her somatic symptoms may be related to her underlying psychiatric disorder. Psychiatry recommended continuing her current medication regimen and that her dizziness is not a side effect of her psychiatric medications which I agree with. Her hallucinations are minor and psychiatry feels that there is a risk of worsening psychiatric issues with changing medication. Patient will discharge to ECF in stable condition. Time spent on discharge: 40 minutes.
[2019-02-05 15:11] VITALS: BP 127/80
--- NOTE | 2019-02-05 16:15 | Physician Discharge Referral ---
ExtendedCare Referral Info Transfer To: SNF Provider in Charge after Transfer: PCP Institutional Level of Care: Skilled - Diagnosis (1) Pulmonary embolus Priority: Primary Status: Acute (2) Visual hallucinations Priority: Secondary Status: Acute (3) Dizziness Priority: Secondary Status: Acute (4) Esophageal ulcer without bleeding Priority: Secondary Status: Chronic (5) Hypertension Priority: Secondary Status: Chronic (6) Morbid obesity with BMI of 50.0-59.9, adult Priority: Secondary Status: Chronic - Transfer Medications Prescriptions: Apixaban [Eliquis] 5 mg PO BID #60 tablet Home Medications: Buspirone HCl [Buspar] 30 mg PO BID 05/26/18 [History] Duloxetine HCl [Cymbalta] 60 mg PO BID 05/26/18 [History] Multivitamin [One Daily Multivitamin] 1 tab PO DAILY 05/26/18 [History] lamoTRIgine [Lamotrigine] 100 mg PO QAM 05/26/18 [History] lamoTRIgine [Lamotrigine] 200 mg PO HS 05/26/18 [History] Cholecalciferol (Vitamin D3) [Vitamin D3] 10,000 unit PO RICHARDSON 12/30/18 [History] Cyclobenzaprine HCl 10 mg PO TID PRN 12/30/18 [History] Guselkumab [TREMFYA (Outpatient Infusion)] 100 mg SQ Q8W 12/30/18 [History] hydrOXYzine HCl [Hydroxyzine HCl] 50 mg PO BID PRN 12/30/18 [History] Atorvastatin [Lipitor] 40 mg PO HS #30 tablet 01/02/19 [Rx] Metoprolol XL (24 HR) Succ [Toprol Xl] 12.5 mg PO DAILY #30 tab.er.24h 01/02/19 [Rx] Pantoprazole Sodium [Protonix] 40 mg PO BID #60 tablet.dr 01/02/19 [Rx] Sucralfate [Carafate] 1 gm PO QIDAC #120 tablet 01/02/19 [Rx] Topiramate [Topamax] 100 mg PO BID 01/23/19 [History] ARIPiprazole [Abilify] 15 mg PO DAILY 02/03/19 [History] Fluticasone Propionate Nasal [Flonase] 2 spray NS DAILY 02/03/19 [History] Loratadine [Claritin] 10 mg PO DAILY 02/03/19 [History] Apixaban [Eliquis] 5 mg PO BID #60 tablet 02/05/19 [Rx] Allergies/Adverse Reactions: Allergy/AdvReac Type Severity Reaction Status Date / Time Penicillins Allergy Unknown See Verified 02/03/19 14:55 Comments pregabalin [From Lyrica] Allergy Unknown Swelling Verified 02/03/19 14:55 of the Eye ketorolac AdvReac Unknown Nausea/VOMI Verified 02/03/19 14:55 TING olanzapine [From Zyprexa] AdvReac Unknown SWELLING Verified 02/03/19 14:55 tramadol AdvReac Unknown Seizure Verified 02/03/19 14:55 - Respiratory Orders Smoking Cessation: Smoking cessation has been advised. For more information, call the [employer] Tobacco Quit Line at 7-721-IITT-NOW. - Ancillary Orders May use pressure relief devices daily prn, May go on HAYDEN w/family/respon democrat w/meds at nurse discretion PRN, May consult with Dentist, Ux Developer Designer, Fruit Or Nut Crops Farm Manager PRN - Advance Directives Code Status: Full Code - Mobility Orders Ambulate - Rehabiliation Orders Rehab Potential: Fair Rehab Orders: Evaluation for Physical Therapy, Evaluation for Occupational Therapy - Treatments Skin tear care topically daily PRN per policy, May check for fecal impaction rectally daily PRN, Fleet enema rectally every other day PRN cleansing purposes - Diet Orders No Added Salt (MILY) CERTIFICATION: I certify that the transfer of the above named patient to an Extended Care Facility is necessary for the continuing treatment of the diagnosis listed. The above information is true and accurate reflection of patient's current condition. Confidential - Redisclosure prohibited without a patient's written consent.
[2019-02-07 20:13] LABS: Prothrombin G20210A Specimen WHOLE BLOOD
[2019-02-07 20:24] LABS: FACV Specimen WHOLE BLOOD
[2019-02-08 10:21] LABS: Fac V Leiden R506Q Mut Result NEGATIVE; Prothrombin G20210A Mut Result NEGATIVE
== END 2019-02-05 18:52 | DRG 176 ==
LOC: EMEROOARM 13:13 → SUATTDRO 19:32 → 2NENU 19:32
PROVIDERS: ADMIT Internal Medicine Nephrology; ATTEND Internal Medicine

== ENCOUNTER 2019-02-14 11:06 | Inpatient (IN) ==
--- NOTE | 2019-02-14 11:10 | Emergency Department Note ---
Disposition Clinical Impression: GI bleed Qualifiers: GI bleed type/associated pathology: gastrointestinal hemorrhage with hematemesis Qualified Code(s): K92.0 - Hematemesis Disposition: Admitted As Inpatient Condition: Fair Time of Disposition: 09:31 GI Bleed HPI - General Chief complaint: ED GI Bleed Stated complaint: vomiting blood Time Seen by Provider: 02/14/19 11:10 Source: patient Mode of arrival: ambulatory Limitations: no limitations Nursing Notes Reviewed: Yes Vital Signs Reviewed: Yes - History of Present Illness HPI Narrative: 53-year-old female past medical history of gastric ulcers, on Protonix and Carafate presenting for 8 hours of hematemesis and epistaxis. Patient states that she was diagnosed with pulmonary embolism one week ago and placed on Eliquis. Patient states she woke this morning at approximately 3 AM vomiting blood. Patient states that she has had 2 episodes of hematemesis which she describes as being a large amount of blood which is "all over her bathroom." Patient also states that she had epistaxis which she was able continue to control with direct pressure and has not sensed continued. Patient states that she feels very frightened at this time as having generalized weakness, dyspnea, "aches all over." She denies having any chest pain at this time no headache, she is currently hemodynamically stable with vitals within normal ranges. We will initiate upper GI bleed protocol and monitor the patient closely. Pt Subjective Complaint: other (Gross hematemesis and epistaxis) Onset (ago): hour(s) Number of episodes: 2 Consistency: now resolved Severity: severe Context: history of GI bleed Associated symptoms: Reports: nausea, epistaxis, malaise, shortness of breath, weakness Treatments Prior to Arrival: none - Related Data Home Medications Medication Instructions Recorded Confirmed Buspirone HCl [Buspar] 30 mg PO BID 05/26/18 02/14/19 Duloxetine HCl [Cymbalta] 60 mg PO BID 05/26/18 02/14/19 Multivitamin [One Daily 1 tab PO DAILY 05/26/18 02/14/19 Multivitamin] lamoTRIgine [Lamotrigine] 100 mg PO QAM 05/26/18 02/14/19 lamoTRIgine [Lamotrigine] 200 mg PO HS 05/26/18 02/14/19 Cholecalciferol (Vitamin D3) 10,000 unit PO RICHARDSON 12/30/18 02/14/19 [Vitamin D3] Cyclobenzaprine HCl 10 mg PO TID PRN 12/30/18 02/14/19 Guselkumab [TREMFYA (Outpatient 100 mg SQ Q8W 12/30/18 02/14/19 Infusion)] hydrOXYzine HCl [Hydroxyzine HCl] 50 mg PO BID PRN 12/30/18 02/14/19 Topiramate [Topamax] 100 mg PO BID 01/23/19 02/14/19 ARIPiprazole [Abilify] 15 mg PO DAILY 02/03/19 02/14/19 Fluticasone Propionate Nasal 2 spray NS DAILY 02/03/19 02/14/19 [Flonase] Loratadine [Claritin] 10 mg PO DAILY 02/03/19 02/14/19 Previous Rx's Medication Instructions Recorded Atorvastatin [Lipitor] 40 mg PO HS #30 tablet 01/02/19 Metoprolol XL (24 HR) Succ [Toprol 12.5 mg PO DAILY #30 tab.er.24h 01/02/19 Xl] Pantoprazole Sodium [Protonix] 40 mg PO BID #60 tablet. 01/02/19 Sucralfate [Carafate] 1 gm PO QIDAC #120 tablet 01/02/19 Apixaban [Eliquis] 5 mg PO BID #60 tablet 02/05/19 Allergies Allergy/AdvReac Type Severity Reaction Status Date / Time Penicillins Allergy Unknown See Verified 02/03/19 14:55 Comments pregabalin [From Lyrica] Allergy Unknown Swelling Verified 02/03/19 14:55 of the Eye ketorolac AdvReac Unknown Nausea/VOMI Verified 02/03/19 14:55 TING olanzapine [From Zyprexa] AdvReac Unknown SWELLING Verified 02/03/19 14:55 tramadol AdvReac Unknown Seizure Verified 02/03/19 14:55 Review of Systems: *See History of Present Illness for more detail Constitutional: Denies: fever, chills Cardiovascular: Denies: chest pain Respiratory: Admits: dyspnea denies: cough, hemoptysis Gastrointestinal: Admits to nausea Denies: abdominal pain, vomiting, diarrhea, constipation, hematemesis, melena, hematochezia Genitourinary: Denies: hematuria Musculoskeletal: Denies: back pain, neck pain Neurological: Admits to weakness, lightheadedness, dizziness, Denies: headache, numbness, paresthesias, difficulty with ambulation. Endocrine: Denies: fatigue All systems ED: reviewed and negative except as stated. 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 Neck: Trachea midline without deviation. Anterior neck is supple without swelling, no overt thyromegaly noted. Chest: Symmetric chest wall rise Heart: Cardiac rhythm and rate are regular with S1 and S2 , no S3 or S4 appreciated, no murmurs, rubs, or clicks. Lungs: Lungs are clear to auscultation bilaterally, without accessory muscle use or prolonged expiratory phase. No wheezes, rhonchi, rales or stridor appreciated. Abdomen: Abdomen is obese, soft to palpation, normal bowel sounds, no evidence of bruising, surgical incisions, or abnormal mass. No abdominal bruit auscultated. Non-distended, non-rigid, no organomegaly, no ascites appreciated. No pulsatile mass, no tenderness or guarding to palpation in all four quadrants, no rebound Extremities: No evidence of pedal edema, joint swelling or erythema. Pulses/motor intact in all 4 extremities. Psychiatric exam: Patient displays a normal affect and mood for the environment. No overt signs of hallucination. Integumentary: warm, dry, intact, normal color. No rash, cyanosis, diaphoresis, erythema, or pallor - General Limitations: no limitations General appearance: alert, in no apparent distress Course Course Narrative: ED GI bleed protocol. IV fluids, Protonix, octreotide, ceftriaxone CBC, BMP, hepatic panel, type and screen Vital Signs Temperature 97.6 F 02/14/19 11:07 Pulse Rate 106 02/14/19 11:07 Respiratory Rate 20 02/14/19 11:07 Blood Pressure 141/87 02/14/19 11:07 O2 Sat by Pulse Oximetry 97 02/14/19 11:07 Temperature 98.2 F 02/15/19 07:00 Pulse Rate 76 02/15/19 07:35 Respiratory Rate 18 02/15/19 07:00 Blood Pressure 111/67 02/15/19 07:00 O2 Sat by Pulse Oximetry 96 02/15/19 04:03 Oxygen Delivery Oxygen Delivery Room Air GI Bleed - MDM Narrative Medical decision making narrative: Patient was admitted to hospitalist medicine service for their evaluation and management of GI bleed in the setting of anticoagulation due to recent pulmonary embolism. The patient verbalizes understanding and agreement with this plan and is hemodynamically stable time of admission. - Lab Data Lab results reviewed: Yes I reviewed the patient's lab results. Result diagrams: 02/15/19 04:18 02/15/19 04:18 Lab Results 02/14/19 02/14/19 Range/Units 11:35 11:46 WBC 4.2 L (4.3-11.1) K/mcL RBC 3.81 L (3.82-4.97) M/mcL Hgb 10.4 L (11.5-15.4) g/dL Hct 34.0 L (35.3-44.9) % MCV 89.2 (83.0-100.0) fL MCH 27.3 L (28.0-33.3) pg MCHC 30.6 L (31.6-35.5) g/dL RDW 15.0 H (11.5-14.5) % Plt Count 289 (140-400) K/mcL MPV 9.5 (9.4-12.4) fL Immature Gran % 0.2 (0-4) % Seg Neutrophils % 51.9 % Lymphocytes % 33.3 % Monocytes % 10.9 % Eosinophils % 2.8 % Basophils % 0.9 % Neutrophils # 2.2 (1.6-8.9) K/mcL Lymphocytes # 1.4 (0.6-4.6) K/mcL Monocytes # 0.5 (0.0-1.3) K/mcL Eosinophils # 0.1 (0.0-0.6) K/mcL Basophils # 0.0 (0.0-0.2) K/mcL Sodium 140 (136-145) mEq/L Potassium 3.9 (3.5-5.1) mEq/L Chloride 109 H (98-107) mEq/L Carbon Dioxide 26 (23-29) mEq/L BUN 14 (6-20) mg/dL Creatinine 0.99 (0.60-1.20) mg/dL Est GFR ( Amer) > 60 (> 60) Est GFR (Non-Af Amer) 59 L (> 60) BUN/Creatinine Ratio 14 (6-26) Glucose 97 (70-105) mg/dL Calculated Osmolality 290 (280-300) Calcium 8.5 L (8.6-10.3) mg/dL Total Bilirubin 0.2 L (0.3-1.0) mg/dL Direct Bilirubin 0.1 (0.0-0.2) mg/dL Indirect Bilirubin 0.1 (0.0-1.2) mg/dL AST 14 (13-39) Units/L ALT 11 (7-52) Units/L Alkaline Phosphatase 71 (34-104) Units/L Serum Total Protein 6.6 (6.4-8.9) g/dL Albumin 3.7 (3.5-5.7) g/dL Globulin 2.9 (2.4-3.5) g/dL Albumin/Globulin Ratio 1.3 (1.1-2.2)
[2019-02-14] MEDS ORDERED: Pantoprazole 40 MG VIAL IVP ONE (11:18)
[2019-02-14] MEDS ORDERED: 0.9 % Sodium Chloride 1,000 ML IVC ONE (11:21)
[2019-02-14] MEDS ORDERED: Ondansetron 4 MG/2 ML VIAL IVP STA (11:22)
[2019-02-14] MEDS ORDERED: Octreotide 50 MCG/ML INJ IVP ONE (11:23)
[2019-02-14] MEDS ORDERED: cefTRIAXone 1,000 MG in Water for inj. (sterile) 10 ML IVP ONE (11:25)
[2019-02-14] MEDS ORDERED: *HR* LORazepam 2 MG/ML VIAL IVP ONE (11:40)
[2019-02-14 11:42] LABS: Basophils % 0.9 %; Eosinophils # 0.1 K/mcL (0.0-0.6); Eosinophils % 2.8 %; Hemoglobin 10.4 g/dL (11.5-15.4); Immature Granulocytes % 0.2 % (0-4); Lymphocytes # 1.4 K/mcL (0.6-4.6); Lymphocytes % 33.3 %; Mean Corpuscular HGB Conc 30.6 g/dL (31.6-35.5); Mean Corpuscular Hemoglobin 27.3 pg (28.0-33.3); Mean Corpuscular Volume 89.2 fL (83.0-100.0); Mean Platelet Volume 9.5 fL (9.4-12.4); Monocytes # 0.5 K/mcL (0.0-1.3); Monocytes % 10.9 %; Neutrophils # 2.2 K/mcL (1.6-8.9); Platelet Count 289 K/mcL (140-400); Red Blood Count 3.81 M/mcL (3.82-4.97); Segmented Neutrophils % 51.9 %; White Blood Count 4.2 K/mcL (4.3-11.1)
[2019-02-14 12:21] LABS: Alanine Aminotransferase 11 Units/L (7-52); Albumin 3.7 g/dL (3.5-5.7); Albumin/Globulin Ratio 1.3 (1.1-2.2); Alkaline Phosphatase 71 Units/L (34-104); Aspartate Amino Transferase 14 Units/L (13-39); BUN/Creatinine Ratio 14 (6-26); Bilirubin,Direct 0.1 mg/dL (0.0-0.2); Bilirubin,Indirect 0.1 mg/dL (0.0-1.2); Bilirubin,Total 0.2 mg/dL (0.3-1.0); Blood Urea Nitrogen 14 mg/dL (6-20); Calcium 8.5 mg/dL (8.6-10.3); Carbon Dioxide 26 mEq/L (23-29); Chloride 109 mEq/L (98-107); Globulin 2.9 g/dL (2.4-3.5); Glucose 97 mg/dL (70-105); Osmolality,Calculated 290 (280-300); Potassium 3.9 mEq/L (3.5-5.1); Sodium 140 mEq/L (136-145); Total Protein 6.6 g/dL (6.4-8.9); eGFR For African Americans > 60 (> 60); eGFR For Non-African Americans 59 (> 60)
[2019-02-14] MEDS ORDERED: *HR* FentaNYL (PF) 100 MCG/2 ML VIAL IVP ONE (13:00)
[2019-02-14] MEDS ORDERED: Octreotide 400 MCG in 0.9 % Sodium Chloride 100 ML IVC SCH (13:30)
--- NOTE | 2019-02-14 14:04 | Emergency Department Note ---
Disposition Clinical Impression: GI bleed Qualifiers: GI bleed type/associated pathology: gastrointestinal hemorrhage with hematemesis Qualified Code(s): K92.0 - Hematemesis Disposition: Admitted As Inpatient Condition: Fair Time of Disposition: 09:31 General Adult HPI - General Chief complaint: ED GI Bleed Stated complaint: vomiting blood Time Seen by Provider: 02/14/19 11:10 Source: patient Mode of arrival: ambulatory Limitations: no limitations - History of Present Illness Pain Scale: 5 - Related Data Home Medications Medication Instructions Recorded Confirmed Buspirone HCl [Buspar] 30 mg PO BID 05/26/18 02/14/19 Duloxetine HCl [Cymbalta] 60 mg PO BID 05/26/18 02/14/19 Multivitamin [One Daily 1 tab PO DAILY 05/26/18 02/14/19 Multivitamin] lamoTRIgine [Lamotrigine] 100 mg PO QAM 05/26/18 02/14/19 lamoTRIgine [Lamotrigine] 200 mg PO HS 05/26/18 02/14/19 Cholecalciferol (Vitamin D3) 10,000 unit PO RICHARDSON 12/30/18 02/14/19 [Vitamin D3] Cyclobenzaprine HCl 10 mg PO TID PRN 12/30/18 02/14/19 Guselkumab [TREMFYA (Outpatient 100 mg SQ Q8W 12/30/18 02/14/19 Infusion)] hydrOXYzine HCl [Hydroxyzine HCl] 50 mg PO BID PRN 12/30/18 02/14/19 Topiramate [Topamax] 100 mg PO BID 01/23/19 02/14/19 ARIPiprazole [Abilify] 15 mg PO DAILY 02/03/19 02/14/19 Fluticasone Propionate Nasal 2 spray NS DAILY 02/03/19 02/14/19 [Flonase] Loratadine [Claritin] 10 mg PO DAILY 02/03/19 02/14/19 Previous Rx's Medication Instructions Recorded Atorvastatin [Lipitor] 40 mg PO HS #30 tablet 01/02/19 Metoprolol XL (24 HR) Succ [Toprol 12.5 mg PO DAILY #30 tab.er.24h 01/02/19 Xl] Pantoprazole Sodium [Protonix] 40 mg PO BID #60 tablet.dr 01/02/19 Sucralfate [Carafate] 1 gm PO QIDA #120 tablet 01/02/19 Allergies Allergy/AdvReac Type Severity Reaction Status Date / Time Penicillins Allergy Unknown See Verified 02/03/19 14:55 Comments pregabalin [From Lyrica] Allergy Unknown Swelling Verified 02/03/19 14:55 of the Eye ketorolac AdvReac Unknown Nausea/VOMI Verified 02/03/19 14:55 TING olanzapine [From Zyprexa] AdvReac Unknown SWELLING Verified 02/03/19 14:55 tramadol AdvReac Unknown Seizure Verified 02/03/19 14:55 Past Medical History - Past Medical History Medical history: Reports: coronary artery disease, hypertension Surgical history: Reports: angioplasty/stent, cholecystectomy, hysterectomy Psychiatric history: Reports: bipolar, prior suicide attempt, previous psychiatric hospitalization 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 history: Reports: no CENTRAL 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 history - Social History Smoking Status: Former smoker Smokeless Tobacco Status: No Alcohol use: Reports: none Drug use: Reports: none Physical Exam - General Limitations: no limitations General appearance: alert, in no apparent distress Course Vital Signs Temperature 97.6 F 02/14/19 11:07 Pulse Rate 106 02/14/19 11:07 Respiratory Rate 20 02/14/19 11:07 Blood Pressure 141/87 02/14/19 11:07 O2 Sat by Pulse Oximetry 97 02/14/19 11:07 Temperature 98.6 F 02/16/19 08:08 Pulse Rate 79 02/16/19 09:30 Respiratory Rate 18 02/16/19 08:08 Blood Pressure 102/60 02/16/19 09:30 O2 Sat by Pulse Oximetry 96 02/16/19 08:08 Oxygen Delivery Oxygen Delivery Room Air Medical Decision Making - Lab Data Result diagrams: 02/16/19 04:21 02/16/19 04:21 Lab Results 02/14/19 02/14/19 02/14/19 Range/Units 11:35 11:46 15:34 WBC 4.2 L (4.3-11.1) K/mcL RBC 3.81 L (3.82-4.97) M/mcL Hgb 10.4 L (11.5-15.4) g/dL Hct 34.0 L (35.3-44.9) % MCV 89.2 (83.0-100.0) fL MCH 27.3 L (28.0-33.3) pg MCHC 30.6 L (31.6-35.5) g/dL RDW 15.0 H (11.5-14.5) % Plt Count 289 (140-400) K/mcL MPV 9.5 (9.4-12.4) fL Immature Gran % 0.2 (0-4) % Seg Neutrophils % 51.9 % Lymphocytes % 33.3 % Monocytes % 10.9 % Eosinophils % 2.8 % Basophils % 0.9 % Neutrophils # 2.2 (1.6-8.9) K/mcL Lymphocytes # 1.4 (0.6-4.6) K/mcL Monocytes # 0.5 (0.0-1.3) K/mcL Eosinophils # 0.1 (0.0-0.6) K/mcL Basophils # 0.0 (0.0-0.2) K/mcL Sodium 140 (136-145) mEq/L Potassium 3.9 (3.5-5.1) mEq/L Chloride 109 H (98-107) mEq/L Carbon Dioxide 26 (23-29) mEq/L BUN 14 (6-20) mg/dL Creatinine 0.99 (0.60-1.20) mg/dL Est GFR ( Amer) > 60 (> 60) Est GFR (Non-Af Amer) 59 L (> 60) BUN/Creatinine Ratio 14 (6-26) Glucose 97 (70-105) mg/dL POC Glucose 99 (70-99) mg/dL Calculated Osmolality 290 (280-300) Calcium 8.5 L (8.6-10.3) mg/dL Total Bilirubin 0.2 L (0.3-1.0) mg/dL Direct Bilirubin 0.1 (0.0-0.2) mg/dL Indirect Bilirubin 0.1 (0.0-1.2) mg/dL AST 14 (13-39) Units/L ALT 11 (7-52) Units/L Alkaline Phosphatase 71 (34-104) Units/L Serum Total Protein 6.6 (6.4-8.9) g/dL Albumin 3.7 (3.5-5.7) g/dL Globulin 2.9 (2.4-3.5) g/dL Albumin/Globulin Ratio 1.3 (1.1-2.2) Blood Type Antibody Screen 02/14/19 02/14/19 02/14/19 Range/Units 17:43 23:23 23:45 WBC (4.3-11.1) K/mcL RBC (3.82-4.97) M/mcL Hgb 9.6 L 9.5 L (11.5-15.4) g/dL Hct 31.5 L 30.9 L (35.3-44.9) % MCV (83.0-100.0) fL MCH (28.0-33.3) pg MCHC (31.6-35.5) g/dL RDW (11.5-14.5) % Plt Count (140-400) K/mcL MPV (9.4-12.4) fL Immature Gran % (0-4) % Seg Neutrophils % % Lymphocytes % % Monocytes % % Eosinophils % % Basophils % % Neutrophils # (1.6-8.9) K/mcL Lymphocytes # (0.6-4.6) K/mcL Monocytes # (0.0-1.3) K/mcL Eosinophils # (0.0-0.6) K/mcL Basophils # (0.0-0.2) K/mcL Sodium (136-145) mEq/L Potassium (3.5-5.1) mEq/L Chloride (98-107) mEq/L Carbon Dioxide (23-29) mEq/L BUN (6-20) mg/dL Creatinine (0.60-1.20) mg/dL Est GFR ( Amer) (> 60) Est GFR (Non-Af Amer) (> 60) BUN/Creatinine Ratio (6-26) Glucose (70-105) mg/dL POC Glucose 118 H (70-99) mg/dL Calculated Osmolality (280-300) Calcium (8.6-10.3) mg/dL Total Bilirubin (0.3-1.0) mg/dL Direct Bilirubin (0.0-0.2) mg/dL Indirect Bilirubin (0.0-1.2) mg/dL AST (13-39) Units/L ALT (7-52) Units/L Alkaline Phosphatase (34-104) Units/L Serum Total Protein (6.4-8.9) g/dL Albumin (3.5-5.7) g/dL Globulin (2.4-3.5) g/dL Albumin/Globulin Ratio (1.1-2.2) Blood Type Antibody Screen 02/14/19 02/15/19 02/15/19 Range/Units Unknown 04:03 04:18 WBC 2.9 L (4.3-11.1) K/mcL RBC 3.31 L (3.82-4.97) M/mcL Hgb 9.2 L (11.5-15.4) g/dL Hct 30.7 L (35.3-44.9) % MCV 92.7 (83.0-100.0) fL MCH 27.8 L (28.0-33.3) pg MCHC 30.0 L (31.6-35.5) g/dL RDW 15.1 H (11.5-14.5) % Plt Count 238 (140-400) K/mcL MPV 9.7 (9.4-12.4) fL Immature Gran % (0-4) % Seg Neutrophils % % Lymphocytes % % Monocytes % % Eosinophils % % Basophils % % Neutrophils # (1.6-8.9) K/mcL Lymphocytes # (0.6-4.6) K/mcL Monocytes # (0.0-1.3) K/mcL Eosinophils # (0.0-0.6) K/mcL Basophils # (0.0-0.2) K/mcL Sodium (136-145) mEq/L Potassium (3.5-5.1) mEq/L Chloride (98-107) mEq/L Carbon Dioxide (23-29) mEq/L BUN (6-20) mg/dL Creatinine (0.60-1.20) mg/dL Est GFR ( Amer) (> 60) Est GFR (Non-Af Amer) (> 60) BUN/Creatinine Ratio (6-26) Glucose (70-105) mg/dL POC Glucose 112 H (70-99) mg/dL Calculated Osmolality (280-300) Calcium (8.6-10.3) mg/dL Total Bilirubin (0.3-1.0) mg/dL Direct Bilirubin (0.0-0.2) mg/dL Indirect Bilirubin (0.0-1.2) mg/dL AST (13-39) Units/L ALT (7-52) Units/L Alkaline Phosphatase (34-104) Units/L Serum Total Protein (6.4-8.9) g/dL Albumin (3.5-5.7) g/dL Globulin (2.4-3.5) g/dL Albumin/Globulin Ratio (1.1-2.2) Blood Type O POSITIVE Antibody Screen NEGATIVE 02/15/19 02/15/19 02/15/19 Range/Units 04:18 11:11 12:25 WBC (4.3-11.1) K/mcL RBC (3.82-4.97) M/mcL Hgb 9.7 L (11.5-15.4) g/dL Hct 30.9 L (35.3-44.9) % MCV (83.0-100.0) fL MCH (28.0-33.3) pg MCHC (31.6-35.5) g/dL RDW (11.5-14.5) % Plt Count (140-400) K/mcL MPV (9.4-12.4) fL Immature Gran % (0-4) % Seg Neutrophils % % Lymphocytes % % Monocytes % % Eosinophils % % Basophils % % Neutrophils # (1.6-8.9) K/mcL Lymphocytes # (0.6-4.6) K/mcL Monocytes # (0.0-1.3) K/mcL Eosinophils # (0.0-0.6) K/mcL Basophils # (0.0-0.2) K/mcL Sodium 141 (136-145) mEq/L Potassium 3.8 (3.5-5.1) mEq/L Chloride 108 H (98-107) mEq/L Carbon Dioxide 26 (23-29) mEq/L BUN 11 (6-20) mg/dL Creatinine 1.02 (0.60-1.20) mg/dL Est GFR ( Amer) > 60 (> 60) Est GFR (Non-Af Amer) 57 L (> 60) BUN/Creatinine Ratio 11 (6-26) Glucose 114 H (70-105) mg/dL POC Glucose 91 (70-99) mg/dL Calculated Osmolality 292 (280-300) Calcium 8.5 L (8.6-10.3) mg/dL Total Bilirubin (0.3-1.0) mg/dL Direct Bilirubin (0.0-0.2) mg/dL Indirect Bilirubin (0.0-1.2) mg/dL AST (13-39) Units/L ALT (7-52) Units/L Alkaline Phosphatase (34-104) Units/L Serum Total Protein (6.4-8.9) g/dL Albumin (3.5-5.7) g/dL Globulin (2.4-3.5) g/dL Albumin/Globulin Ratio (1.1-2.2) Blood Type Antibody Screen Attestation Statement - Attestation Attestation: I examined this patient and my medical decision-making was reviewed with the Resident Physician. I agree with the documented findings, disposition and treatment plan as described except to the extent set forth below. Patient with recently diagnosed with a pulmonary embolism with a history of bleeding gastric ulcers was placed on Eliquis presents with multiple bouts of hematemesis. No associated melena. No syncopal or presyncope. Vital signs n ormal and ED. Hemoglobin is at baseline. She's had no further bouts of hematemesis as well as the ED. Dr. Stewart initiated therapy with Protonix and octreotide. We have not reverse her at this point. She has been typed and screened. Patient will be admitted.
[2019-02-14] MEDS ORDERED: Naloxone 0.4 MG/ML INJ IVP PRN (14:22)
--- NOTE | 2019-02-14 15:56 | Internal Med History&Physical ---
Date of Encounter: 02/14/19 Time of Encounter: 14:30 Internal Medicine - H&P: HPI Chief complaint: Vomit blood Admitted From: Emergency Dept Plans for Post Hospital Care: Home History of present illness: Ms. Melara is a 53 year old female with hx of PE presented to ED with acute hematemesis. She was evaluated and subsequently admitted. Ms Melara presented to ED with complaints of vomiting blood. She has recent ac yannick PE and has been on Eliquis. She had been discharged to SNF and is now at home. She said she awoke at 0330 and had epistaxis of large volume of blood. It happened a second time. Both times stopped with pressure. Then she developed acute hematemesis shortly after. She said blood was "all over the bathroom." She had a second episode a few hours later. She presented to ED (again a few hours later) and was evaluated and started on PPI and Octreotide. At the present time she is comfortable and denies pain. Her H/H is at baseline and her BP is normal. She does have a prior hx of esophageal ulcer (thinks she had EGD recently). No recent illness. No fever or chills. No CP or SOB. No abd pain. No melena. Takes PPI and Carafate at home. Past Med Surg Social Fam HX - Past Medical History Source: patient Medical history: coronary artery disease, hypertension Additional medical history: PE Psychiatric history: bipolar, prior suicide attempt, previous psychiatric hospitalization - Past Surgical History Surgical History: angioplasty/stent, cholecystectomy, hysterectomy Additional surgical history: bilateral knee replacement, tubal ligation - Social History Smoking Status: Former smoker Smokeless Tobacco Status: No Alcohol use: none Drug use: none - Family History Father Living Status: Still Living Hx Family Cardiac Disorders: Yes Mother Living Status: Still Living Hx Family Cardiac Disorders: Yes Internal Medicine - H&P: Meds Buspirone HCl [Buspar] 30 mg PO BID 05/26/18 [History] Duloxetine HCl [Cymbalta] 60 mg PO BID 05/26/18 [History] Multivitamin [One Daily Multivitamin] 1 tab PO DAILY 05/26/18 [History] lamoTRIgine [Lamotrigine] 100 mg PO QAM 05/26/18 [History] lamoTRIgine [Lamotrigine] 200 mg PO HS 05/26/18 [History] Cholecalciferol (Vitamin D3) [Vitamin D3] 10,000 unit PO RICHARDSON 12/30/18 [History] Cyclobenzaprine HCl 10 mg PO TID PRN 12/30/18 [History] Guselkumab [TREMFYA (Outpatient Infusion)] 100 mg SQ Q8W 12/30/18 [History] hydrOXYzine HCl [Hydroxyzine HCl] 50 mg PO BID PRN 12/30/18 [History] Atorvastatin [Lipitor] 40 mg PO HS #30 tablet 01/02/19 [Rx] Metoprolol XL (24 HR) Succ [Toprol Xl] 12.5 mg PO DAILY #30 tab.er.24h 01/02/19 [Rx] Pantoprazole Sodium [Protonix] 40 mg PO BID #60 tablet.dr 01/02/19 [Rx] Sucralfate [Carafate] 1 gm PO QIDAC #120 tablet 01/02/19 [Rx] Topiramate [Topamax] 100 mg PO BID 01/23/19 [History] ARIPiprazole [Abilify] 15 mg PO DAILY 02/03/19 [History] Fluticasone Propionate Nasal [Flonase] 2 spray NS DAILY 02/03/19 [History] Loratadine [Claritin] 10 mg PO DAILY 02/03/19 [History] Apixaban [Eliquis] 5 mg PO BID #60 tablet 02/05/19 [Rx] Allergy/AdvReac Type Severity Reaction Status Date / Time Penicillins Allergy Unknown See Verified 02/03/19 14:55 Comments pregabalin [From Lyrica] Allergy Unknown Swelling Verified 02/03/19 14:55 of the Eye ketorolac AdvReac Unknown Nausea/VOMI Verified 02/03/19 14:55 TING olanzapine [From Zyprexa] AdvReac Unknown SWELLING Verified 02/03/19 14:55 tramadol AdvReac Unknown Seizure Verified 02/03/19 14:55 All Systems PM: A 10-system review of systems was performed and is negative for pertinent findings except as documented above in the HPI. - Constitutional Constitutional: fatigue - EENT Eyes: no change in vision, no pain Ears: no decreased hearing Nose, mouth and throat: epistaxis, no mouth pain, no sinus pain - Cardiovascular Cardiovascular ROS IM: no chest pain, no diaphoresis, no dyspnea, no dyspnea on exertion, no lightheadedness - Respiratory Respiratory: no cough, no dyspnea on exertion, no wheezing - Gastrointestinal Gastrointestinal: hematemesis, vomiting, no abdominal pain, no diarrhea, no melena - Genitourinary Genitourinary: no difficulty urinating, no urinary frequency - Musculoskeletal Musculoskeletal ROS IM: arthralgias, no joint swelling - Integumentary Integumentary IM: no rash - Neurological Neurological ROS: no headache(s), no numbness - Psychiatric Psychiatric: depression - Endocrine Endocrine IM: no excessive sweating - Hematologic/Lymphatic Hematologic/Lymphatic: no easy bleeding - Allergic/Immunologic Allergic/Immunologic: no itchy eyes - Constitutional Vitals: Temp Pulse Resp BP Pulse Ox 98.0 F 78 18 132/79 100 02/14/19 15:32 02/14/19 15:32 02/14/19 15:32 02/14/19 15:32 02/14/19 15:32 General appearance: Present: A&O X 3, answers questions appropriately Exam: See below - Head Head exam: Present: normocephalic - Eye Eye exam: Present: EOMI, conjuntiva pink - ENT ENT exam: Present: mucous membranes moist - Respiratory Respiratory exam: Present: CTAB. Absent: rales, wheezes - Cardiovascular Cardiovascular exam: Present: RRR. Absent: tachycardia - GI/Abdominal GI/Abdominal exam: Present: normal bowel sounds, soft, tenderness (Slight epigastric tenderness without peritoneal signs). Absent: mass - Extremities Exam Extremities exam: Present: warm. Absent: tenderness - Neurological Exam Neurological exam: Present: alert, oriented X3 - Skin Skin exam: Present: dry, warm. Absent: rash Internal Med - H&P Results - Labs CBC & Chem 7: 02/14/19 11:35 02/14/19 11:46 Labs: Short CBC 02/14/19 Range/Units 11:35 WBC 4.2 L (4.3-11.1) K/mcL Hgb 10.4 L (11.5-15.4) g/dL Hct 34.0 L (35.3-44.9) % Plt Count 289 (140-400) K/mcL Neutrophils # 2.2 (1.6-8.9) K/mcL BMP 02/14/19 11:46 Sodium 140 Potassium 3.9 Chloride 109 H Carbon Dioxide 26 BUN 14 Creatinine 0.99 Glucose 97 Calcium 8.5 L Liver Function 02/14/19 Range/Units 11:46 Total Bilirubin 0.2 L (0.3-1.0) mg/dL Direct Bilirubin 0.1 (0.0-0.2) mg/dL AST 14 (13-39) Units/L ALT 11 (7-52) Units/L Alkaline Phosphatase 71 (34-104) Units/L Albumin 3.7 (3.5-5.7) g/dL - Assessment and Plan (1) Hematemesis Current Visit: Yes Status: Acute Assessment and plan: Pt presented to ED with complaints of 2 episodes of hematemesis ("blood all over bathroom") in the setting of Eliquis use. She noted 2 episodes of epistaxis prior to event but has hx of esophageal ulcer she reports. Admit. PPI, NPO, serial H/H, type and cross Consult for acute bleed Hold Eliquis for now. Qualifiers: Nausea presence: without nausea Qualified Code(s): K92.0 - Hematemesis (2) Pulmonary embolus Current Visit: No Status: Acute Assessment and plan: Pt recently diagnosed with pulmonary embolus. She has been on Eliquis - will hold today awaiting any further work up Qualifiers: Pulmonary embolism type: other Chronicity: acute Acute cor pulmonale presence: without acute cor pulmonale Qualified Code(s): I26.99 - Other pulmonary embolism without acute cor pulmonale (3) Epistaxis Current Visit: Yes Status: Acute Assessment and plan: Pt had 2 episodes of epistaxis this AM - unsure if she swallowed a lot of blood. No evidence now. Monitor for recurrence. (4) Esophageal ulcer without bleeding Current Visit: No Status: Chronic Assessment and plan: Prior history. (5) Hypertension Current Visit: No Status: Chronic Assessment and plan: Monitor and continue home meds. Qualifiers: Hypertension type: essential hypertension Qualified Code(s): I10 - Essential (primary) hypertension (6) Morbid obesity with BMI of 45.0-49.9, adult Current Visit: Yes Status: Chronic Assessment and plan: Chronic issue. (7) Anxiety and depression Current Visit: No Status: Chronic Assessment and plan: Home meds continued. - Time Spent With Patient Total time spent is greater than 50% in coordination of care (as documented) at patient's floor/unit and/or counseling patient:
[2019-02-14] MEDS: hydrOXYzine pamoate 25 MG CAPSULE PO PRN (16:27)
[2019-02-14] MEDS: Ondansetron 4 MG/2 ML VIAL IVP PRN (16:27)
[2019-02-14] MEDS: Pantoprazole 40 MG VIAL IVP SCH (16:33)
[2019-02-14 18:00] LABS: Hematocrit 31.5 % (35.3-44.9); Hemoglobin 9.6 g/dL (11.5-15.4)
[2019-02-14] MEDS: Topiramate 100 MG TABLET PO SCH (20:18)
[2019-02-14] MEDS: lamoTRIgine 100 MG TABLET PO SCH (20:19)
--- NOTE | 2019-02-14 20:27 | Internal Medicine Consult Note ---
Date of Encounter: 02/18/19 Time of Encounter: 16:00 - Assessment and Plan (1) Hematemesis Status: Acute Assessment and plan: There is not been tremendous amount of blood loss at this time, her current hemoglobin is about her baseline, I suspect this is probably ulceration of the distal esophagus with prior ulcers being diagnosed, gastritis, ulcer disease further in the GI tract to be considered. Biopsies in the past, did not disclose any worrisome findings. I have recommended upper endoscopy, with risks and benefits being discussed to include bleeding and perforation, she has signed consent. Due to her medications, morbid obesity, I will have anesthesia provide sedation. Qualifiers: Nausea presence: without nausea Qualified Code(s): K92.0 - Hematemesis (2) Morbid obesity with BMI of 45.0-49.9, adult Status: Chronic (3) Bipolar 1 disorder, depressed Status: Chronic (4) Pulmonary embolus Status: Chronic Assessment and plan: Unfortunately left the hold anticoagulation at this time, I think once procedures done, we can further into the question as to whether or not she would need continued medication or if she would be a Patrick filter candidate. Qualifiers: Pulmonary embolism type: other Chronicity: chronic Acute cor pulmonale presence: without acute cor pulmonale Qualified Code(s): I27.82 - Chronic pulmonary embolism (5) CAD (coronary artery disease) Status: Chronic Qualifiers: Coronary Disease-Associated Artery/Lesion type: [place] artery [place] vs. transplanted heart: [place] heart Associated angina: without angina Qualified Code(s): I25.10 - Atherosclerotic heart disease of [place] coronary artery without angina pectoris (6) Esophageal ulcer without bleeding Status: Chronic Assessment and plan: Healing of this, it is unknown at this time. Internal Medicine - CN: HPI - Data of Consult Patient: new to practice Consult date: 02/14/19 Requesting Physician: Joe Starr DO - Consult Narrative Reason for consult: Hematemesis History of present illness: Ms. Melara is a 53 year old female presented to the ER today, later admitted to the hospitalist service. She had a chief complaint of epistaxis and then hematemesis. No previous bouts of GI bleeding although roughly I believe 2 months ago, had upper endoscopy here due to chest pain showing distal esophageal ulceration what may be mild gastritis. She admits not taking any anti- inflammatories, denies any GERD or dysphagia at this time. Actually resting quite deeply before I aroused her. Seems quite comfortable. Does complain of some vague. Umbilical abdominal pain quite mild. Unfortunately less than 1 month ago, had a small PE in the left lower lobe, requiring anticoagulation. Past Med Surg Social Fam HX - Past Medical History Medical history: coronary artery disease, hypertension, pulmonary embolus Additional medical history: PE Psychiatric history: bipolar, prior suicide attempt, previous psychiatric hospitalization - Past Surgical History Surgical History: angioplasty/stent, cholecystectomy, hysterectomy Additional surgical history: bilateral knee replacement, tubal ligation - Social History Smoking Status: Former smoker Smokeless Tobacco Status: No Alcohol use: none Drug use: none - Family History Father Living Status: Still Living Hx Family Cardiac Disorders: Yes Mother Living Status: Still Living Hx Family Cardiac Disorders: Yes - Constitutional Constitutional: malaise, weakness, no anorexia, no chills, no fever(s), no falls, no weight gain, no weight loss - Cardiovascular Cardiovascular ROS IM: no chest pain, no diaphoresis, no dyspnea, no edema, no irregular heart rhythm, no orthopnea, no syncope - Respiratory Respiratory: no cough, no dyspnea, no hemoptysis - Gastrointestinal Gastrointestinal: abdominal pain, hematemesis, nausea, vomiting, no heartburn, no hematochezia, no loose stools, no melena, no odynophagia - Neurological Neurological ROS: no loss of vision, no memory loss, no paresthesias Internal Medicine - CN: Meds Buspirone HCl [Buspar] 30 mg PO BID 05/26/18 [History] Duloxetine HCl [Cymbalta] 60 mg PO BID 05/26/18 [History] Multivitamin [One Daily Multivitamin] 1 tab PO DAILY 05/26/18 [History] lamoTRIgine [Lamotrigine] 100 mg PO QAM 05/26/18 [History] lamoTRIgine [Lamotrigine] 200 mg PO HS 05/26/18 [History] Cholecalciferol (Vitamin D3) [Vitamin D3] 10,000 unit PO RICHARDSON 12/30/18 [History] Cyclobenzaprine HCl 10 mg PO TID PRN 12/30/18 [History] Guselkumab [TREMFYA (Outpatient Infusion)] 100 mg SQ Q8W 12/30/18 [History] hydrOXYzine HCl [Hydroxyzine HCl] 50 mg PO BID PRN 12/30/18 [History] Atorvastatin [Lipitor] 40 mg PO HS #30 tablet 01/02/19 [Rx] Metoprolol XL (24 HR) Succ [Toprol Xl] 12.5 mg PO DAILY #30 tab.er.24h 01/02/19 [Rx] Pantoprazole Sodium [Protonix] 40 mg PO BID #60 tablet.dr 01/02/19 [Rx] Sucralfate [Carafate] 1 gm PO QIDAC #120 tablet 01/02/19 [Rx] Topiramate [Topamax] 100 mg PO BID 01/23/19 [History] ARIPiprazole [Abilify] 15 mg PO DAILY 02/03/19 [History] Fluticasone Propionate Nasal [Flonase] 2 spray NS DAILY 02/03/19 [History] Loratadine [Claritin] 10 mg PO DAILY 02/03/19 [History] Allergy/AdvReac Type Severity Reaction Status Date / Time Penicillins Allergy Unknown See Verified 02/03/19 14:55 Comments pregabalin [From Lyrica] Allergy Unknown Swelling Verified 02/03/19 14:55 of the Eye ketorolac AdvReac Unknown Nausea/VOMI Verified 02/03/19 14:55 TING olanzapine [From Zyprexa] AdvReac Unknown SWELLING Verified 02/03/19 14:55 tramadol AdvReac Unknown Seizure Verified 02/03/19 14:55 Internal Med - CN: Exam - Constitutional Vitals: Temp Pulse Resp BP Pulse Ox 98.2 F 79 18 114/71 95 02/14/19 19:00 02/14/19 19:00 02/14/19 19:00 02/14/19 19:00 02/14/19 19:00 General appearance IM: Present: A&O X 3, morbidly obese, pleasant, answers questions appropriately Exam: xx - Head Head exam: Present: atraumatic, normocephalic - Eye Eye exam: Present: conjuntiva pink, sclera anicteric - ENT ENT exam: Present: mucous membranes moist - Neck Neck exam general surgery: Present: full ROM, supple, trachea midline. Absent: tenderness, nuchal rigidity - Respiratory Respiratory exam: Present: CTAB. Absent: respiratory distress, rhonchi, wheezes, tachypnea - Cardiovascular Cardiovascular exam IM: Present: RRR, +S1. Absent: JVD, systolic murmur, tachycardia - GI/Abdominal GI/Abdominal exam IM: Present: normal bowel sounds, soft, tenderness, no peritoneal signs. Absent: mass, rebound, rigid Internal Medicine - CN: Reslt - Labs CBC & Chem 7: 02/16/19 04:21 02/16/19 04:21 Labs: Short CBC 02/14/19 02/14/19 Range/Units 11:35 17:43 WBC 4.2 L (4.3-11.1) K/mcL Hgb 10.4 L 9.6 L (11.5-15.4) g/dL Hct 34.0 L 31.5 L (35.3-44.9) % Plt Count 289 (140-400) K/mcL Neutrophils # 2.2 (1.6-8.9) K/mcL BMP 02/14/19 11:46 Sodium 140 Potassium 3.9 Chloride 109 H Carbon Dioxide 26 BUN 14 Creatinine 0.99 Glucose 97 Calcium 8.5 L Liver Function 02/14/19 Range/Units 11:46 Total Bilirubin 0.2 L (0.3-1.0) mg/dL Direct Bilirubin 0.1 (0.0-0.2) mg/dL AST 14 (13-39) Units/L ALT 11 (7-52) Units/L Alkaline Phosphatase 71 (34-104) Units/L Albumin 3.7 (3.5-5.7) g/dL Consult Discharge Plan - Plan Instructions: Inferior Vena Cava Filter Placement (DC), Corrosive Esophagitis (DC) Additional Instructions: -we stopped your apixaban (eliquis) and you were given an IVC filter to prevent potential blood clots from getting to your lungs and heart -you should not take eliquis until one month has passed (at least one month, maybe more) -follow up with Dr. Sanchez for your hiatal hernia -follow up with your primary care provider and resume apixaban at their disc retion -thank you Referrals: [facility] [Other] - 02/25/19 1:10 pm Isac Sanchez MD [Partnered Physician] - Jose D Silva DO [Partnered Physician] - 03/02/19 2:25 pm Teressa Hurd, TURBINE ATTENDANT [Primary Care Provider] - 02/22/19 12:30 pm
[2019-02-15 00:12] LABS: Hematocrit 30.9 % (35.3-44.9); Hemoglobin 9.5 g/dL (11.5-15.4)
[2019-02-15] MEDS: Ondansetron 4 MG/2 ML VIAL IVP PRN ×2 (03:22→18:44)
[2019-02-15 05:14] LABS: Hematocrit 30.7 % (35.3-44.9); Hemoglobin 9.2 g/dL (11.5-15.4); Mean Corpuscular Hemoglobin 27.8 pg (28.0-33.3); Mean Corpuscular Volume 92.7 fL (83.0-100.0); Mean Platelet Volume 9.7 fL (9.4-12.4); Platelet Count 238 K/mcL (140-400); Red Blood Count 3.31 M/mcL (3.82-4.97); Red Cell Distribution Width 15.1 % (11.5-14.5); White Blood Count 2.9 K/mcL (4.3-11.1)
[2019-02-15 05:34] LABS: BUN/Creatinine Ratio 11 (6-26); Blood Urea Nitrogen 11 mg/dL (6-20); Calcium 8.5 mg/dL (8.6-10.3); Carbon Dioxide 26 mEq/L (23-29); Chloride 108 mEq/L (98-107); Glucose 114 mg/dL (70-105); Osmolality,Calculated 292 (280-300); Potassium 3.8 mEq/L (3.5-5.1); Sodium 141 mEq/L (136-145); eGFR For African Americans > 60 (> 60); eGFR For Non-African Americans 57 (> 60)
[2019-02-15] MEDS: hydrOXYzine pamoate 25 MG CAPSULE PO PRN ×3 (06:00→23:46)
[2019-02-15] MEDS: Pantoprazole 40 MG VIAL IVP SCH ×2 (06:00→16:39)
[2019-02-15] MEDS: Acetaminophen 325 MG TABLET PO PRN ×2 (06:00→14:06)
[2019-02-15] MEDS: lamoTRIgine 100 MG TABLET PO SCH ×2 (08:06→21:12)
[2019-02-15] MEDS: ARIPiprazole 10 MG TABLET PO SCH (08:06)
[2019-02-15] MEDS: Topiramate 100 MG TABLET PO SCH ×2 (08:06→21:12)
[2019-02-15] MEDS: Metoprolol XL (24 HR) Succ 25 MG TAB.ER.24H PO SCH (08:06)
[2019-02-15] MEDS: Fluticasone Propionate Nasal 50 MCG/SPRAY BOTTLE NS SCH (08:07)
[2019-02-15] MEDS: Loratadine 10 MG TABLET PO SCH (08:07)
--- NOTE | 2019-02-15 09:49 | Internal Med Progress Note ---
<Joe Starr - Last Filed: 02/15/19 18:40> Hospitalist Progress Note - Encounter Date of Encounter: 02/15/19 - Exam Vitals: Temp Pulse Resp BP Pulse Ox 97.9 F 65 18 124/77 100 02/15/19 16:12 02/15/19 16:12 02/15/19 16:12 02/15/19 16:12 02/15/19 16:12 - Assessment and Plan (1) Hemorrhagic esophagitis Current Visit: Yes Status: Acute (2) CAD (coronary artery disease) Current Visit: No Status: Chronic (3) Bipolar 1 disorder, depressed Current Visit: No Status: Chronic (4) Pulmonary embolus Current Visit: No Status: Acute (5) Hematemesis Current Visit: Yes Status: Acute (6) Morbid obesity with BMI of 45.0-49.9, adult Current Visit: Yes Status: Chronic - Time Spent with Patient Total time spent is greater than 50% in coordination of care (as documented) at patient's floor/unit and/or counseling patient: Internal Medicine: Result - Labs CBC & Chem 7: 02/15/19 12:25 02/15/19 04:18 Labs: Short CBC 02/14/19 02/15/19 02/15/19 Range/Units 23:45 04:18 12:25 WBC 2.9 L (4.3-11.1) K/mcL Hgb 9.5 L 9.2 L 9.7 L (11.5-15.4) g/dL Hct 30.9 L 30.7 L 30.9 L (35.3-44.9) % Plt Count 238 (140-400) K/mcL BMP 02/15/19 04:18 Sodium 141 Potassium 3.8 Chloride 108 H Carbon Dioxide 26 BUN 11 Creatinine 1.02 Glucose 114 H Calcium 8.5 L Consult Discharge Plan - Plan Referrals: Teressa Hurd, SHIPPER [Primary Care Provider] - - Attending Attestation I examined this patient and my medical decision-making was reviewed with the Resident Physician on 02/15/19. I agree with the documented findings, disposition and treatment plan as described except to the extent set forth below. Ms Melara is currently admitted for acute GI bleed and PE on anticoagulation. She remains moderate to high risk due to potential for worsening clinical status. Ms Melara had EGD today - esophagitis. She has had no further bleeding here. She is concerned about hiatel hernia. Abd soft - nontender now. Heart reg. Will ask vascular opinion for IVC filter. Hold anticoagulation now. Hopeful d/c next 24 - 48 hours. <Burt Bwoens - Last Filed: 02/15/19 20:15> Hospitalist Progress Note - Encounter Date of Encounter: 02/15/19 Time of Encounter: 10:30 - Subjective Interval History: Patient has vague abd pain. feels worse than yesterday. Nauseaus. - Exam Vitals: Temp Pulse Resp BP Pulse Ox 98.2 F 76 18 111/67 96 02/15/19 07:00 02/15/19 07:35 02/15/19 07:00 02/15/19 07:00 02/15/19 04:03 Exam: General: vitals noted. no acute distress. eyes: no icterus. moist conjunctivae. cardio: RRR. no murmur, gallop or rub. resp: CTA throughout anteriorly. non-labored breathing. GI: obese. bowel sounds present. diffusely tender. no gaurding, rebound tenderness, or Gonzalez's sign positivity. no bruits. extremities: no edema. warm lower ext. upper ext. cap refill <2 sec. neuro: no focal deficits noted. no atrophy of extremities psych: answers questions sensibly. anxious. - Assessment and Plan (1) Esophagitis Current Visit: Yes Status: Acute Assessment and Plan: -history of esophageal ulcer -reported hematemesis X2 -LA grade B as seen by Dr. Zheng' EGD on 02/15/19 -Likely cause of bleed -no intraoperative repair needed as was no active bleeding -continue protonix (2) Pulmonary embolus Current Visit: No Status: Acute Assessment and Plan: -unknown etiology -diagnosed 02/02 CTA -workup 02/02 visit demonstrated no coagulopathy diseases on labs -eloquis d/c'd -consulted vascular surgery and patient to have IVC filter placed tomorrow (3) Hypertension Current Visit: No Status: Chronic Assessment and Plan: -chronic -bp remains stable -continue metoprolol (4) Anxiety and depression Current Visit: No Status: Chronic Assessment and Plan: -chronic -continue home meds - Time Spent with Patient Total time spent is greater than 50% in coordination of care (as documented) at patient's floor/unit and/or counseling patient: Internal Medicine: Result - Labs CBC & Chem 7: 02/15/19 12:25 02/15/19 04:18 Labs: Short CBC 02/14/19 02/14/19 02/14/19 Range/Units 11:35 17:43 23:45 WBC 4.2 L (4.3-11.1) K/mcL Hgb 10.4 L 9.6 L 9.5 L (11.5-15.4) g/dL Hct 34.0 L 31.5 L 30.9 L (35.3-44.9) % Plt Count 289 (140-400) K/mcL Neutrophils # 2.2 (1.6-8.9) K/mcL 02/15/19 Range/Units 04:18 WBC 2.9 L (4.3-11.1) K/mcL Hgb 9.2 L (11.5-15.4) g/dL Hct 30.7 L (35.3-44.9) % Plt Count 238 (140-400) K/mcL Neutrophils # (1.6-8.9) K/mcL BMP 02/14/19 02/15/19 11:46 04:18 Sodium 140 141 Potassium 3.9 3.8 Chloride 109 H 108 H Carbon Dioxide 26 26 BUN 14 11 Creatinine 0.99 1.02 Glucose 97 114 H Calcium 8.5 L 8.5 L Liver Function 02/14/19 Range/Units 11:46 Total Bilirubin 0.2 L (0.3-1.0) mg/dL Direct Bilirubin 0.1 (0.0-0.2) mg/dL AST 14 (13-39) Units/L ALT 11 (7-52) Units/L Alkaline Phosphatase 71 (34-104) Units/L Albumin 3.7 (3.5-5.7) g/dL <Joe Starr A - Last Filed: 02/15/19 18:40> (2) CAD (coronary artery disease) Qualifiers: Coronary Disease-Associated Artery/Lesion type: [place] artery [place] vs. [place] heart: [place] heart Associated angina: without angina Qualified Code(s): I25.10 - Atherosclerotic heart disease of [place] coronary artery without angina pectoris (4) Pulmonary embolus Qualifiers: Pulmonary embolism type: other Chronicity: chronic Acute cor pulmonale presence: without acute cor pulmonale Qualified Code(s): I27.82 - Chronic pulmonary embolism (5) Hematemesis Qualifiers: Nausea presence: without nausea Qualified Code(s): K92.0 - Hematemesis <MonkBurt G - Last Filed: 02/15/19 20:15> (2) Pulmonary embolus Qualifiers: Pulmonary embolism type: other Chronicity: chronic Acute cor pulmonale presence: without acute cor pulmonale Qualified Code(s): I27.82 - Chronic pulmonary embolism (3) Hypertension Qualifiers: Hypertension type: essential hypertension
[2019-02-15 12:49] LABS: Hematocrit 30.9 % (35.3-44.9); Hemoglobin 9.7 g/dL (11.5-15.4)
--- NOTE | 2019-02-15 13:12 | Anesthesia Evaluation PreOp ---
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: Other (anxiety/depression, prior suicide attempt) Other Medical History: GERD (hiatal hernia), Other (obesity BMI=54.5) Anesthesia History: No Prior Anesthetic Complications, Past Anesthesia (hysterectomy) Alcohol Use: none Drug use: none Medications and Allergies Buspirone HCl [Buspar] 30 mg PO BID 05/26/18 [History] Duloxetine HCl [Cymbalta] 60 mg PO BID 05/26/18 [History] Multivitamin [One Daily Multivitamin] 1 tab PO DAILY 05/26/18 [History] lamoTRIgine [Lamotrigine] 100 mg PO QAM 05/26/18 [History] lamoTRIgine [Lamotrigine] 200 mg PO HS 05/26/18 [History] Cholecalciferol (Vitamin D3) [Vitamin D3] 10,000 unit PO RICHARDSON 12/30/18 [History] Cyclobenzaprine HCl 10 mg PO TID PRN 12/30/18 [History] Guselkumab [TREMFYA (Outpatient Infusion)] 100 mg SQ Q8W 12/30/18 [History] hydrOXYzine HCl [Hydroxyzine HCl] 50 mg PO BID PRN 12/30/18 [History] Atorvastatin [Lipitor] 40 mg PO HS #30 tablet 01/02/19 [Rx] Metoprolol XL (24 HR) Succ [Toprol Xl] 12.5 mg PO DAILY #30 tab.er.24h 01/02/19 [Rx] Pantoprazole Sodium [Protonix] 40 mg PO BID #60 tablet.dr 01/02/19 [Rx] Sucralfate [Carafate] 1 gm PO QIDAC #120 tablet 01/02/19 [Rx] Topiramate [Topamax] 100 mg PO BID 01/23/19 [History] ARIPiprazole [Abilify] 15 mg PO DAILY 02/03/19 [History] Fluticasone Propionate Nasal [Flonase] 2 spray NS DAILY 02/03/19 [History] Loratadine [Claritin] 10 mg PO DAILY 02/03/19 [History] Apixaban [Eliquis] 5 mg PO BID #60 tablet 02/05/19 [Rx] Allergy/AdvReac Type Severity Reaction Status Date / Time Penicillins Allergy Unknown See Verified 02/03/19 14:55 Comments pregabalin [From Lyrica] Allergy Unknown Swelling Verified 02/03/19 14:55 of the Eye ketorolac AdvReac Unknown Nausea/VOMI Verified 02/03/19 14:55 TING olanzapine [From Zyprexa] AdvReac Unknown SWELLING Verified 02/03/19 14:55 tramadol AdvReac Unknown Seizure Verified 02/03/19 14:55 - Meds/Allergy Pre-op Review Medications Reviewed: Yes Allergies Reviewed: Yes Beta Blockers on Current Med List: Yes If Beta Blockers taken, Date/Time (Last Dose taken): 02/15/2019 at 0806 Anesthesia Results - Labs 02/15/19 12:25 02/15/19 04:18 - Imaging EKG: report reviewed (02/02/2019 Sinus rhythm Right bundle branch block 12/30/2018 Sinus rhythm Right bundle branch block) Additional studies: 05/27/2018 Stress Impression: Perfusion imaging was negative for ischemia or infarct. Pharmacologic stress ECG is negative for ischemia at level of heart rate achieved. No appreciable change from baseline ECG. Patient had 5/10 chest pain to start, increasing to 7/10 with pharmacologic stress. Recommend clinical correlation. Gated EF > 70%. 05/27/2018 Echo Impressions: LVEF 60-65%. Normal LV chamber size and function. Mild concentric left ventricular hypertrophy. Atypical septal motion consistent with bundle branch block. Mild left ventricular diastolic dysfunction. Normal right ventricular structure and function. Mild aortic regurgitation. Mild pulmonary hypertension. Anesthesia Exam Vital Signs/O2 Sat/Glucose, Most Recent Temp Pulse Resp BP Pulse Ox 98.2 F 76 18 116/73 99 02/15/19 11:09 02/15/19 11:09 02/15/19 11:09 02/15/19 11:09 02/15/19 11:09 Blood Glucose* 91 Height: 5'6''/1.68m Weight: 337 lbs/153 kg NPO (# of Hours): 8 Pain Scale: 0 Pain Scale Used: Numeric (1 - 10) - HEENT Pupil (Motor): EOMI Mallampati: III Teeth: Edentulous Denture Type: Upper: Complete, Lower: Complete Oral Opening: Greater than 3 - PILING CUTTER LOC: Oriented PILING CUTTER Motor: Normal RUE, Normal LUE, Normal RLE, Normal LLE, Normal Face PILING CUTTER Sensory: Normal: RUE, LUE, RLE, LLE, Face - Cardiac Rhythm: Regular Murmur: None - Pulmonary Breath Sounds: bilateral Clear Respiratory Effort: Symmetrical Anesthesia Assess/Plan ASA Score: 4 Level of consciousness: Cooperative, Oriented, Tranquil Anesthetic Plan: MAC Monitoring Plan: Standard Monitors
[2019-02-15] MEDS ORDERED: *HR* Propofol 200 MG/20 ML VIAL IVP ONE (14:12)
--- NOTE | 2019-02-15 15:03 | History & Physical Report ---
Date of Encounter: 02/15/19 Time of Encounter: 15:03 24 Hour HP Update - Instructions Instructions: If the History and Physical is less than 30 days old and was completed prior to A.M. admission and or procedure and has NOT been updated on calendar day of procedure please complete this update prior to performing procedure. - Update Patient reports changes in Medical Condition: No Changes in examination, assessment, or condition: No Changes in Medication: No - Pre-Operative Checklist Preoperative Checklist Indicated: No
[2019-02-15] MEDS ORDERED: 0.9 % Sodium Chloride 1,000 ML IVC SCH (15:15)
[2019-02-15] MEDS: Sucralfate 1 GM TABLET PO SCH (21:12)
[2019-02-16] MEDS: Pantoprazole 40 MG VIAL IVP SCH (05:17)
[2019-02-16 05:28] LABS: Basophils % 0.8 %; Eosinophils # 0.2 K/mcL (0.0-0.6); Eosinophils % 4.3 %; Hematocrit 30.6 % (35.3-44.9); Hemoglobin 9.3 g/dL (11.5-15.4); Lymphocytes # 1.5 K/mcL (0.6-4.6); Lymphocytes % 37.8 %; Mean Corpuscular HGB Conc 30.4 g/dL (31.6-35.5); Mean Corpuscular Hemoglobin 27.8 pg (28.0-33.3); Mean Corpuscular Volume 91.3 fL (83.0-100.0); Mean Platelet Volume 9.7 fL (9.4-12.4); Monocytes # 0.4 K/mcL (0.0-1.3); Monocytes % 10.7 %; Neutrophils # 1.8 K/mcL (1.6-8.9); Platelet Count 261 K/mcL (140-400); Red Blood Count 3.35 M/mcL (3.82-4.97); Red Cell Distribution Width 14.9 % (11.5-14.5); Segmented Neutrophils % 46.4 %; White Blood Count 3.9 K/mcL (4.3-11.1)
[2019-02-16 05:46] LABS: BUN/Creatinine Ratio 11 (6-26); Blood Urea Nitrogen 11 mg/dL (6-20); Calcium 8.6 mg/dL (8.6-10.3); Carbon Dioxide 25 mEq/L (23-29); Chloride 108 mEq/L (98-107); Glucose 87 mg/dL (70-105); Osmolality,Calculated 291 (280-300); Potassium 3.6 mEq/L (3.5-5.1); Sodium 141 mEq/L (136-145); eGFR For African Americans > 60 (> 60); eGFR For Non-African Americans 57 (> 60)
[2019-02-16] MEDS ORDERED: 0.9 % Sodium Chloride 1,000 ML ONE (06:34)
[2019-02-16] MEDS ORDERED: Heparin 1,000 UNITS/500 mL 500 ML ONE (06:34)
[2019-02-16] MEDS ORDERED: Isovue-300 200 mL Infus..BTL ONE (06:34)
[2019-02-16] MEDS ORDERED: *HR* Heparin 10,000 UNIT/10 ML VIAL ONE (06:34)
[2019-02-16] MEDS ORDERED: *HR* Midazolam HCl 2 MG/2 ML VIAL ONE (06:46)
[2019-02-16] MEDS ORDERED: *HR* FentaNYL (PF) 100 MCG/2 ML VIAL ONE (06:46)
--- NOTE | 2019-02-16 07:01 | Internal Med Progress Note ---
Hospitalist Progress Note - Encounter Date of Encounter: 02/16/19 Time of Encounter: 06:45 - Subjective Interval History: Patient feels better than yesterday. Abd. pain improved. Patient says no other significant/concerning issues other than headache that is of a type she has had before. Dr. Horn entered to counseling director pt on procedure and obtain consent. P rocedure to be preformed this morning. - Exam Vitals: Temp Pulse Resp BP Pulse Ox 98.2 F 77 16 109/70 96 02/16/19 04:08 02/16/19 04:08 02/16/19 04:08 02/16/19 04:08 02/16/19 04:08 Exam: General: vitals noted. anxious skin: b/l knee replacement scars. eyes: no icterus. moist conjunctivae. eyes track movement appropriately cardio: RRR. no murmur, gallop or rub. mitral post not heard well. resp: CTA upper panchal anteriorly. non-labored breathing. GI: obese. gastric sounds present. extremities: no edema. upper ext b/l appear well-perfused neuro: no focal deficits noted. no atrophy of extremities psych: answers questions sensibly. anxious. - Assessment and Plan (1) Esophagitis Current Visit: Yes Status: Acute Assessment and Plan: -history of esophageal ulcer -reported hematemesis X2 -LA grade B as seen by Dr. Zheng' EGD on 02/15/19 -Likely cause of bleed -no intraoperative repair needed as was no active bleeding -continue protonix (2) Pulmonary embolus Current Visit: No Status: Acute Assessment and Plan: -unknown etiology -diagnosed 02/02 CTA -workup 02/02 visit demonstrated no coagulopathy diseases on labs -eloquis d/c'd -appreciate consult to vascular surgery and patient to have IVC filter placed today (3) Hypertension Current Visit: No Status: Chronic Assessment and Plan: -chronic -bp remains stable -continue metoprolol (4) Anxiety and depression Current Visit: No Status: Chronic Assessment and Plan: -chronic -continue home meds DVT Prophylaxis: IVC today - Time Spent with Patient Total time spent is greater than 50% in coordination of care (as documented) at patient's floor/unit and/or counseling patient: Internal Medicine: Result - Labs CBC & Chem 7: 02/16/19 04:21 02/16/19 04:21 Labs: Short CBC 02/15/19 02/16/19 Range/Units 12:25 04:21 WBC 3.9 L (4.3-11.1) K/mcL Hgb 9.7 L 9.3 L (11.5-15.4) g/dL Hct 30.9 L 30.6 L (35.3-44.9) % Plt Count 261 (140-400) K/mcL Neutrophils # 1.8 (1.6-8.9) K/mcL BMP 02/16/19 04:21 Sodium 141 Potassium 3.6 Chloride 108 H Carbon Dioxide 25 BUN 11 Creatinine 1.03 Glucose 87 Calcium 8.6 Consult Discharge Plan - Plan Referrals: Teressa Hurd, [employer]CH[employer] [Primary Care Provider] - (2) Pulmonary embolus Qualifiers: Pulmonary embolism type: other Chronicity: chronic Acute cor pulmonale presence: without acute cor pulmonale Qualified Code(s): I27.82 - Chronic pulmonary embolism (3) Hypertension Qualifiers: Hypertension type: essential hypertension
--- NOTE | 2019-02-16 07:09 | Pre-Sedation Evaluation ---
Pre-sedation evaluation - Pre-sedation checklist Recent Vitals: Last Vital Signs Temp 98.2 F 02/16/19 04:08 Pulse 77 02/16/19 04:08 Resp 16 02/16/19 04:08 BP 109/70 02/16/19 04:08 Pulse Ox 96 02/16/19 04:08 Possible difficult airway: Yes ASA Classification *see protocol: CLASS III-Severe systemic disease Plan of Care: Pt appropriate candidate for procedure/moderate/conscious sedation, Risks/benefits of procedure/sedation discussed w/ patient/family
[2019-02-16] MEDS ORDERED: Ondansetron 4 MG/2 ML VIAL ONE (07:50)
--- NOTE | 2019-02-16 08:11 | Invasive Diagnostic Lab Proc ---
Name: May Melara Date of Study: 02/16/2019 Date: 1965 Ht: 168.0 in Medical Record#: [id number] Age: 53 Wt: 153 lb Gender: Female BSA: 2.5 Order #: [id number] BMI: 54.21 Physicians Performing MD: Colten Horn MD, FACS Referring MD: Referring MD: Staff Name Position Time In Sites, Sherri RT (R) Monitor Alessio Leyva RN Multicraft Operator Sites, Sherri RT (R) Scrub Indications Pulmonary Embolism Procedures Performed IVC FILTER PLACEMENT Pre-Procedure Checklist Informed consent is complete signed and on chart. H&P is on chart. ID band is on and ID verified with patient. Patient NPO for procedure The procedure was described for the patient and questions were answered. Blood Pressure: 135/83 ECG is on chart. Rhythm: NSR Plan of Care Patient will tolerate the procedure without complications. Adequate level of comfort will be maintained. Hemodynamics will remain stable Patient will recover from procedure without complications. Respiratory function will be maintained. Cardiac rhythm will remain stable. Patient temperature will be maintained. Patient and/or family have verbalized understanding of the procedure. Patient Education Intravenous Access Time IV Size Location DC'd Fluid/Drip Rate Units RN 20g 1 08/14" Patent On Arrival Lt Antecubital 0.9NaCl ml/hr Allergies PCN,TORADOL ketorolac Penicillins tramadol olanzapine Penicillin pregabalin Vital Signs Time BP Systolic BP Diastolic HR O2 Sats ASA 07:16 AM 135 83 72 98 07:11 AM 140 76 72 100 07:16 AM 135 83 75 97 07:21 AM 135 92 83 96 07:26 AM 132 85 85 94 07:31 AM 125 77 84 98 07:36 AM 128 80 76 96 07:41 AM 130 83 84 100 07:46 AM 126 81 83 100 Procedure Medications Time Medication Dose Units Method Route 07:15 AM Oxygen 2 L/min nasal cannula 07:15 AM Versed 1 mg Intravenous 07:16 AM Fentanyl 50 mcg Intravenous 07:29 AM Lidocaine 2% 20 ml Subcutaneous 07:31 AM Versed 1 mg Intravenous 07:35 AM Fentanyl 50 mcg Intravenous 07:52 AM Zofran 4 mg Intravenous ASA Classification: CLASS III- Severe systemic disease (i.e. prior AMI, diabetes with vascular complications, morbid obesity) Fatoumata Score Preprocedure Postprocedure Activity 2- Moves 4 extremities sustained head lift Activity 2- Moves 4 extremities sustained head lift Circulation 2- SBP +/= 20 points of pre-anesthetic level Circulation 2- SBP +/= 20 points of pre-anesthetic level Consciousness 2- Awake and alert oriented x 3 Consciousness 2- Awake and alert oriented x 3 O2 Saturation 2- Able to maintain O2 satruation of 92% on room air O2 Saturation 2- Able to maintain O2 satruation of 92% on room air Respiratory 2- Able to deep breathe and cough well Respiratory 2- Able to deep breathe and cough well Total Score 10 Total Score 10 Contrast: Isovue 300- 150ml Contrast Amount: 10 ml Fluoro Dose: 254 mGy Procedure Log Time Note Entered By 07:15 AM Pt [facility] labor relations supervisor [email or web address] AM Leatha Zamudio RT (R) Position: Monitor Time in: 07:15 [email or web address] 07:15 AM Alessio Leyva RN Position: Multicraft Operator [facility]: 07:15 [email or web address] AM Sherri Garcia RT (R) Position: Scrub Time in: 07:15 [email or web address] 07:15 AM Hair removed from procedure site in procedure lab using clippers. Bilateral groin prepped with Chloraprep by , then patient was draped. Skin intact. [email or web address] 07[facility]15 AM Physician paged/called 07:15 [email or web address] 07:15 AM Physician arrived 07:15 [email or web address] 07:15 AM Luis M and shirley completed [email or web address] 07:15 AM Sign in performed according to hospital policy. [email or web address] 07:15 AM Procedure start 07:15 [email or web address] 07:15 AM 07:15 Oxygen at 2 L/min per nasal cannula by Alessio Leyva RN [email or web address] 07:16 AM 07:15 Versed 1 mg Intravenous Given by Alessio Leyva RN [email or web address] 07:16 AM 07:16 Fentanyl 50 mcg Intravenous Given by Alessio Leyva RN [email or web address] 07:16 AM Time: 07:16 Is patient comfortable and pain free?: Yes [email or web address] 07:16 AM Time: 07:16LOC: 4 = Oriented but drowsy [email or web address] 07:15 AM ASA Class CLASS III- Severe systemic disease (i.e. prior AMI, diabetes with vascular complications, morbid obesity) [email or web address] 07:20 AM Time out perfomed [email or web address] 07:22 AM 07:29 20 ml Lidocaine 2% to right groin Subcutaneous Given By Colten Horn MD, FACS [email or web address] 07:23 AM Ultrasound, Sonosite, utilized to obtain vascular access [email or web address] 07:31 AM 07:31 Versed 1 mg Intravenous Given by Alessio Leyva RN [email or web address] 07:32 AM Smart needle utilized for Access. [email or web address] 07:35 AM Access obtain and IVC Filter sheath inserted Rt Femoral vein. [email or web address] 07:35 AM 07:35 Fentanyl 50 mcg Intravenous Given by Alessio Leyva RN [email or web address] 07:36 AM Patient Charges- GERS Celect IVC Filter SN/LOT# [id number],Tray Pack and Pulse Oximetry. [email or web address] 07:36 AM Inferiorvenacavagram performed. [email or web address] 07:38 AM IVC Filter inserted into the inferior vena cava [email or web address] 07:38 AM IVC Filter deployed into the inferior vena cava [email or web address] 07:38 AM Inferiorvenacavagram performed. [email or web address] 07:41 AM Procedure completed at 07:41 [email or web address] 07:42 AM Sign Out completed: Radiation Dose 253.96 mGy Fluoro Time: 1.0 minutes. Isovue 300- 150ml contrast 10 ml given by Colten Horn MD, FACS. Complications: None. Confirmed administered medications:Yes Sedation minutes 27 [email or web address] 07:42 AM Isovue 300- 150ml,1 bottle(s) used. [email or web address] 07:42 AM Arterial sheath pulled using manual compression and V+Pad for 10 minutes by Sherri Garcia RT (R) [email or web address] 07:42 AM Estimated Blood Loss: minimal [email or web address] 07:42 AM Post Blood Pressure: 130/83 [email or web address] 07:43 AM Post EKG: NSR [email or web address] 07:43 AM 07:43 Post Pulses: Bilateral DP & PT 2+. [email or web address] 07:43 AM Information taught: IVC filter [email or web address] 07:43 AM Education needs: Procedure, Plan of Care, and Disease Process [email or web address] 07:43 AM Learning barriers: None [email or web address] 07:43 AM Education methods: Verbal [email or web address] 07:43 AM Education evaluation: Able to repeat information [email or web address] 07:43 AM Patient pain level 0/10 [email or web address] 07:43 AM Delay to floor: No [email or web address] 07:43 AM Pt taken to Room# 1 [email or web address] 07:43 AM Family placed in consult room. [email or web address] 07:43 AM Complications: None [email or web address] 07:44 AM Fluoro Time: 1.0 minutes [email or web address] 07:44 AM Isovue 300- 150ml contrast 10 ml given by Colten Horn MD, FACS [email or web address] 07:44 AM Radiation Dose 253.96 mGy [email or web address] 07:51 AM Site status No bleeding/hematoma - Rt Groin as reported by Sites, Sherri RT (R) at 07:51 [email or web address] 07:51 AM Opsite applied [email or web address] 07:52 AM Time: 07:52 Zofran 4 mg Intravenous Given by Alessio Leyva RN [email or web address] 07:53 AM Report given to BETTY DE LUNA. Pt taken to , Room # 1 07:53 [email or web address] 07:53 AM Delay to floor: No [email or web address] 07:53 AM Pt taken to Room# 1 [email or web address] 07:53 AM Complications: None [email or web address] 07:53 AM Fluoro Time: 1.0 minutes [email or web address] 07:10 AM Vitals capture started with the following parameters, Patient=Adult, Interval=5 min, Initial Xpqmawlz=125 mmHg, Deflation Rate=3 mmHg, Cuff placed on Right Arm 07:11 AM HR=72 bpm, UVBG=114/76 mmhg, EuO2=195.0 %, Resp=15 B/min, Comment=NR 07:14 AM Recorded ECG: HR=73 Condition=Condition 1 07:16 AM HR=75 bpm, GPRU=820/83 mmhg, SpO2=97.0 %, Resp=14 B/min, Comment=SR 07:21 AM HR=83 bpm, OHKD=697/92 mmhg, SpO2=96.0 %, Resp=13 B/min, Comment=SR 07:26 AM HR=85 bpm, GBXS=686/85 mmhg, SpO2=94.0 %, Resp=13 B/min, Comment=SR 07:29 AM Recorded ECG: HR=85 Condition=Condition 1 07:31 AM HR=84 bpm, GUCP=439/77 mmhg, SpO2=98.0 %, Resp=13 B/min, Comment=NR 07:36 AM HR=76 bpm, ZAYU=930/80 mmhg, SpO2=96.0 %, Resp=11 B/min, Comment=NR 07:41 AM Recorded ECG: HR=83 Condition=Condition 1 07:41 AM HR=84 bpm, GUCH=370/83 mmhg, XaH6=702.0 %, Resp=11 B/min, Comment=NR 07:46 AM HR=83 bpm, ROVJ=664/81 mmhg, YhX4=359.0 %, Resp=12 B/min, Comment=NR 07:55 AM PVIStat 07:57 AM Patient out of room 07:57 [email or web address] Post Procedure Information Blood Pressure: 130/83 mmHg Rhythm: NSR Post procedure instructions given Report Given To: dragan Site Checks Time Location Status Staff Sheath In? Note 7:51:00 AM Rt Groin No bleeding/hematoma Sites, Sherri RT (R) Pulses Time Site Pre Procedure Post Procedure Note 02/16/2019 7:57:00 AM Bilateral DP & PT 2+ 7:43:00 AM Bilateral DP & PT 2+ Updated by Leatha Zamudio, RT(R) on 02/16/2019 7:57:44 AM electronically signed on 02/16/2019 7:58:22 AM with status of Final
--- NOTE | 2019-02-16 08:20 | Vascular/Endovasc Consult Note ---
Date of Encounter: 02/16/19 Time of Encounter: 06:50 Assessment and Plan (1) Pulmonary embolus Current Visit: Yes Status: Chronic Patient has been treated with anticoagulation for her left-sided pulmonary embolism. Qualifiers: Pulmonary embolism type: other Chronicity: chronic Acute cor pulmonale presence: without acute cor pulmonale Qualified Code(s): I27.82 - Chronic pulmonary embolism (2) Hemorrhagic esophagitis Current Visit: Yes Status: Acute Patient is status post upper GI endoscopy. This revealed hemorrhagic esophagitis. Anticoagulation will be stopped. IVC filter is requested to prevent further pulmonary embolization. This was reviewed with the patient and her sister and her mother. All questions were answered. - History of Present Illness Consult date: 02/16/19 Consult reason: Pulmonary embolism/upper GI bleeding Chief complaint: Upper GI bleeding History of present illness: Ms. Melara is a 53 year old female History of pulmonary. She was treated with anticoagulation and sent to an extended care facility. She is now home. She was admitted on February 14 because of upper GI bleeding. This was to further consultation and an upper GI endoscopy. The official report is not available at this time but the patient was found significant esophagitis and this was thought to be the cause of her upper GI bleeding. Therefore her anticoagulation was stopped and it was recommended that the anticoagulation therapy be held for a minimum of 1 month. Therefore vascular surgery was asked see the patient for placement of an IVC filter. Past Med Surg Social Fam HX - Past Medical History Medical history: coronary artery disease, hypertension, pulmonary embolus Additional medical history: PE Psychiatric history: bipolar, prior suicide attempt, previous psychiatric hospitalization - Past Surgical History Surgical History: angioplasty/stent, cholecystectomy, hysterectomy Additional surgical history: bilateral knee replacement, tubal ligation - Social History Smoking Status: Former smoker Smokeless Tobacco Status: No Alcohol use: none Drug use: none - Family History Father Living Status: Still Living Hx Family Cardiac Disorders: Yes Mother Living Status: Still Living Hx Family Cardiac Disorders: Yes Medications and Allergies Buspirone HCl [Buspar] 30 mg PO BID 05/26/18 [History] Duloxetine HCl [Cymbalta] 60 mg PO BID 05/26/18 [History] Multivitamin [One Daily Multivitamin] 1 tab PO DAILY 05/26/18 [History] lamoTRIgine [Lamotrigine] 100 mg PO QAM 05/26/18 [History] lamoTRIgine [Lamotrigine] 200 mg PO HS 05/26/18 [History] Cholecalciferol (Vitamin D3) [Vitamin D3] 10,000 unit PO RICHARDSON 12/30/18 [History] Cyclobenzaprine HCl 10 mg PO TID PRN 12/30/18 [History] Guselkumab [TREMFYA (Outpatient Infusion)] 100 mg SQ Q8W 12/30/18 [History] hydrOXYzine HCl [Hydroxyzine HCl] 50 mg PO BID PRN 12/30/18 [History] Atorvastatin [Lipitor] 40 mg PO HS #30 tablet 01/02/19 [Rx] Metoprolol XL (24 HR) Succ [Toprol Xl] 12.5 mg PO DAILY #30 tab.er.24h 01/02/19 [Rx] Pantoprazole Sodium [Protonix] 40 mg PO BID #60 tablet. 01/02/19 [Rx] Sucralfate [Carafate] 1 gm PO QIDAC #120 tablet 01/02/19 [Rx] Topiramate [Topamax] 100 mg PO BID 01/23/19 [History] ARIPiprazole [Abilify] 15 mg PO DAILY 02/03/19 [History] Fluticasone Propionate Nasal [Flonase] 2 spray NS DAILY 02/03/19 [History] Loratadine [Claritin] 10 mg PO DAILY 02/03/19 [History] Apixaban [Eliquis] 5 mg PO BID #60 tablet 02/05/19 [Rx] Allergy/AdvReac Type Severity Reaction Status Date / Time Penicillins Allergy Unknown See Verified 02/03/19 14:55 Comments pregabalin [From Lyrica] Allergy Unknown Swelling Verified 02/03/19 14:55 of the Eye ketorolac AdvReac Unknown Nausea/VOMI Verified 02/03/19 14:55 TING olanzapine [From Zyprexa] AdvReac Unknown SWELLING Verified 02/03/19 14:55 tramadol AdvReac Unknown Seizure Verified 02/03/19 14:55 All Systems Review: The remainder of the systems were reviewed and are negative Exam Vital Signs, Last 4 Hours Temp Pulse Resp BP Pulse Ox 02/16/19 08:08 98.6 F 78 18 104/65 96 General: Present: Conversant, No Apparent Distress, Other (Obese middle-age white female) HEENT: Present: Atraumatic, Normocephaly Neck: Absent: JVD Neuro: Present: Alert and responsive Abdomen: Present: Other (Obese abdomen) Vascular: Present: Normal capillary refill Skin: Present: No rashes noted on visualized skin Consult Discharge Plan - Plan Referrals: Teressa Hurd, TUB OPERATOR [Primary Care Provider] -
--- NOTE | 2019-02-16 08:23 | Procedure Note ---
Date of procedure: 02/16/19 Pre-op diagnosis: Pulmonary embolism with hemorrhagic esophagitis Post-op diagnosis: same Procedure: Inferior venacavogram Placement of IVC filter Anesthesia: MAC Surgeon: Colten Horn Was there an machine assistant present: No Estimated blood loss (cc): 0 Specimen: 0 Condition: stable Disposition: floor
[2019-02-16] MEDS: ARIPiprazole 10 MG TABLET PO SCH (09:00)
[2019-02-16] MEDS: hydrOXYzine pamoate 25 MG CAPSULE PO PRN (09:00)
[2019-02-16] MEDS: Topiramate 100 MG TABLET PO SCH (09:00)
[2019-02-16] MEDS: Loratadine 10 MG TABLET PO SCH (09:00)
[2019-02-16] MEDS: Sucralfate 1 GM TABLET PO SCH (09:00)
[2019-02-16] MEDS: lamoTRIgine 100 MG TABLET PO SCH (09:00)
[2019-02-16] MEDS: Metoprolol XL (24 HR) Succ 25 MG TAB.ER.24H PO SCH (09:04)
[2019-02-16] MEDS: Fluticasone Propionate Nasal 50 MCG/SPRAY BOTTLE NS SCH (09:04)
[2019-02-16] MEDS ORDERED: Ondansetron 4 MG/2 ML VIAL IVP PRN (09:17)
[2019-02-16] MEDS ORDERED: Naloxone 0.4 MG/ML INJ IVP PRN (09:17)
[2019-02-16] MEDS ORDERED: hydrOXYzine pamoate 25 MG CAPSULE PO PRN (09:17)
[2019-02-16] MEDS ORDERED: 0.9 % Sodium Chloride 1,000 ML IVC SCH (09:17)
[2019-02-16] MEDS ORDERED: Acetaminophen 325 MG TABLET PO PRN (09:17)
[2019-02-16] MEDS ORDERED: ARIPiprazole 10 MG TABLET PO SCH (09:30)
[2019-02-16] MEDS ORDERED: Topiramate 100 MG TABLET PO SCH ×2 (09:30→21:00)
[2019-02-16] MEDS ORDERED: Loratadine 10 MG TABLET PO SCH (09:30)
[2019-02-16] MEDS ORDERED: Metoprolol XL (24 HR) Succ 25 MG TAB.ER.24H PO SCH (09:30)
[2019-02-16] MEDS ORDERED: Pantoprazole 40 MG VIAL IVP SCH ×2 (09:30→18:00)
[2019-02-16] MEDS ORDERED: lamoTRIgine 100 MG TABLET PO SCH ×2 (09:30→21:00)
[2019-02-16] MEDS ORDERED: Fluticasone Propionate Nasal 50 MCG/SPRAY BOTTLE NS SCH (09:30)
[2019-02-16 09:45] VITALS: BP 102/60
--- NOTE | 2019-02-16 10:17 | Discharge Summary ---
<Joe Starr - Last Filed: 02/16/19 18:47> Date of Encounter: 02/16/19 - Discharge Diagnosis (1) Hemorrhagic esophagitis Status: Acute (2) CAD (coronary artery disease) Status: Chronic Qualifiers: Coronary Disease-Associated Artery/Lesion type: [place] artery [place] vs. transplanted heart: [place] heart Associated angina: without angina Qualified Code(s): I25.10 - Atherosclerotic heart disease of [place] coronary artery without angina pectoris (3) Bipolar 1 disorder, depressed Status: Chronic (4) Pulmonary embolus Status: Chronic Qualifiers: Pulmonary embolism type: other Chronicity: chronic Acute cor pulmonale presence: without acute cor pulmonale Qualified Code(s): I27.82 - Chronic pulmonary embolism (5) Hematemesis Status: Acute Qualifiers: Nausea presence: without nausea Qualified Code(s): K92.0 - Hematemesis (6) Morbid obesity with BMI of 45.0-49.9, adult Status: Chronic Hospital course: Ms. Melara is a 53 year old female - Time Spent with Patient Total time spent providing and/or coordinating discharge services: - Discharge Medications Prescriptions: Continued lamoTRIgine [Lamotrigine] 100 mg PO QAM lamoTRIgine [Lamotrigine] 200 mg PO HS Buspirone HCl [Buspar] 30 mg PO BID Multivitamin [One Daily Multivitamin] 1 tab PO DAILY Duloxetine HCl [Cymbalta] 60 mg PO BID Cholecalciferol (Vitamin D3) [Vitamin D3] 10,000 unit PO RICHARDSON Cyclobenzaprine HCl 10 mg PO TID PRN PRN Reason: Muscle Spasm Guselkumab [TREMFYA (Outpatient Infusion)] 100 mg SQ Q8W hydrOXYzine HCl [Hydroxyzine HCl] 50 mg PO BID PRN PRN Reason: Anxiety Sucralfate [Carafate] 1 gm PO QIDAC #120 tablet Atorvastatin [Lipitor] 40 mg PO HS #30 tablet Pantoprazole Sodium [Protonix] 40 mg PO BID #60 tablet. Metoprolol XL (24 HR) Succ [Toprol Xl] 12.5 mg PO DAILY #30 tab.er.24h Topiramate [Topamax] 100 mg PO BID Fluticasone Propionate Nasal [Flonase] 2 spray NS DAILY Loratadine [Claritin] 10 mg PO DAILY ARIPiprazole [Abilify] 15 mg PO DAILY Discontinued Apixaban [Eliquis] 5 mg PO BID #60 tablet Home Medications: Buspirone HCl [Buspar] 30 mg PO BID 05/26/18 [History] Duloxetine HCl [Cymbalta] 60 mg PO BID 05/26/18 [History] Multivitamin [One Daily Multivitamin] 1 tab PO DAILY 05/26/18 [History] lamoTRIgine [Lamotrigine] 100 mg PO QAM 05/26/18 [History] lamoTRIgine [Lamotrigine] 200 mg PO HS 05/26/18 [History] Cholecalciferol (Vitamin D3) [Vitamin D3] 10,000 unit PO RICHARDSON 12/30/18 [History] Cyclobenzaprine HCl 10 mg PO TID PRN 12/30/18 [History] Guselkumab [TREMFYA (Outpatient Infusion)] 100 mg SQ Q8W 12/30/18 [History] hydrOXYzine HCl [Hydroxyzine HCl] 50 mg PO BID PRN 12/30/18 [History] Atorvastatin [Lipitor] 40 mg PO HS #30 tablet 01/02/19 [Rx] Metoprolol XL (24 HR) Succ [Toprol Xl] 12.5 mg PO DAILY #30 tab.er.24h 01/02/19 [Rx] Pantoprazole Sodium [Protonix] 40 mg PO BID #60 tablet.dr 01/02/19 [Rx] Sucralfate [Carafate] 1 gm PO QIDAC #120 tablet 01/02/19 [Rx] Topiramate [Topamax] 100 mg PO BID 01/23/19 [History] ARIPiprazole [Abilify] 15 mg PO DAILY 02/03/19 [History] Fluticasone Propionate Nasal [Flonase] 2 spray NS DAILY 02/03/19 [History] Loratadine [Claritin] 10 mg PO DAILY 02/03/19 [History] Allergies/Adverse Reactions: Allergy/AdvReac Type Severity Reaction Status Date / Time Penicillins Allergy Unknown See Verified 02/03/19 14:55 Comments pregabalin [From Lyrica] Allergy Unknown Swelling Verified 02/03/19 14:55 of the Eye ketorolac AdvReac Unknown Nausea/VOMI Verified 02/03/19 14:55 TING olanzapine [From Zyprexa] AdvReac Unknown SWELLING Verified 02/03/19 14:55 tramadol AdvReac Unknown Seizure Verified 02/03/19 14:55 Date of admission: 02/15/19 18:46 Primary care physician: Teressa Hurd CNP Consults: 02/14/19 15:55 Consult to Pastoral Services [CONS] Routine Comment: Consult to [employer] Operator [CONS] Routine Reason for SW Consult: Help finding new psychiatrist 02/16/19 07:27 Consult to Vascular Surgery [CONS] Stat Consulting Provider: Vascular Surgery Oma Reason for Consult: IVC filter placement Call Completed: Yes - Constitutional Vitals: Temp Pulse Resp BP Pulse Ox 98.6 F 79 18 102/60 96 02/16/19 08:08 02/16/19 09:30 02/16/19 08:08 02/16/19 09:30 02/16/19 08:08 - Patient Status Disposition: Home, Self-Care Condition: Fair - Discharge Instructions Instructions: Inferior Vena Cava Filter Placement (DC), Corrosive Esophagitis (DC) Follow Up With: [facility] [Other] - 02/25/19 1:10 pm Jose D Silva DO [Partnered Physician] - 03/02/19 2:25 pm Teressa Hurd CNP [Primary Care Provider] - 02/22/19 12:30 pm Isac Sanchez MD [Partnered Physician] - Additional Instructions: -we stopped your apixaban (eliquis) and you were given an IVC filter to prevent potential blood clots from getting to your lungs and heart -you should not take eliquis until one month has passed (at least one month, maybe more) -follow up with Dr. Sanchez for your hiatal hernia -follow up with your primary care provider and resume apixaban at their discretion -thank you - Attending Attestation I examined this patient and my medical decision-making was reviewed with the Resident Physician on 02/16/19. I agree with the documented findings, disposition and treatment plan as described except to the extent set forth below. Ms Melara has been admitted for acute UGI bleed due to esophagitis. She was recently started on Eliquis for PE. She had IVC filter placed this AM without difficulty. No further bleeding noted and H/H stable. She is afebrile and ready for discharge home. She will follow up with PCP for resumption of Eliquis. She is requesting further information on her hiatel hernia and repair so she was referred to Dr. Sanchez. D/C time 39min <Burt Bowens - Last Filed: 02/16/19 19:35> - NOTES TO OUTPATIENT PROVIDER Notes to Outpatient Provider: Mrs. Melara presented with hematemesis and epistaxis. EGD was performed and showed a non bleeding ulcer of the esophagus that was the likely source of the bleed. Home apixaban (2/2 02/02/19 PE) was d/c'd 2/2 bleed. Should not be taken again for at least 4 weeks. Re-start therapy based on PCP recommendations. An IVC filter was placed by Dr. Horn on 02/16/19. Follow up with Dr. Sanchez for hiatal hernia. Date of Encounter: 02/16/19 Time of Encounter: 10:15 - Discharge Diagnosis (1) Esophagitis Priority: Primary Status: Acute (2) Pulmonary embolus Priority: Secondary Status: Chronic Qualifiers: Pulmonary embolism type: other Chronicity: chronic Acute cor pulmonale presence: without acute cor pulmonale Qualified Code(s): I27.82 - Chronic pulmonary embolism (3) Hypertension Priority: Secondary Status: Chronic (4) Anxiety and depression Priority: Secondary Status: Chronic Hospital course: Ms. Melara is a 53 year old female who presented to the ED on 02/14/19 with complaints of hematemesis and epistaxis. Upper endoscopy was performed and a nonbleeding esophageal ulcer was found to be the likely source of the bleed. Patient's apixaban was d/c'd 2/2 bleed and an IVC filter was placed on 02/16/19. Abixiban should be held for at least 4 weeks and recontinued with PCP's di mastersion. Patient to f/u with Dr. Sanchez for hiatal hernia. Patient is stable for discharge. - Time Spent with Patient Total time spent providing and/or coordinating discharge services: Date of admission: 02/15/19 18:46 Primary care physician: Teressa Hurd CNP Consults: 02/14/19 15:55 Consult to Pastoral Services [CONS] Routine Comment: Consult to [employer] Operator [CONS] Routine Reason for SW Consult: Help finding new psychiatrist 02/16/19 07:27 Consult to Vascular Surgery [CONS] Stat Consulting Provider: Vascular Surgery Oma Reason for Consult: IVC filter placement Call Completed: Yes Discharging clinician: Joe Starr Anticipated date of discharge: 02/16/19 - Constitutional Vitals: Temp Pulse Resp BP Pulse Ox 98.6 F 79 18 102/60 96 02/16/19 08:08 02/16/19 09:30 02/16/19 08:08 02/16/19 09:30 02/16/19 08:08 General appearance: Present: A&O X 3, morbidly obese, pleasant, answers questions appropriately Exam: General: vitals noted. anxious skin: b/l knee replacement scars. eyes: no icterus. moist conjunctivae. eyes track movement appropriately cardio: RRR. no murmur, gallop or rub. mitral post not heard well. resp: CTA upper panchal anteriorly. non-labored breathing. GI: obese. gastric sounds present. extremities: no edema. upper ext b/l appear well-perfused neuro: no focal deficits noted. no atrophy of extremities psych: answers questions sensibly. anxious. - Patient Status Functional capacity at discharge: independent ambulation Overall status at discharge: patient is progressing back to baseline - Diet and Activity Activity: increase activity as tolerated Diet: advance to your usual diet
[2019-02-17] MEDS ORDERED: Fluticasone Propionate Nasal 50 MCG/SPRAY BOTTLE NS SCH ×2 (09:00)
[2019-02-17] MEDS ORDERED: ARIPiprazole 10 MG TABLET PO SCH (09:00)
[2019-02-17] MEDS ORDERED: Loratadine 10 MG TABLET PO SCH ×2 (09:00)
[2019-02-17] MEDS ORDERED: lamoTRIgine 100 MG TABLET PO SCH ×2 (09:00)
[2019-02-17] MEDS ORDERED: Metoprolol XL (24 HR) Succ 25 MG TAB.ER.24H PO SCH (09:00)
== END 2019-02-16 11:39 | disposition home or self-care (01) | DRG 357 ==
LOC: 2NNU 11:06 → EMEROOARM 11:06 → SUATTDRO 14:38 → 2NNU 15:37
PROVIDERS: ADMIT Internal Medicine; ATTEND Internal Medicine

== ENCOUNTER 2019-03-13 21:53 | Inpatient (IN) ==
[2019-03-13] MEDS ORDERED: 0.9 % Sodium Chloride 1,000 ML IVC ONE (22:32)
[2019-03-13] MEDS ORDERED: Ondansetron 4 MG/2 ML VIAL IVP ONE (22:32)
[2019-03-13] MEDS ORDERED: Pantoprazole 40 MG VIAL IVP ONE (22:32)
[2019-03-13] MEDS ORDERED: *HR* FentaNYL (PF) 100 MCG/2 ML VIAL IVP ONE (22:37)
--- NOTE | 2019-03-13 22:48 | Emergency Department Note ---
Disposition Clinical Impression: Esophagitis Hematemesis Qualifiers: Nausea presence: with nausea Qualified Code(s): K92.0 - Hematemesis GI bleed Qualifiers: GI bleed type/associated pathology: unspecified gastrointestinal hemorrhage type Qualified Code(s): K92.2 - Gastrointestinal hemorrhage, unspecified Disposition: Admitted As Inpatient Condition: Good Time of Disposition: 01:33 General Adult HPI - General Chief complaint: ED General Medical Stated complaint: Vomiting Blood/Bloody stool Time Seen by Provider: 03/13/19 22:28 Source: patient Mode of arrival: private vehicle Limitations: no limitations Nursing Notes Reviewed: Yes Vital Signs Reviewed: Yes - History of Present Illness HPI Narrative: 53-year-old female with a past medical history of previously diagnosed ulcer in her upper GI tract, for which she takes Carafate and Protonix, that states that she had to episodes of vomiting yesterday with streaks of blood. She is also noted that her stool became dark yesterday and she noticed some blood in her stool today. She is complaining of some right lower quadrant pain that she states has been going on for several months but seems somewhat worse today. Patient endorses some nausea as well. She denies any dysuria, shortness of breath. Pain Scale: 8 - Related Data Home Medications Medication Instructions Recorded Confirmed Buspirone HCl [Buspar] 30 mg PO BID 05/26/18 03/14/19 Duloxetine HCl [Cymbalta] 60 mg PO BID 05/26/18 03/14/19 Multivitamin [One Daily 1 tab PO DAILY 05/26/18 03/14/19 Multivitamin] lamoTRIgine [Lamotrigine] 100 mg PO QAM 05/26/18 03/14/19 lamoTRIgine [Lamotrigine] 200 mg PO HS 05/26/18 03/14/19 Cholecalciferol (Vitamin D3) 10,000 unit PO RICHARDSON 12/30/18 03/14/19 [Vitamin D3] Cyclobenzaprine HCl 10 mg PO TID PRN 12/30/18 03/14/19 Guselkumab [TREMFYA (Outpatient 100 mg SQ Q8W 12/30/18 03/14/19 Infusion)] hydrOXYzine HCl [Hydroxyzine HCl] 50 mg PO BID PRN 12/30/18 03/14/19 Topiramate [Topamax] 100 mg PO BID 01/23/19 03/14/19 ARIPiprazole [Abilify] 20 mg PO DAILY 02/03/19 03/14/19 Previous Rx's Medication Instructions Recorded Atorvastatin [Lipitor] 40 mg PO HS #30 tablet 01/02/19 Metoprolol XL (24 HR) Succ [Toprol 12.5 mg PO DAILY #30 tab.er.24h 01/02/19 Xl] Pantoprazole Sodium [Protonix] 40 mg PO BID #60 tablet. 01/02/19 Sucralfate [Carafate] 1 gm PO QIDAC #120 tablet 01/02/19 Allergies Allergy/AdvReac Type Severity Reaction Status Date / Time Penicillins Allergy Unknown See Verified 02/03/19 14:55 Comments pregabalin [From Lyrica] Allergy Unknown Swelling Verified 02/03/19 14:55 of the Eye ketorolac AdvReac Unknown Nausea/VOMI Verified 02/03/19 14:55 TING olanzapine [From Zyprexa] AdvReac Unknown SWELLING Verified 02/03/19 14:55 tramadol AdvReac Unknown Seizure Verified 02/03/19 14:55 Review of Systems: In addition to that documented in the HPI above, the additional ROS was obtained: Constitutional: Denies fevers or chills Eyes: Denies vision changes ENMT: Denies sore throat CV: Denies chest pain Resp: Denies SOB GI: Denies vomiting or diarrhea Reports nausea, hematochezia, hematemesis x 2 since yesterday, RLQ abd pain : Denies painful urination MSK: Denies recent trauma Skin: Denies new rashes Neuro: Denies new numbness or tingling or weakness Endocrine: Denies unexpected weight loss Heme: Denies bleeding disorders Past Medical History - Past Medical History Attestation: Yes The following information was validated with the patient. Medical history: Reports: coronary artery disease, hypertension, pulmonary embolus Surgical history: Reports: angioplasty/stent, cholecystectomy, hysterectomy Psychiatric history: Reports: bipolar, prior suicide attempt, previous psychiatric hospitalization STAFF PSYCHOLOGIST history: Reports: no STAFF PSYCHOLOGIST history - Social History Smoking Status: Former smoker Smokeless Tobacco Status: No Alcohol use: Reports: none Drug use: Reports: none Physical Exam General: A&O x 3. No acute distress. Well developed, well nourished. Head: atraumatic, normocephalic. ENT: No conjunctival injection, no scleral icterus. PERRLA. EOMI. Oropharynx non- erythematous. mucous membranes moist. Neuro: No focal deficits, no speech deficit, no facial droop, mentating well. BUE/BLE Str 5/5. Pulm: Lungs CTAB A/P. No wheezes, rales, ronchi. Cardio: RRR no m/r/g. Chest not tender to palpation. Abd: Soft, non-distended. Normoactive bowel sounds. Tender to palpation in RLQ. No guarding. Non rigid. Extremities: Radial pulses 2+ shakira, dorsalis pedis/posterior tibialis 2+ shakira. No LE edema. No cyanosis, clubbing. Skin: warm, dry, intact. No rashes. Psych: Appropriate mood and affect. Answers questions appropriately. Cooperative with exam. - General Limitations: no limitations General appearance: alert Course Vital Signs Temperature 98.2 F 03/13/19 22:14 Pulse Rate 90 03/13/19 22:14 Respiratory Rate 18 03/13/19 22:14 Blood Pressure 150/91 03/13/19 22:14 O2 Sat by Pulse Oximetry 100 03/13/19 22:14 Temperature 97.5 F L 03/14/19 12:05 Pulse Rate 81 03/14/19 12:05 Respiratory Rate 16 03/14/19 12:05 Blood Pressure 113/75 03/14/19 12:05 O2 Sat by Pulse Oximetry 98 03/14/19 12:05 Oxygen Delivery Oxygen Delivery Room Air Medical Decision Making - [facility] Narrative Medical decision making narrative: 53-year-old female with a past medical history of bleeding ulcers as shown on EGD approximately one month ago that presents with 2 days of hematemesis and hematochezia. We will order a CBC, BMP, CT of the abdomen and pelvis, occult stool. Suspect that the patient will need to be admitted. We will also order IV, 1 L of normal saline, Protonix. Patient's hemoglobin was stable and consistent with her previous values. CT demonstrated a small hiatal hernia but did not show any other concerning findings. The rest of patient's lab work was unremarkable. Given patient's history of recent diagnosis of bleeding ulcers and being on maximal medical therapy I believe the patient could benefit from some further inpatient workup and treatment for her GI bleed. Patient was admitted to the hospitalist Dr. Eric who agreed to take the patient to his service. Results of the workup including any imaging and/or labwork was shared with the patient at bedside. Patient was given an opportunity to ask questions at bedside and all of their concerns were addressed. Patient verbalized understanding and agreement with plan of care. Pt remained stable while in the department. - Medical Records Medical records reviewed: Yes I reviewed the patient's medical records. - Lab Data Lab results reviewed: Yes I reviewed the patient's lab results. Result diagrams: 03/14/19 10:45 03/13/19 22:45 Lab Results 03/13/19 03/13/19 03/13/19 Range/Units 22:45 22:45 22:45 WBC 4.5 (4.3-11.1) K/mcL RBC 3.80 L (3.82-4.97) M/mcL Hgb 10.3 L (11.5-15.4) g/dL Hct 33.7 L (35.3-44.9) % MCV 88.7 (83.0-100.0) fL MCH 27.1 L (28.0-33.3) pg MCHC 30.6 L (31.6-35.5) g/dL RDW 16.2 H (11.5-14.5) % Plt Count 271 (140-400) K/mcL MPV 9.0 L (9.4-12.4) fL Immature Gran % 0.4 (0-4) % Seg Neutrophils % 41.3 % Lymphocytes % 43.7 % Monocytes % 9.9 % Eosinophils % 3.8 % Basophils % 0.9 % Neutrophils # 1.8 (1.6-8.9) K/mcL Lymphocytes # 2.0 (0.6-4.6) K/mcL Monocytes # 0.4 (0.0-1.3) K/mcL Eosinophils # 0.2 (0.0-0.6) K/mcL Basophils # 0.0 (0.0-0.2) K/mcL PT 10.4 (9.4-12.1) Seconds INR 0.9 APTT 35.3 (26.0-36.0) Seconds Sodium 140 (136-145) mEq/L Potassium 3.6 (3.5-5.1) mEq/L Chloride 107 (98-107) mEq/L Carbon Dioxide 24 (23-29) mEq/L BUN 13 (6-20) mg/dL Creatinine 0.91 (0.60-1.20) mg/dL Est GFR ( Amer) > 60 (> 60) Est GFR (Non-Af Amer) > 60 (> 60) BUN/Creatinine Ratio 14 (6-26) Glucose 92 (70-105) mg/dL Calculated Osmolality 290 (280-300) Lactic Acid (0.5-2.2) mmol/L Calcium 9.1 (8.6-10.3) mg/dL Magnesium 2.1 (1.6-2.6) mg/dL Troponin I < 0.03 (< 0.04) ng/mL Lipase 16 (11-82) Units/L Stool Occult Bld Scrn (Negative) Blood Type Antibody Screen 03/13/19 03/13/19 03/14/19 Range/Units 22:45 22:45 00:39 WBC (4.3-11.1) K/mcL RBC (3.82-4.97) M/mcL Hgb (11.5-15.4) g/dL Hct (35.3-44.9) % MCV (83.0-100.0) fL MCH (28.0-33.3) pg MCHC (31.6-35.5) g/dL RDW (11.5-14.5) % Plt Count (140-400) K/mcL MPV (9.4-12.4) fL Immature Gran % (0-4) % Seg Neutrophils % % Lymphocytes % % Monocytes % % Eosinophils % % Basophils % % Neutrophils # (1.6-8.9) K/mcL Lymphocytes # (0.6-4.6) K/mcL Monocytes # (0.0-1.3) K/mcL Eosinophils # (0.0-0.6) K/mcL Basophils # (0.0-0.2) K/mcL PT (9.4-12.1) Seconds INR APTT (26.0-36.0) Seconds Sodium (136-145) mEq/L Potassium (3.5-5.1) mEq/L Chloride (98-107) mEq/L Carbon Dioxide (23-29) mEq/L BUN (6-20) mg/dL Creatinine (0.60-1.20) mg/dL Est GFR ( Amer) (> 60) Est GFR (Non-Af Amer) (> 60) BUN/Creatinine Ratio (6-26) Glucose (70-105) mg/dL Calculated Osmolality (280-300) Lactic Acid 0.6 (0.5-2.2) mmol/L Calcium (8.6-10.3) mg/dL Magnesium (1.6-2.6) mg/dL Troponin I (< 0.04) ng/mL Lipase (11-82) Units/L Stool Occult Bld Scrn Negative (Negative) Blood Type O POSITIVE Antibody Screen NEGATIVE - Radiology Data Radiology results reviewed: Yes I reviewed the patient's radiology results. Chest X-Ray 03/13/19 22:32 IMPRESSION: Enlarged cardiomediastinal silhouette. Otherwise, no radiographic evidence of acute cardiopulmonary process. D/ / 03/13/2019 22:50:20 Arvind Adame MD / yung Interpreting Provider: Arvind Adame MD Abdomen/Pelvis CT 03/14/19 00:05 IMPRESSION: No acute abnormality in the abdomen or pelvis. No bowel obstruction. No significant diverticular disease. No obstructive uropathy. Small to moderate hiatal hernia. D/ / Yemi Lewis / Yemi Lewis Interpreting Provider: Yemi Lewis - EKG Data EKG #1 EKG attestation: Yes I reviewed and interpreted this EKG. EKG results narrative: Heart rate 78, rhythm sinus, axis normal. WI 159, QRS 158 and prolonged, QTc 522 and prolonged. Right bundle branch seen with RSR pattern in V1 and V2 with prolongation of the QRS. No clinically significant ST elevation or depression noted. When compared with previous EKG on 02/02/2019 there are no significant changes. Attestation Statement - Attestation Attestation: I have seen this patient with the resident physician, I have personally evaluated this patient. I had reviewed the chart and document dictation by the resident physician and aM in agreement with the information documented by the resident physician. Please see documentation by the resident physician for complete chart including past medical history, family medical history, review of systems, current history and physical and laboratory and imaging studies. I was present for all procedures, provided direct supervision for all procedures, was present for the entirety of all procedures and provided direct guidance during the procedures. Please see documentation by the resident physician for any procedures performed. I have reviewed all interpretations of EKGs, and reviewed all EKGs performed on patient's as well. I have also reviewed reports of imaging as provided by radiology.
[2019-03-13 22:59] LABS: Basophils % 0.9 %; Eosinophils # 0.2 K/mcL (0.0-0.6); Eosinophils % 3.8 %; Hematocrit 33.7 % (35.3-44.9); Hemoglobin 10.3 g/dL (11.5-15.4); Immature Granulocytes % 0.4 % (0-4); Lymphocytes % 43.7 %; Mean Corpuscular HGB Conc 30.6 g/dL (31.6-35.5); Mean Corpuscular Hemoglobin 27.1 pg (28.0-33.3); Mean Corpuscular Volume 88.7 fL (83.0-100.0); Monocytes # 0.4 K/mcL (0.0-1.3); Monocytes % 9.9 %; Neutrophils # 1.8 K/mcL (1.6-8.9); Platelet Count 271 K/mcL (140-400); Red Cell Distribution Width 16.2 % (11.5-14.5); Segmented Neutrophils % 41.3 %; White Blood Count 4.5 K/mcL (4.3-11.1)
[2019-03-13 23:14] LABS: INR 0.9; Prothrombin Time 10.4 Seconds (9.4-12.1)
[2019-03-13 23:17] LABS: Activated Partial Thrombo Time 35.3 Seconds (26.0-36.0)
[2019-03-13 23:19] LABS: BUN/Creatinine Ratio 14 (6-26); Blood Urea Nitrogen 13 mg/dL (6-20); Calcium 9.1 mg/dL (8.6-10.3); Carbon Dioxide 24 mEq/L (23-29); Chloride 107 mEq/L (98-107); Glucose 92 mg/dL (70-105); Lipase 16 Units/L (11-82); Magnesium 2.1 mg/dL (1.6-2.6); Osmolality,Calculated 290 (280-300); Potassium 3.6 mEq/L (3.5-5.1); Sodium 140 mEq/L (136-145); eGFR For African Americans > 60 (> 60); eGFR For Non-African Americans > 60 (> 60)
[2019-03-13 23:20] LABS: Troponin I < 0.03 ng/mL (< 0.04)
--- NOTE | 2019-03-14 01:12 | Emergency Department Note ---
Disposition Clinical Impression: Esophagitis, Hematemesis Disposition: Admitted As Inpatient Condition: Fair Referrals: Teressa Hurd ENTRANCE GUARD [Primary Care Provider] - Forms: ED Satisfaction Letter, Work/School Release Time of Disposition: 01:12 General Adult HPI - General Chief complaint: ED General Medical Stated complaint: Vomiting Blood/Bloody stool Time Seen by Provider: 03/13/19 22:28 Source: patient Mode of arrival: private vehicle Limitations: no limitations Nursing Notes Reviewed: Yes Vital Signs Reviewed: Yes - History of Present Illness Pain Scale: 8 - Related Data Home Medications Medication Instructions Recorded Confirmed Buspirone HCl [Buspar] 30 mg PO BID 05/26/18 02/14/19 Duloxetine HCl [Cymbalta] 60 mg PO BID 05/26/18 02/14/19 Multivitamin [One Daily 1 tab PO DAILY 05/26/18 02/14/19 Multivitamin] lamoTRIgine [Lamotrigine] 100 mg PO QAM 05/26/18 02/14/19 lamoTRIgine [Lamotrigine] 200 mg PO HS 05/26/18 02/14/19 Cholecalciferol (Vitamin D3) 10,000 unit PO RICHARDSON 12/30/18 02/14/19 [Vitamin D3] Cyclobenzaprine HCl 10 mg PO TID PRN 12/30/18 02/14/19 Guselkumab [TREMFYA (Outpatient 100 mg SQ Q8W 12/30/18 02/14/19 Infusion)] hydrOXYzine HCl [Hydroxyzine HCl] 50 mg PO BID PRN 12/30/18 02/14/19 Topiramate [Topamax] 100 mg PO BID 01/23/19 02/14/19 ARIPiprazole [Abilify] 15 mg PO DAILY 02/03/19 02/14/19 Fluticasone Propionate Nasal 2 spray NS DAILY 02/03/19 02/14/19 [Flonase] Loratadine [Claritin] 10 mg PO DAILY 02/03/19 02/14/19 Previous Rx's Medication Instructions Recorded Atorvastatin [Lipitor] 40 mg PO HS #30 tablet 01/02/19 Metoprolol XL (24 HR) Succ [Toprol 12.5 mg PO DAILY #30 tab.er.24h 01/02/19 Xl] Pantoprazole Sodium [Protonix] 40 mg PO BID #60 tablet. 01/02/19 Sucralfate [Carafate] 1 gm PO DA #120 tablet 01/02/19 Allergies Allergy/AdvReac Type Severity Reaction Status Date / Time Penicillins Allergy Unknown See Verified 02/03/19 14:55 Comments pregabalin [From Lyrica] Allergy Unknown Swelling Verified 02/03/19 14:55 of the Eye ketorolac AdvReac Unknown Nausea/VOMI Verified 02/03/19 14:55 TING olanzapine [From Zyprexa] AdvReac Unknown SWELLING Verified 02/03/19 14:55 tramadol AdvReac Unknown Seizure Verified 02/03/19 14:55 All systems ED: reviewed and negative except as stated. 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 history - Social History Smoking Status: Former smoker Smokeless Tobacco Status: No Alcohol use: Reports: none Drug use: Reports: none Physical Exam - General Limitations: no limitations General appearance: alert Course Vital Signs Temperature 98.2 F 03/13/19 22:14 Pulse Rate 90 03/13/19 22:14 Respiratory Rate 18 03/13/19 22:14 Blood Pressure 150/91 03/13/19 22:14 O2 Sat by Pulse Oximetry 100 03/13/19 22:14 Temperature 98.2 F 03/13/19 22:14 Pulse Rate 79 03/14/19 00:31 Respiratory Rate 16 03/13/19 23:01 Blood Pressure 114/62 03/14/19 00:31 O2 Sat by Pulse Oximetry 100 03/14/19 00:31 Oxygen Delivery Oxygen Delivery Room Air Medical Decision Making - Lab Data Result diagrams: 03/13/19 22:45 03/13/19 22:45 Lab Results 03/13/19 03/13/19 03/13/19 Range/Units 22:45 22:45 22:45 WBC 4.5 (4.3-11.1) K/mcL RBC 3.80 L (3.82-4.97) M/mcL Hgb 10.3 L (11.5-15.4) g/dL Hct 33.7 L (35.3-44.9) % MCV 88.7 (83.0-100.0) fL MCH 27.1 L (28.0-33.3) pg MCHC 30.6 L (31.6-35.5) g/dL RDW 16.2 H (11.5-14.5) % Plt Count 271 (140-400) K/mcL MPV 9.0 L (9.4-12.4) fL Immature Gran % 0.4 (0-4) % Seg Neutrophils % 41.3 % Lymphocytes % 43.7 % Monocytes % 9.9 % Eosinophils % 3.8 % Basophils % 0.9 % Neutrophils # 1.8 (1.6-8.9) K/mcL Lymphocytes # 2.0 (0.6-4.6) K/mcL Monocytes # 0.4 (0.0-1.3) K/mcL Eosinophils # 0.2 (0.0-0.6) K/mcL Basophils # 0.0 (0.0-0.2) K/mcL PT 10.4 (9.4-12.1) Seconds INR 0.9 APTT 35.3 (26.0-36.0) Seconds Sodium 140 (136-145) mEq/L Potassium 3.6 (3.5-5.1) mEq/L Chloride 107 (98-107) mEq/L Carbon Dioxide 24 (23-29) mEq/L BUN 13 (6-20) mg/dL Creatinine 0.91 (0.60-1.20) mg/dL Est GFR ( Amer) > 60 (> 60) Est GFR (Non-Af Amer) > 60 (> 60) BUN/Creatinine Ratio 14 (6-26) Glucose 92 (70-105) mg/dL Calculated Osmolality 290 (280-300) Lactic Acid (0.5-2.2) mmol/L Calcium 9.1 (8.6-10.3) mg/dL Magnesium 2.1 (1.6-2.6) mg/dL Troponin I < 0.03 (< 0.04) ng/mL Lipase 16 (11-82) Units/L Blood Type Antibody Screen 03/13/19 03/13/19 Range/Units 22:45 22:45 WBC (4.3-11.1) K/mcL RBC (3.82-4.97) M/mcL Hgb (11.5-15.4) g/dL Hct (35.3-44.9) % MCV (83.0-100.0) fL MCH (28.0-33.3) pg MCHC (31.6-35.5) g/dL RDW (11.5-14.5) % Plt Count (140-400) K/mcL MPV (9.4-12.4) fL Immature Gran % (0-4) % Seg Neutrophils % % Lymphocytes % % Monocytes % % Eosinophils % % Basophils % % Neutrophils # (1.6-8.9) K/mcL Lymphocytes # (0.6-4.6) K/mcL Monocytes # (0.0-1.3) K/mcL Eosinophils # (0.0-0.6) K/mcL Basophils # (0.0-0.2) K/mcL PT (9.4-12.1) Seconds INR APTT (26.0-36.0) Seconds Sodium (136-145) mEq/L Potassium (3.5-5.1) mEq/L Chloride (98-107) mEq/L Carbon Dioxide (23-29) mEq/L BUN (6-20) mg/dL Creatinine (0.60-1.20) mg/dL Est GFR ( Amer) (> 60) Est GFR (Non-Af Amer) (> 60) BUN/Creatinine Ratio (6-26) Glucose (70-105) mg/dL Calculated Osmolality (280-300) Lactic Acid 0.6 (0.5-2.2) mmol/L Calcium (8.6-10.3) mg/dL Magnesium (1.6-2.6) mg/dL Troponin I (< 0.04) ng/mL Lipase (11-82) Units/L Blood Type O POSITIVE Antibody Screen NEGATIVE Attestation Statement - Attestation Attestation: I have seen this patient with the resident physician, I have personally evaluated this patient. I had reviewed the chart and document dictation by the resident physician and aM in agreement with the information documented by the resident physician. Please see documentation by the resident physician for com plete chart including past medical history, family medical history, review of systems, current history and physical and laboratory and imaging studies. I was present for all procedures, provided direct supervision for all procedures, was present for the entirety of all procedures and provided direct guidance during the procedures. Please see documentation by the resident physician for any procedures performed. I have reviewed all interpretations of EKGs, and reviewed all EKGs performed on patient's as well. I have also reviewed reports of imaging as provided by radiology. Patient presented emergency department with chief complaint of hematemesis, and black-appearing stool. She states she feels a little bit weak and dizzy but not significant only dizzy she denies headache neck pain chest pain or shortness of breath she does endorse some right-sided abdominal pain which is a little bit different than what she has had previously. She reports that she recently had to be admitted to the hospital within the last month, for bleeding ulcers, and at the time she was also found to have blood clots in her lungs she had to have a filter placed at that time. She is not currently on any blood thinners. He states that she was doing well until yesterday when she started vomiting she vom ited blood yesterday, had the start of some black stool but thought she might be okay but then it continued today and she felt worse so she came to the ER. Upon presentation she is hemodynamically normal she is nontoxic in appearance, no evidence of active hematemesis. Cranial nerves are intact. Oropharynx is normal. No palatal petechiae. No conjunctival pallor. Lungs are clear heart is regular no tachycardia abdomen is soft obese, no obvious palpable or pulsatile mass, some very mild right-sided abdominal tenderness of the lower abdomen without tenderness specifically over McBurney's point. Patient was given symptomatic management with nausea medication and fluids. She is already on Carafate and a proton pump inhibitor. I did review her endoscopy, which showed circumferential gastroesophageal junction ulceration, many esophageal ulcers with evidence for recent active bleeding at that time. There was no active bleeding but evidence to suggest recent bleeding. Basic laboratory studies were within acceptable limits CT scan of the abdomen and pelvis showed no acute findings. Basic laboratory studies were all within acceptable limits, no significant decrease in hemoglobin, the patient is already on a proton pump inhibitor, and on Carafate, and has reported hematemesis and darker appearing stools, secondary to her recent scope showing evidence for multiple ulcerations, at that time with significant evidence of recent bleeding but no active bleeding at that time, and she did not have any procedures performed, I feel that she would benefit for admission for observation for any evidence of downtrending hemoglobin, and monitoring for worsening bleeding.
[2019-03-14] MEDS ORDERED: *HR* FentaNYL (PF) 100 MCG/2 ML VIAL IVP ONE (01:16)
[2019-03-14] MEDS ORDERED: *HR* HYDROmorphone (PF) 1 MG/ML SYRINGE IVP ONE (03:19)
--- NOTE | 2019-03-14 03:23 | Internal Med History&Physical ---
Date of Encounter: 03/14/19 Time of Encounter: 03:21 Internal Medicine - H&P: HPI Chief complaint: vomiting blood Admitted From: Home Plans for Post Hospital Care: Home History of present illness: May Melara is a 53 year old woman with hypertension, coronary artery disease and prior pulmonary embolism who was previously on apixaban until she developed large volume hematemesis 1 month ago so anticoagulation was stopped and she had an IVC filter placed on 02/16/19. EGD noted LA grade B esophagitis. Sh kevin was discharged to continue PPI and sucralfate. She comes to the ER today complaining of GI bleed. She says that 1 day ago she noticed that her stool became dark and subseqeutnyl became nauseated and had 1 large volume bloody emesis. Today the dark stool recurred and was again followed by vomiting bright red blood in addition to right flank pain radiating to her groin. No fever, chills, chest pain or dizziness reported. In the ER she remained clinically and hemodynamically stable. Stool test was negative for occult blood. Abdomen CT revealed no acute anomalies. Her hemoglobin is stable at 10.3. She is admitted for observation. Vitals: Reviewed General: Obese white woman sitting up in bed in NAD Skin: Warm and supple. HEENT: Moist mucous membranes. No conjunctivae pallor. Neck: No lymphadenopathy. No JVD. No carotid bruits. No palpable thyroid. Chest: Normal thoracic expansion. Normal breath sounds. Clear to auscultation. Heart: Normal S1 & S2; rhythmic. No rubs or murmurs. Abdomen: Non-distended, soft and exquisitely tender to palpation in the right flank. No peritoneal reaction. Extremities: No clubbing, cyanosis or edema. No calf tenderness. Diminished dorsalis pedis pulses with cold toes. Neurological: Awake, alert and oriented to person, place and time. No focal def icits. Psych: Affect appropriate. Assessment/Plan 1. Upper GI bleed: As evidenced by the reported hematemesis. The streaking however may be associated with a Tatum-Horne from the vomiting episodes in an already weakened esophageal mucosa as noted from the last EGD. Her Hgb appears stable in comparison to previous, she is not tachycardic or hypotensive and her stool test for blood is negative likely meaning she does not have significant blood loss. Will observe her overnight, start IV PPI and keep her NPO in the meantime with IVF resuscitation. Repeat H/H in a few hours. 2. VTE: Noted to have LLL pulmonary emboli in January 2019. Anticoagulation remains on hold due to bleeding episodes. 3. Hypertension: BP stable. Antihypertensives on hold for now. 4. Coronary artery disease: Clinically asymptomatic. On statin and beta blockers. Past Med Surg Social Fam HX - Past Medical History Medical history: coronary artery disease, hypertension, pulmonary embolus Additional medical history: PE Psychiatric history: bipolar, prior suicide attempt, previous psychiatric hospitalization - Past Surgical History Surgical History: angioplasty/stent, cholecystectomy, hysterectomy Additional surgical history: bilateral knee replacement, tubal ligation, IVC filter - Social History Smoking Status: Former smoker Smokeless Tobacco Status: No Alcohol use: none Drug use: none - Family History Father Living Status: Still Living Hx Family Cardiac Disorders: Yes Mother Living Status: Still Living Hx Family Cardiac Disorders: Yes Internal Medicine - H&P: Meds Buspirone HCl [Buspar] 30 mg PO BID 05/26/18 [History] Duloxetine HCl [Cymbalta] 60 mg PO BID 05/26/18 [History] Multivitamin [One Daily Multivitamin] 1 tab PO DAILY 05/26/18 [History] lamoTRIgine [Lamotrigine] 100 mg PO QAM 05/26/18 [History] lamoTRIgine [Lamotrigine] 200 mg PO HS 05/26/18 [History] Cholecalciferol (Vitamin D3) [Vitamin D3] 10,000 unit PO RICHARDSON 12/30/18 [History] Cyclobenzaprine HCl 10 mg PO TID PRN 12/30/18 [History] Guselkumab [TREMFYA (Outpatient Infusion)] 100 mg SQ Q8W 12/30/18 [History] hydrOXYzine HCl [Hydroxyzine HCl] 50 mg PO BID PRN 12/30/18 [History] Atorvastatin [Lipitor] 40 mg PO HS #30 tablet 01/02/19 [Rx] Metoprolol XL (24 HR) Succ [Toprol Xl] 12.5 mg PO DAILY #30 tab.er.24h 01/02/19 [Rx] Pantoprazole Sodium [Protonix] 40 mg PO BID #60 tablet.dr 01/02/19 [Rx] Sucralfate [Carafate] 1 gm PO QIDAC #120 tablet 01/02/19 [Rx] Topiramate [Topamax] 100 mg PO BID 01/23/19 [History] ARIPiprazole [Abilify] 20 mg PO DAILY 02/03/19 [History] Allergy/AdvReac Type Severity Reaction Status Date / Time Penicillins Allergy Unknown See Verified 02/03/19 14:55 Comments pregabalin [From Lyrica] Allergy Unknown Swelling Verified 02/03/19 14:55 of the Eye ketorolac AdvReac Unknown Nausea/VOMI Verified 02/03/19 14:55 TING olanzapine [From Zyprexa] AdvReac Unknown SWELLING Verified 02/03/19 14:55 tramadol AdvReac Unknown Seizure Verified 02/03/19 14:55 All Systems PM: A 10-system review of systems was performed and is negative for pertinent findings except as documented above in the HPI. - Constitutional Vitals: Temp Pulse Resp BP Pulse Ox 98.2 F 77 18 124/82 100 03/13/19 22:14 03/14/19 01:29 03/14/19 01:29 03/14/19 01:29 03/14/19 01:29 Exam: . Internal Med - H&P Results - Labs CBC & Chem 7: 03/13/19 22:45 03/13/19 22:45 Labs: Short CBC 03/13/19 Range/Units 22:45 WBC 4.5 (4.3-11.1) K/mcL Hgb 10.3 L (11.5-15.4) g/dL Hct 33.7 L (35.3-44.9) % Plt Count 271 (140-400) K/mcL Neutrophils # 1.8 (1.6-8.9) K/mcL BMP 03/13/19 22:45 Sodium 140 Potassium 3.6 Chloride 107 Carbon Dioxide 24 BUN 13 Creatinine 0.91 Glucose 92 Calcium 9.1 Cardiac Enzymes 03/13/19 Range/Units 22:45 Troponin I < 0.03 (< 0.04) ng/mL - Impressions ITS Impressions Chest X-Ray 03/13/19 22:32 IMPRESSION: Enlarged cardiomediastinal silhouette. Otherwise, no radiographic evidence of acute cardiopulmonary process. D/ / 03/13/2019 22:50:20 Arvind Adame MD / yung Interpreting Provider: Arvind Adame MD Abdomen/Pelvis CT 03/14/19 00:05 IMPRESSION: No acute abnormality in the abdomen or pelvis. No bowel obstruction. No significant diverticular disease. No obstructive uropathy. Small to moderate hiatal hernia. D/ / Yemi Lewis / Yemi Lewis Interpreting Provider: Yemi Lewis - Time Spent With Patient Total time spent is greater than 50% in coordination of care (as documented) at patient's floor/unit and/or counseling patient:
[2019-03-14] MEDS: Ringers Solution, Lactated 1,000 ML IVC SCH ×2 (03:55→13:28)
[2019-03-14] MEDS: Ondansetron 4 MG/2 ML VIAL IVP PRN ×2 (04:02→19:04)
[2019-03-14] MEDS: Pantoprazole 40 MG VIAL IVP SCH ×2 (05:59→18:59)
[2019-03-14 09:44] LABS: Hematocrit 31.3 % (35.3-44.9); Hemoglobin 9.4 g/dL (11.5-15.4)
[2019-03-14 10:59] LABS: Basophils % 0.8 %; Eosinophils # 0.2 K/mcL (0.0-0.6); Eosinophils % 4.5 %; Hemoglobin 9.7 g/dL (11.5-15.4); Immature Granulocytes % 0.3 % (0-4); Lymphocytes # 1.6 K/mcL (0.6-4.6); Lymphocytes % 43.9 %; Mean Corpuscular HGB Conc 30.3 g/dL (31.6-35.5); Mean Corpuscular Hemoglobin 27.4 pg (28.0-33.3); Mean Corpuscular Volume 90.4 fL (83.0-100.0); Monocytes # 0.4 K/mcL (0.0-1.3); Monocytes % 11.2 %; Neutrophils # 1.4 K/mcL (1.6-8.9); Platelet Count 237 K/mcL (140-400); Red Blood Count 3.54 M/mcL (3.82-4.97); Red Cell Distribution Width 16.4 % (11.5-14.5); Segmented Neutrophils % 39.3 %; White Blood Count 3.6 K/mcL (4.3-11.1)
--- NOTE | 2019-03-14 15:03 | Internal Med Progress Note ---
Hospitalist Progress Note - Encounter Date of Encounter: 03/14/19 Time of Encounter: 12:12 - Subjective Interval History: Ms Melara is complaining of right lower extremity pain that she described as sharp persistent from her groin down her entire LE and stated this was acute, a stat duplex study of the right lower extremity was obtained and per nurse, Tatiana said was negative. There is no official report posted. She denies any further episodes of hematemesis hematochezia GEN: Denies fever, chills or malaise HEENT: Denies headache blurriness, or dysphagia RESP: Denies SOB or cough CV: Denies chest pain or palpitations GI: Denies Nausea, vomiting, diarrhea or constipation Reviewed current in hospital medications with modifications see orders Reviewed Routine labs - Exam Vitals: Temp Pulse Resp BP Pulse Ox 97.5 F L 81 16 113/75 98 03/14/19 12:05 03/14/19 12:05 03/14/19 12:05 03/14/19 12:05 03/14/19 12:05 Exam: GEN: Morbidly obese female NAD, A&O x 3, Pleasant and conversant SKIN: [place] warm acyanotic not jaundice HEART: RRR, no murmurs LUNGS: CTA no wheeze or crackles, overall non labored ABDOMEN; Soft, non tender or distended, BS x 4 normactive Pelvis: Galo her nurse general manager in training the exam, large pannus noted bilateral hip no erythema or swelling or hematoma. However quite moist with early signs of skin fungus EXT: No LE edema, Pedal pulses 1+, radial pulses 2+ PSYCH: Mood and affect is appropriate - Assessment and Plan (1) GI bleed Current Visit: Yes Status: Acute Assessment and Plan: Vitals stable she has had no for the episodes since admission, she reports both hematemesis and hematochezia, hbg 10.3-9.4-9.7. GI consult is pending will make nothing by mouth after midnight in anticipation for EGD. On Protonix twice daily IV (2) Acute blood loss anemia Current Visit: Yes Status: Acute Assessment and Plan: Likely secondary to GI bleedsee plan above (3) Pain of right lower extremity Current Visit: Yes Status: Acute Assessment and Plan: Information provided by the energy technician to the nurse DVT study was negative, chaperoned physical exam was unrevealing as aforementioned no hematoma, swelling, erythema. Radiograph of the right hip was also obtained and is unremarkable. She does appear to have any signs of skin fungus from her pannus the bilateral groin skin is moist slight skin breakdown noted on right groin fold nystatin powder ordered (4) Morbid obesity with BMI of 50.0-59.9, adult Current Visit: Yes Status: Acute Assessment and Plan: Continue to encourage lifestyle changes may benefit from outpatient evaluation for bariatric surgery given a young age and comorbid condition (5) Chronic anticoagulation Current Visit: Yes Status: Acute Assessment and Plan: Due to presentation with GI bleed, anticoagulation will not be continued, appears discontinued after she had her first hematemesis about a month ago. Appears patient had a pulmonary embolism DVT Prophylaxis: Continue SCDs - Time Spent with Patient Total time spent is greater than 50% in coordination of care (as documented) at patient's floor/unit and/or counseling patient: Internal Medicine: Result - Labs CBC & Chem 7: 03/14/19 10:45 03/13/19 22:45 Labs: Short CBC 03/13/19 03/14/19 03/14/19 Range/Units 22:45 09:10 10:45 WBC 4.5 3.6 L (4.3-11.1) K/mcL Hgb 10.3 L 9.4 L 9.7 L (11.5-15.4) g/dL Hct 33.7 L 31.3 L 32.0 L (35.3-44.9) % Plt Count 271 237 (140-400) K/mcL Neutrophils # 1.8 1.4 L (1.6-8.9) K/mcL BMP 03/13/19 22:45 Sodium 140 Potassium 3.6 Chloride 107 Carbon Dioxide 24 BUN 13 Creatinine 0.91 Glucose 92 Calcium 9.1 Cardiac Enzymes 03/13/19 Range/Units 22:45 Troponin I < 0.03 (< 0.04) ng/mL - ABG Interpretation ABG results: PT/INR, D-dimer PT 10.4 Seconds (9.4-12.1) 03/13/19 22:45 - Impressions Impressions Chest X-Ray 03/13/19 22:32 IMPRESSION: Enlarged cardiomediastinal silhouette. Otherwise, no radiographic evidence of acute cardiopulmonary process. D/ / 03/13/2019 22:50:20 Arvind Adame MD / yung Interpreting Provider: Arvind Adame MD Abdomen/Pelvis CT 03/14/19 00:05 IMPRESSION: No acute abnormality in the abdomen or pelvis. No bowel obstruction. No significant diverticular disease. No obstructive uropathy. Small to moderate hiatal hernia. D/ / Yemi Sessions / Yemi Sessions Interpreting Provider: Yemi Sessions Hip X-Ray 03/14/19 12:17 IMPRESSION: No acute osseous abnormality. D/ / Matthieu Tripathi MD / Matthieu Tripathi MD Interpreting Provider: Matthieu Tripathi MD Consult Discharge Plan - Plan Referrals: Teressa Hurd, WHEAT CLEANER [Primary Care Provider] - (1) GI bleed Qualifiers: GI bleed type/associated pathology: unspecified gastrointestinal hemorrhage type Qualified Code(s): K92.2 - Gastrointestinal hemorrhage, unspecified
[2019-03-14] MEDS: Nystatin POWDER 30 GM BOTTLE TP SCH ×2 (15:38→20:25)
[2019-03-14] MEDS: Cholecalciferol (D-3) 1,000 UNIT (25MCG) TABLET PO SCH (18:59)
[2019-03-14] MEDS: ARIPiprazole 10 MG TABLET PO SCH (18:59)
[2019-03-14] MEDS: Metoprolol XL (24 HR) Succ 25 MG TAB.ER.24H PO SCH (18:59)
[2019-03-14] MEDS: Multivit/Ca/Min/Fe/FA 1 TAB TABLET PO SCH (18:59)
[2019-03-14] MEDS: hydrOXYzine pamoate 25 MG CAPSULE PO PRN (19:02)
[2019-03-14] MEDS: Topiramate 100 MG TABLET PO SCH (20:21)
[2019-03-14] MEDS: lamoTRIgine 100 MG TABLET PO SCH (20:21)
[2019-03-15 04:26] LABS: Basophils % 0.9 %; Eosinophils # 0.2 K/mcL (0.0-0.6); Eosinophils % 4.4 %; Hematocrit 31.8 % (35.3-44.9); Hemoglobin 9.5 g/dL (11.5-15.4); Immature Granulocytes % 0.3 % (0-4); Lymphocytes # 1.1 K/mcL (0.6-4.6); Lymphocytes % 32.4 %; Mean Corpuscular HGB Conc 29.9 g/dL (31.6-35.5); Mean Corpuscular Hemoglobin 27.4 pg (28.0-33.3); Mean Corpuscular Volume 91.6 fL (83.0-100.0); Mean Platelet Volume 9.6 fL (9.4-12.4); Monocytes # 0.4 K/mcL (0.0-1.3); Monocytes % 10.8 %; Neutrophils # 1.8 K/mcL (1.6-8.9); Platelet Count 230 K/mcL (140-400); Red Blood Count 3.47 M/mcL (3.82-4.97); Red Cell Distribution Width 16.4 % (11.5-14.5); Segmented Neutrophils % 51.2 %; White Blood Count 3.4 K/mcL (4.3-11.1)
[2019-03-15 04:45] LABS: BUN/Creatinine Ratio 12 (6-26); Blood Urea Nitrogen 10 mg/dL (6-20); Calcium 8.7 mg/dL (8.6-10.3); Carbon Dioxide 27 mEq/L (23-29); Chloride 107 mEq/L (98-107); Glucose 90 mg/dL (70-105); Osmolality,Calculated 291 (280-300); Potassium 3.7 mEq/L (3.5-5.1); Sodium 141 mEq/L (136-145); eGFR For African Americans > 60 (> 60); eGFR For Non-African Americans > 60 (> 60)
[2019-03-15] MEDS: hydrOXYzine pamoate 25 MG CAPSULE PO PRN ×2 (06:29→16:13)
[2019-03-15] MEDS: Pantoprazole 40 MG VIAL IVP SCH ×2 (06:30→19:20)
[2019-03-15] MEDS: ARIPiprazole 10 MG TABLET PO SCH (08:13)
[2019-03-15] MEDS: Cholecalciferol (D-3) 1,000 UNIT (25MCG) TABLET PO SCH (08:14)
[2019-03-15] MEDS: Topiramate 100 MG TABLET PO SCH ×2 (08:14→21:23)
[2019-03-15] MEDS: lamoTRIgine 100 MG TABLET PO SCH ×2 (08:14→21:24)
[2019-03-15] MEDS: Multivit/Ca/Min/Fe/FA 1 TAB TABLET PO SCH (08:14)
[2019-03-15] MEDS: Metoprolol XL (24 HR) Succ 25 MG TAB.ER.24H PO SCH (08:14)
[2019-03-15] MEDS: Nystatin POWDER 30 GM BOTTLE TP SCH ×3 (08:15→21:27)
--- NOTE | 2019-03-15 10:03 | Gastroenterology Consult Note ---
<OlsonRomeo Denisse - Last Filed: 03/15/19 10:00> Date of Encounter: 03/15/19 Time of Encounter: 09:30 - Assessment and plan (1) GI bleed Current Visit: Yes Status: Acute Assessment and plan: Patient with melena and hematemesis. Hgb 10.3 on admission and 9.5 today. Continue to monitor CBC and transfuse PRBC as needed. Continue PPI. Plan for push enteroscopy today to r/o esophagitis, gastritis, duodenitis, PUD, MW tear, or AVM. Keep patient NPO for scope. Qualifiers: GI bleed type/associated pathology: unspecified gastrointestinal hemorrhage type Qualified Code(s): K92.2 - Gastrointestinal hemorrhage, unspecified (2) GERD (gastroesophageal reflux disease) Current Visit: Yes Status: Acute Assessment and plan: Last EGD 02/15/2019 with LA grade B reflux esophagitis. Continue PPI. Patient educated regarding lifestyle modifications including: (1) avoidance of foods that may precipitate reflux (eg, coffee, alcohol, chocolate, fatty foods). (2) avoidance of acidic foods that may precipitate heartburn (eg, citrus, carbonated drinks, spicy foods). (3) adoption of behaviors that may reduce esophageal acid exposure (see weight loss, smoking cessation, raising the head of the bed, and avoiding recumbency for 2-3 hours after meals). Qualifiers: Esophagitis presence: with esophagitis Qualified Code(s): K21.0 - Gastro- esophageal reflux disease with esophagitis - Time Spent With Patient Total time spent is greater than 50% in coordination of care (as documented) at patient's floor/unit and/or counseling patient: GI History of Present Illness - Data of Consult Patient: known to practice within the last 3 years Consult date: 03/15/19 Requesting Physician: Jenna Roger - Consult Narrative Reason for consult: Hematemesis, dark stool History of present illness: Ms. Melara is a 53 year old female with PMHx of arthritis, CAD with PCI 2004, migraine, HTN, PE previously on apixaban until she developed large volume hematemesis 1 month ago so anticoagulation was stopped and she had an IVC filter placed on 02/16/19. She presented to the ED with melena and hematemesis that started the day before admission. She denies fever, chills, chest pain, shortness of breath, hematochezia. CT A/P with no acute abnormalities. Fecal occult blood test was negative. Hgb 10.3 on admission and 9.5 today. She states she has decreased the amount of pop she drinks to one 20 ounce bottle daily. Previously she reported drinking four 32 oz cups of pop per day. Procedures: EGD 02/15/2019 Dr. Zheng: LA grade B reflux esophagitis, small hiatal hernia. EGD 12/31/2018 Dr. Christie: Esophageal ulcers, gastritis, repeat 6 weeks. NSAIDs: None Anticoagulation: None Past Med Surg Social Fam HX - Past Medical History Medical history: coronary artery disease, hypertension, pulmonary embolus Additional medical history: PE Psychiatric history: bipolar, prior suicide attempt, previous psychiatric hospitalization - Past Surgical History Surgical History: angioplasty/stent, cholecystectomy, hysterectomy Additional surgical history: bilateral knee replacement, tubal ligation, IVC filter - Social History Smoking Status: Former smoker Smokeless Tobacco Status: No Alcohol use: none Drug use: none - Family History Father Living Status: Still Living Hx Family Cardiac Disorders: Yes Mother Living Status: Still Living Hx Family Cardiac Disorders: Yes - Gastrointestinal Gastrointestinal: Present: as per HPI - Constitutional Constitutional: as per HPI - EENT Eyes: as per HPI Ears: Present: as per HPI Nose, mouth and throat: Present: as per HPI - Cardiovascular Cardiovascular ROS: Present: as per HPI - Respiratory Respiratory IM: Present: as per HPI - Genitourinary Genitourinary: Absent: change in color, Urinary frequency - Neurological ROS Neurological GI: Present: as per HPI - Hematologic/Lymphatic Hematologic/Lymphatic pediatric: Present: as per HPI - Musculoskeletal Musculoskeletal ROS GI: Present: as per HPI - Integumentary Integumentary GI: Present: as per HPI - Psychiatric ROS Psychiatric GI: Present: as per HPI - Endocrine Endocrine IM: Present: as per HPI - Constitutional Vitals: Temp Pulse Resp BP Pulse Ox 97.7 F 80 16 107/70 92 03/15/19 07:41 03/15/19 07:41 03/15/19 07:41 03/15/19 07:41 03/15/19 08:22 General appearance: Present: cooperative, A&O X 3, no acute distress, answers questions appropriately - Head Head exam: Present: atraumatic, normocephalic - Eye Eye exam: Present: normal appearance, sclera anicteric - ENT ENT exam: Present: mucous membranes moist - Neck Neck exam general surgery: Present: normal inspection, trachea midline - Respiratory Respiratory exam: Present: CTAB. Absent: rales, rhonchi, wheezes - Cardiovascular Cardiovascular exam: Present: RRR, +S1, +S2 - GI/Abdominal GI/Abdominal exam: Present: soft, tenderness (mild RUQ tenderness), no per itoneal signs. Absent: distended, firm, guarding Additional comments: obese - Rectal Rectal exam: Present: deferred - Extremities Exam Extremities exam: Present: warm - Neurological Exam Neurological exam: Present: no focal deficits - Psychiatric Psychiatric exam: Present: normal affect, normal mood - Skin Skin exam: Present: dry, intact, normal color, warm Results - Labs CBC & Chem 7: 03/15/19 03:26 03/15/19 03:26 Labs: Last Result 03/15/19 03:26 Calcium 8.7 Entire Visit 03/15/19 03:26 Hgb 9.5 L Hct 31.8 L - ABG ABG results: PT/INR, D-dimer PT 10.4 Seconds (9.4-12.1) 03/13/19 22:45 - Impressions Impressions Hip X-Ray 03/14/19 12:17 IMPRESSION: No acute osseous abnormality. D/ / Matthieu Tripathi MD / Matthieu Tripathi MD Interpreting Provider: Matthieu Tripathi MD Consult Discharge Plan - Plan Referrals: Teressa Hurd, PLANT CUSTODIAN [Primary Care Provider] - <Poornima Schwartz - Last Filed: 03/15/19 14:02> Date of Encounter: 03/15/19 Time of Encounter: 13:00 - Time Spent With Patient Total time spent is greater than 50% in coordination of care (as documented) at patient's floor/unit and/or counseling patient: GI History of Present Illness - Data of Consult Requesting Physician: Jenna Roger - Consult Narrative History of present illness: Ms. Melara is a 53 year old female - Constitutional Vitals: Temp Pulse Resp BP Pulse Ox 98.2 F 76 16 127/68 100 03/15/19 11:36 03/15/19 12:58 03/15/19 12:58 03/15/19 12:58 03/15/19 12:58 Results - Labs CBC & Chem 7: 03/15/19 03:26 03/15/19 03:26 Labs: Last Result 03/15/19 03:26 Calcium 8.7 Entire Visit 03/15/19 03:26 Hgb 9.5 L Hct 31.8 L - ABG ABG results: PT/INR, D-dimer PT 10.4 Seconds (9.4-12.1) 03/13/19 22:45 - Attending Attestation I have personally performed a face to face evaluation on this patient. I have reviewed and agree with the care plan. History and Exam by me shows: Patient seen. Does admit that was having black stool. On examination: Alert and awake not in distress. Assessment: Patient with melena. Does has a history of hiatal hernia and esophagitis. Recommendation push enteroscopy today if negative then we will need a colonoscopy
--- NOTE | 2019-03-15 11:44 | Anesthesia Evaluation PreOp ---
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: Other (MAJOR DEPRESSION, ANXIETY) Other Medical History: Bleeding (HEMATEMESIS 2 DAYS AGO, PHYLLIS, ANEMIA), GERD (HIATAL HERNIA, GASTRITIS), Other (OBESITYM) Anesthesia History: No Prior Anesthetic Complications, Past Anesthesia Alcohol Use: none Drug use: none Medications and Allergies Buspirone HCl [Buspar] 30 mg PO BID 05/26/18 [History] Duloxetine HCl [Cymbalta] 60 mg PO BID 05/26/18 [History] Multivitamin [One Daily Multivitamin] 1 tab PO DAILY 05/26/18 [History] lamoTRIgine [Lamotrigine] 100 mg PO QAM 05/26/18 [History] lamoTRIgine [Lamotrigine] 200 mg PO HS 05/26/18 [History] Cholecalciferol (Vitamin D3) [Vitamin D3] 10,000 unit PO RICHARDSON 12/30/18 [History] Cyclobenzaprine HCl 10 mg PO TID PRN 12/30/18 [History] Guselkumab [TREMFYA (Outpatient Infusion)] 100 mg SQ Q8W 12/30/18 [History] hydrOXYzine HCl [Hydroxyzine HCl] 50 mg PO BID PRN 12/30/18 [History] Atorvastatin [Lipitor] 40 mg PO HS #30 tablet 01/02/19 [Rx] Metoprolol XL (24 HR) Succ [Toprol Xl] 12.5 mg PO DAILY #30 tab.er.24h 01/02/19 [Rx] Sucralfate [Carafate] 1 gm PO QIDAC #120 tablet 01/02/19 [Rx] Topiramate [Topamax] 100 mg PO BID 01/23/19 [History] Aripiprazole [Abilify] 20 mg PO DAILY 03/15/19 [History] Pantoprazole Sodium [Protonix] 40 mg PO DAILY 03/15/19 [History] Allergy/AdvReac Type Severity Reaction Status Date / Time Penicillins Allergy Unknown See Verified 03/15/19 08:01 Comments pregabalin [From Lyrica] Allergy Unknown Swelling Verified 03/15/19 08:01 of the Eye ketorolac AdvReac Unknown Nausea/VOMI Verified 03/15/19 08:01 TING olanzapine [From Zyprexa] AdvReac Unknown SWELLING Verified 03/15/19 08:01 tramadol AdvReac Unknown Seizure Verified 03/15/19 08:01 - Meds/Allergy Pre-op Review Medications Reviewed: Yes Allergies Reviewed: Yes Beta Blockers on Current Med List: Yes If Beta Blockers taken, Date/Time (Last Dose taken): 814 Anesthesia Results - Labs 03/15/19 03:26 03/15/19 03:26 Anesthesia Exam Vital Signs/O2 Sat/Glucose, Most Recent Temp Pulse Resp BP Pulse Ox 98.2 F 70 16 117/75 97 03/15/19 11:36 03/15/19 11:36 03/15/19 11:36 03/15/19 11:36 03/15/19 11:36 Blood Glucose* 88 Weight: 153 KG - BMI 54 NPO (# of Hours): 8 - HEENT Mallampati: I Teeth: Edentulous Denture Type: Upper: Complete, Lower: Complete - Cardiac Rhythm: Regular - Pulmonary Breath Sounds: bilateral Clear Anesthesia Assess/Plan ASA Score: 4 Anesthetic Plan: General (POSSIBLE), MAC Monitoring Plan: Standard Monitors Recovery Plan: PACU (PHASE TO FLOOR IF APPROPRIATE)
[2019-03-15] MEDS ORDERED: Propofol 500 MG/50 ML INFUS..BTL ONE (12:02)
[2019-03-15] MEDS: Ondansetron 4 MG/2 ML VIAL IVP PRN (12:48)
[2019-03-15] MEDS ORDERED: SODIUM CHLORIDE/NAHCO3/KCL/PEG 4,000 ML SOLN.RECON PO ONE (17:00)
[2019-03-15] MEDS ORDERED: Aspirin 325 MG TABLET PO ONE (18:57)
[2019-03-15] MEDS ORDERED: Nitroglycerin 0.4 MG TAB.SUBL SL PRN (18:58)
--- NOTE | 2019-03-15 19:00 | Internal Med Progress Note ---
Hospitalist Progress Note - Encounter Date of Encounter: 03/15/19 Time of Encounter: 18:56 - Subjective Interval History: Ms Melara is s/ p EGD, however shortly after return back to the floor was complaining of acute onset chest pain in the left side of chest 7/10 and described as heaviness radiating to her left upper extremity. She also admits to being nauseated but denies any vomiting GEN: Denies fever, chills or malaise HEENT: Denies headache blurriness, or dysphagia RESP: Denies SOB or cough CV: reports chest pain, denies palpitations GI: reports Nausea, but no vomiting, diarrhea or constipation Reviewed current in hospital medications with modifications see orders Reviewed Routine labs - Exam Vitals: Temp Pulse Resp BP Pulse Ox 98.1 F 79 16 104/65 95 03/15/19 14:47 03/15/19 14:47 03/15/19 14:47 03/15/19 14:47 03/15/19 14:47 Exam: GEN: Morbidly obese female mildly distressed SKIN: [place] warm acyanotic not jaundice HEART: RRR, no murmurs LUNGS: CTA no wheeze or crackles, overall non labored ABDOMEN; Soft, non tender or distended, BS x 4 normactive EXT: No LE edema, Pedal pulses 1+, radial pulses 2+ PSYCH: Mood and affect is appropriate - Assessment and Plan (1) Acute chest pain Current Visit: Yes Status: Acute Assessment and Plan: She is complaining of acute onset chest pain on the left side of her chest radiating to her left upper extremity she describes the pain as heaviness 7 out of 10. Stat troponin CBC BMP and magnesium ordered, will be administered aspir in and nitroglycerin we will trend troponins and monitor on telemetry. Of note she status post EGD as such subcutaneous gas insufflation is on the differentiated, however given her comorbid condition she worked up for acute coronary syndrome trend troponins. EKG revealed normal sinus rhythm with a right bundle branch block with nonspecific T-wave inversion when compared to EKG from 02/07 no changes (2) GI bleed Current Visit: Yes Status: Acute Assessment and Plan: Vitals stable she has had no for the episodes since admission, she reports both hematemesis and hematochezia, hbg 10.3-9.4-9.7-9.5, status post EGD which revealed large hiatal hernia she is planned for colonoscopy. On Protonix twice daily IV (3) Acute blood loss anemia Current Visit: Yes Status: Acute Assessment and Plan: Likely secondary to GI bleed see plan above, patient is currently being assessed for acute coronary syndrome (4) Pain of right lower extremity Current Visit: Yes Status: Acute Assessment and Plan: Stable discussed with patient that she may benefit from physical therapy Information provided by the reliability technician to the nurse DVT study was negative, revealed to report today, chaperoned physical exam was unrevealing as aforementioned no hematoma, swelling, erythema. Radiograph of the right hip was also obtained and is unremarkable. She does appear to have any signs of skin fungus from her pannus the bilateral groin skin is moist slight skin breakdown noted on right groin fold nystatin powder ordered (5) Morbid obesity with BMI of 50.0-59.9, adult Current Visit: Yes Status: Acute Assessment and Plan: Continue to encourage lifestyle changes may benefit from outpatient evaluation for bariatric surgery given a young age and comorbid condition (6) Chronic anticoagulation Current Visit: Yes Status: Acute Assessment and Plan: Due to presentation with GI bleed, anticoagulation will not be continued, appears discontinued after she had her first hematemesis about a month ago. Appears patient had a pulmonary embolism (7) Hiatal hernia Current Visit: Yes Status: Acute Assessment and Plan: Status post EGD continue to follow with GI - Time Spent with Patient Total time spent is greater than 50% in coordination of care (as documented) at patient's floor/unit and/or counseling patient: Internal Medicine: Result - Labs CBC & Chem 7: 03/15/19 03:26 03/15/19 03:26 Labs: Short CBC 03/15/19 Range/Units 03:26 WBC 3.4 L (4.3-11.1) K/mcL Hgb 9.5 L (11.5-15.4) g/dL Hct 31.8 L (35.3-44.9) % Plt Count 230 (140-400) K/mcL Neutrophils # 1.8 (1.6-8.9) K/mcL BMP 03/15/19 03:26 Sodium 141 Potassium 3.7 Chloride 107 Carbon Dioxide 27 BUN 10 Creatinine 0.84 Glucose 90 Calcium 8.7 - ABG Interpretation ABG results: PT/INR, D-dimer PT 10.4 Seconds (9.4-12.1) 03/13/19 22:45 Consult Discharge Plan - Plan Referrals: Teressa Hurd, TOP PRECIPITATOR OPERATOR HELPER [Primary Care Provider] - (2) GI bleed Qualifiers: GI bleed type/associated pathology: unspecified gastrointestinal hemorrhage type Qualified Code(s): K92.2 - Gastrointestinal hemorrhage, unspecified
[2019-03-15 19:27] LABS: Hematocrit 32.2 % (35.3-44.9); Hemoglobin 9.8 g/dL (11.5-15.4); Mean Corpuscular HGB Conc 30.4 g/dL (31.6-35.5); Mean Corpuscular Hemoglobin 27.5 pg (28.0-33.3); Mean Corpuscular Volume 90.2 fL (83.0-100.0); Mean Platelet Volume 9.4 fL (9.4-12.4); Platelet Count 237 K/mcL (140-400); Red Blood Count 3.57 M/mcL (3.82-4.97); Red Cell Distribution Width 16.2 % (11.5-14.5); White Blood Count 4.1 K/mcL (4.3-11.1)
[2019-03-15 19:41] LABS: BUN/Creatinine Ratio 12 (6-26); Blood Urea Nitrogen 10 mg/dL (6-20); Calcium 8.7 mg/dL (8.6-10.3); Carbon Dioxide 26 mEq/L (23-29); Chloride 107 mEq/L (98-107); Glucose 116 mg/dL (70-105); Osmolality,Calculated 288 (280-300); Potassium 3.3 mEq/L (3.5-5.1); Sodium 139 mEq/L (136-145); eGFR For African Americans > 60 (> 60); eGFR For Non-African Americans > 60 (> 60)
--- NOTE | 2019-03-15 22:50 | Anesthesia Evaluation PreOp ---
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 (anxiety/depression) Other Medical History: GERD (hiatal hernia), Other (obesity BMI=54.3) Anesthesia History: No Prior Anesthetic Complications, Past Anesthesia Alcohol Use: none Drug use: none Medications and Allergies Buspirone HCl [Buspar] 30 mg PO BID 05/26/18 [History] Duloxetine HCl [Cymbalta] 60 mg PO BID 05/26/18 [History] Multivitamin [One Daily Multivitamin] 1 tab PO DAILY 05/26/18 [History] lamoTRIgine [Lamotrigine] 100 mg PO QAM 05/26/18 [History] lamoTRIgine [Lamotrigine] 200 mg PO HS 05/26/18 [History] Cholecalciferol (Vitamin D3) [Vitamin D3] 10,000 unit PO RICHARDSON 12/30/18 [History] Cyclobenzaprine HCl 10 mg PO TID PRN 12/30/18 [History] Guselkumab [TREMFYA (Outpatient Infusion)] 100 mg SQ Q8W 12/30/18 [History] hydrOXYzine HCl [Hydroxyzine HCl] 50 mg PO BID PRN 12/30/18 [History] Atorvastatin [Lipitor] 40 mg PO HS #30 tablet 01/02/19 [Rx] Metoprolol XL (24 HR) Succ [Toprol Xl] 12.5 mg PO DAILY #30 tab.er.24h 01/02/19 [Rx] Sucralfate [Carafate] 1 gm PO QIDAC #120 tablet 01/02/19 [Rx] Topiramate [Topamax] 100 mg PO BID 01/23/19 [History] Aripiprazole [Abilify] 20 mg PO DAILY 03/15/19 [History] Pantoprazole Sodium [Protonix] 40 mg PO DAILY 03/15/19 [History] Allergy/AdvReac Type Severity Reaction Status Date / Time Penicillins Allergy Unknown See Verified 03/15/19 08:01 Comments pregabalin [From Lyrica] Allergy Unknown Swelling Verified 03/15/19 08:01 of the Eye ketorolac AdvReac Unknown Nausea/VOMI Verified 03/15/19 08:01 TING olanzapine [From Zyprexa] AdvReac Unknown SWELLING Verified 03/15/19 08:01 tramadol AdvReac Unknown Seizure Verified 03/15/19 08:01 - Meds/Allergy Pre-op Review Medications Reviewed: Yes Allergies Reviewed: Yes Beta Blockers on Current Med List: Yes If Beta Blockers taken, Date/Time (Last Dose taken): 03/15/2019 at 0814 Anesthesia Results - Labs 03/15/19 19:05 03/15/19 19:05 - Imaging EKG: report reviewed (02/02/2019 Sinus rhythm Right bundle branch block) Additional studies: 01/01/2019 Stress Impression: Perfusion imaging was negative for ischemia or infarct. Pharmacologic ECG was non diagnostic for ischemia. Gated EF = >70%. 12/31/2018 Echo Impressions: LVEF 60-65%. Normal LV chamber size and function. Mild concentric left ventricular hypertrophy. Mild left ventricular diastolic dysfunction. Right ventricular size was not well evaluated. Right ventricular function is normal. Borderline mild pulmonary hypertension suggested by Doppler. No significant valvular dysfunction. Anesthesia Exam Vital Signs/O2 Sat/Glucose, Most Recent Temp Pulse Resp BP Pulse Ox 97.9 F 80 16 106/69 95 03/15/19 19:16 03/15/19 19:16 03/15/19 19:16 03/15/19 19:16 03/15/19 19:16 Blood Glucose* 88 Height: 5'6''/1.68m Weight: 226 lbs/152.6 kg Pain Scale: 0 Pain Scale Used: Numeric (1 - 10) - HEENT Pupil (Motor): EOMI Mallampati: II Teeth: Edentulous Oral Opening: Greater than 3 - SCUBA DIVING TEACHER LOC: Oriented SCU[employer] DIVING TEACHER Motor: Normal RUE, Normal LUE, Normal RLE, Normal LLE, Normal Face SCUBA DIVING TEACHER Sensory: Normal: RUE, LUE, RLE, LLE, Face - Cardiac Rhythm: Regular Murmur: None - Pulmonary Breath Sounds: bilateral Clear Respiratory Effort: Symmetrical Anesthesia Assess/Plan ASA Score: 4 Level of consciousness: Cooperative, Oriented, Tranquil Anesthetic Plan: MAC Monitoring Plan: Standard Monitors
[2019-03-16 01:18] LABS: BUN/Creatinine Ratio 12 (6-26); Blood Urea Nitrogen 10 mg/dL (6-20); Calcium 8.7 mg/dL (8.6-10.3); Carbon Dioxide 27 mEq/L (23-29); Chloride 105 mEq/L (98-107); Glucose 99 mg/dL (70-105); Magnesium 1.8 mg/dL (1.6-2.6); Osmolality,Calculated 287 (280-300); Potassium 3.3 mEq/L (3.5-5.1); Sodium 139 mEq/L (136-145); eGFR For African Americans > 60 (> 60); eGFR For Non-African Americans > 60 (> 60)
[2019-03-16 01:23] LABS: Basophils % 0.6 %; Eosinophils # 0.2 K/mcL (0.0-0.6); Eosinophils % 4.6 %; Hematocrit 33.2 % (35.3-44.9); Hemoglobin 9.9 g/dL (11.5-15.4); Immature Granulocytes % 0.3 % (0-4); Lymphocytes % 27.9 %; Mean Corpuscular HGB Conc 29.8 g/dL (31.6-35.5); Mean Corpuscular Hemoglobin 27.3 pg (28.0-33.3); Mean Corpuscular Volume 91.7 fL (83.0-100.0); Mean Platelet Volume 9.2 fL (9.4-12.4); Monocytes # 0.4 K/mcL (0.0-1.3); Monocytes % 11.1 %; Platelet Count 244 K/mcL (140-400); Red Blood Count 3.62 M/mcL (3.82-4.97); Red Cell Distribution Width 16.4 % (11.5-14.5); Segmented Neutrophils % 55.5 %; White Blood Count 3.5 K/mcL (4.3-11.1)
[2019-03-16] MEDS: Pantoprazole 40 MG VIAL IVP SCH (06:05)
--- NOTE | 2019-03-16 06:28 | Electrocardiograph Report ---
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
[2019-03-16] MEDS: Metoprolol XL (24 HR) Succ 25 MG TAB.ER.24H PO SCH (10:37)
[2019-03-16] MEDS: ARIPiprazole 10 MG TABLET PO SCH (10:37)
[2019-03-16] MEDS: Multivit/Ca/Min/Fe/FA 1 TAB TABLET PO SCH (10:38)
[2019-03-16] MEDS: Topiramate 100 MG TABLET PO SCH ×2 (10:38→20:40)
[2019-03-16] MEDS: Cholecalciferol (D-3) 1,000 UNIT (25MCG) TABLET PO SCH (10:38)
[2019-03-16] MEDS: lamoTRIgine 100 MG TABLET PO SCH ×2 (10:38→20:39)
[2019-03-16] MEDS: Nystatin POWDER 30 GM BOTTLE TP SCH ×3 (10:39→20:41)
--- NOTE | 2019-03-16 13:07 | Electrocardiograph Report ---
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
--- NOTE | 2019-03-16 16:55 | Internal Med Progress Note ---
Hospitalist Progress Note - Encounter Date of Encounter: 03/16/19 Time of Encounter: 12:15 - Subjective Interval History: Mrs. Melara's acute coronary syndrome workup was unyielding troponin 3 was negative. She is scheduled for colonoscopy today. She started her right groin pain is tolerable GEN: Denies fever, chills or malaise HEENT: Denies headache blurriness, or dysphagia RESP: Denies SOB or cough CV: Denies chest pain or palpitations GI: Denies Nausea, vomiting, diarrhea or constipation Reviewed current in hospital medications with modifications see orders Reviewed Routine labs - Exam Vitals: Temp Pulse Resp BP Pulse Ox 98.4 F 84 15 96/56 93 03/16/19 14:19 03/16/19 14:19 03/16/19 14:19 03/16/19 14:19 03/16/19 14:19 Exam: GEN: Morbidly obese female NAD, A&O x 3 SKIN: [place] warm acyanotic not jaundice HEART: RRR, no murmurs LUNGS: CTA no wheeze or crackles, overall non labored ABDOMEN; Soft, non tender or distended, BS x 4 normactive EXT: No LE edema, Pedal pulses 1+, radial pulses 2+ PSYCH: Mood and affect is appropriate - Assessment and Plan (1) Acute chest pain Current Visit: Yes Status: Acute Assessment and Plan: Troponin 3 is negative she denies any chest pain. Likely secondary to post EGD gas insufflation. She is complaining of acute onset chest pain on the left side of her chest radiating to her left upper extremity she describes the pain as heaviness 7 out of 10. Stat troponin CBC BMP and magnesium ordered, will be administered aspirin and nitroglycerin we will trend troponins and monitor on telemetry. Of note she status post EGD as such subcutaneous gas insufflation is on the differential, however given her comorbid condition she worked up for acute coronary syndrome trend troponins. EKG revealed normal sinus rhythm with a right bundle branch block with nonspecific T-wave inversion when compared to EKG from 02/07 no changes (2) GI bleed Current Visit: Yes Status: Acute Assessment and Plan: Vitals stable she has had no further episodes since admission ie both hematemesis and hematochezia, hbg 10.3-9.4-9.7-9.5, and starting to trend up 9.9 today status post EGD which revealed large hiatal hernia she is planned for colonoscopy. We will DC Protonix twice daily IV (3) Acute blood loss anemia Current Visit: Yes Status: Acute Assessment and Plan: Likely secondary to GI bleed see plan above, patient is currently being assessed for acute coronary syndrome, hemoglobin up to 9.9 (4) Pain of right lower extremity Current Visit: Yes Status: Acute Assessment and Plan: Stable discussed with patient that she may benefit from physical therapy, she declined on ECF placement. She is agreeable to outpatient physical therapy Information provided by the nuclear plant instrument technician to the nurse DVT study was negative, revealed to report today, chaperoned physical exam was unrevealing as aforementioned no hematoma, swelling, erythema. Radiograph of the right hip was also obtained and is unremarkable. She does appear to have any signs of skin fungus from her pannus the bilateral groin skin is moist slight skin breakdown noted on right groin fold nystatin powder ordered (5) Morbid obesity with BMI of 50.0-59.9, adult Current Visit: Yes Status: Acute Assessment and Plan: Continue to encourage lifestyle changes may benefit from outpatient evaluation for bariatric surgery given her young age and comorbid conditions (6) Chronic anticoagulation Current Visit: Yes Status: Acute Assessment and Plan: Due to presentation with GI bleed, anticoagulation will not be continued, appears discontinued after she had her first hematemesis about a month ago. Appears patient had a pulmonary embolism (7) Hiatal hernia Current Visit: Yes Status: Acute Assessment and Plan: Status post EGD continue to follow with GI DVT Prophylaxis: Continue SCDs - Time Spent with Patient Total time spent is greater than 50% in coordination of care (as documented) at patient's floor/unit and/or counseling patient: Internal Medicine: Result - Labs CBC & Chem 7: 03/16/19 00:47 03/16/19 00:47 Labs: Short CBC 03/15/19 03/16/19 Range/Units 19:05 00:47 WBC 4.1 L 3.5 L (4.3-11.1) K/mcL Hgb 9.8 L 9.9 L (11.5-15.4) g/dL Hct 32.2 L 33.2 L (35.3-44.9) % Plt Count 237 244 (140-400) K/mcL Neutrophils # 2.0 (1.6-8.9) K/mcL BMP 03/15/19 03/16/19 19:05 00:47 Sodium 139 139 Potassium 3.3 L 3.3 L Chloride 107 105 Carbon Dioxide 26 27 BUN 10 10 Creatinine 0.81 0.83 Glucose 116 H 99 Calcium 8.7 8.7 Cardiac Enzymes 03/15/19 03/16/19 03/16/19 Range/Units 19:05 00:47 07:29 Troponin I < 0.03 < 0.03 < 0.03 (< 0.04) ng/mL - ABG Interpretation ABG results: PT/INR, D-dimer PT 10.4 Seconds (9.4-12.1) 03/13/19 22:45 Consult Discharge Plan - Plan Referrals: Teressa Hurd, [facility] MA[facility] ENG [Primary Care Provider] - (2) GI bleed Qualifiers: GI bleed type/associated pathology: unspecified gastrointestinal hemorrhage type Qualified Code(s): K92.2 - Gastrointestinal hemorrhage, unspecified
[2019-03-16] MEDS ORDERED: Lidocaine -MPF 2% 2 ML VIAL ONE (18:34)
[2019-03-16] MEDS ORDERED: Propofol 500 MG/50 ML INFUS..BTL ONE (18:36)
[2019-03-17 08:16] VITALS: BP 121/74
[2019-03-17] MEDS: Topiramate 100 MG TABLET PO SCH (08:31)
[2019-03-17] MEDS: Multivit/Ca/Min/Fe/FA 1 TAB TABLET PO SCH (08:31)
[2019-03-17] MEDS: Metoprolol XL (24 HR) Succ 25 MG TAB.ER.24H PO SCH (08:31)
[2019-03-17] MEDS: lamoTRIgine 100 MG TABLET PO SCH (08:31)
[2019-03-17] MEDS: ARIPiprazole 10 MG TABLET PO SCH (08:32)
[2019-03-17] MEDS: Cholecalciferol (D-3) 1,000 UNIT (25MCG) TABLET PO SCH (08:32)
[2019-03-17] MEDS: Nystatin POWDER 30 GM BOTTLE TP SCH (08:32)
[2019-03-17] MEDS: hydrOXYzine pamoate 25 MG CAPSULE PO PRN (08:37)
[2019-03-17] MEDS ORDERED: ARIPIPRAZOLE 20 MG PO SCH (09:00)
--- NOTE | 2019-03-17 11:08 | Discharge Summary ---
Orders not resulted at time of discharge: Pending orders 03/16/19 19:15 Surgical Pathology [PTH] Routine Date of Encounter: 03/17/19 Time of Encounter: 11:04 - Discharge Diagnosis (1) GI bleed Priority: Primary Status: Ruled-out Qualifiers: GI bleed type/associated pathology: unspecified gastrointestinal hemorrhage type Qualified Code(s): K92.2 - Gastrointestinal hemorrhage, unspecified (2) Acute blood loss anemia Priority: Primary Status: Acute (3) Morbid obesity with BMI of 50.0-59.9, adult Priority: Secondary Status: Chronic (4) Pain of right lower extremity Priority: Secondary Status: Chronic (5) Chronic anticoagulation Priority: Secondary Status: Chronic (6) Acute chest pain Priority: Secondary Status: Ruled-out (7) Hiatal hernia Priority: Secondary Status: Acute Hospital course: Ms. Melara is a 53 year old female with hypertension, coronary artery disease and prior pulmonary embolism who was previously on apixaban until she developed large volume hematemesis 1 month ago so anticoagulation was stopped and she had an IVC filter placed on 02/16/19. Presented to the hospital due to 1 day history of 1 episode of dark stool, and bloody emesis. Patient admitted to the hospital due to possible GI bleed. Patient referred right flank pain radiating to her groin. CT abdomen and pelvis done: Unremarkable. A stool test was negative for occult blood. GIs was consulted and patient underwent, EGD: Normal esophagus, large hiatal hernia, normal examined duodenum. Colonoscopy: one 4 mm nonbleeding polyp in the cecum removed. one 4 mm, nonbleeding polyp in the rectum, removed. During this hospitalization patient did not have any episode of hematemesis. She is hemodynamically stable to be discharged home. Recommended to follow-up with GI in 1-2 weeks of hospital discharge. - Time Spent with Patient Total time spent providing and/or coordinating discharge services: Time spent: Greater than 30 minutes (35) - Discharge Medications Prescriptions: New HYDROcodone/Acet 5/325 mg [Phillips 5-325 mg] 1 tab PO Q6H PRN 5 Days #10 tab PRN Reason: Pain Continued lamoTRIgine [Lamotrigine] 100 mg PO QAM lamoTRIgine [Lamotrigine] 200 mg PO HS Buspirone HCl [Buspar] 30 mg PO BID Multivitamin [One Daily Multivitamin] 1 tab PO DAILY Duloxetine HCl [Cymbalta] 60 mg PO BID Cholecalciferol (Vitamin D3) [Vitamin D3] 10,000 unit PO RICHARDSON Cyclobenzaprine HCl 10 mg PO TID PRN PRN Reason: Muscle Spasm Guselkumab [TREMFYA (Outpatient Infusion)] 100 mg SQ Q8W hydrOXYzine HCl [Hydroxyzine HCl] 50 mg PO BID PRN PRN Reason: Anxiety Sucralfate [Carafate] 1 gm PO QIDAC #120 tablet Topiramate [Topamax] 100 mg PO BID Aripiprazole [Abilify] 20 mg PO DAILY Pantoprazole Sodium [Protonix] 40 mg PO DAILY Atorvastatin [Lipitor] 40 mg PO HS 30 Days #30 tablet Metoprolol XL (24 HR) Succ [Toprol Xl] 12.5 mg PO DAILY 30 Days #30 tab.er.24h Home Medications: Buspirone HCl [Buspar] 30 mg PO BID 05/26/18 [History] Duloxetine HCl [Cymbalta] 60 mg PO BID 05/26/18 [History] Multivitamin [One Daily Multivitamin] 1 tab PO DAILY 05/26/18 [History] lamoTRIgine [Lamotrigine] 100 mg PO QAM 05/26/18 [History] lamoTRIgine [Lamotrigine] 200 mg PO HS 05/26/18 [History] Cholecalciferol (Vitamin D3) [Vitamin D3] 10,000 unit PO RICHARDSON 12/30/18 [History] Cyclobenzaprine HCl 10 mg PO TID PRN 12/30/18 [History] Guselkumab [TREMFYA (Outpatient Infusion)] 100 mg SQ Q8W 12/30/18 [History] hydrOXYzine HCl [Hydroxyzine HCl] 50 mg PO BID PRN 12/30/18 [History] Sucralfate [Carafate] 1 gm PO QIDAC #120 tablet 01/02/19 [Rx] Topiramate [Topamax] 100 mg PO BID 01/23/19 [History] Aripiprazole [Abilify] 20 mg PO DAILY 03/15/19 [History] Pantoprazole Sodium [Protonix] 40 mg PO DAILY 03/15/19 [History] Atorvastatin [Lipitor] 40 mg PO HS 30 Days #30 tablet 03/17/19 [Rx] HYDROcodone/Acet 5/325 mg [Phillips 5-325 mg] 1 tab PO Q6H PRN 5 Days #10 tab 03/17/19 [Rx] Metoprolol XL (24 HR) Succ [Toprol Xl] 12.5 mg PO DAILY 30 Days #30 tab.er.24h 03/17/19 [Rx] Allergies/Adverse Reactions: Allergy/AdvReac Type Severity Reaction Status Date / Time Penicillins Allergy Unknown See Verified 03/15/19 08:01 Comments pregabalin [From Lyrica] Allergy Unknown Swelling Verified 03/15/19 08:01 of the Eye ketorolac AdvReac Unknown Nausea/VOMI Verified 03/15/19 08:01 TING olanzapine [From Zyprexa] AdvReac Unknown SWELLING Verified 03/15/19 08:01 tramadol AdvReac Unknown Seizure Verified 03/15/19 08:01 Date of admission: 03/16/19 14:12 Primary care physician: Teressa Hurd CNP Consults: 03/14/19 03:20 Consult to Gastroenterology [CONS] Routine Consulting Provider: Gastroenterology Oma Reason for Consult: Patient presenting with reported hematemesis and dark stool Call Completed: No - Constitutional Vitals: Temp Pulse Resp BP Pulse Ox 98.3 F 63 14 121/74 87 03/17/19 08:14 03/17/19 08:14 03/17/19 03:45 03/17/19 08:14 03/17/19 08:14 Exam: Vitals: Reviewed. General: Morbidly obese, Alert and oriented 4. In no acute distress. Skin: Normal color, no rash, no lesions. HEENT: EOM, pupils equal, round and reactive. Cardiovascular: RRR, normal S1 & S2, no rubs, murmurs or gallops. Lungs: CTA b/l, no wheezes or crackles. Abdomen: Obese, soft, non-tender, no rigidity. Extremities: No deformity, no edema or tenderness, no joint swelling or clubbing. Neurological: Normal cognition and motor skills. Rest of the physical exam is non contributory - Patient Status Disposition: Home, Self-Care Condition: Good Functional capacity at discharge: independent ambulation Overall status at discharge: patient is back to baseline - Discharge Instructions Follow Up With: Hurd,Teressa J, CENTER DIRECTOR [Primary Care Provider] - - Diet and Activity Activity: resume usual activities as tolerated Diet: low salt diet
== END 2019-03-17 14:23 | disposition home or self-care (01) | DRG 378 ==
LOC: 3ANU 21:53 → EMEROOARM 21:53 → SUATTDRO 03-14 01:47 → 3ANU 03-14 02:50 → SUATTDRO 03-16 14:12
PROVIDERS: ADMIT Internal Medicine; ATTEND Internal Medicine
PROC: ENDOCBX (2019-03-16 13:00)

== ENCOUNTER 2019-06-18 16:10 | Observation (INO) ==
[2019-06-18] MEDS ORDERED: Isovue-370 500 ML BOTTLE IVP ONE (16:20)
[2019-06-18] MEDS ORDERED: Aspirin 81 MG TAB.CHEW PO ONE (16:20)
[2019-06-18] MEDS ORDERED: *HR* FentaNYL (PF) 100 MCG/2 ML VIAL IVP ONE (16:31)
[2019-06-18] MEDS ORDERED: *HR* Midazolam HCl 2 MG/2 ML VIAL IVP ONE (16:32)
[2019-06-18 16:41] LABS: Basophils % 0.6 %; Eosinophils # 0.2 K/mcL (0.0-0.6); Hematocrit 41.5 % (35.3-44.9); Hemoglobin 13.4 g/dL (11.5-15.4); Immature Granulocytes % 0.5 % (0-4); Lymphocytes % 30.9 %; Mean Corpuscular HGB Conc 32.3 g/dL (31.6-35.5); Mean Corpuscular Hemoglobin 30.4 pg (28.0-33.3); Mean Corpuscular Volume 94.1 fL (83.0-100.0); Mean Platelet Volume 8.9 fL (9.4-12.4); Monocytes # 0.6 K/mcL (0.0-1.3); Monocytes % 9.5 %; Neutrophils # 3.5 K/mcL (1.6-8.9); Platelet Count 264 K/mcL (140-400); Red Blood Count 4.41 M/mcL (3.82-4.97); Red Cell Distribution Width 14.5 % (11.5-14.5); Segmented Neutrophils % 55.5 %; White Blood Count 6.3 K/mcL (4.3-11.1)
[2019-06-18 16:45] LABS: INR 0.9; Prothrombin Time 10.3 Seconds (9.4-12.1)
[2019-06-18] MEDS ORDERED: Nitroglycerin 0.4 MG TAB.SUBL SL ONE (16:45)
[2019-06-18] MEDS ORDERED: Nitroglycerin 0.4 MG TAB.SUBL SL SCH (16:45)
[2019-06-18 16:48] LABS: Activated Partial Thrombo Time 35.6 Seconds (26.0-36.0)
[2019-06-18] MEDS ORDERED: Ondansetron 4 MG/2 ML VIAL IVP ONE (17:03)
[2019-06-18 17:09] LABS: BUN/Creatinine Ratio 14 (6-26); Blood Urea Nitrogen 12 mg/dL (6-20); Calcium 9.4 mg/dL (8.6-10.3); Carbon Dioxide 23 mEq/L (23-29); Chloride 100 mEq/L (98-107); Glucose 111 mg/dL (70-105); Osmolality,Calculated 286 (280-300); Potassium 3.4 mEq/L (3.5-5.1); Sodium 138 mEq/L (136-145); Troponin I < 0.03 ng/mL (< 0.04); eGFR For African Americans > 60 (> 60); eGFR For Non-African Americans > 60 (> 60)
[2019-06-18] MEDS ORDERED: *HR* HYDROmorphone (PF) 1 MG/ML SYRINGE IVP ONE (17:59)
[2019-06-18] MEDS ORDERED: *HR* Promethazine 25 MG/ML VIAL IVP ONE (18:00)
[2019-06-18] MEDS ORDERED: Promethazine 25 MG in 0.9 % Sodium Chloride 50 ML IVPB ONE (18:15)
[2019-06-18] MEDS ORDERED: *HR* LORazepam 2 MG/ML VIAL IVP ONE (19:54)
[2019-06-18] MEDS ORDERED: Nitroglycerin 0.4 MG TAB.SUBL SL PRN (22:13)
[2019-06-18] MEDS ORDERED: hydrOXYzine pamoate 25 MG CAPSULE PO PRN (22:15)
[2019-06-18] MEDS: Ondansetron ODT 4 MG TAB.RAPDIS SL SCH (23:29)
[2019-06-18] MEDS ORDERED: Naloxone 0.4 MG/ML INJ IVP PRN (23:39)
[2019-06-19] MEDS: Acetaminophen 325 MG TABLET PO PRN ×2 (02:20→20:48)
[2019-06-19 02:53] LABS: Basophils % 0.8 %; Eosinophils # 0.1 K/mcL (0.0-0.6); Eosinophils % 2.3 %; Hematocrit 36.4 % (35.3-44.9); Immature Granulocytes % 0.2 % (0-4); Lymphocytes # 1.7 K/mcL (0.6-4.6); Lymphocytes % 34.9 %; Mean Corpuscular HGB Conc 31.3 g/dL (31.6-35.5); Mean Corpuscular Hemoglobin 29.7 pg (28.0-33.3); Mean Corpuscular Volume 94.8 fL (83.0-100.0); Mean Platelet Volume 9.3 fL (9.4-12.4); Monocytes # 0.6 K/mcL (0.0-1.3); Monocytes % 11.6 %; Neutrophils # 2.4 K/mcL (1.6-8.9); Nucleated Red Blood Cells 0.6 /100 WBC (0); Platelet Count 248 K/mcL (140-400); Red Blood Count 3.84 M/mcL (3.82-4.97); Red Cell Distribution Width 14.6 % (11.5-14.5); Segmented Neutrophils % 50.2 %; White Blood Count 4.8 K/mcL (4.3-11.1)
[2019-06-19 02:56] LABS: Hemoglobin 11.4 g/dL (11.5-15.4)
[2019-06-19 03:09] LABS: BUN/Creatinine Ratio 14 (6-26); Blood Urea Nitrogen 11 mg/dL (6-20); Carbon Dioxide 28 mEq/L (23-29); Chloride 101 mEq/L (98-107); Glucose 112 mg/dL (70-105); Osmolality,Calculated 286 (280-300); Potassium 3.6 mEq/L (3.5-5.1); Sodium 138 mEq/L (136-145); eGFR For African Americans > 60 (> 60); eGFR For Non-African Americans > 60 (> 60)
[2019-06-19] MEDS: Sucralfate 1 GM TABLET PO SCH ×4 (06:03→20:44)
[2019-06-19] MEDS: Ondansetron ODT 4 MG TAB.RAPDIS SL SCH ×3 (06:03→22:54)
[2019-06-19] MEDS: Multivit/Ca/Min/Fe/FA 1 TAB TABLET PO SCH (08:54)
[2019-06-19] MEDS: Metoprolol XL (24 HR) Succ 25 MG TAB.ER.24H PO SCH (08:54)
[2019-06-19] MEDS: ARIPiprazole 10 MG TABLET PO SCH (08:54)
[2019-06-19] MEDS: Topiramate 100 MG TABLET PO SCH ×2 (08:54→20:44)
[2019-06-19] MEDS ORDERED: NON-FORMULARY MEDICATION 1 EACH EACH (Duloxetine Hcl [Cymbalta] 60 MG) PO SCH (09:00)
[2019-06-19] MEDS ORDERED: *HR* OxyCODONE Immed Rel 5 MG TABLET PO PRN (11:59)
[2019-06-19] MEDS ORDERED: Nitroglycerin 25 MG/250 ML INFUS..BTL IVC SCH (20:30)
[2019-06-19] MEDS: Nystatin POWDER 30 GM BOTTLE TP SCH (20:49)
[2019-06-20 02:11] LABS: Hematocrit 35.7 % (35.3-44.9); Hemoglobin 11.7 g/dL (11.5-15.4); Mean Corpuscular HGB Conc 32.8 g/dL (31.6-35.5); Mean Corpuscular Hemoglobin 30.6 pg (28.0-33.3); Mean Corpuscular Volume 93.5 fL (83.0-100.0); Mean Platelet Volume 9.3 fL (9.4-12.4); Platelet Count 246 K/mcL (140-400); Red Blood Count 3.82 M/mcL (3.82-4.97); Red Cell Distribution Width 14.4 % (11.5-14.5); White Blood Count 3.8 K/mcL (4.3-11.1)
[2019-06-20 02:24] LABS: Alanine Aminotransferase 38 Units/L (7-52); Albumin 3.9 g/dL (3.5-5.7); Albumin/Globulin Ratio 1.5 (1.1-2.2); Alkaline Phosphatase 108 Units/L (34-104); Aspartate Amino Transferase 44 Units/L (13-39); BUN/Creatinine Ratio 15 (6-26); Bilirubin,Total 0.5 mg/dL (0.3-1.0); Blood Urea Nitrogen 14 mg/dL (6-20); Calcium 8.9 mg/dL (8.6-10.3); Carbon Dioxide 28 mEq/L (23-29); Chloride 102 mEq/L (98-107); Globulin 2.6 g/dL (2.4-3.5); Glucose 113 mg/dL (70-105); Osmolality,Calculated 285 (280-300); Potassium 3.8 mEq/L (3.5-5.1); Sodium 137 mEq/L (136-145); Total Protein 6.5 g/dL (6.4-8.9); eGFR For African Americans > 60 (> 60); eGFR For Non-African Americans > 60 (> 60)
[2019-06-20] MEDS: Acetaminophen 325 MG TABLET PO PRN (05:42)
[2019-06-20] MEDS: Multivit/Ca/Min/Fe/FA 1 TAB TABLET PO SCH (09:44)
[2019-06-20] MEDS: Ondansetron ODT 4 MG TAB.RAPDIS SL SCH (09:44)
[2019-06-20] MEDS: Sucralfate 1 GM TABLET PO SCH (09:45)
[2019-06-20] MEDS: Metoprolol XL (24 HR) Succ 25 MG TAB.ER.24H PO SCH (09:45)
[2019-06-20] MEDS: Topiramate 100 MG TABLET PO SCH (09:45)
[2019-06-20] MEDS: ARIPiprazole 10 MG TABLET PO SCH (09:45)
[2019-06-20] MEDS: Nystatin POWDER 30 GM BOTTLE TP SCH (09:46)
[2019-06-20 10:44] VITALS: BP 121/82
[2019-06-20] MEDS ORDERED: Ketorolac 15 MG/ML VIAL IVP ONE (10:49)
== END 2019-06-20 13:11 | disposition home or self-care (01) ==
LOC: EMEROOARM 16:10 → 3BNU 16:10 → SUATTDRO 20:31 → 3BNU 21:09
PROVIDERS: ADMIT Internal Medicine; ATTEND Internal Medicine

== ENCOUNTER 2021-08-12 11:28 | Inpatient (IN) ==
[2021-08-12 13:46] LABS: Basophils % 0.9 %; Eosinophils # 0.2 K/mcL (0.0-0.6); Eosinophils % 4.6 %; Hematocrit 32.8 % (35.3-44.9); Hemoglobin 10.5 g/dL (11.5-15.4); Immature Granulocytes % 0.3 % (0-4); Lymphocytes # 1.2 K/mcL (0.6-4.6); Lymphocytes % 36.3 %; Mean Corpuscular Hemoglobin 31.8 pg (28.0-33.3); Mean Corpuscular Volume 99.4 fL (83.0-100.0); Mean Platelet Volume 9.7 fL (9.4-12.4); Monocytes # 0.4 K/mcL (0.0-1.3); Neutrophils # 1.5 K/mcL (1.6-8.9); Platelet Count 215 K/mcL (140-400); Red Cell Distribution Width 14.2 % (11.5-14.5); Segmented Neutrophils % 45.9 %; White Blood Count 3.3 K/mcL (4.3-11.1)
[2021-08-12] MEDS ORDERED: *HR* FentaNYL (PF) 100 MCG/2 ML VIAL IVP ONE (13:58)
[2021-08-12 14:03] LABS: Alanine Aminotransferase 16 Units/L (7-52); Albumin 3.8 g/dL (3.5-5.7); Albumin/Globulin Ratio 1.3 (1.1-2.2); Alkaline Phosphatase 102 Units/L (34-104); Amylase 28 Units/L (29-103); Aspartate Amino Transferase 21 Units/L (13-39); BUN/Creatinine Ratio 17 (6-26); Bilirubin,Total 0.3 mg/dL (0.3-1.0); Blood Urea Nitrogen 13 mg/dL (6-20); Calcium 8.7 mg/dL (8.6-10.3); Carbon Dioxide 29 mEq/L (23-29); Chloride 104 mEq/L (98-107); Glucose 72 mg/dL (70-105); Lipase 6 Units/L (11-82); Osmolality,Calculated 285 (280-300); Sodium 138 mEq/L (136-145); Total Protein 6.8 g/dL (6.4-8.9); eGFR For African Americans > 60 (> 60); eGFR For Non-African Americans > 60 (> 60)
[2021-08-12] MEDS ORDERED: Isovue-370 500 ML BOTTLE IVP ONE (14:26)
[2021-08-12 16:37] LABS: Hematocrit 30.8 % (35.3-44.9); Hemoglobin 9.8 g/dL (11.5-15.4)
[2021-08-12] MEDS ORDERED: Pantoprazole 40 MG in 0.9 % Sodium Chloride Mini Bag 100 ML IVC SCH (17:00)
[2021-08-12] MEDS ORDERED: Pantoprazole 40 MG VIAL IVP ONE (17:23)
[2021-08-12] MEDS ORDERED: Naloxone 0.4 MG/ML INJ IVP PRN (17:42)
[2021-08-12] MEDS ORDERED: Ondansetron 4 MG/2 ML VIAL IVP PRN (17:42)
[2021-08-12 18:41] LABS: Influenza A PCR Negative (Negative); Influenza B PCR Negative (Negative); Resp. Syncytial Virus PCR Negative (Negative)
[2021-08-12 18:42] LABS: SARS-CoV-2 by PCR (In House) Negative (Negative)
[2021-08-12] MEDS: Sucralfate 1 GM TABLET PO SCH (20:06)
[2021-08-12] MEDS: lamoTRIgine 100 MG TABLET PO SCH (20:06)
[2021-08-12] MEDS: *HR* HYDROcodone/Acet 5/325 mg TABLET PO PRN (20:06)
[2021-08-12] MEDS: Pantoprazole 40 MG VIAL IVP SCH (20:07)
[2021-08-12] MEDS ORDERED: tiZANidine 4 MG TABLET PO ONE (21:33)
[2021-08-12 21:57] LABS: Hematocrit 34.8 % (35.3-44.9); Hemoglobin 10.9 g/dL (11.5-15.4)
[2021-08-13 05:26] LABS: Eosinophils # 0.2 K/mcL (0.0-0.6); Hematocrit 31.7 % (35.3-44.9); Hemoglobin 10.1 g/dL (11.5-15.4); Lymphocytes # 1.5 K/mcL (0.6-4.6); Mean Corpuscular HGB Conc 31.9 g/dL (31.6-35.5); Mean Corpuscular Hemoglobin 31.4 pg (28.0-33.3); Mean Corpuscular Volume 98.4 fL (83.0-100.0); Mean Platelet Volume 10.1 fL (9.4-12.4); Monocytes # 0.3 K/mcL (0.0-1.3); Monocytes % 11.4 %; Platelet Count 209 K/mcL (140-400); Red Blood Count 3.22 M/mcL (3.82-4.97); Red Cell Distribution Width 14.1 % (11.5-14.5); Segmented Neutrophils % 33.6 %
[2021-08-13 05:37] LABS: Prothrombin Time 11.6 Seconds (9.4-12.1)
[2021-08-13 05:43] LABS: BUN/Creatinine Ratio 13 (6-26); Blood Urea Nitrogen 9 mg/dL (6-20); Calcium 8.9 mg/dL (8.6-10.3); Carbon Dioxide 30 mEq/L (23-29); Chloride 106 mEq/L (98-107); Glucose 92 mg/dL (70-105); Osmolality,Calculated 286 (280-300); Potassium 3.8 mEq/L (3.5-5.1); Sodium 139 mEq/L (136-145); eGFR For African Americans > 60 (> 60); eGFR For Non-African Americans > 60 (> 60)
[2021-08-13] MEDS: *HR* HYDROcodone/Acet 5/325 mg TABLET PO PRN ×2 (05:58→12:48)
[2021-08-13] MEDS ORDERED: Famotidine 20 MG TABLET PO SCH (07:30)
[2021-08-13] MEDS: Gabapentin 300 MG CAPSULE PO SCH ×2 (08:33→20:50)
[2021-08-13] MEDS: Cholecalciferol (D-3) 1,000 UNIT (25MCG) TABLET PO SCH (08:33)
[2021-08-13] MEDS: Topiramate 25 MG TABLET PO SCH ×3 (08:33→20:50)
[2021-08-13] MEDS: lamoTRIgine 100 MG TABLET PO SCH ×2 (08:34→20:50)
[2021-08-13] MEDS: Sucralfate 1 GM TABLET PO SCH ×2 (08:35→20:49)
[2021-08-13] MEDS: FLUoxetine 20 MG CAPSULE PO SCH (08:35)
[2021-08-13] MEDS: Pantoprazole 40 MG VIAL IVP SCH ×2 (08:43→20:50)
[2021-08-13] MEDS ORDERED: SODIUM CHLORIDE/NAHCO3/KCL/PEG 4,000 ML SOLN.RECON PO ONE (17:00)
[2021-08-13] MEDS: *HR* HYDROmorphone (PF) 1 MG/ML SYRINGE IVP PRN ×2 (17:03→22:58)
[2021-08-13] MEDS: rOPINIRole 1 MG TABLET PO SCH (20:49)
[2021-08-14 05:44] LABS: Basophils % 0.7 %; Eosinophils # 0.1 K/mcL (0.0-0.6); Eosinophils % 4.2 %; Hematocrit 32.7 % (35.3-44.9); Immature Granulocytes % 0.4 % (0-4); Lymphocytes # 0.9 K/mcL (0.6-4.6); Lymphocytes % 31.7 %; Mean Corpuscular HGB Conc 30.6 g/dL (31.6-35.5); Mean Corpuscular Hemoglobin 30.5 pg (28.0-33.3); Mean Corpuscular Volume 99.7 fL (83.0-100.0); Mean Platelet Volume 9.8 fL (9.4-12.4); Monocytes # 0.3 K/mcL (0.0-1.3); Monocytes % 11.6 %; Neutrophils # 1.5 K/mcL (1.6-8.9); Platelet Count 197 K/mcL (140-400); Red Blood Count 3.28 M/mcL (3.82-4.97); Red Cell Distribution Width 13.7 % (11.5-14.5); Segmented Neutrophils % 51.4 %; White Blood Count 2.8 K/mcL (4.3-11.1)
[2021-08-14 06:06] LABS: BUN/Creatinine Ratio 8 (6-26); Blood Urea Nitrogen 6 mg/dL (6-20); Calcium 8.5 mg/dL (8.6-10.3); Carbon Dioxide 27 mEq/L (23-29); Chloride 104 mEq/L (98-107); Glucose 99 mg/dL (70-105); Osmolality,Calculated 282 (280-300); Potassium 3.7 mEq/L (3.5-5.1); Sodium 137 mEq/L (136-145); eGFR For African Americans > 60 (> 60); eGFR For Non-African Americans > 60 (> 60)
[2021-08-14] MEDS: Cholecalciferol (D-3) 1,000 UNIT (25MCG) TABLET PO SCH (07:59)
[2021-08-14] MEDS: Sucralfate 1 GM TABLET PO SCH ×2 (07:59→20:54)
[2021-08-14] MEDS: lamoTRIgine 100 MG TABLET PO SCH ×2 (07:59→20:55)
[2021-08-14] MEDS: Topiramate 25 MG TABLET PO SCH (07:59)
[2021-08-14] MEDS: FLUoxetine 20 MG CAPSULE PO SCH (08:00)
[2021-08-14] MEDS: Gabapentin 300 MG CAPSULE PO SCH ×2 (08:01→20:55)
[2021-08-14] MEDS: *HR* HYDROcodone/Acet 5/325 mg TABLET PO PRN ×2 (08:01→22:05)
[2021-08-14] MEDS: Pantoprazole 40 MG VIAL IVP SCH ×2 (08:03→21:03)
[2021-08-14] MEDS ORDERED: *HR* Midazolam HCl 5 MG/5 ML VIAL IVP ONE ×3 (10:06→11:19)
[2021-08-14] MEDS ORDERED: *HR* FentaNYL (PF) 100 MCG/2 ML VIAL ONE (10:06)
[2021-08-14] MEDS ORDERED: *HR* FentaNYL (PF) 100 MCG/2 ML VIAL IVP ONE ×2 (11:03→11:19)
[2021-08-14] MEDS: *HR* HYDROmorphone (PF) 1 MG/ML SYRINGE IVP PRN ×2 (14:02→18:02)
[2021-08-14] MEDS: rOPINIRole 1 MG TABLET PO SCH (20:55)
[2021-08-15] MEDS: *HR* HYDROmorphone (PF) 1 MG/ML SYRINGE IVP PRN (01:53)
[2021-08-15 07:44] VITALS: TEMP 98.4
[2021-08-15] MEDS ORDERED: Apixaban 5 MG TABLET PO SCH (09:00)
[2021-08-15] MEDS: Pantoprazole 40 MG VIAL IVP SCH (09:43)
[2021-08-15] MEDS: FLUoxetine 20 MG CAPSULE PO SCH (09:47)
[2021-08-15] MEDS: Sucralfate 1 GM TABLET PO SCH (09:47)
[2021-08-15] MEDS: lamoTRIgine 100 MG TABLET PO SCH (09:53)
[2021-08-15] MEDS: Cholecalciferol (D-3) 1,000 UNIT (25MCG) TABLET PO SCH (09:53)
[2021-08-15] MEDS: Gabapentin 300 MG CAPSULE PO SCH (09:53)
[2021-08-15] MEDS: *HR* HYDROcodone/Acet 5/325 mg TABLET PO PRN (10:00)
[2021-08-15 11:35] VITALS: BP 112/76; PULSE 66; O2SAT 93
== END 2021-08-15 11:41 | disposition home or self-care (01) | DRG 378 ==
LOC: 3ANU 11:28 → EMEROOARM 11:28 → SUATTDRO 18:50 → 3ANU 19:44
PROVIDERS: ADMIT Family Medicine; ATTEND Internal Medicine
PROC: ENDOCBX (2021-08-14 13:45)

== ENCOUNTER 2021-10-15 18:06 | Inpatient (IN) ==
[2021-10-15 19:07] LABS: Basophils % 0.8 %; Eosinophils # 0.2 K/mcL (0.0-0.6); Hematocrit 35.7 % (35.3-44.9); Immature Granulocytes % 0.4 % (0-4); Lymphocytes # 1.9 K/mcL (0.6-4.6); Lymphocytes % 37.6 %; Mean Corpuscular HGB Conc 30.8 g/dL (31.6-35.5); Mean Corpuscular Hemoglobin 29.6 pg (28.0-33.3); Mean Corpuscular Volume 96.2 fL (83.0-100.0); Mean Platelet Volume 9.3 fL (9.4-12.4); Monocytes # 0.4 K/mcL (0.0-1.3); Monocytes % 8.2 %; Neutrophils # 2.5 K/mcL (1.6-8.9); Platelet Count 295 K/mcL (140-400); Red Blood Count 3.71 M/mcL (3.82-4.97); Red Cell Distribution Width 13.6 % (11.5-14.5)
[2021-10-15 19:10] LABS: INR 1.1; Prothrombin Time 12.8 Seconds (9.4-12.1)
[2021-10-15 19:13] LABS: Activated Partial Thrombo Time 43.1 Seconds (26.0-36.0)
[2021-10-15 19:30] LABS: Platelet Estimate Normal (Normal)
[2021-10-15 19:39] LABS: BUN/Creatinine Ratio 19 (6-26); Blood Urea Nitrogen 13 mg/dL (6-20); Calcium 8.7 mg/dL (8.6-10.3); Carbon Dioxide 25 mEq/L (23-29); Chloride 103 mEq/L (98-107); Glucose 142 mg/dL (70-105); Osmolality,Calculated 287 (280-300); Potassium 4.2 mEq/L (3.5-5.1); Sodium 137 mEq/L (136-145); Troponin I < 0.03 ng/mL (< 0.04); eGFR For African Americans > 60 (> 60); eGFR For Non-African Americans > 60 (> 60)
[2021-10-15] MEDS ORDERED: Morphine Sulfate 2 MG/ML SYRINGE IVP ONE (20:22)
[2021-10-15] MEDS ORDERED: Ondansetron 4 MG/2 ML VIAL IVP ONE (20:22)
[2021-10-15] MEDS ORDERED: Isovue-370 500 ML BOTTLE IVP ONE (20:40)
[2021-10-15] MEDS ORDERED: *HR* HYDROmorphone 2 MG/ML SYRINGE IVP ONE (21:31)
[2021-10-15] MEDS ORDERED: Famotidine 20 MG/2 ML VIAL IVP ONE (21:31)
[2021-10-15] MEDS ORDERED: GI Cocktail 40 ML EACH PO ONE (21:59)
[2021-10-15] MEDS ORDERED: Acetaminophen 325 MG TABLET PO PRN (23:07)
[2021-10-15] MEDS ORDERED: *HR* HYDROcodone/Acet 5/325 mg TABLET PO PRN (23:07)
[2021-10-15] MEDS ORDERED: Naloxone 0.4 MG/ML INJ IVP PRN (23:07)
[2021-10-15] MEDS ORDERED: Melatonin 3 MG TABLET PO PRN (23:07)
[2021-10-15] MEDS ORDERED: Warfarin perPT PO PRN (23:24)
[2021-10-15] MEDS: *HR* OxyCODONE Immed Rel 5 MG TABLET PO PRN (23:52)
[2021-10-15] MEDS: *HR* Enoxaparin 120 MG/0.8 ML SYRINGE SQ SCH (23:53)
[2021-10-16 01:02] LABS: Basophils % 0.8 %; Eosinophils # 0.1 K/mcL (0.0-0.6); Hematocrit 32.5 % (35.3-44.9); Hemoglobin 10.1 g/dL (11.5-15.4); Immature Granulocytes % 0.4 % (0-4); Lymphocytes # 1.4 K/mcL (0.6-4.6); Lymphocytes % 28.4 %; Mean Corpuscular HGB Conc 31.1 g/dL (31.6-35.5); Mean Corpuscular Hemoglobin 29.7 pg (28.0-33.3); Mean Corpuscular Volume 95.6 fL (83.0-100.0); Mean Platelet Volume 9.4 fL (9.4-12.4); Monocytes # 0.6 K/mcL (0.0-1.3); Monocytes % 11.6 %; Neutrophils # 2.8 K/mcL (1.6-8.9); Platelet Count 267 K/mcL (140-400); Red Cell Distribution Width 13.9 % (11.5-14.5); Segmented Neutrophils % 56.8 %
[2021-10-16 01:15] LABS: INR 1.1; Prothrombin Time 12.6 Seconds (9.4-12.1)
[2021-10-16 01:20] LABS: Alanine Aminotransferase 159 Units/L (7-52); Albumin 3.8 g/dL (3.5-5.7); Albumin/Globulin Ratio 1.3 (1.1-2.2); Alkaline Phosphatase 174 Units/L (34-104); Aspartate Amino Transferase 408 Units/L (13-39); BUN/Creatinine Ratio 20 (6-26); Bilirubin,Total 0.7 mg/dL (0.3-1.0); Blood Urea Nitrogen 14 mg/dL (6-20); Calcium 8.6 mg/dL (8.6-10.3); Carbon Dioxide 28 mEq/L (23-29); Chloride 102 mEq/L (98-107); Globulin 2.9 g/dL (2.4-3.5); Glucose 114 mg/dL (70-105); Osmolality,Calculated 285 (280-300); Sodium 137 mEq/L (136-145); Total Protein 6.7 g/dL (6.4-8.9); eGFR For African Americans > 60 (> 60); eGFR For Non-African Americans > 60 (> 60)
[2021-10-16] MEDS: *HR* Promethazine 25 MG/ML VIAL IM PRN (02:53)
[2021-10-16] MEDS ORDERED: Isovue-370 500 ML BOTTLE IVP ONE (05:07)
[2021-10-16] MEDS: Pantoprazole 40 MG VIAL IVP SCH ×2 (05:42→17:05)
[2021-10-16] MEDS: *HR* Enoxaparin 120 MG/0.8 ML SYRINGE SQ SCH ×2 (09:02→21:11)
[2021-10-16] MEDS: *HR* OxyCODONE Immed Rel 5 MG TABLET PO PRN ×3 (09:04→17:16)
[2021-10-16] MEDS ORDERED: *HR* HYDROmorphone (PF) 1 MG/ML SYRINGE IVP ONE (11:19)
[2021-10-16] MEDS: Ondansetron 4 MG/2 ML VIAL IVP PRN (17:04)
[2021-10-16] MEDS ORDERED: *HR* HYDROmorphone 2 MG/ML SYRINGE IVP ONE (18:12)
[2021-10-16] MEDS: Gabapentin 300 MG CAPSULE PO SCH (21:11)
[2021-10-16] MEDS: lamoTRIgine 100 MG TABLET PO SCH (21:11)
[2021-10-16] MEDS: rOPINIRole 1 MG TABLET PO SCH (21:11)
[2021-10-17] MEDS: *HR* OxyCODONE Immed Rel 5 MG TABLET PO PRN ×4 (02:45→19:27)
[2021-10-17 05:27] LABS: Hematocrit 32.6 % (35.3-44.9); Hemoglobin 10.2 g/dL (11.5-15.4); Immature Granulocytes % 0.5 % (0-4); Mean Corpuscular HGB Conc 31.3 g/dL (31.6-35.5); Mean Corpuscular Volume 95.9 fL (83.0-100.0); Mean Platelet Volume 9.7 fL (9.4-12.4); Monocytes # 0.2 K/mcL (0.0-1.3); Monocytes % 8.8 %; Neutrophils # 1.2 K/mcL (1.6-8.9); Platelet Count 253 K/mcL (140-400); Red Cell Distribution Width 14.1 % (11.5-14.5); Segmented Neutrophils % 60.7 %
[2021-10-17 05:36] LABS: Lymphocytes # 0.5 K/mcL (0.6-4.6)
[2021-10-17 05:40] LABS: INR 1.4; Prothrombin Time 15.6 Seconds (9.4-12.1)
[2021-10-17] MEDS: Pantoprazole 40 MG VIAL IVP SCH ×2 (05:43→17:32)
[2021-10-17 05:45] LABS: BUN/Creatinine Ratio 15 (6-26); Blood Urea Nitrogen 8 mg/dL (6-20); Calcium 8.8 mg/dL (8.6-10.3); Carbon Dioxide 29 mEq/L (23-29); Chloride 99 mEq/L (98-107); Glucose 108 mg/dL (70-105); Osmolality,Calculated 279 (280-300); Potassium 4.5 mEq/L (3.5-5.1); Sodium 135 mEq/L (136-145); eGFR For African Americans > 60 (> 60); eGFR For Non-African Americans > 60 (> 60)
[2021-10-17] MEDS: *HR* Enoxaparin 120 MG/0.8 ML SYRINGE SQ SCH ×2 (09:17→19:27)
[2021-10-17] MEDS: FLUoxetine 20 MG CAPSULE PO SCH (09:18)
[2021-10-17] MEDS: Ondansetron 4 MG/2 ML VIAL IVP PRN (09:23)
[2021-10-17 11:14] LABS: Alanine Aminotransferase 485 Units/L (7-52); Albumin 3.7 g/dL (3.5-5.7); Albumin/Globulin Ratio 1.3 (1.1-2.2); Alkaline Phosphatase 302 Units/L (34-104); Aspartate Amino Transferase 447 Units/L (13-39); Bilirubin,Direct 0.4 mg/dL (0.0-0.2); Bilirubin,Indirect 0.4 mg/dL (0.0-1.0); Bilirubin,Total 0.8 mg/dL (0.3-1.0); Globulin 2.8 g/dL (2.4-3.5); Total Protein 6.5 g/dL (6.4-8.9)
[2021-10-17 12:07] LABS: Hepatitis B Surface Antigen Nonreactive (Nonreactive)
[2021-10-17 12:35] LABS: Hepatitis C Virus Antibody Nonreactive (Nonreactive)
[2021-10-17 12:37] LABS: Hepatitis A Antibody IgM Nonreactive (Nonreactive)
[2021-10-17] MEDS: *HR* Promethazine 25 MG/ML VIAL IM PRN (15:15)
[2021-10-17] MEDS: Gabapentin 300 MG CAPSULE PO SCH (19:27)
[2021-10-17] MEDS: lamoTRIgine 100 MG TABLET PO SCH (19:27)
[2021-10-17] MEDS: rOPINIRole 1 MG TABLET PO SCH (19:28)
[2021-10-18] MEDS: *HR* OxyCODONE Immed Rel 5 MG TABLET PO PRN ×4 (03:15→18:25)
[2021-10-18] MEDS: Pantoprazole 40 MG VIAL IVP SCH ×2 (04:57→18:25)
[2021-10-18 07:10] LABS: INR 1.6; Prothrombin Time 17.3 Seconds (9.4-12.1)
[2021-10-18 09:02] LABS: Alanine Aminotransferase 326 Units/L (7-52); Albumin 3.9 g/dL (3.5-5.7); Albumin/Globulin Ratio 1.4 (1.1-2.2); Alkaline Phosphatase 272 Units/L (34-104); Aspartate Amino Transferase 161 Units/L (13-39); BUN/Creatinine Ratio 12 (6-26); Bilirubin,Total 0.5 mg/dL (0.3-1.0); Blood Urea Nitrogen 7 mg/dL (6-20); Calcium 8.8 mg/dL (8.6-10.3); Carbon Dioxide 30 mEq/L (23-29); Chloride 100 mEq/L (98-107); Globulin 2.7 g/dL (2.4-3.5); Glucose 88 mg/dL (70-105); Magnesium 1.7 mg/dL (1.6-2.6); Osmolality,Calculated 281 (280-300); Phosphorous 3.6 mg/dL (2.7-4.5); Sodium 137 mEq/L (136-145); Total Protein 6.6 g/dL (6.4-8.9); eGFR For African Americans > 60 (> 60); eGFR For Non-African Americans > 60 (> 60)
[2021-10-18 09:21] LABS: Basophils % 0.7 %; Eosinophils # 0.1 K/mcL (0.0-0.6); Eosinophils % 3.7 %; Immature Granulocytes % 0.7 % (0-4); Lymphocytes # 1.2 K/mcL (0.6-4.6); Lymphocytes % 38.9 %; Mean Corpuscular HGB Conc 32.4 g/dL (31.6-35.5); Mean Corpuscular Volume 95.8 fL (83.0-100.0); Mean Platelet Volume 9.3 fL (9.4-12.4); Monocytes # 0.4 K/mcL (0.0-1.3); Monocytes % 13.2 %; Neutrophils # 1.3 K/mcL (1.6-8.9); Platelet Count 267 K/mcL (140-400); Red Blood Count 3.55 M/mcL (3.82-4.97); Red Cell Distribution Width 14.2 % (11.5-14.5); Segmented Neutrophils % 42.8 %
[2021-10-18] MEDS: FLUoxetine 20 MG CAPSULE PO SCH (10:08)
[2021-10-18] MEDS: *HR* Enoxaparin 120 MG/0.8 ML SYRINGE SQ SCH ×2 (10:22→20:30)
[2021-10-18] MEDS: Ondansetron 4 MG/2 ML VIAL IVP PRN (14:07)
[2021-10-18] MEDS: *HR* Promethazine 25 MG/ML VIAL IM PRN (16:49)
[2021-10-18] MEDS ORDERED: *HR* HYDROmorphone 2 MG TABLET PO ONE (20:17)
[2021-10-18] MEDS: Gabapentin 300 MG CAPSULE PO SCH (20:29)
[2021-10-18] MEDS: rOPINIRole 1 MG TABLET PO SCH (20:30)
[2021-10-18] MEDS: lamoTRIgine 100 MG TABLET PO SCH (20:30)
[2021-10-19 01:46] LABS: Alanine Aminotransferase 250 Units/L (7-52); Albumin 3.8 g/dL (3.5-5.7); Albumin/Globulin Ratio 1.3 (1.1-2.2); Alkaline Phosphatase 246 Units/L (34-104); Aspartate Amino Transferase 87 Units/L (13-39); BUN/Creatinine Ratio 11 (6-26); Bilirubin,Total 0.4 mg/dL (0.3-1.0); Blood Urea Nitrogen 8 mg/dL (6-20); Calcium 8.8 mg/dL (8.6-10.3); Carbon Dioxide 31 mEq/L (23-29); Chloride 100 mEq/L (98-107); Globulin 2.9 g/dL (2.4-3.5); Glucose 143 mg/dL (70-105); Hematocrit 33.9 % (35.3-44.9); Hemoglobin 10.9 g/dL (11.5-15.4); Magnesium 1.8 mg/dL (1.6-2.6); Mean Corpuscular HGB Conc 32.2 g/dL (31.6-35.5); Mean Corpuscular Hemoglobin 30.8 pg (28.0-33.3); Mean Corpuscular Volume 95.8 fL (83.0-100.0); Mean Platelet Volume 9.3 fL (9.4-12.4); Osmolality,Calculated 285 (280-300); Phosphorous 4.2 mg/dL (2.7-4.5); Platelet Count 273 K/mcL (140-400); Potassium 3.8 mEq/L (3.5-5.1); Red Blood Count 3.54 M/mcL (3.82-4.97); Red Cell Distribution Width 14.2 % (11.5-14.5); Sodium 137 mEq/L (136-145); Total Protein 6.7 g/dL (6.4-8.9); White Blood Count 3.8 K/mcL (4.3-11.1); eGFR For African Americans > 60 (> 60); eGFR For Non-African Americans > 60 (> 60)
[2021-10-19 01:48] LABS: INR 1.4; Prothrombin Time 15.1 Seconds (9.4-12.1)
[2021-10-19] MEDS ORDERED: *HR* HYDROmorphone 2 MG TABLET PO ONE (03:07)
[2021-10-19 03:41] LABS: Eosinophils # 0.1 K/mcL (0.0-0.6); Lymphocytes # 1.2 K/mcL (0.6-4.6); Monocytes # 0.4 K/mcL (0.0-1.3); Neutrophils # 2.1 K/mcL (1.6-8.9); Platelet Estimate Normal (Normal)
[2021-10-19] MEDS: Pantoprazole 40 MG VIAL IVP SCH ×2 (05:58→18:56)
[2021-10-19] MEDS ORDERED: *HR* FentaNYL (PF) 100 MCG/2 ML VIAL ONE (07:16)
[2021-10-19] MEDS ORDERED: *HR* Midazolam HCl 5 MG/5 ML VIAL IVP ONE ×2 (07:16→07:20)
[2021-10-19] MEDS ORDERED: Tetracaine/Benzocaine/Butamben 1 SPRAY AEROSOL MM ONE (07:20)
[2021-10-19] MEDS ORDERED: *HR* FentaNYL (PF) 100 MCG/2 ML VIAL IVP ONE (07:20)
[2021-10-19] MEDS: FLUoxetine 20 MG CAPSULE PO SCH (10:01)
[2021-10-19] MEDS: Ondansetron 4 MG/2 ML VIAL IVP PRN (10:02)
[2021-10-19] MEDS: *HR* Enoxaparin 120 MG/0.8 ML SYRINGE SQ SCH (10:02)
[2021-10-19] MEDS: *HR* OxyCODONE Immed Rel 5 MG TABLET PO PRN ×2 (10:03→15:15)
[2021-10-19 15:11] VITALS: BP 107/70; PULSE 68; TEMP 97.4; O2SAT 99
[2021-10-19] MEDS ORDERED: *HR* Warfarin 3 MG TABLET PO ONE (18:00)
== END 2021-10-19 19:27 | disposition home or self-care (01) | DRG 392 ==
LOC: EMEROOARM 18:06 → 3BNU 18:06 → SUATTDRO 22:49 → 3BNU 23:11
PROVIDERS: ADMIT Internal Medicine; ATTEND Internal Medicine

== ENCOUNTER 2022-02-28 17:35 | Observation (INO) ==
[2022-02-28] MEDS ORDERED: Aspirin 325 MG TABLET PO ONE (19:37)
[2022-02-28] MEDS ORDERED: Ondansetron 4 MG/2 ML VIAL IVP ONE (19:50)
[2022-02-28] MEDS: Nitroglycerin 0.4 MG TAB.SUBL SL SCH ×3 (20:19→23:06)
[2022-02-28 20:32] LABS: Basophils % 0.8 %; Eosinophils # 0.1 K/mcL (0.0-0.6); Eosinophils % 3.3 %; Hematocrit 36.4 % (35.3-44.9); Hemoglobin 11.6 g/dL (11.5-15.4); Lymphocytes # 1.3 K/mcL (0.6-4.6); Lymphocytes % 32.8 %; Mean Corpuscular HGB Conc 31.9 g/dL (31.6-35.5); Mean Corpuscular Hemoglobin 31.1 pg (28.0-33.3); Mean Corpuscular Volume 97.6 fL (83.0-100.0); Mean Platelet Volume 9.2 fL (9.4-12.4); Monocytes # 0.4 K/mcL (0.0-1.3); Monocytes % 10.9 %; Neutrophils # 2.1 K/mcL (1.6-8.9); Platelet Count 204 K/mcL (140-400); Red Blood Count 3.73 M/mcL (3.82-4.97); Red Cell Distribution Width 14.5 % (11.5-14.5); Segmented Neutrophils % 52.2 %; White Blood Count 3.9 K/mcL (4.3-11.1)
[2022-02-28 20:55] LABS: BUN/Creatinine Ratio 12 (6-26); Blood Urea Nitrogen 9 mg/dL (6-20); Calcium 8.9 mg/dL (8.6-10.3); Carbon Dioxide 31 mEq/L (23-29); Chloride 101 mEq/L (98-107); Glucose 89 mg/dL (70-105); Osmolality,Calculated 284 (280-300); Potassium 3.6 mEq/L (3.5-5.1); Sodium 138 mEq/L (136-145); eGFR For African Americans > 60 (> 60); eGFR For Non-African Americans > 60 (> 60)
[2022-02-28 20:56] LABS: Troponin I < 0.03 ng/mL (< 0.04)
[2022-02-28] MEDS ORDERED: *HR* FentaNYL (PF) 100 MCG/2 ML VIAL IVP ONE (23:39)
[2022-03-01] MEDS ORDERED: Ondansetron 4 MG/2 ML VIAL IVP PRN (00:52)
[2022-03-01] MEDS ORDERED: Melatonin 3 MG TABLET PO PRN (00:52)
[2022-03-01] MEDS ORDERED: Naloxone 0.4 MG/ML INJ IVP PRN (00:52)
[2022-03-01] MEDS ORDERED: 0.9 % Sodium Chloride 1,000 ML IVC SCH (01:45)
[2022-03-01] MEDS ORDERED: Iopamidol - 370 500 ML MLS IVP ONE ×2 (01:48→03:48)
[2022-03-01] MEDS: Morphine Sulfate 2 MG/ML SYRINGE IVP PRN ×5 (02:15→20:41)
[2022-03-01 02:58] LABS: Basophils % 0.6 %; Eosinophils # 0.1 K/mcL (0.0-0.6); Eosinophils % 3.5 %; Hematocrit 33.6 % (35.3-44.9); Hemoglobin 10.8 g/dL (11.5-15.4); Immature Granulocytes % 0.3 % (0-4); Lymphocytes # 1.4 K/mcL (0.6-4.6); Lymphocytes % 43.9 %; Mean Corpuscular HGB Conc 32.1 g/dL (31.6-35.5); Mean Corpuscular Hemoglobin 31.6 pg (28.0-33.3); Mean Corpuscular Volume 98.2 fL (83.0-100.0); Mean Platelet Volume 9.3 fL (9.4-12.4); Monocytes # 0.3 K/mcL (0.0-1.3); Monocytes % 9.7 %; Neutrophils # 1.3 K/mcL (1.6-8.9); Platelet Count 182 K/mcL (140-400); Red Blood Count 3.42 M/mcL (3.82-4.97); Red Cell Distribution Width 14.5 % (11.5-14.5); White Blood Count 3.1 K/mcL (4.3-11.1)
[2022-03-01 03:15] LABS: INR 1.1
[2022-03-01 03:17] LABS: Alanine Aminotransferase 236 Units/L (7-52); Albumin 3.8 g/dL (3.5-5.7); Albumin/Globulin Ratio 1.5 (1.1-2.2); Alkaline Phosphatase 321 Units/L (34-104); Aspartate Amino Transferase 191 Units/L (13-39); BUN/Creatinine Ratio 13 (6-26); Bilirubin,Total 0.9 mg/dL (0.3-1.0); Blood Urea Nitrogen 9 mg/dL (6-20); Calcium 8.5 mg/dL (8.6-10.3); Carbon Dioxide 30 mEq/L (23-29); Chloride 101 mEq/L (98-107); Globulin 2.6 g/dL (2.4-3.5); Glucose 91 mg/dL (70-105); Magnesium 1.8 mg/dL (1.6-2.6); Osmolality,Calculated 282 (280-300); Phosphorous 4.1 mg/dL (2.7-4.5); Potassium 3.4 mEq/L (3.5-5.1); Sodium 137 mEq/L (136-145); Total Protein 6.4 g/dL (6.4-8.9); Troponin I < 0.03 ng/mL (< 0.04); eGFR For African Americans > 60 (> 60); eGFR For Non-African Americans > 60 (> 60)
[2022-03-01] MEDS ORDERED: *HR* Heparin 5,000 UNIT/ML VIAL IVP ONE (03:38)
[2022-03-01] MEDS ORDERED: *HR* Heparin 5,000 UNIT/ML VIAL IVP PRN ×2 (03:38)
[2022-03-01] MEDS ORDERED: Heparin 25,000UNIT/250ML 1/2NS 25,000 UNIT/250 ML IV.SOLN IVC SCH (03:45)
[2022-03-01 03:52] LABS: Hypochromasia Present (Not Present); Platelet Estimate Normal (Normal)
[2022-03-01] MEDS ORDERED: cephALEXin 500 MG CAPSULE PO SCH ×2 (04:00→04:30)
[2022-03-01 05:05] LABS: Prothrombin Time 11.5 Seconds (9.4-12.1)
[2022-03-01 05:06] LABS: Heparin anti-factor XA UFH < 0.04 IU/mL (0.30-0.70)
[2022-03-01] MEDS ORDERED: Regadenoson 0.4 MG/5 ML SYRINGE IVP ONE (06:32)
[2022-03-01] MEDS: cephALEXin 500 MG CAPSULE PO SCH ×3 (14:34→20:45)
[2022-03-01] MEDS ORDERED: methocarbamoL 500 MG TABLET PO PRN (15:54)
[2022-03-01] MEDS ORDERED: clonazePAM 0.5 MG TABLET PO PRN (15:54)
[2022-03-01] MEDS ORDERED: *HR* Warfarin 5 MG TABLET PO ONE (18:00)
[2022-03-01] MEDS ORDERED: Warfarin perPT PO PRN (18:00)
[2022-03-01] MEDS ORDERED: rOPINIRole 1 MG TABLET PO SCH (21:00)
[2022-03-01] MEDS ORDERED: lamoTRIgine 100 MG TABLET PO SCH (21:00)
[2022-03-01] MEDS ORDERED: Gabapentin 300 MG CAPSULE PO SCH (21:00)
[2022-03-02 02:27] LABS: Prothrombin Time 10.7 Seconds (9.4-12.1)
[2022-03-02] MEDS: Morphine Sulfate 2 MG/ML SYRINGE IVP PRN (03:33)
[2022-03-02 07:32] VITALS: BP 136/87; PULSE 74; TEMP 98.2; O2SAT 93
[2022-03-02] MEDS: cephALEXin 500 MG CAPSULE PO SCH ×2 (08:23→11:54)
[2022-03-02] MEDS ORDERED: Folic Acid 1 MG TABLET PO SCH (09:00)
[2022-03-02] MEDS ORDERED: Cholecalciferol (D-3) 1,000 UNIT (25MCG) TABLET PO SCH (09:00)
[2022-03-02] MEDS ORDERED: FLUoxetine 20 MG CAPSULE PO SCH (09:00)
[2022-03-02] MEDS ORDERED: Magnesium Oxide 400 MG TABLET PO SCH (09:00)
[2022-03-02 10:10] LABS: BUN/Creatinine Ratio 13 (6-26); Blood Urea Nitrogen 9 mg/dL (6-20); Calcium 8.5 mg/dL (8.6-10.3); Carbon Dioxide 30 mEq/L (23-29); Chloride 104 mEq/L (98-107); Glucose 101 mg/dL (70-105); Osmolality,Calculated 287 (280-300); Potassium 3.8 mEq/L (3.5-5.1); Sodium 139 mEq/L (136-145); eGFR For African Americans > 60 (> 60); eGFR For Non-African Americans > 60 (> 60)
== END 2022-03-02 12:49 | disposition home or self-care (01) ==
LOC: EMEROOARM 17:35 → 2ANU 17:35
PROVIDERS: ADMIT Family Medicine; ATTEND Family Medicine